=== PATIENT | female | born 1975 | race Caucasian/White ===

== ENCOUNTER 2018-05-06 10:09 | Emergency (ER) | payer MEDICAID, SELFPAY ==
[2018-05-06 10:12] VITALS: BP 131/81; PULSE 102; RESP 17; TEMP 36.4; O2SAT 100; BMI 30.2
--- NOTE | 2018-05-06 10:32 | ED.VISSUMM ---
- ER Visit Summary Date of Service: 05/06/18 Chief Complaint: Right ring finger laceration History of Present Illness: The patient is a 42 F who cut her right ring finger on a knife today. Patient reports having had a tetanus 3 years ago. Physical Examination: Afebrile vital signs stable 2 cm partial-thickness laceration to the palmar aspect of the distal right ring finger. Wound edges are well approximated. There is no active bleeding. Neurovascular intact. Emergency Department Course and Treatment: Digital block with 1% lidocaine was performed. Wound was washed and closed with Dermabond. Wound care discussed with patient. Impression: 1. 2 cm finger laceration with repair This note was generated with [employer] dictation software. It may contain incorrect words, spelling, and punctuation that were not noted in review of the chart prior to signing ED Disposition - Plan for ED Patient: Disposition: Home or Assisted Living Chief Complaint: Laceration Instructions: ED Laceration Ext Skin Glue
--- NOTE | 2018-05-06 10:50 | ED.DCSUM_ITS ---
- ER Visit Summary Date of Service: 05/06/18 Chief Complaint: Right ring finger laceration History of Present Illness: The patient is a 42 F who cut her right ring finger on a knife today. Patient reports having had a tetanus 3 years ago. Physical Examination: Afebrile vital signs stable 2 cm partial-thickness laceration to the palmar aspect of the distal right ring finger. Wound edges are well approximated. There is no active bleeding. Neurovascular intact. Emergency Department Course and Treatment: Digital block with 1% lidocaine was performed. Wound was washed and closed with Dermabond. Wound care discussed with patient. Impression: 1. 2 cm finger laceration with repair This note was generated with [employer] dictation software. It may contain incorrect words, spelling, and punctuation that were not noted in review of the chart prior to signing ED Disposition - Plan for ED Patient: Disposition: Home or Assisted Living Chief Complaint: Laceration Instructions: ED Laceration Ext Skin Glue
== END 2018-05-06 11:10 | disposition home or self-care (01) ==
PROVIDERS: Emergency Provider Emergency Medicine
DX: S61.214A Laceration without foreign body of right ring finger without damage to nail, initial encounter (principal); F32.9 Major depressive disorder, single episode, unspecified; Z79.899 Other long term (current) drug therapy; W26.0XXA Contact with knife, initial encounter; Y93.89 Activity, other specified; Y92.89 Other specified places as the place of occurrence of the external cause; Y99.8 Other external cause status
CPT/HCPCS: 12001; 99282

== ENCOUNTER 2018-08-08 19:49 | Emergency (ER) | payer MEDICAID, SELFPAY ==
[2018-08-08 19:50] VITALS: BP 147/88; PULSE 94; RESP 15; TEMP 36.3; O2SAT 97; BMI 30.7
--- NOTE | 2018-08-08 20:42 | RAD_ITS ---
STUDY: X-RAY - LEFT HAND REASON FOR EXAM: Female, 43 years old. Nail injury. Pain. TECHNIQUE: Three view(s) of the hand. COMPARISON: None. FINDINGS: Bones: There are no acute osseous abnormalities. Joints: The joints are unremarkable. Soft tissues: The soft tissues are unremarkable. Foreign body: None RAD/Hand Min 3 Views IMPRESSION: No acute abnormalities are seen in the hand. Electronically Signed: Trevon Ames MD at 21:42 EDT , Service support ,
[2018-08-08] MEDS: oxyCODONE 5 MG Tablet PO (21:00)
--- NOTE | 2018-08-08 21:48 | ED.VISSUMM ---
- ER Visit Summary Date of Service: 08/08/18 Chief Complaint: Left middle finger injury History of Present Illness: The patient is a 43 F presenting with left middle finger injury. She states this occurred yesterday. She got her left middle finger nail caught on a nail. Today she caught her nail again and snagged it. Her tetanus is up-to-date. She denies other injuries. Physical Examination: Vitals are stable. Patient is afebrile. Alert no acute distress. HEENT exam is unremarkable. Lungs are clear and equal bilaterally. Heart is regular rate and rhythm. Abdomen is soft nontender nondistended. Extremities mid nail crack left middle finger. No subungal hematoma. AFROM. Normal cap refill Skin is warm and dry. No focal neurologic deficit. Remainder of exam is unremarkable. Emergency Department Course and Treatment: Her tetanus is up-to-date. She was given [place] x1. Left hand x-ray shows no acute process. Wound was covered for protection. Advised to follow-up with primary care physician. Advised return to ED for worsening complaints. Disposition: Discharge home Impression: Left middle finger injury This note was generated with [employer] dictation software. It may contain incorrect words, spelling, and punctuation that were not noted in review of the chart prior to signing ED Disposition - Plan for ED Patient: Chief Complaint: Laceration Referrals: Care Physician,No Primary [Primary Care Provider] -
--- NOTE | 2018-08-08 21:51 | ED.DCSUM_ITS ---
- ER Visit Summary Date of Service: 08/08/18 Chief Complaint: Left middle finger injury History of Present Illness: The patient is a 43 F presenting with left middle finger injury. She states this occurred yesterday. She got her left middle finger nail caught on a nail. Today she caught her nail again and snagged it. Her tetanus is up-to-date. She denies other injuries. Physical Examination: Vitals are stable. Patient is afebrile. Alert no acute distress. HEENT exam is unremarkable. Lungs are clear and equal bilaterally. Heart is regular rate and rhythm. Abdomen is soft nontender nondistended. Extremities mid nail crack left middle finger. No subungal hematoma. AFROM. Normal cap refill Skin is warm and dry. No focal neurologic deficit. Remainder of exam is unremarkable. Emergency Department Course and Treatment: Her tetanus is up-to-date. She was given [place] x1. Left hand x-ray shows no acute process. Wound was covered for protection. Advised to follow-up with primary care physician. Advised return to ED for worsening complaints. Disposition: Discharge home Impression: Left middle finger injury This note was generated with [employer] dictation software. It may contain incorrect words, spelling, and punctuation that were not noted in review of the chart prior to signing ED Disposition - Plan for ED Patient: Chief Complaint: Laceration Referrals: Care Physician,No Primary [Primary Care Provider] -
--- NOTE | 2018-08-08 21:58 | ED.DEP ---
ED Disposition - Plan for ED Patient: Chief Complaint: Laceration Instructions: ED Laceration Hand Prescriptions: Naproxen [Naprosyn] 500 mg PO BID PRN #20 tablet Referrals: Care Physician,No Primary [Primary Care Provider] - Luis Franklin MD [STAFF PHYSICIAN] -
[2018-08-08 22:07] VITALS: RESP 14
== END 2018-08-08 22:07 | disposition home or self-care (01) ==
LOC: ED 20:43
PROVIDERS: Emergency Provider Emergency Medicine
DX: S69.92XA Unspecified injury of left wrist, hand and finger(s), initial encounter (principal); Z79.899 Other long term (current) drug therapy; X58.XXXA Exposure to other specified factors, initial encounter; Y93.89 Activity, other specified; Y92.89 Other specified places as the place of occurrence of the external cause; Y99.8 Other external cause status
CPT/HCPCS: 73130; 99283

== ENCOUNTER 2018-11-15 19:09 | Emergency (ER) | payer MEDICAID, SELFPAY ==
[2018-11-15 19:11] VITALS: BP 124/76; PULSE 82; RESP 17; TEMP 36.3; O2SAT 100; BMI 33.1
--- NOTE | 2018-11-15 20:30 | ED.VISSUMM ---
- ER Visit Summary Date of Service: 11/15/18 Chief Complaint: Rash History of Present Illness: The patient is a 43 F who presents with a generalized rash for the past month. Patient states her and her both have had this rash for the past month. Patient states she was treated for scabies. Patient states the rash is pruritic and generalized from the neck down. Patient states the pruritus improves after scratching. Patient denies any new exposures. Patient states she has been washing her clothes and bed sheets frequently patient states she did change laundry detergents approximately a month and a half ago but then switched back to the previous laundry detergent. Physical Examination: Vital signs are stable. Patient is afebrile. Patient is in no acute distress. Skin is warm and dry. There is a diffuse erythematous maculopapular rash over the trunk, upper extremities, and lower extremities bilaterally. Oral mucosa is pink and moist. Oropharynx is clear. Airway is patent. Neck is supple. Trachea is midline. There is no JVD noted. Heart was regular rate and rhythm. Lungs are clear and equal bilaterally. Abdomen is soft and nontender. Cranial nerves II through XII are intact. There are no focal motor or sensory deficits noted. Emergency Department Course and Treatment: Patient was given prescriptions for Atarax and prednisone. Patient was instructed to follow-up with her primary care physician in 5-7 days. Patient understood and was agreeable with the plan. All questions were answered. Disposition: Discharge home Impression: Dermatitis This note was generated with [employer] [facility] [place] dictation software. It may contain incorrect words, spelling, and punctuation that were not noted in review of the chart prior to signing ED Disposition - Plan for ED Patient: Disposition: Home or Assisted Living Chief Complaint: Rash Diagnosis: Dermatitis Instructions: ED Dermatitis Non Specific Rash Prescriptions: Hydroxyzine HCl 25 mg PO Q8H PRN PRN #20 tab PRN Reason: Itching predniSONE tablet 60 mg PO DAILY #15 tab Referrals: Care Physician,No Primary [Primary Care Provider] -
[2018-11-15 20:45] VITALS: RESP 18
== END 2018-11-15 20:46 | disposition home or self-care (01) ==
PROVIDERS: Emergency Provider Emergency Medicine
DX: L30.9 Dermatitis, unspecified (principal); F41.9 Anxiety disorder, unspecified; F32.9 Major depressive disorder, single episode, unspecified; Z85.41 Personal history of malignant neoplasm of cervix uteri; Z79.899 Other long term (current) drug therapy
CPT/HCPCS: 99282

== ENCOUNTER 2018-11-21 19:24 | Emergency (ER) | payer MEDICAID, SELFPAY ==
[2018-11-21 19:27] VITALS: BP 125/91; PULSE 89; RESP 20; TEMP 36.7; O2SAT 96; BMI 32.9
--- NOTE | 2018-11-21 19:45 | EKG12_ITS ---
Test Reason : HEADACHE Blood Pressure : / mmHG Vent. Rate : 082 BPM Atrial Rate : 082 BPM P-R Int : 120 ms QRS Dur : 088 ms QT Int : 368 ms P-R-T Axes : 036 031 046 degrees QTc Int : 429 ms Normal sinus rhythm Normal ECG Confirmed by ANN BAER MD ([id number]), subeditor BEN GARZA ([id number]) on 11/23/2018 1:07:59 PM Referred By: CHRISTOPHE Confirmed By:ANN BAER MD
[2018-11-21] MEDS: 0.9% Normal Saline 1,000 ML 1000 ML IV (20:08)
[2018-11-21] MEDS: Morphine 4 MG/ML Syringe IV (20:08)
[2018-11-21] MEDS: Ondansetron 4 MG/2 ML Vial IV (20:08)
--- NOTE | 2018-11-21 20:10 | RAD_ITS ---
STUDY: X-RAY CHEST REASON FOR EXAM: Female, 43 years old. Chest pain. Nausea and vomiting. TECHNIQUE: Single AP portable view of the chest. COMPARISON: 11/05/17. FINDINGS: The lungs are clear and expanded. There is no demonstrated pleural abnormality. Normal size heart. Normal mediastinum and joann. Normal visualized pulmonary arteries. Normal visualized aortic arch and descending thoracic aorta. Normal visualized thoracic spine. Normal visualized ribs, clavicles, and shoulders. There is no demonstrated abnormality of the visualized soft tissue structures of the upper abdomen. RAD/Chest 1 View (Portable) IMPRESSION: Normal x-ray examination of the chest. Electronically Signed: Montrell Latif MD at 20:48 EST , Service support ,
[2018-11-21 20:20] LABS: Absolute Neutrophil Count 10.5 X10^3/uL (2.0-7.7); Basophil% 0.2 % (0-1); Eosinophils% 1.8 % (0-5); Hematocrit 43.7 % (37-47); Hemoglobin 14.9 g/dl (12.0-15.0); Lymphocyte % 7.3 % (19-41); Mean Corp Hgb Conc 34.1 g/gl (32-36); Mean Corpuscular Hgb 32.2 pg (27.0-32.0); Mean Corpuscular Volume 94.4 fL (81-99); Mean Platelet Vol. 8.7 fl (6.2-12.0); Monocyte% 4.5 % (0-10); Neutrophil # 10.47 X10^3/uL (2.7-7.7); Neutrophil % 85.5 % (47-70); Platelet Count 282 K/mm3 (150-450); RBC Distribution Width CV 12.8 % (11.6-14.6); RBC Distribution Width SD 43.4 fl (35.1-43.9); Red Blood Count 4.63 M/mm3 (4.2-5.4); White Blood Count 12.2 K/mm3 (4.4-11.0)
[2018-11-21 20:21] LABS: Absolute Lymphocyte Count 0.89 X10^3/ul (0.83-4.51); Basophil# 0.02 X10^3/uL; Eosinophil# 0.22 X10^3/uL; Lymphocyte # 0.89 X10^3/ul (4.0); Monocyte# 0.55 X10^3/uL; POSITIVE COUNT NO; POSITIVE DIFFERENTIAL NO; POSITIVE MORPHOLOGY NO
[2018-11-21 20:24] LABS: D-Dimer Quantitative (DVT/PE) < 0.27 FEU/ug/m (0.27-0.49)
[2018-11-21 20:36] LABS: ALB/GLOB Ratio 1.2 RATIO (0.9-2.4); AST(SGOT) 17 U/L (15-37); Alanine Aminotransfer ALT/SGPT 51 U/L (13-56); Albumin, Serum 3.9 g/dL (3.2-5.0); Alkaline Phosphatase 50 U/L (45-117); Anion Gap 8 (5-15); BUN 16 mg/dL (7-18); BUN/Creat Ratio 22.2 RATIO (10-20); Calcium,Total 8.1 mg/dL (8.5-10.1); Chloride 104 mmol/L (98-107); Creatinine, Serum 0.72 mg/dL (0.55-1.02); EST Glomerular Filtration Rate 95 mL/min (>60); Est Glom Filt Rate - Afr Amer 115 mL/min (>60); Estimated Creatinine Clearance 99.99 ml/min; Globulin 3.2 g/dL (2.2-4.2); Glucose 93 mg/dL (74-106); Potassium 3.5 mmol/L (3.5-5.1); Protein, Total 7.1 g/dL (6.4-8.2); Sodium Level 139 mmol/L (136-145)
[2018-11-21 20:38] LABS: Mucous, Urine 0 SEEN /hpf (<or=2+); Red Blood Cells-Urine 0 SEEN /hpf (0-5); White Blood Cells 0 SEEN /hpf (0-5)
[2018-11-21 20:40] VITALS: BP 121/66; PULSE 83; RESP 16; O2SAT 100
[2018-11-21 20:44] LABS: Color, Urine Yellow (Yellow); Glucose, Dipstick Normal (Normal); Ketone-Dipstick Negative (Negative); Leukocyte Esterase-Dipstick Negative /ul (Negative); Nitrite-Dipstick Negative (Negative); Occult Blood-Urine Negative /ul (Negative); Protein-Dipstick Negative (Negative); Urine Bilirubin Dipstick Negative (Negative); Urine Clarity Clear (Clear); Urine Urobilinogen Normal (Normal)
[2018-11-21 20:50] LABS: Bacteria RARE /hpf (None Seen); Squamous Epithelial Cells - UA 0-5 SEEN /hpf (5-10)
--- NOTE | 2018-11-21 21:13 | CT_ITS ---
STUDY: CT BRAIN WITH AND WITHOUT CONTRAST REASON FOR EXAM: Female, 43 years old. Pain. RADIATION DOSAGE (If Supplied By Facility): CTDIvol = ( 27.65 ) mGy, DLP = ( 1408.21 ) mGycm TECHNIQUE: Transaxial CT imaging of the brain was performed pre and post contrast administration. The examination was performed with intravenous administration of 100ML ml of Isovue 370 contrast material. Individualized dose optimization techniques were used for this CT. COMPARISON: None. FINDINGS: Normal soft tissue structures. Normal calvarium. Normal size ventricles and extra-axial spaces for the patient's age. Normal white matter tracts of the cerebral hemispheres. Normal basal ganglia and thalami. Normal brainstem. Normal cerebellum. There is no intracranial hemorrhage. There are no findings of an acute ischemic infarction. Normal visualized paranasal sinuses. CT/CTA Head W/WO Contrast IMPRESSION: Normal unenhanced and enhanced CT scan of the brain. Electronically Signed: Montrell Latif MD at 22:14 EST , Service support ,
--- NOTE | 2018-11-21 21:13 | CT_ITS ---
STUDY: CTA NECK WITH CONTRAST REASON FOR EXAM: Female, 43 years old. Head pain. RADIATION DOSAGE (If Supplied By Facility): CTDIvol = ( 27.65 ) mGy, DLP = ( 1408.21 ) mGycm TECHNIQUE: CT angiography with multi-detector data acquisition was performed from the aortic arch to the skull base following intravenous administration of 100ML ml of Isovue 370 contrast. MIP images were reconstructed from the axial data set. Post-processing of the angiographic images was performed, with multiplanar reformation and 3D reconstruction. Individualized dose optimization techniques were used for this CT. COMPARISON: None. FINDINGS: AORTIC ARCH: Normal visualized aortic arch. Normal origins of the brachiocephalic, left common carotid, and left subclavian arteries. RIGHT CAROTID ARTERIES: Normal right common carotid artery (CCA). Normal right common carotid bulb. Normal origin of the right internal carotid (ICA) artery without a hemodynamically significant stenosis. Normal visualized cervical portion of the right internal carotid artery. Normal origin of the right external carotid artery (ECA). LEFT CAROTID ARTERIES: Normal left common carotid artery (CCA). Normal left common carotid bulb. Normal origin of the left internal carotid (ICA) artery without a hemodynamically significant stenosis. Normal visualized cervical portion of the left internal carotid artery. Normal origin of the left external carotid artery (ECA). VERTEBRAL ARTERIES: There is enhancement within the bilateral vertebral arteries with a small right vertebral artery, and a dominant left vertebral artery. CT/CTA Neck W/WO Contrast IMPRESSION: Normal bilateral cervical carotid and vertebral arteries. Electronically Signed: Montrell Latif MD at 22:17 EST , Service support ,
[2018-11-21 21:22] VITALS: BP 128/99; PULSE 78; RESP 16; O2SAT 100
[2018-11-21] MEDS: Metoclopramide 10 MG/2 ML Vial 5 MG IV (21:22)
[2018-11-21] MEDS: DiphenhydrAMINE 50 MG/ML Syringe 25 MG IV (21:22)
--- NOTE | 2018-11-21 22:42 | ED.DEP ---
ED Disposition - Plan for ED Patient: Chief Complaint: General Illness Instructions: ED Cephalgia Unspecified Referrals: Care Physician,No Primary [Primary Care Provider] - Jose J Love DO [STAFF PHYSICIAN] -
--- NOTE | 2018-11-21 22:48 | ED.VISSUMM ---
- ER Visit Summary Date of Service: 11/21/18 Chief Complaint: Headache, chest pain History of Present Illness: The patient is a 43 F presenting with headache, neck pain, chest pain. She also complains of abdominal pain, nausea, vomiting, diarrhea. She denies shortness of breath. She states her neck pain has been ongoing for the past year. She states it worsened today. She denies injury. She denies fever. She states she has pain in her head but no headache. She has a history of cervical cancer in remission. Denies other complaints. Physical Examination: Vitals are stable. Patient is afebrile. Alert no acute distress. HEENT exam is unremarkable. Neck is supple. No meningismus Lungs are clear and equal bilaterally. Heart is regular rate and rhythm. Abdomen is soft nontender nondistended. No guarding or rebound Extremities are unremarkable. Skin is warm and dry. No rash No focal neurologic deficit. Remainder of exam is unremarkable. Emergency Department Course and Treatment: EKG is sinus rate of 82 with no acute ischemic changes. CBC shows white count 12.2. Chemistries are unremarkable. Urinalysis unremarkable. Troponin is negative. D-dimer negative. Chest x-ray shows no acute process. Patient was given IV fluids, morphine, Zofran. she had some improvement. She continues to complain of headache. All of her other symptoms have resolved. She is given Reglan and Benadryl with improvement of her headache. CTA head and neck shows no acute process. She is now resting comfortably. 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 She is advised to return to ED if worsening complaints. Disposition: Discharge home Impression: Headache, atypical chest pain, nausea vomiting diarrhea This note was generated with [employer] dictation software. It may contain incorrect words, spelling, and punctuation that were not noted in review of the chart prior to signing ED Disposition - Plan for ED Patient: Chief Complaint: General Illness Instructions: ED Cephalgia Unspecified Referrals: Jose J Love DO [STAFF PHYSICIAN] - Care Physician,No Primary [Primary Care Provider] -
[2018-11-21 22:59] VITALS: BP 117/68; PULSE 84; RESP 16; O2SAT 99
--- OUTSIDE RECORDS SUMMARY | 2019-01-24 12:19 | XMS RPT_ITS ---
:1975 Author Organization OHIP Care Team Providers Name Role Phone STEVEN EKVIN) Attending Unavailable STEVEN KEVIN) Referring Unavailable Primay Care Physicia, No Primary Care Unavailable Brian Christine Attending Unavailable Primay Care Physicia, No Primary Care Unavailable Savana Acuña Attending Unavailable Corey Hampton Attending Unavailable Primay Care Physicia, No Primary Care Unavailable Primay Care Physicia, No Primary Care Unavailable Savana Acuña Attending Unavailable PROBLEMS PROBLEMS DATE TYPE CONDITION / CODE ATTENDING STATUS SOURCE 12/05/2016 Active Bipolar disorder, NA Active [facility] unspecified / Main [place] F31.9(ICD-10) Repository 02/05/2018 Active Generalized NA Active [facility] anxiety disorder / Main [place] F41.1(ICD-10) Repository PROCEDURES PROCEDURES No Procedure Records FoundRESULTS RESULTS 12 LEAD ELECTROCARDIOGRAM Observed: 11/23/2018 Status: F Source: [place] 1:08 PM [facility] REPOSITORY [facility] Cardiovascular Services [address] [place] [address] 12 Lead EKG 11/21/181951 MR#: [id number] Acct: [id number] Name: ELIECER VENTURA Rep #: [id number] : 1975 43 From: Kishore Padilla MD Attending Dr: Status: DEP ER Ordering Dr: Savana Acuña MD Date: 11/21/18 Location: ED Sex: F C Admitted: Test Reason : HEADACHE Blood Pressure : / mmHG Vent. Rate : 082 BPM Atrial Rate : 082 BPM P-R Int : 120 ms QRS Dur : 088 ms QT Int : 368 ms P-R-T Axes : 036 031 046 degrees QTc Int : 429 ms Normal sinus rhythm Normal ECG Confirmed by KISHORE PADILLA MD ([id number]), purchase request editor BEN GARZA ([id number]) on 11/23/2018 1:07:59 PM Referred By: CHRISTOPHE Confirmed By:KISHORE PADILLA MD 11/23/18 1308 Date Kishore Padilla MD CC: No Primary Care Physician; Savana Acuña MD Signed EMERGENCY DEPARTMENT Observed: 11/21/2018 Status: F Source: DARI[place] SUMMARY 10:55 PM [facility] REPOSITORY [facility] Medical Records Department [address] [place] [address] Emergency Department Summary 11/21/188 MR#: [id number] Acct: [id number] Name: VENTURAELIECER MARI Rep #: [id number] : 1975 43 From: Savana Acuña MD PCP: Care Physician, No Primary Status: REG ER - ER Visit Summary Date of Service: 11/21/18 Chief Complaint: Headache, chest pain History of Present Illness: The patient is a 43 F presenting with headache, neck pain, chest pain. She also complains of abdominal pain, nausea, vomiting, diarrhea. She denies shortness of breath. She states her neck pain has been ongoing for the past year. She states it worsened today. She denies injury. She denies fever. She states she has pain in her head but no headache. She has a history of cervical cancer in remission. Denies other complaints. Physical Examination: Vitals are stable. Patient is afebrile. Alert no acute distress. HEENT exam is unremarkable. Neck is supple. No meningismus Lungs are clear and equal bilaterally. Heart is regular rate and rhythm. Abdomen is soft nontender nondistended. No guarding or rebound Extremities are unremarkable. Skin is warm and dry. No rash No focal neurologic deficit. Remainder of exam is unremarkable. Emergency Department Course and Treatment: EKG is sinus rate of 82 with no acute ischemic changes. CBC shows white count 12.2. Chemistries are unremarkable. Urinalysis unremarkable. Troponin is negative. D-dimer negative. Chest x-ray shows no acute process. Patient was given IV fluids, morphine, Zofran. she had some improvement. She continues to complain of headache. All of her other symptoms have resolved. She is given Reglan and Benadryl with improvement of her headache. CTA head and neck shows no acute process. She is now resting comfortably. She is advised to follow-up with Dr. Love compensation and benefits advisor for no doc. She is advised to return to ED if worsening complaints. Disposition: Discharge home Impression: Headache, atypical chest pain, nausea vomiting diarrhea This note was generated with stylemarks dictation software. It may contain incorrect words, spelling, and punctuation that were not noted in review of the chart prior to signing ED Disposition - Plan for ED Patient: Chief Complaint: General Illness Instructions: ED Cephalgia Unspecified Referrals: Jose J Love, [STAFF PHYSICIAN] - Care Physician,No Primary [Primary Care Provider] - What to do if you have Problems For any increased pain, shortness of breath, bleeding, nausea or vomiting, chest pain, or any unexpected problems, contact your Primary Care Provider. Call [facility] ([phone]) or report to the closest Emergency Room. Call 911 if necessary. 11/21/18 7151 <Electronically signed by Savana Acuña MD> Date Savana Acuña MD Cosigner Signature (If Indicated): Date CC: No Primary Care Physician DISCHARGE INSTRUCTION Observed: 11/21/2018 Status: F Source: [place] 10:42 PM [facility] REPOSITORY [facility] Medical Records Department [address] [place] [address] Discharge Instruction 11/21/182241 MR#: [id number] Acct: [id number] Name: ELIECER VENTURA Rep #: [id number] : 1975 43 From: Savana Acuña MD PCP: Care Physician, No Primary Status: REG ER ED Disposition - Plan for ED Patient: Chief Complaint: General Illness Instructions: ED Cephalgia Unspecified Referrals: Care Physician,No Primary [Primary Care Provider] - Jose J Love, [STAFF PHYSICIAN] - What to do if you have Problems For any increased pain, shortness of breath, bleeding, nausea or vomiting, chest pain, or any unexpected problems, contact your Primary Care Provider. Call [facility] ([phone]) or report to the closest Emergency Room. Call 911 if necessary. 11/21/182241 <Electronically signed by Savana Acuña MD> Date Savana Acuña MD Cosigner Signature (If Indicated): Date CC: No Primary Care Physician CTA HEAD W/WO Observed: 11/21/2018 Status: F Source: [place] CONTRAST 9:15 PM [facility] REPOSITORY [facility] Imaging Services [address] [place] [address] CTA Head W/WO Contrast MR#: [id number] Acct: [id number] Name: ELIECER VENTURA Rep #: [id number] : 1975 F 43 From: Montrell Latif MD PCP: Care Physician, No Primary Status: REG ER Study: CTA Head W/WO Contrast Date of Exam: 11/21/18 Exam# [id number] Ordering Dr: Savana Acuña MD STUDY: CT BRAIN WITH AND WITHOUT CONTRAST REASON FOR EXAM: Female, 43 years old. Pain. RADIATION DOSAGE (If Supplied By Facility): CTDIvol = ( 27.65 ) mGy, DLP = ( 1408.21 ) mGycm TECHNIQUE: Transaxial CT imaging of the brain was performed pre and post contrast administration. The examination was performed with intravenous administration of 100ML ml of Isovue 370 contrast material. Individualized dose optimization techniques were used for this CT. COMPARISON: None. FINDINGS: Normal soft tissue structures. Normal calvarium. Normal size ventricles and extra-axial spaces for the patient's age. Normal white matter tracts of the cerebral hemispheres. Normal basal ganglia and thalami. Normal brainstem. Normal cerebellum. There is no intracranial hemorrhage. There are no findings of an acute ischemic infarction. Normal visualized paranasal sinuses. CT/CTA Head W/WO Contrast IMPRESSION: Normal unenhanced and enhanced CT scan of the brain. Electronically Signed: Montrell Latif MD at 22:14 EST , Service support , CC: No Primary Care Physician; Savana Acuña MD Cook Helper Dessert: Signed CTA NECK W/WO Observed: 11/21/2018 Status: F Source: [place] CONTRAST 9:15 PM [facility] REPOSITORY [facility] Imaging Services [facility] [place] [address] [place] [address] CTA Neck W/WO Contrast MR#: [id number] Acct: [id number] Name: ELIECER VENTURA Rep #: [id number] : 1975 F 43 From: Montrell Latif MD PCP: Care Physician, No Primary Status: REG ER Study: CTA Neck W/WO Contrast Date of Exam: 11/21/18 Exam# [id number] Ordering Dr: Savana Acuña MD STUDY: CTA NECK WITH CONTRAST REASON FOR EXAM: Female, 43 years old. Head pain. RADIATION DOSAGE (If Supplied By Facility): CTDIvol = ( 27.65 ) mGy, DLP = ( 1408.21 ) mGycm TECHNIQUE: CT angiography with multi-detector data acquisition was performed from the aortic arch to the skull base following intravenous administration of 100ML ml of Isovue 370 contrast. MIP images were reconstructed from the axial data set. Post-processing of the angiographic images was performed, with multiplanar reformation and 3D reconstruction. Individualized dose optimization techniques were used for this CT. COMPARISON: None. FINDINGS: AORTIC ARCH: Normal visualized aortic arch. Normal origins of the brachiocephalic, left common carotid, and left subclavian arteries. RIGHT CAROTID ARTERIES: Normal right common carotid artery (CCA). Normal right common carotid bulb. Normal origin of the right internal carotid (ICA) artery without a hemodynamically significant stenosis. Normal visualized cervical portion of the right internal carotid artery. Normal origin of the right external carotid artery (ECA). LEFT CAROTID ARTERIES: Normal left common carotid artery (CCA). Normal left common carotid bulb. Normal origin of the left internal carotid (ICA) artery without a hemodynamically significant stenosis. Normal visualized cervical portion of the left internal carotid artery. Normal origin of the left external carotid artery (ECA). VERTEBRAL ARTERIES: There is enhancement within the bilateral vertebral arteries with a small right vertebral artery, and a dominant left vertebral artery. CT/CTA Neck W/WO Contrast IMPRESSION: Normal bilateral cervical carotid and vertebral arteries. Electronically Signed: Montrell Latif MD at 22:17 EST , Service support , CC: No Primary Care Physician; Savana Acuña MD Cook Helper Dessert: Signed URINALYSIS, COMPLETE Collected: 11/21/2018 Status: F Source: [place] 8:30 PM [facility] REPOSITORY Order Comment: Order Date: 11/21/18 Has pt arrived? Y How was Urine Obtained? CLEAN CATCH TYPE CODE TESTS RESULT OUT OF RANGE REFERENCE UNITS LAB L400.3000 Yellow COLOR Normal Yellow LAB L400.3050 Clear Normal CLARITY Clear LAB L400.3200 Normal mg/dl Normal GLUCOSE, UR Normal LAB L400.3300 Negative mg/dL Normal BILIRUBIN URINE Negative LAB L400.3400 Negative mg/dl Normal KETONE UR Negative LAB L400.3465 1.002-1.030 Normal SP.GR. DIPSTX 1.010 LAB L400.3550 5.0 - 8.0 pH UR Normal 8.0 LAB L400.3600 Negative mg/dl PROT Normal DIPSTX Negative LAB L400.3700 Normal mg/dl Normal UROBILI Normal LAB L400.3750 Negative Normal NITRITE UR Negative LAB L400.3780 Negative /ul Normal OCCULT BLOOD-UR Negative LAB L400.3800 Negative /ul LEUK Normal ESTERASE Negative LAB L400.4050 0-5 /hpf WBC 0 Normal SEEN LAB L400.4100 0-5 /hpf 0 Normal RBC-UA SEEN LAB L400.4150 5-10 /hpf SQUAM Normal EPI 0-5 SEEN LAB L400.4300 None Seen /hpf Normal BACTERIA RARE LAB L400.4350 <or=2+ /hpf 0 Normal MUCUS, URINE SEEN Performed By: #### L400.0001 #### [facility] [address] [place], [place], [id number] Observed: 11/21/2018 Status: F Source: [place] INFLUENZA A+B (RAPID 8:21 PM [facility]) REPOSITORY Has pt arrived? Y FLU A/B Rapid Negative test results should be confirmed with FLU PANEL MOLECULAR if indicated. Influenza Ag, Direct Presumptive NEGATIVE for Influenza A/B Antigen (See Note) Performed By: #### M101.0101 #### [facility] [address] [place], [place], [address] CBC W/DIFF, AUTOMATED Collected: 11/21/2018 Status: F Source: [place]AR[place] 8:07 PM [facility] REPOSITORY TYPE CODE TESTS RESULT OUT OF RANGE REFERENCE UNITS LAB L100.1000 4.4-11.0 K/mm3 High WBC 12.2 LAB L100.1200 4.2-5.4 M/mm3 Normal RBC 4.63 LAB L100.1300 12.0-15.0 g/dl Normal HGB 14.9 LAB L100.1400 37-47 % Normal HCT 43.7 LAB L100.1500 81-99 fL Normal MCV 94.4 LAB L100.1600 27.0-32.0 pg High MCH 32.2 LAB L100.1700 32-36 g/gl Normal MCHC 34.1 LAB L100.1810 11.6-14.6 % Normal RDW CV 12.8 LAB L100.1820 35.1-43.9 fl Normal RDW SD 43.4 LAB L100.1900 150-450 K/mm3 Normal PLT 282 LAB L100.2000 6.2-12.0 fl Normal MPV 8.7 LAB L100.2100 47-70 % High NEUT% 85.5 LAB L100.2200 19-41 % Low LY% 7.3 LAB L100.2300 0-10 % Normal MONO% 4.5 LAB L100.2400 0-5 % Normal EO% 1.8 LAB L100.2500 0-1 % Normal BASO% 0.2 LAB L100.2550 0.0-0.9 % Normal IM GRAN % 0.700 Result Comment: IG% - Immature Granulocytes (promyelocytes, myelocytes and metamyelocytes) > 1% indicates that a LEFT SHIFT is Present. LAB L100.2620 2.0-7.7 X10 3/uL High Absolute Neut 10.5 LAB L100.2720 0.83-4.51 X10 3/ul Normal Absolute Lymph 0.89 Performed By: #### L100.0100 #### [facility] [address] [place], [place], [address] D-DIMER QUANTITATIVE Collected: 11/21/2018 Status: F Source: [place] (DVT/PE) 8:07 PM [facility] REPOSITORY TYPE CODE TESTS RESULT OUT OF RANGE REFERENCE UNITS LAB L300.8000 0.27-0.49 FEU/ug/m Low D-DIMER < 0.27 QUANT Result Comment: NORMAL D-Dimer level (<0.50) indicates no DVT or PE. Performed By: #### L300.8000 #### [facility] [address] [place], [address] COMPREHENSIVE METABOLIC Collected: 11/21/2018 Status: F Source: [place] PROFIL 8:07 PM [facility] REPOSITORY Order Comment: 'TROP' Serial specimen #1, #2, #3, or #4: 1 TYPE CODE TESTS RESULT OUT OF RANGE REFERENCE UNITS LAB L501.0100 74-106 mg/dL Normal GLU 93 Result Comment: Please note revised GLUCOSE reference range effective 2017. LAB L501.1000 7-18 mg/dL Normal BUN 16 LAB L501.1100 0.55-1.02 mg/dL Normal CREAT,SERUM 0.72 Result Comment: The validity of the calculated GFR AND GFRAA in patients over 70 years has not been determined. Clinical correlation is essential. LAB L501.1110 >60 mL/min Normal EST GFR 95 Result Comment: Non- GFR Calc LAB L501.1115 >60 mL/min Normal EST GFR - AA 115 Result Comment: GFR Calc LAB L501.1255 ml/min Normal Estimated CRCL 99.99 LAB L501.1300 10-20 RATIO High BUN/CRE 22.2 LAB L501.1500 6.4-8. g/dL Normal 2 T PROT 7.1 LAB L501.1800 3.2-5. g/dL Normal 0 ALB 3.9 LAB L501.1950 2.2-4. g/dL Normal 2 GLOB 3.2 LAB L501.2000 0.9-2. RATIO Normal 4 A/G 1.2 LAB L501.2200 8.5-10 mg/dL Low .1 CA 8.1 LAB L501.4100 15-37 U/L Normal AST 17 LAB L501.4305 45-117 U/L Normal ALK P 50 LAB L501.4405 13-56 U/L Normal ALT 51 LAB L501.4600 0.20-1 mg/dL Normal .00 T BILI 0.90 LAB L501.5300 136-14 mmol/L Normal 5 NA 139 LAB L501.5600 3.5-5. mmol/L Normal 1 K 3.5 LAB L501.5900 98-107 mmol/L Normal CL 104 LAB L501.6100 21.0-3 mmol/L Normal 2.0 CO2 27.0 LAB L501.6200 5-15 Normal GAP 8 Performed By: #### L500.4050, L501.4010 #### [facility] [address] [facility] [place], [address] TROPONIN-I Collected: 11/21/2018 Status: F Source: [place] 8:07 PM [facility] REPOSITORY Order Comment: 'TROP' Serial specimen #1, #2, #3, or #4: 1 TYPE CODE TESTS RESULT OUT OF RANGE REFERENCE UNITS LAB L501.4010 <0.045 ng/mL Normal < 0.015 TROPONIN-I Result Comment: TROPONIN-I EXPECTED VALUES <0.045 Negative 0.045 - 0.590 Consistent with Cardiac Damage > OR = 0.600 Critical Value Not every elevated troponin is indicative of [place]. These values should be used with clinical judgement in examining the patient's clinical picture for diagnosis. To establish a diagnosis of [place] versus myocardial injury, there must be a demonstrated rise and/or fall in the troponin values, in addition to ischemic symptoms, EKG changes, new regional wall motion abnormality, and/or angiographical evidence. PLEASE NOTE: REFERENCE RANGES EDITED 18 Performed By: #### L500.4050, L501.4010 #### [facility] [address] [facility] [place], [address] CHEST 1 VIEW Observed: 11/21/2018 Status: F Source: [place] (PORTABLE) 7:47 PM [facility] REPOSITORY [facility] Imaging Services [address] [place] [address] Chest 1 View (Portable) MR#: [id number] Acct: [id number] Name: AUDREYELIECERSHRUTI GUERRA Rep #: [id number] : 1975 F 43 From: Montrell Latif MD PCP: Care Physician, No Primary Status: REG ER Study: Chest 1 View (Portable) Date of Exam: 11/21/18 Exam# [id number] Ordering Dr: Savana Acuña MD STUDY: X-RAY CHEST REASON FOR EXAM: Female, 43 years old. Chest pain. Nausea and vomiting. TECHNIQUE: Single AP portable view of the chest. COMPARISON: 11/05/17. FINDINGS: The lungs are clear and expanded. There is no demonstrated pleural abnormality. Normal size heart. Normal mediastinum and joann. Normal visualized pulmonary arteries. Normal visualized aortic arch and descending thoracic aorta. Normal visualized thoracic spine. Normal visualized ribs, clavicles, and shoulders. There is no demonstrated abnormality of the visualized soft tissue structures of the upper abdomen. RAD/Chest 1 View (Portable) IMPRESSION: Normal x-ray examination of the chest. Electronically Signed: Montrell Latif MD at 20:48 EST , Service support , CC: No Primary Care Physician; Savana Acuña MD Cook Helper Dessert: Signed EMERGENCY DEPARTMENT Observed: 11/15/2018 Status: F Source: [place] SUMMARY 11:48 PM [facility] REPOSITORY [facility] Medical Records Department [address] [place] [address] Emergency Department Summary 11/15/182029 MR#: [id number] Acct: [id number] Name: ELIECER VENTURA Rep #: [id number] : 1975 43 From: Brian Christine DO PCP: Care Physician, No Primary Status: [facility] ER - ER Visit Summary Date of Service: 11/15/18 Chief Complaint: Rash History of Present Illness: The patient is a 43 F who presents with a generalized rash for the past month. Patient states her and her both have had this rash for the past month. Patient states she was treated for scabies. Patient states the rash is pruritic and generalized from the neck down. Patient states the pruritus improves after scratching. Patient denies any new exposures. Patient states she has been washing her clothes and bed sheets frequently patient states she did change laundry detergents approximately a month and a half ago but then switched back to the previous laundry detergent. Physical Examination: Vital signs are stable. Patient is afebrile. Patient is in no acute distress. Skin is warm and dry. There is a diffuse erythematous maculopapular rash over the trunk, upper extremities, and lower extremities bilaterally. Oral mucosa is pink and moist. Oropharynx is clear. Airway is patent. Neck is supple. Trachea is midline. There is no JVD noted. Heart was regular rate and rhythm. Lungs are clear and equal bilaterally. Abdomen is soft and nontender. Cranial nerves II through XII are intact. There are no focal motor or sensory deficits noted. Emergency Department Course and Treatment: Patient was given prescriptions for Atarax and prednisone. Patient was instructed to follow-up with her primary care physician in 5-7 days. Patient understood and was agreeable with the plan. All questions were answered. Disposition: Discharge home Impression: Dermatitis This note was generated with stylemarks dictation software. It may contain incorrect words, spelling, and punctuation that were not noted in review of the chart prior to signing ED Disposition - Plan for ED Patient: Disposition: Home or Assisted Living Chief Complaint: Rash Diagnosis: Dermatitis Instructions: ED Dermatitis Non Specific Rash Prescriptions: Hydroxyzine HCl 25 mg PO Q8H PRN PRN #20 tab PRN Reason: Itching predniSONE tablet 60 mg PO DAILY #15 tab Referrals: Care Physician,No Primary [Primary Care Provider] - What to do if you have Problems For any increased pain, shortness of breath, bleeding, nausea or vomiting, chest pain, or any unexpected problems, contact your Primary Care Provider. Call [facility] ([phone]) or report to the closest Emergency Room. Call 911 if necessary. 11/15/18 4640 <Electronically signed by Brian Christine DO> Date Brian Christine DO Cosigner Signature (If Indicated): Date CC: No Primary Care Physician CNCO Observed: 09/22/2018 Status: COMPLETED Source: [place] 12:00 AM [facility] REPOSITORY Letter Text Department of Family Medicine [address] [address] 09/22/2018 Eliecer Ventura [address] [facility] [address] Dear Eliecer, We missed you at your last appointment with Jose J Nathan MD on 09/22/2018 at 2:00 pm. It looks like you previously saw Dr. Kevin in our Office. Please call our office at between the hours of 8:00 a.m. and 5:00 p.m. to reschedule or to inform us if this information is in error and setup an appt to [facility] with Dr. Kevin It is important to know if you cannot keep an appointment so that the time is available for another person. We request that you cancel 24 hours in advance. If cancellation is necessary after that, please call as soon as possible. We appreciate your confidence in choosing the [facility] Family Medicine Department for your medical care and we look forward to seeing you at your next appointment. [facility] #: [id number] Sincerely, Department of Family Medicine [facility] DISCHARGE INSTRUCTION Observed: 08/08/2018 Status: F Source: [place] 9:59 PM [facility] REPOSITORY [facility] Medical Records Department [address] [place] [address] Discharge Instruction 08/08/18 2158 MR#: [id number] Acct: [id number] Name: ELIECER VENTURA Rep #: [id number] : 1975 43 From: Savana Acuña MD PCP: Care Physician, No Primary Status: REG ER ED Disposition - Plan for ED Patient: Chief Complaint: Laceration Instructions: ED Laceration Hand Prescriptions: Naproxen [Naprosyn] 500 mg PO BID PRN #20 tablet Referrals: Care Physician,No Primary [Primary Care Provider] - Luis Franklin MD [STAFF PHYSICIAN] - What to do if you have Problems For any increased pain, shortness of breath, bleeding, nausea or vomiting, chest pain, or any unexpected problems, contact your Primary Care Provider. Call [facility] ([phone]) or report to the closest Emergency Room. Call 911 if necessary. 08/08/18 2159 <Electronically signed by Savana Acuña MD> Date Savana Acuña MD Cosigner Signature (If Indicated): Date CC: No Primary Care Physician EMERGENCY DEPARTMENT Observed: 08/08/2018 Status: F Source: [place] SUMMARY 9:58 PM [facility] REPOSITORY [facility] Medical Records Department [address] [place] [address] Emergency Department Summary 08/08/18 2148 MR#: [id number] Acct: [id number] Name: ELIECER VENTURA Rep #: [id number] : 1975 43 From: Savana Acuña MD PCP: Care Physician, No Primary Status: REG ER - ER Visit Summary Date of Service: 08/08/18 Chief Complaint: Left middle finger injury History of Present Illness: The patient is a 43 F presenting with left middle finger injury. She states this occurred yesterday. She got her left middle finger nail caught on a nail. Today she caught her nail again and snagged it. Her tetanus is up-to-date. She denies other injuries. Physical Examination: Vitals are stable. Patient is afebrile. Alert no acute distress. HEENT exam is unremarkable. Lungs are clear and equal bilaterally. Heart is regular rate and rhythm. Abdomen is soft nontender nondistended. Extremities mid nail crack left middle finger. No subungal hematoma. AFROM. Normal cap refill Skin is warm and dry. No focal neurologic deficit. Remainder of exam is unremarkable. Emergency Department Course and Treatment: Her tetanus is up-to-date. She was given Fulda x1. Left hand x-ray shows no acute process. Wound was covered for protection. Advised to follow-up with primary care physician. Advised return to ED for worsening complaints. Disposition: Discharge home Impression: Left middle finger injury This note was generated with stylemarks dictation software. It may contain incorrect words, spelling, and punctuation that were not noted in review of the chart prior to signing ED Disposition - Plan for ED Patient: Chief Complaint: Laceration Referrals: Care Physician,No Primary [Primary Care Provider] - What to do if you have Problems For any increased pain, shortness of breath, bleeding, nausea or vomiting, chest pain, or any unexpected problems, contact your Primary Care Provider. Call [facility] ([phone]) or report to the closest Emergency Room. Call 911 if necessary. 08/08/18 2158 <Electronically signed by Savana Acuña MD> Date Savana Acuña MD Cosigner Signature (If Indicated): Date CC: No Primary Care Physician HAND MIN 3 VIEWS Observed: 08/08/2018 Status: F Source: [place] 8:43 PM [facility] REPOSITORY [facility] Imaging Services [address] [place] [id number] Hand Min 3 Views MR#: [id number] Acct: [id number] Name: ELIECER VENTURA Rep #: [id number] : 1975 F 43 From: Trevon Ames MD PCP: Care Physician, No Primary Status: REG ER Study: Hand Min 3 Views Date of Exam: 08/08/18 Exam# [id number] Ordering Dr: Savana Acuña MD STUDY: X-RAY - LEFT HAND REASON FOR EXAM: Female, 43 years old. Nail injury. Pain. TECHNIQUE: Three view(s) of the hand. COMPARISON: None. FINDINGS: Bones: There are no acute osseous abnormalities. Joints: The joints are unremarkable. Soft tissues: The soft tissues are unremarkable. Foreign body: None RAD/Hand Min 3 Views IMPRESSION: No acute abnormalities are seen in the hand. Electronically Signed: Trevon Ames MD at 21:42 EDT , Service support , CC: No Primary Care Physician; Savana Acuña MD Cook Helper Dessert: Signed EMERGENCY DEPARTMENT Observed: 05/11/2018 Status: F Source: [place] SUMMARY 4:43 PM [facility] REPOSITORY [facility] Medical Records Department [address] [place] [id number] Emergency Department Summary 05/06/18 1032 MR#: [id number] Acct: [id number] Name: ELIECER VENTURA Rep #: [id number] : 1975 42 From: Corey Hampton DO PCP: Care Physician, No Primary Status: DEP ER - ER Visit Summary Date of Service: 05/06/18 Chief Complaint: Right ring finger laceration History of Present Illness: The patient is a 42 F who cut her right ring finger on a knife today. Patient reports having had a tetanus 3 years ago. Physical Examination: Afebrile vital signs stable 2 cm partial-thickness laceration to the palmar aspect of the distal right ring finger. Wound edges are well approximated. There is no active bleeding. Neurovascular intact. Emergency Department Course and Treatment: Digital block with 1% lidocaine was performed. Wound was washed and closed with Dermabond. Wound care discussed with patient. Impression: 1. 2 cm finger laceration with repair This note was generated with stylemarks dictation software. It may contain incorrect words, spelling, and punctuation that were not noted in review of the chart prior to signing ED Disposition - Plan for ED Patient: Disposition: Home or Assisted Living Chief Complaint: Laceration Instructions: ED Laceration Ext Skin Glue What to do if you have Problems For any increased pain, shortness of breath, bleeding, nausea or vomiting, chest pain, or any unexpected problems, contact your Primary Care Provider. Call [facility] ([phone]) or report to the closest Emergency Room. Call 911 if necessary. 05/11/18 1643 <Electronically signed by Corey Hampton DO> Date Corey Hampton DO Cosigner Signature (If Indicated): Date CC: No Primary Care Physician TOXICOLOGY SCREEN,UR Collected: 02/05/2018 Status: F Source: [place] 12:00 PM [facility] REPOSITORY TYPE CODE TESTS RESULT OUT OF REFERENCE UNITS RANGE LAB UPCP2 Negative Negative Phencyclidin e, Urine Result Comment: Cutoff threshold at 25 ng/mL. LAB UBENZ2 Negative Benzodiazepines, Ur Negative Result Comment: Cutoff threshold at 200 ng/mL. LAB UCOC2 Negative Cocaine, Negative Urine Result Comment: Cutoff threshold at 300 ng/mL. LAB UAMPH2 Negative Amphetamines, Urine Negative Result Comment: Cutoff threshold at 1000 ng/mL. LAB UTHC2 Negative Cannabinoids, Urine Negative Result Comment: Cutoff threshold at 50 ng/mL. LAB UOPI2 Negative Opiates, Negative Urine Result Comment: Cutoff threshold at 300 ng/mL. LAB UBARB2 Negative Barbiturates, Urine Negative Result Comment: Cutoff threshold at 200 ng/mL. LAB UETOH <11 mg/dL <11 Ethanol, Urine LAB UOXYC Negative Oxycodone, Negative Urine Result Comment: Cutoff threshold at 100 ng/mL. Comment: Immunoassay screen only. Cross reactivity with other substances can occur with immunoassay screening. Detection of any drug(s) in this urine toxicology panel is presumptive only. These tests are for med ical purposes only and should not be used for compliance monitoring, legal, or forensic use. In clinical settings, confirmatory testing is at the practitioner's discretion [1]. If clinically indicated, confirmation by high specificity, quantitative methodology may be requested on the same speci men through Client Services ([phone]) if contacted within 48 hours of initial testing. [1]Substance Abuse and Mental Health Services Administration (2012). Clinical Drug Testing in Primary Care Technical Assistance Publication Series 32. Department of Health and Human Services, [place], p.10. These tests were developed and their performance characteristics determined by [facility]'s [facility] [place] ( [facility]). They have not been cleared or a pproved by the FDA. [facility] is regulated under CLIA as qualified to perform high complexity testing. These tests are used for clinical purposes. They should not be regarded as investigational or for research. Performed By: #### UTOX2 #### [facility] [address] [address] QUANT PAIN PANEL, Collected: 02/05/2018 Status: F Source: [place] UR 12:00 PM [facility] REPOSITORY TYPE CODE TESTS RESULT OUT OF REFERENCE UNITS RANGE LAB UQCANN <16 ng/mL <16 Cannabinoid, Urine Result Comment: Tetrahydrocannabinol carboxylic acid (THCA) is a metabolite of qphdo-4-zsfctepzqifxcmrzgpbw which is the main active component of marijuana. LAB UQBNZL <24 ng/mL Benzoylecognine, Ur <24 Result Comment: Benzoylecognine is a metabolite of cocaine. LAB UQACMR <5 ng/mL 6-Acetylmorphine, Ur <5 Result Comment: 6-JASMINE (6-monoacetylmorphine, also known as 6-acetylmorphine) is a unique metabolite of heroin. Presence of 6-JASMINE indicates use of heroin. 6-JASMINE is further metabolized to morphine and absence of 6-JASMINE does not rule out the use of heroin. LAB UQAMPH <5 ng/mL Amphetamine, Urine <5 LAB UQMAMP <8 ng/mL Methamphetamine, Ur <8 LAB UQBUPR <20 ng/mL Buprenorphine, Ur <20 LAB UQNBUP <20 ng/mL Norbuprenorphine, Ur <20 Result Comment: Norbuprenorphine is the primary active metabolite of buprenorphine. LAB UQMTHD <16 ng/mL Methadone, Urine <16 LAB UQEDDP <6 ng/mL EDDP, Urine <6 Result Comment: EDDP is a metabolite of methadone. LAB UQTRAM <25 ng/mL Tramadol, Urine <25 LAB UQDTRM <20 ng/mL Desmethyltramadol <20 ,Ur Result Comment: Desmethyltramadol is a metabolite of tramadol. LAB UQFNTL <6 ng/mL Fentanyl, Urine <6 LAB UQNFTL <6 ng/mL Norfentanyl, Urine <6 Result Comment: Norfentanyl is a metabolite of fentanyl. LAB UQCODE <11 ng/mL Codeine, Urine <11 LAB UQMORP <10 ng/mL Morphine, Urine <10 Result Comment: Morphine is a metabolite of codeine and heroin. LAB UQDCDN <5 ng/mL Dihydrocodeine, Ur <5 LAB UQHCOD <8 ng/mL Hydrocodone, Urine <8 Result Comment: Hydrocodone is a metabolite of dihydrocodeine. LAB UQOXYC <5 ng/mL Oxycodone, Urine <5 LAB UQHMOR <5 ng/mL Hydromorphone, Ur <5 Result Comment: Hydromorphone is a metabolite of hydrocodone. LAB UQOXYM <5 ng/mL Oxymorphone, Urine <5 Result Comment: Oxymorphone is a metabolite of oxycodone. LAB UQCREA >19 mg/dL Creatinine, >50 Urine LAB UQPH 4-10 pH, Urine 4-10 LAB UQSPGR 1.005-1.020 Specific Ewen,Ur 1.005-1.020 LAB UQOXID Negative Oxidants, Negative Urine LAB UQSPQ Specimen Specimen Quality quality results within acceptable limits. LAB UQNOTE Note This test is for Medical use only. Result Comment: This test was developed and its performance characteristics determined by [facility] [place] ([facility]). It has not been cleared or approved by the FDA. [facility] is regulated under CLIA as qualified to perform high-complexity testing. This test is used for clinical purposes. It should not be regarded as investigational or for research. Performed By: #### UQNTPP #### [facility] [address] [place], [place] [address] CBC Collected: 02/05/2018 Status: F Source: [place] 11:12 AM [facility] REPOSITORY TYPE CODE TESTS RESULT OUT OF REFERENCE UNITS RANGE LAB WBC 3.70-11.00 k/uL Low WBC 3.68 LAB RBC 3.90-5.20 m/uL RBC 4.01 LAB HGB 11.5-15.5 g/dL Hemoglobin 12.5 LAB HCT 36.0-46.0 % Hematocrit 39.1 LAB MCV 80.0-100.0 fL MCV 97.5 LAB MCH 26.0-34.0 pG MCH 31.2 LAB MCHC 30.5-36.0 g/dL MCHC 32.0 LAB RDWCV 11.5-15.0 % RDW-CV 13.1 LAB PLTCT 150-400 k/uL Platelet Count 251 LAB MPV 9.0-12.7 fL MPV 10.0 LAB ABSNUC <0.01 k/uL Absolute nRBC <0.01 Performed By: #### CBC, CMP, LIPB, TSH #### [facility] [address] [place] [id number] COMP METABOLIC PANEL Collected: 02/05/2018 Status: F Source: [place] 11:12 AM [facility] REPOSITORY TYPE CODE TESTS RESULT OUT OF REFERENCE UNITS RANGE LAB TP 6.3-8.0 g/dL Protein, Total 6.6 LAB ALB 3.9-4.9 g/dL Albumin 4.3 LAB CA 8.5-10.2 mg/dL Calcium, Total 8.7 LAB TBIL 0.2-1.3 mg/dL Bilirubin, Total 0.2 LAB ALKP 32-117 U/L Alkaline Phosphatase 46 LAB AST 13-35 U/L AST 22 LAB GLU 74-99 mg/dL Low Glucose 68 Result Comment: The [place] Diabetes Association (ADA) provides guidance for cutoff values for fasting glucose and random glucose. The ADA defines fasting as no caloric intake for at least 8 hours. Fas ting plasma glucose results between 100 to 125 mg/dL indicate increased risk for diabetes (prediabetes). Fasting plasma glucose results greater than or equal to 126 mg/dL meet the criteria for diagnosis of diabetes. In the absence of unequivocal hyperglycemia, results should be confirmed by repeat testing. In a patient with classic symptoms of hyperglycemia or hyperglycemic crisis, random plasma glucose results greater than or equal to 200 mg/dL meet the criteria for diagnosis of diabetes. Reference: Standards of Medical Care in Diabetes 2016, [place] Diabetes Association. Diabetes Care. 2016.39(Suppl 1). LAB BUN 7-21 mg/dL BUN 14 LAB CRET 0.58-0.96 mg/dL Creatinine 0.73 LAB NA 136-144 mmol/L Sodium 140 LAB K 3.7-5.1 mmol/L Potassium 3.9 LAB CL 97-105 mmol/L Chloride 101 LAB CO2 22-30 mmol/L CO2 27 LAB AGAP 9-18 mmol/L Anion Gap 12 LAB ALT 7-38 U/L ALT 23 LAB GFRAA eGFR- Amer. >60 LAB GFRNAA . eGFR-All Other Races >60 Result Comment: eGFR (Estimated GFR) Units of measure: mL/min/1.73 meters squared eGFR is derived from the reexpressed MDRD Study equation using the following parameters: serum creatinine, age, gender and race. The creatinine assay has been calibrated to be traceable to IDMS. An eGFR <60 mL/min/1.73m2 for >3 months is consistent with chronic kidney disease. Refer to KDOQI guidelines for clinical interpretation. In patients with unstable renal function, e.g. those with acute kidney injury, the eGFR may not accurately reflect actual GFR. Performed By: #### CBC, CMP, LIPB, TSH #### [facility] [address] [place], [place] [address] LIPID PANEL, BASIC Collected: 02/05/2018 Status: F Source: [place] 11:12 AM [facility] REPOSITORY TYPE CODE TESTS RESULT OUT OF REFERENCE UNITS RANGE LAB CHOL <200 mg/dL Cholesterol 161 Result Comment: <200 mg/dL, Desirable 200-239 mg/dL, Borderline high >239 mg/dL, High LAB TRIGLY <150 mg/dL Triglyceride 81 Result Comment: <150 mg/dL, Normal 150-199 mg/dL, Borderline high 200-499 mg/dL, High >499 mg/dL, Very high LAB HDL >39 mg/dL HDL-Cholesterol 57 Result Comment: 40-59 mg/dL, Acceptable >59 mg/dL, High: Negative risk factor for coronary heart disease <40 mg/dL, Low: Positive risk factor for coronary heart disease LAB LDL <100 mg/dL LDL-Cholesterol 88 Result Comment: <100 mg/dL, Optimal 100-129 mg/dL, Near optimal/above optimal 130-159 mg/dL, Borderline high 160-189 mg/dL, High >189 mg/dL, Very high Secondary prevention optimal LDL Cholesterol levels are recommended to be < 70 mg/dL LAB NONHDL <130 mg/dL Non HDL Cholesterol 104 Result Comment: <130 mg/dL, Optimal 130-159 mg/dL, Near optimal/above optimal 160-189 mg/dL, Borderline high 190-219 mg/dL, High >219 mg/dL, Very high Secondary prevention optimal non HDL Cholesterol levels are recommended to be < 100 mg/dL LAB FT hrs Fasting Time 0 LAB VLDL <30 mg/dL VLDL Cholesterol 16 LAB TCHDL <5.10 TC:HDL Ratio 2.82 LAB LDLHDL <2.54 LDL:HDL Ratio 1.54 Result Comment: Reference: 1. National Cholesterol Education Program ATP III Guideline At-A-Glance Quick Desk Reference: National Heart, Lung, and Blood [place]. National Institutes of Health. 2001: NIH Publication No. 01-3305. 2. An International Atherosclerosis Society position paper: global recommendations for the management of dyslipidemia: executive summary, Atherosclerosis. 2014: 232(2):410-413. Performed By: #### CBC, CMP, LIPB, TSH #### [facility] [address] [place] [id number] TSH Collected: 02/05/2018 Status: F Source: [place] 11:12 AM [facility] REPOSITORY TYPE CODE TESTS RESULT OUT OF RANGE REFERENCE UNITS LAB TSH 0.400-5.500 uU/mL TSH 1.930 Result Comment: If the patient is , TSH reference range varies by gestational period: First Trimester 0.100-2.500 uU/mL Second Trimester 0.200-3.000 uU/mL Third Trimester 0.300-3.000 uU/mL References: 1. Gabriel L, Richie M, Syd EK, et al. Management of Thyroid Dysfunction during and : An Endocrine Society Clinical Practice Guideline. J Clin Endocrinol Metab, 2012:97:3593-3515. 2. Anthony QUAN. Overview of thyroid disease in . UpToDate. 2016. Accessed on April 18, 2016. Performed By: #### CBC, CMP, LIPB, TSH #### [facility] [address] [place], [place] [address] LIVE Observed: 02/05/2018 Status: COMPLETED Source: [place] 11:00 AM [facility] REPOSITORY Office Visit (FAMPWS) ELIECER VENTURA ([id number]) 1975 F Date Time Provider Department 02/05/18 11:00 AM STEVEN KEVIN) FAMPWS During your visit today, we recorded the following information about you: Pulse Respiration Blood pressure Weight 69/minute 16/minute 119/88 97.5 kg Steven Kevin MD 02/05/2018 11:16 AM Signed Chief Complaint Patient presents with: Refill Request HPI Eliecer Ventura is a 42 year old female who presents here today for refill request visit. Patient previously seeing Dr. Aime faustin at [facility] and last appointment was about 9 months ago. Has not had medications for about as long. Requesting refill of lexapro and buspar which she takes for bipolar disorder and anxiety. Has noticed worsening symptoms over the last few months which she relates to home stress and recent deaths in the family. C/o sudden change in moods, outbursts at work, feeling down/depressed, insomnia, lack of energy/interest, decreased concentration, feeling of guilt. Denies suicidal thoughts. Does not have history of vinay that she knows of. For anxiety symptoms, complains of: excessive worrying and inability to control worrying, irritability, racing thoughts, insomnia, decreased concentration. Denies panic disorder. Has appointment with counseling center on 02/09 to meet with Trevon Garcia for intake appointment and then weekly visits. Past medical history, appointments, medications, allergies reviewed. Previous Medical History PAST MEDICAL HISTORY Diagnosis Date - Acid reflux - Bipolar 1 disorder (HCC) - Cervical cancer (HCC) - Depression - Morbid obesity (HCC) - Seizures (HCC) last 1993 Previous Surgical History PAST SURGICAL HISTORY Procedure Laterality Date - APPENDECTOMY 1992 - CHOLECYSTECTOMY 12/16/2016 ANDamp; Fascial Defect repair, - COLONOSCOP W/ OR W/O BRSH SPEC 01/02/2016 Colonoscopy - EGD W/O OR W/BRUSH/WASH 01/02/2016 EGD - PAST SURGICAL HISTORY OF 8973-8641 hysterectomy- 16 surgeries due to cervical cancer - PAST SURGICAL HISTORY OF 2009 MRSA surgery, toe following spider bite. - REMOVAL OF TONSILS,ANDlt;14 Y/O 1998 Tonsillectomy - S SLING BLADDER 2011 Family History FAMILY HISTORY Problem Relation Age of Onset - Heart Mother [place] - Hypertension Mother - Stroke Mother - diabetic [OTHER] Mother Patient Allergies ALLERGIES Allergen Reactions - Aspirin Hives - Ciprofloxacin Swelling - Codeine Other: See Comments sleepy for 3 to 4 days - Hydrocodone-Acetami* Other: See Comments throat swells up - Latex Other: See Comments blisters - Penicillins Hives - Vancomycin Swelling Current Medications Current Outpatient Prescriptions on File Prior to Visit: busPIRone (BUSPAR) 10 mg tablet Take 5 mg by mouth once daily. One or two tablets by mouth twice a day for anxiety oxybutynin (DITROPAN) 5 mg tablet Take 1 tablet by mouth once daily. esomeprazole (NEXIUM) 40 mg capsule Take 1 capsule by mouth twice daily. dicyclomine (BENTYL) 10 mg capsule Take 10 mg by mouth once daily. ONDANSETRON HCL (ZOFRAN ORAL) Take by mouth as needed. No current facility-administered medications on file prior to visit. 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[employer]* Social History Main Topics Smoking status: Former Smoker Packs/day: 1.00 Years: 5.00 Quit date: 12/28/1996 Smokeless status: Never Used Alcohol use: No Drug use: No Sexual activity: Yes control/protection: Surgical Comment: hysterectomy Review of Symptoms REVIEW OF SYSTEMS See HPI EXAM: BP 119/88 Pulse 69 Resp 16 Wt 97.5 kg (215 lb) LMP (LMP Unknown) BMI 33.67 kg/m2 PSYCH: Posture and motor behavior: sitting slumped in the chair Dress, grooming, personal hygiene: disheveled Facial expression: good eye contact Speech: normal speech Mood: anxious Coherency and relevance of thought: normal thought processes Memory: normal memory Health Maintenance List TETANUS due on 1988 COLORECTAL CANCER SCREENING,SEE MODIFIER due on 1995 PAP EVERY 5 YEARS due on 2007 HPV EVERY 5 YEARS due on 2007 MAMMOGRAM due on 2017 INFLUENZA(Season Ended) due on 07/03/2018 ASSESSMENT/PLAN: 1. Bipolar 1 disorder (HCC) - ICD9: 296.7, ICD10: F31.9 (primary diagnosis) Will restart lexapro and have patient follow up with counseling center next week. Referral placed for psychiatry. Will follow up recommendations. - ESCITALOPRAM 10 MG TABLET - CONSULT TO PSYCHIATRY - CBC - COMP METABOLIC PANEL - LIPID PANEL BASIC - TSH BLD - TOX SCREEN ROUT UR - PAIN PANEL, UR QUANT 2. ERLINDA (generalized anxiety disorder) - ICD9: 300.02, ICD10: F41.1 See above. Restart buspar for anxiety symptoms. To call with side effects or if ineffective. - BUSPIRONE 10 MG TABLET - CONSULT TO PSYCHIATRY - CBC - COMP METABOLIC PANEL - LIPID PANEL BASIC - TSH BLD - TOX SCREEN ROUT UR - PAIN PANEL, UR QUANT Steven Kevin MD Referring Provider: SELF [200] Allergies As of Date: 02/05/2018 Noted Allergy Reaction ASPIRIN 12/25/2015 4 - Hives CIPROFLOXACIN 12/25/2015 7 - Swelling CODEINE 12/25/2015 14 - Other: See Comments Comments: sleepy for 3 to 4 days HYDROCODONE-ACETAMINOPHEN 12/25/2015 14 - Other: See Comments Comments: throat swells up LATEX 12/25/2015 14 - Other: See Comments Comments: blisters PENICILLINS 12/25/2015 4 - Hives VANCOMYCIN 12/25/2015 7 - Swelling Date Reviewed: 02/05/2018 Reviewed by: Irish ([facility]) JOSH Manriquez - Fully Assessed Reason for Visit: Refill Request [94] Primary Visit Diagnosis:Bipolar 1 disorder (HCC) [F31.9] Other Visit Diagnosis:ERLINDA (generalized anxiety disorder) [F41.1] Order(s):escitalopram oxalate (LEXAPRO) 10 mg tabletTake 1 tablet by mouth once daily.Disp: 30 tabletRfl: 2 busPIRone (BUSPAR) 10 mg tabletTake 1 tablet by mouth twice daily.Disp: 60 tabletRfl: 2 CONSULT TO PSYCHIATRY [9035] Order #: [id number]: 1 CBC [SQCBC] Order #: [id number] FUTURE COMP METABOLIC PANEL [SQCMP] Order #: [id number] FUTURE LIPID PANEL BASIC [SQLIPB] Order #: [id number] FUTURE TSH BLD [SQTSH] Order #: [id number] FUTURE TOX SCREEN ROUT UR [SQUTOX2] Order #: [id number] FUTURE PAIN PANEL, UR QUANT [SQUQNTPP] Order #: [id number] Prescriptions as of 02/05/2018 Sig: ESCITALOPRAM 10 MG TABLET Take 1 tablet by mouth once d* BUSPIRONE 10 MG TABLET Take 1 tablet by mouth twice * OXYBUTYNIN CHLORIDE 5 MG TABL* Take 1 tablet by mouth once d* ESOMEPRAZOLE MAGNESIUM 40 MG * Take 1 capsule by mouth twice* DICYCLOMINE 10 MG CAPSULE Take 10 mg by mouth once gus* ZOFRAN ORAL Take by mouth as needed. Medication notes this encounter OXYBUTYNIN CHLORIDE 5 MG TABLET >> Irish Manriquez CMA, MA 02/05/2018 10:33 AM >> IRISH MANRIQUEZ CMA Feb 05, 2018 10:33 AM Not taking BUSPIRONE 10 MG TABLET >> Irish Manriquez CMA, MA 02/05/2018 10:34 AM >> IRISH MANRIQUEZ CMA Feb 05, 2018 10:34 AM Restarted Problem List As Of Date 02/05/2018 Noted Resolved Acid reflux [K21.9] Depression [F32.9] Bipolar 1 disorder (HCC) [F31.9] Cervical cancer (HCC) [C53.9] Morbid obesity (HCC) [E66.01] INVALID FOR* Gastroesophageal reflux disease without esophag*INVALID FOR*01/02/2016 Cervix cancer (HCC) [C53.9] INVALID FOR*01/02/2016 Intractable vomiting [R11.10] INVALID FOR* Biliary dyskinesia [K82.8] INVALID FOR*01/01/2017 Right upper quadrant pain [R10.11] INVALID FOR* Mixed stress and urge urinary incontinence [N39*INVALID FOR* Prescriptions ordered this encounter Disp Refills Start End ESCITALOPRAM 10 MG TABLET 30 t* 2 02/05/2018 Route: ORAL Sig: Take 1 tablet by mouth once daily. BUSPIRONE 10 MG TABLET 60 t* 2 02/05/2018 Route: ORAL Sig: Take 1 tablet by mouth twice daily. Medications Discontinued During This Encounter escitalopram oxalate (LEXAPRO) 10 mg* 02/05/2018 Class: Historical Med Route: ORAL Sig: Take 10 mg by mouth once daily. Disc: Reason for discontinue is not on file. busPIRone (BUSPAR) 10 mg tablet 02/05/2018 Class: Historical Med Route: ORAL Sig: Take 5 mg by mouth once daily. One or two tablets by mouth twice a day for anxiety Disc: Reason for discontinue is not on file. Disposition: Return in about 3 months (around 05/07/2018). Follow-up and Disposition History Recorded Encounter Status:Closed by STEVEN KEVIN MD on 02/05/18 PROGRESS Observed: 02/05/2018 Status: COMPLETED Source: [place] 10:38 AM [facility] REPOSITORY HNO ID: [id number] Author: Steven Rai) Dorita Service: (none) Author Type: Physician Type: Progress Notes Filed: 02/05/2018 11:16 AM Note Text: Chief Complaint Patient presents with: Refill Request HPI Eliecer Ventura is a 42 year old female who presents here today for refill request visit. Patient previously seeing Dr. Aime faustin at [facility] and last appointment was about 9 months ago. Has not had medications for about as long. Requesting refill of lexapro and buspar which she takes for bipolar disorder and anxiety. Has noticed worsening symptoms over the last few months which she relates to home stress and recent deaths in the family. C/o sudden change in moods, outbursts at work, feeling down/depressed, insomnia, lack of energy/interest, decreased concentration, feeling of guilt. Denies suicidal thoughts. Does not have history of vinay that she knows of. For anxiety symptoms, complains of: excessive worrying and inability to control worrying, irritability, racing thoughts, insomnia, decreased concentration. Denies panic disorder. Has appointment with counseling center on 02/09 to meet with Trevon Garcia for intake appointment and then weekly visits. Past medical history, appointments, medications, allergies reviewed. Previous Medical History PAST MEDICAL HISTORY Diagnosis Date - Acid reflux - Bipolar 1 disorder (HCC) - Cervical cancer (HCC) - Depression - Morbid obesity (HCC) - Seizures (HCC) last 1993 Previous Surgical History PAST SURGICAL HISTORY Procedure Laterality Date - APPENDECTOMY 1992 - CHOLECYSTECTOMY 12/16/2016 AND Fascial Defect repair, - COLONOSCOP W/ OR W/O BRSH SPEC 01/02/2016 Colonoscopy - EGD W/O OR W/BRUSH/WASH 01/02/2016 EGD - PAST SURGICAL HISTORY OF [id number] hysterectomy- 16 surgeries due to cervical cancer - PAST SURGICAL HISTORY OF 2009 MRSA surgery, toe following spider bite. - REMOVAL OF TONSILS,<14 Y/O 1998 Tonsillectomy - S SLING BLADDER 2011 Family History FAMILY HISTORY Problem Relation Age of Onset - Heart Mother [place] - Hypertension Mother - Stroke Mother - diabetic [OTHER] Mother Patient Allergies ALLERGIES Allergen Reactions - Aspirin Hives - Ciprofloxacin Swelling - Codeine Other: See Comments sleepy for 3 to 4 days - Hydrocodone-Acetami* Other: See Comments throat swells up - Latex Other: See Comments blisters - Penicillins Hives - Vancomycin Swelling Current Medications Current Outpatient Prescriptions on File Prior to Visit: busPIRone (BUSPAR) 10 mg tablet Take 5 mg by mouth once daily. One or two tablets by mouth twice a day for anxiety oxybutynin (DITROPAN) 5 mg tablet Take 1 tablet by mouth once daily. esomeprazole (NEXIUM) 40 mg capsule Take 1 capsule by mouth twice daily. dicyclomine (BENTYL) 10 mg capsule Take 10 mg by mouth once daily. ONDANSETRON HCL (ZOFRAN ORAL) Take by mouth as needed. No current facility-administered medications on file prior to visit. 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[employer]* Social History Main Topics Smoking status: Former Smoker Packs/day: 1.00 Years: 5.00 Quit date: 12/28/1996 Smokeless status: Never Used Alcohol use: No Drug use: No Sexual activity: Yes control/protection: Surgical Comment: hysterectomy Review of Symptoms REVIEW OF SYSTEMS See HPI EXAM: BP 119/88 Pulse 69 Resp 16 Wt 97.5 kg (215 lb) LMP (LMP Unknown) BMI 33.67 kg/m2 PSYCH: Posture and motor behavior: sitting slumped in the chair Dress, grooming, personal hygiene: disheveled Facial expression: good eye contact Speech: normal speech Mood: anxious Coherency and relevance of thought: normal thought processes Memory: normal memory Health Maintenance List TETANUS due on 1988 COLORECTAL CANCER SCREENING,SEE MODIFIER due on 1995 PAP EVERY 5 YEARS due on 2007 HPV EVERY 5 YEARS due on 2007 MAMMOGRAM due on 2017 INFLUENZA(Season Ended) due on 07/03/2018 ASSESSMENT/PLAN: 1. Bipolar 1 disorder (HCC) - ICD9: 296.7, ICD10: F31.9 (primary diagnosis) Will restart lexapro and have patient follow up with counseling center next week. Referral placed for psychiatry. Will follow up recommendations. - ESCITALOPRAM 10 MG TABLET - CONSULT TO PSYCHIATRY - CBC - COMP METABOLIC PANEL - LIPID PANEL BASIC - TSH BLD - TOX SCREEN ROUT UR - PAIN PANEL, UR QUANT 2. ERLINDA (generalized anxiety disorder) - ICD9: 300.02, ICD10: F41.1 See above. Restart buspar for anxiety symptoms. To call with side effects or if ineffective. - BUSPIRONE 10 MG TABLET - CONSULT TO PSYCHIATRY - CBC - COMP METABOLIC PANEL - LIPID PANEL BASIC - TSH BLD - TOX SCREEN ROUT UR - PAIN PANEL, UR QUANT Steven Kevin MD ALLERGIES ALLERGIES DATE TYPE / CODE NAME / CODE REACTION SEVERITY SOURCE 11/21/2018 Drug hydrocodone Vomiting Unknown [place] Allergy/416 bitartrate/[id number] [facility] [id number]([place] [address](RXNORM) [facility] ED CT) Repository 11/21/2018 Drug ciprofloxacin Rash Unknown [place] Allergy/416 HCl/[id number](RXNO [facility] 979108([facility] ED CT) Repository 11/21/2018 Drug Penicillins/[id number] Rash Unknown [place] Allergy/416 476(RXNORM) Community 479732([facility] ED CT) Repository 11/21/2018 Drug codeine/[id number]( Vomiting Unknown [place] Allergy/416 RXNORM) [facility] 037077([facility] ED CT) Repository 11/21/2018 Drug aspirin/[id number]( Swelling Unknown [place] Allergy/416 RXNORM) [facility] 642403([facility] ED CT) Repository 11/21/2018 Drug coconut Rash Unknown [place] Allergy/416 oil/[id number](RXNO Community 819333([facility] ED CT) Repository 11/21/2018 Drug ciprofloxacin/F0060 Rash Unknown [place] Allergy/416 76264(RXNORM) Community 405213([facility] ED CT) Repository 11/21/2018 Drug vancomycin/[id number] Rash Unknown [place] Allergy/416 66(RXNORM) Community 906856([facility] ED CT) Repository 11/21/2018 Drug latex/[id number](RX Rash Unknown [place] Allergy/416 NORM) Community 578553([facility] ED CT) Repository 12/25/2015 DRUG ASPIRIN HIVES [facility] INGREDI/[address] [place] 751622(SNOM Repository ED CT) 12/25/2015 DRUG CIPROFLOXACIN SWELLING [facility] INGREDI/[address] [place] 953225(SNOM Repository ED CT) 12/25/2015 DRUG CODEINE OTHER: SEE C [facility] INGREDI/[address] [place] 977346(SNOM Repository ED CT) 12/25/2015 DRUG/[id number] HYDROCODONE-ACETAMI OTHER: SEE [facility] 003(SNOMED NOPHEN [address] [place] CT) Repository 12/25/2015 DRUG LATEX OTHER: SEE [facility] INGREDI/[address] [place] 912059(SNOM Repository ED CT) 12/25/2015 Drug PENICILLINS HIVES [facility] Class/00759 [address] [place] 1003(SNOMED Repository CT) 12/25/2015 DRUG VANCOMYCIN SWELLING [facility] INGREDI/[address] [place] 837814(SNOM Repository ED CT) ENCOUNTERS ENCOUNTERS ADMIT/DISCHARGE ACCOUNT ADMITTING ENCOUNTER LOCATION SOURCE NUMBER CLASS 11/21/2018/11/21/19 [id number] Emergency [address] ing:ED Repository 11/15/2018/11/15/19 [id number] Emergency [address] ing:ED Repository 08/08/2018/08/08/20 [id number] Emergency [address] ing:ED Repository 05/06/2018/05/06/20 [id number] Emergency [address] ing:ED Repository 02/05/2018 [id number] Ambulatory [facility] [address] [place] Repository 02/05/2018/02/09/[id number] Repository PAYERS PAYERS ENCOUNTER GUARANTOR PAYER SUBSCRIBER SOURCE 11/21/2018 JEAN KEMP Primary Insurance:[facility] ELIECER GUERRA [place] [id number] COMMUNITY PLANPolicy FRAZIERDOB: [facility] Number: [id number] [id number] Repository 56689Eze: (234) Date:[phone] () [address] [place] [address] 91282MT: 11/21/2018 Secondary NOT GIVENUNK [place] Insurance:SELF PAY [facility] Number: Effective Repository Date:2018-11-21 11/15/2018 JEAN KEMP Primary Insurance:[facility] ELIECER Jo [place] [id number] [facility] PLANPolicy [facility]: [facility] Number: [id number], [place] [id number] Repository [address]368Urw: ([phone]) Date:8008-33-84[phone] () [address] [place] [address] 58149PE: 11/15/2018 Secondary NOT GIVENUNK [place] Insurance:SELF PAY [facility] Number: Effective Repository Date:2018-11-15 08/08/2018 JEAN KEMP Primary Insurance:[facility] ELIECER Ledezma [id number] [facility] PLANPolicy FRAZIERDOB: [facility] Number: [id number], [place] [id number] Repository 81297Ktc: ([phone]) Date:6974-08-65XE [phone] () [address] [place] [address] 79924LI: 08/08/2018 Secondary NOT GIVENUNK [place] Insurance:SELF PAY [facility] Number: Effective Repository Date:2018-08-08 05/06/2018 JEAN CHAUDHARI) Primary Insurance:[facility] ELIECER Ledezma [id number] COMMUNITY PLANPolicy FRAZIERDOB: [facility] Number: [id number], [place] [id number] Repository [address]24[address]Ieo: (330) Date:2026-20-65[phone] () [place], [place] [address]RQ: 05/06/2018 Secondary NOT GIVENUNK [place] Insurance:SELF PAY [facility]: Effective Repository Date:2018-05-06
== END 2018-11-21 23:04 | disposition home or self-care (01) ==
LOC: ED 20:00
PROVIDERS: Emergency Provider Emergency Medicine
DX: R07.89 Other chest pain (principal); R51 Headache; M54.2 Cervicalgia; R11.2 Nausea with vomiting, unspecified; R19.7 Diarrhea, unspecified; Z85.41 Personal history of malignant neoplasm of cervix uteri; Z79.899 Other long term (current) drug therapy
CPT/HCPCS: 70496; 70498; 71045; 80053; 81001; 84484; 85025; 85379; 87804; 93005; 96361; 96374; 96375; 99285; J7030; Q9967; A4216; J2405

== ENCOUNTER 2019-04-20 06:59 | Emergency (ER) | payer MEDICAID, SELFPAY ==
[2019-04-20 07:01] VITALS: BP 112/82; PULSE 94; RESP 16; TEMP 36.8; O2SAT 100; BMI 31.5
[2019-04-20 07:05] VITALS: RESP 16
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
--- NOTE | 2019-04-20 07:12 | DCINST.ED_ITS ---
ED Disposition - Plan for ED Patient: Instructions: CLOTRIMAZOLE, Topical Prescriptions: Clotrimazole [Lotrimin] 1 applicatio TOPICAL BID 28 Days #1 tube Prescription Printed Referrals: [facility] Doctor,Out of [Primary Care Provider] -
[2019-04-20 07:24] VITALS: RESP 16
== END 2019-04-20 07:25 | disposition home or self-care (01) ==
LOC: ED 07:18
PROVIDERS: Emergency Provider Emergency Medicine; Family Provider Family Medicine; PCP Family Medicine
DX: B35.4 Tinea corporis (principal); Z87.891 Personal history of nicotine dependence
CPT/HCPCS: 99282

== ENCOUNTER 2021-02-19 11:33 | Emergency (ER) | payer MEDICAID, SELFPAY ==
[2020-07-18 14:52] VITALS: BMI 31.5
[2021-02-19 11:35] VITALS: BP 151/88; PULSE 102; RESP 16; TEMP 36.4; O2SAT 99; BMI 37.0
--- NOTE | 2021-02-19 12:17 | ED.VIS.GEN ---
History of Present Illness Chief Complaint: Other, Pain/Inj Informant: Patient Onset: Days - 3 Narrative: Increasing right great toe pain over 3 days. History injury back in 2016 not grown out right with loosening. She states she pulled the sheets and it caught her toenail 3 days ago. Today noted pus drainage. No fevers. No history of diabetes. Been using topical antibiotic ointment on top of the nail. Allergy to penicillin however is tolerated Keflex in the past. 2 years ago reported seeing podiatry Dr. Gamboa, nail was removed due to another nail growing underneath. Prior similar symptoms: Yes Past Medical History - Allergies and Home Meds Allergies/Adverse Reactions: Allergies aspirin Allergy (Verified 02/19/21 11:34) Swelling ciprofloxacin [From Cipro] Allergy (Verified 02/19/21 11:34) Rash ciprofloxacin HCl [From Cipro] Allergy (Verified 02/19/21 11:34) Rash coconut oil Allergy (Verified 02/19/21 11:34) Rash latex Allergy (Verified 02/19/21 11:34) Rash Penicillins Allergy (Verified 02/19/21 11:34) Rash vancomycin Allergy (Verified 02/19/21 11:34) Rash codeine Adverse Reaction (Verified 02/19/21 11:34) Vomiting hydrocodone bitartrate [From Vicodin] Adverse Reaction (Verified 02/19/21 11:34) Vomiting Primary Care Physician: Care Physician,No Primary [Primary Care Provider] - Past Medical History: - - anxiety, depression, bipolar, seizure, HPL Smoking Status: Former smoker Review of Systems General: Denies: Chills, Fever, Sweats Eyes: Denies: Visual changes - bilaterally, Diplopia ENT: Denies: Rhinorrhea, Sore throat Cardiovascular: Denies: Chest pain, Palpitations Respiratory: Denies: Dyspnea, Cough, Dyspnea on exertion Gastrointestinal: Denies: Abdominal pain, Nausea, Vomiting, Diarrhea, Melena, Hematochezia Genitourinary: Denies: Dysuria, Hematuria, Frequency Musculoskeletal: Reports: - - right great toe pain. Denies: Back pain, Extremity Pain Skin: Denies: Rash, Wounds Neurological: Denies: Headache, Weakness, Numbness Physical Exam Vital Signs/Narrative: Vital Signs Temp Pulse Resp BP Pulse Ox 02/19/21 11:35 97.6 F L 102 H 16 151/88 H 99 Inital Vital Signs reviewed: Yes General: Well nourished, Well developed, No Acute Distress Head: Normocephalic, Atraumatic Eyes: Perrl, EOMI ENT: Moist mucous membranes, No rhinorrhea Neck: Supple, Nontender Cardiovascular: Regular rate, Regular rhythm, No murmurs Respiratory: No distress, CTA bilaterally, Chest nontender Abdomen: Soft, Nontender, Nondistended, Normal bowel sounds Back: Nontender, Normal Inspection Extremities: No edema, - - Right foot, great toe, thickened nail, avulsion, clear drainage. No fluctuance or surround erythema. Skin: Normal color, No rash Neurological: Alert, Oriented x3, Cranial nerves II-XII grossly intact, Normal Strength, Normal Sensation Psychological: Normal affect, Normal Mood Diagnostic/Tx/Re-eval - Medical Decision Making Patient nontoxic afebrile. Exam concerns for nail avulsion from injury however reported there is exudative drainage, will placed on Keflex for coverage. Postop shoe. She has Motrin at home for which she take 600 mg every 6 hours. Multiple allergies and seizure history, will prescribe 6 tablets of Percocets to use as needed. She will follow-up with her spot facer. Prescriptions were sent to her pharmacy. ED Disposition - Plan for ED Patient: Disposition: Home or Assisted Living Diagnosis: Avulsion of toenail of right foot Instructions: ED Detached Fingernail or Toenail Prescriptions: Cephalexin [Keflex] 500 mg PO Q6 #40 capsule Transmission Status: Pending to [facility] Oxycodone HCl/Acetaminophen [Percocet 5/325] 1 tablet PO Q6H PRN PRN 2 Days #6 tab PRN Reason: Pain Transmission Status: Received by [facility] Referrals: Care Physician,No Primary [Primary Care Provider] - Additional Instructions: Take antibiotic as prescribed. Use ibuprofen 600 mg every 6 hours as needed. Use Percocet as needed. Follow-up with your foot doctor.
== END 2021-02-19 12:54 | disposition home or self-care (01) ==
LOC: ED 12:42
PROVIDERS: Emergency Provider Emergency Medicine
DX: S91.201A Unspecified open wound of right great toe with damage to nail, initial encounter (principal); Z87.891 Personal history of nicotine dependence; X58.XXXA Exposure to other specified factors, initial encounter; Y93.89 Activity, other specified; Y92.003 Bedroom of unspecified non-institutional (private) residence as the place of occurrence of the external cause; Y99.8 Other external cause status
CPT/HCPCS: 99283

== ENCOUNTER 2022-03-23 17:25 | Emergency (ER) | payer MEDICAID, SELFPAY ==
[2022-03-23 17:28] VITALS: BP 168/102; PULSE 127; RESP 16; TEMP 37; O2SAT 100; BMI 36.6
[2022-03-23 17:56] VITALS: RESP 15
--- NOTE | 2022-03-23 18:18 | EDS_ITS ---
HPI History of Present Illness Chief Complaint: Suicidal Narrative Narrative: Patient presents with depression, apparently she is ending a long-term relationship and has had more anxiety and depression. She has also been cutting but not in order to kill her self but just to escape from the pain she has cut on her abdomen and her wrists all which were superficial cuts. At this time she has no suicidal ideation she does not want to , she has a daughter that she needs to be around. She continues to perform her ADLs, she cooks she takes care of her animals including pigs, she does not get any worse sleep than normal or any more sleep than normal, she has no guilt she has slightly decreased energy. Her concentration is about the same as normal. She has been off her psychiatric medications for about a year. [facility] Medical History Anxiety Back problem Bipolar 1 disorder Depression Heart murmur History of cancer History of MRSA infection Hyperlipemia Ovarian cancer Polycystic ovaries Seasonal allergies Seizures Home Medications aripiprazole [Abilify] 5 mg PO DAILY #7 tab 03/23/22 [Rx Last Taken Unknown] buspirone 5 mg PO BID #14 tab 03/23/22 [Rx Last Taken Unknown] escitalopram oxalate [Lexapro] 5 mg PO DAILY #7 tab 03/23/22 [Rx Last Taken Unknown] Allergy/AdvReac Type Severity Reaction Status Date / Time aspirin Allergy Swelling Verified 03/23/22 17:33 ciprofloxacin [From Cipro] Allergy Rash Verified 03/23/22 17:33 ciprofloxacin HCl Allergy Rash Verified 03/23/22 17:33 [From Cipro] coconut oil Allergy Rash Verified 03/23/22 17:33 latex Allergy Rash Verified 03/23/22 17:33 Penicillins Allergy Rash Verified 03/23/22 17:33 vancomycin Allergy Rash Verified 03/23/22 17:33 codeine AdvReac Vomiting Verified 03/23/22 17:33 hydrocodone bitartrate AdvReac Vomiting Verified 03/23/22 17:33 [From Vicodin] Family History Mother Alcoholism Arthritis Family history of blood clots Diabetes Seizures CVA (cerebral vascular accident) Father Alcoholism Grandmother Arthritis Surgical History History of appendectomy History of cholecystectomy History of foot surgery History of placement of ear tubes History of tonsillectomy Social History Smoking Status: Former smoker alcohol intake: current alcohol intake frequency: a few times a month Alcohol type: wine substance use type: does not use what type of physical activity do you participate in: none ROS ROS ED ROS Narrative Past medical history: Reviewed Medications: Reviewed Social history: Noncontributory Review of systems: All systems negative except as indicated General: No fever Eyes: No visual changes ENT: No upper airway congestion, normal voice Neck: No neck pain Cardiovascular: No chest pain Respiratory: No shortness of breath or cough Gastrointestinal: No abdominal pain, nausea vomiting or diarrhea Genitourinary: No dysuria Musculoskeletal: Denies myalgias no difficulty with ambulation Skin: No rash Neurological: No memory loss, confusion or any focal weakness Psych: As in HPI Hematologic: No easy bleeding or easy bruising EXAM Physical Exam Narrative Exam Narrative: Physical exam General: Well nourished, Well developed, does not appear in physical distress. She is tearful at times Head: Normocephalic, Atraumatic Eyes: Conjunctiva not pale ENT: Moist mucous membranes Neck: Supple, Nontender, No lymphadenopathy Cardiovascular: Regular rate, Regular rhythm Respiratory: No distress, CTA bilaterally Abdomen: Soft, Nontender, Nondistended Back: Nontender, Normal Inspection. Negative for: CVA tenderness Extremities: Nontender, No edema Skin: Normal color, No rash Neurological: Alert, Normal Strength, Normal Sensation Psychological: Somewhat flat depressed affect at times tearful, she is lucid and coherent forthcoming and again denies any suicidal ideations. Const Vital Signs: 03/23/22 17:28 03/23/22 17:56 03/23/22 18:53 Temperature 98.6 F Temperature Source Temporal Pulse Rate 127 H Respiratory Rate 16 15 15 Blood Pressure 168/102 H Blood Pressure Mean 124 Pulse Ox 100 Oxygen Delivery Method Room Air Room Air Room Air MDM MDM MDM Narrative Medical decision making narrative: Patient was seen by crisis, has safety plan was made. She appears well again she is not suicidal I will discharge her. I will write her medications for a week. Discharge Plan Triage Chief Complaint: Suicidal ED Provider: Luis Lombardo Dx/Rx/DC Orders Clinical Impression: Depression, Situational anxiety Instructions: Anxiety Disorders Tx Therapy, ED Depression Prescriptions: New escitalopram oxalate [Lexapro] 5 mg tablet 5 mg PO DAILY Qty: 7 RF: 0 buspirone 5 mg tablet 5 mg PO BID Qty: 14 RF: 0 aripiprazole [Abilify] 5 mg tablet 5 mg PO DAILY Qty: 7 RF: 0 Primary Care Provider: Care Physician,No Primary Referrals: Care Physician,No Primary [Primary Care Provider] -
[2022-03-23 18:53] VITALS: RESP 15
[2022-03-23 20:17] VITALS: BP 127/99; PULSE 80; RESP 16; O2SAT 100
[2022-03-23 20:24] VITALS: RESP 17; TEMP 36.8; O2SAT 98
== END 2022-03-23 20:25 | disposition home or self-care (01) ==
PROVIDERS: Emergency Provider Emergency Medicine; Visit Provider Emergency Medicine
DX: F31.9 Bipolar disorder, unspecified (principal); Z87.891 Personal history of nicotine dependence; E78.5 Hyperlipidemia, unspecified; F41.1 Generalized anxiety disorder; Z86.14 Personal history of Methicillin resistant Staphylococcus aureus infection; E28.2 Polycystic ovarian syndrome; Z79.899 Other long term (current) drug therapy
CPT/HCPCS: 99283

== ENCOUNTER 2022-04-02 08:00 | Outpatient (RCR) | payer MEDICAID, SELFPAY ==
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
[2022-04-02 12:10] VITALS: BP 132/88; PULSE 85
--- NOTE | 2022-04-02 12:18 | BH.DR.ITP ---
Initial Treatment Plan Patient Information Visit Information: ADMISSION DATE: EXPECTED LOS: 4-6 weeks Problems/Symptoms Problem #1:: Mood instability Symptom:: Depression, anger, irritability, isolation, biological disruption of sleep history, decreased concentration, guilt, history of recent suicidal ideation Problem #2:: Anxiety Symptom:: Worry, rumination, panic attacks, flashbacks, avoidance, reexperiencing, nightmares
--- NOTE | 2022-04-02 15:11 | BH.COMM_ITS ---
Communication Note - Communication with Client Communication Note: Pt completed initial paperwork. No significant changes since pre-admission screening. Completed [place] [facility] Scre[facility] and pt is low risk. No SI in past 4 weeks. Pt reports history of suicide attempt when 15 via overdose on 75 pills of other people's meds. Pt reports she did not want to kill herself, she just wanted to hurt herself. However, this resulted in a prolonged hospital stay and pt waking up 4 days later. Hx of cutting only twice in her life. Pt denies any self-harm within the last two weeks and her knives are locked up. Pt is not suicidal and is future oriented. Case discussed with Dr. Sosa with plan to admit to IOP with dx of Bipolar, NOS (F32.9)
== END 2022-04-08 07:24 | disposition home or self-care (01) ==
LOC: BHIOP 08:00
PROVIDERS: Referring Provider Psychiatry & Neurology Psychiatry; Visit Provider Psychiatry & Neurology Psychiatry
DX: F32.9 Major depressive disorder, single episode, unspecified (principal); F43.10 Post-traumatic stress disorder, unspecified; F60.3 Borderline personality disorder; Z91.51 Personal history of suicidal behavior; Z79.899 Other long term (current) drug therapy
CPT/HCPCS: 90792; H2012; T1002

== ENCOUNTER 2025-04-09 01:03 | Emergency (ER) | payer OTHER, SELFPAY ==
[2025-04-09 01:04] VITALS: BP 160/94; PULSE 90; RESP 16; TEMP 37.1; O2SAT 99; BMI 36.8
--- NOTE | 2025-04-09 01:32 | EX.ED.UPPERE ---
HPI History of Present Illness Chief Complaint: Laceration Informant: patient Narrative Narrative: [id number] female presents injury left hand 6 hours ago. Was drying a clean new knife accidentally cut her palm. Tetanus in the last 5 to 10 years. No blood thinners. Try to control bleeding at home. Would rebleed. Has had stitches in the past. No other injuries. Tetanus Immunization: 5-10 years [facility] Medical History Borderline personality disorder PTSD (post-traumatic stress disorder) Bipolar disorder, unspecified Ovarian cancer History of MRSA infection Heart murmur Seizures Polycystic ovaries Hyperlipemia Depression Anxiety History of cancer Back problem Seasonal allergies Home Medications ?Medication ?Instructions ?Recorded ?Last Taken ?Type NK 04/09/25 Unknown History Allergy/AdvReac Type Severity Reaction Status Date / Time aspirin Allergy Swelling Verified 04/09/25 01:05 ciprofloxacin (From Cipro) Allergy Rash Verified 04/09/25 01:05 ciprofloxacin HCl (From Allergy Rash Verified 04/09/25 01:05 Cipro) coconut Allergy Hives Verified 04/09/25 01:05 coconut oil Allergy Rash Verified 04/09/25 01:05 latex Allergy Rash Verified 04/09/25 01:05 Penicillins Allergy Rash Verified 04/09/25 01:05 vancomycin Allergy Rash Verified 04/09/25 01:05 codeine AdvReac Vomiting Verified 04/09/25 01:05 hydrocodone bitartrate (From AdvReac Vomiting Verified 04/09/25 01:05 Vicodin) Family History Mother Alcoholism Arthritis Family history of blood clots Diabetes Seizures CVA (cerebral vascular accident) Father Alcoholism Grandmother Arthritis Surgical History History of foot surgery History of cholecystectomy History of tonsillectomy History of appendectomy History of placement of ear tubes Social History Smoking Status: Former smoker alcohol intake: current alcohol intake frequency: a few times a month Alcohol type: wine substance use type: does not use what type of physical activity do you participate in: none ROS ROS ED Constitutional Constitutional ED: Denies fever(s) Cardiovascular Cardiovascular: Denies chest pain Respiratory/Chest Respiratory/Chest: Denies cough Gastrointestinal Gastrointestinal: Denies diarrhea or vomiting Musculoskeletal Musculoskeletal: Denies none Integumentary Reports wounds; Denies rash Neurologic Neurologic: Denies weakness EXAM Physical Exam Const Vital Signs: 04/09/25 01:04 Temperature 98.7 F Temperature Source Oral Pulse Rate 90 Respiratory Rate 16 Blood Pressure 160/94 H Blood Pressure Mean 116 Pulse Ox 99 Positive well nourished and well developed General Appearance ED: well developed HEENT normocephalic and atraumatic Eyes General Eye ED: Yes normal appearance of both eyes Neck full ROM Resp normal respiratory effort and normal air movement Cardio regular rate and regular rhythm GI soft to palpation Extremity full ROM Neuro oriented x3 Skin Skin Narrative: Left hand palmar aspect 4 cm laceration across the hyperthenar subcutaneous exposure there is no active bleeding. No visualized tendon injury full range of motion of the distal digits. No paresthesias. MDM MDM MDM Narrative Medical decision making narrative: Interventions / MDM: Differential diagnosis: Left hand laceration Diagnosis considered but do not suspect: No clinical tendon injury My EKG interpretation: N/A Imaging independently reviewed and interpreted by myself: N/A External documents reviewed: N/A Test considered but not ordered:N/A ED course: Isolated laceration left hand hypothenar eminence totaling 4 cm. Patient prepped for laceration repair. Procedure note: Verbal consent. Normal sterile conditions. Total 4 cc 1% lidocaine used for local analgesia of the wound. Copiously flushed with normal saline both 4 x 4 and syringe. No gross foreign bodies noted. Wound was closed with a total of 6, 5-0 nylon simple interrupted sutures with good approximation of the wound. Bacitracin dressing placed by myself. Patient tolerated the procedure well. Wound care discussed with patient. PCP follow-up given 10 to 14 days reevaluation and suture removal along with establishing primary care. Re-evaluation: stable Disposition discussed with patient/family/significant other: Patient Case discussed with consulting clinician: N/A This note was generated with [employer] dictation software. It may contain incorrect words, spelling, and punctuation that were not noted in checking the note before signing. Discharge Plan Triage Chief Complaint: Laceration ED Provider: Daniele Shetty Dx/Rx/DC Orders Clinical Impression: Laceration of hand, left, Injury of left hand Instructions: ED Laceration, Hand: All Closures Prescriptions: No Action NK Primary Care Provider: Care Physician,No Primary Referrals: Arlen Wilkerson DO [Med Staff - Active Staff] - 10-14 Days suture removal Care Physician,No Primary [Primary Care Provider] - Activity Restrictions/Additional Instructions: 6 sutures placed to the left hand. Wound care as discussed. Follow-up with primary care doctor in 10 to 14 days for suture removal and establish care. Print Language: Bengali Disposition Disposition: Home, Self Care Discharge Date/Time: 04/09/25 02:54
--- OUTSIDE RECORDS SUMMARY | 2025-04-09 02:04 | XMS RPT_ITS | CCD ---
Author Organization [facility] Inform ion Partnership [facility] Care Team Providers Care Electronic Organ Mechanic Name Role Phone Jon Salomon Primary Care Provider Ruben Perez MD Primary Care Provider [phone] PHYSICIAN, NOT RECORDED Primary Care Physician U Ruben Guerra MD Primary Care Provider PHYSICIAN, NOT RECORDED Primary Care Unavaila ble MARIA TERESA SHARMA DO Attending Unavailable Jon Salomon Primary Care Provider Ruben Perez MD Primary Care Provider DR ELEAZAR VALDEZ DO Attending Unavailable PHYSICIAN, NOT RECORDED Primary Care Unavaila ble Martin MONK.POUCH MAKING 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, Janice M Unavailable RUBEN PEREZ Primary Care Unavailable Allergies Allergy Classification Reported Allergen(s) Allergy Type Date of Onset Reaction(s) Facility (15 sources) Acetaminophen / HYDROcodone; Translations: [acetaminophen-hyd rocodone] Drug Allergy 6 Other: See Comments [facility] Work Phone: (15 sources) Aspirin; Translations: [aspirin] Drug Allergy 6 Hives [facility] Work Phone: (15 sources) Ciprofloxacin; Translations: [ciprofloxacin] Drug Allergy 6 Swelling, Congestion of throat (finding) [facility] Work Phone: (15 sources) Codeine; Translations: [codeine] Drug Allergy 6 Other: See Comments [facility] Work Phone: (15 sources) Latex; Translations: [LATEX] Drug Allergy 6 Other: See Comments [facility] Work Phone: (9 sources) Penicillins; Translations: [penicillins] Drug Allergy 6 [facility] Work Phone: (15 sources) Vancomycin; Translations: [vancomycin] Drug Allergy 6 [facility] Work Phone: (6 sources) Penicillins Drug Allergy 6 [facility] Work Phone: Medications Current Medications Medication Drug Class(es) Dates Sig (Normalized) Sig (Original) acetaminophen 325 mg / oxyCODONE hydrochloride 5 mg oral tablet (4 sources) Opioid Agonist Start: 06-18-2024 End: 06-21-2024 take 1 tablet by mouth every six hours as needed for pain Percocet 5 mg-325 mg oral tablet Dose = 1 tab(s), Oral, q6h, PRN Pain, X 3 day(s), # 12 tab(s), 0 Refill(s), Flank pain, 100 Start Date: 06/18/24 Stop Date: 06/21/24 Status: Ordered Start: 12-26-2016 take 1 tablet by ian th every four hours as needed for pain Percocet 325/5 oral tablet Dose = 1 tab(s), Oral, q4h, PRN as needed for pain, # 20 tab(s), 0 Refill(s) Start Date: 12/26/16 Status: Ordered Quantity: 20.0 Unit: tab(s) Repeat number: 1 benzocaine 0.1 mg/mg oral gel (1 source) Standardized Chemical Allergen Start: 07-24-2022 End: 07-29-2022 apply 1 dose topically four times daily Orajel D 10% mucous membrane gel Dose = 1 honorio, Topical, QID, X 5 day(s), # 7 gram(s), 0 Refill(s), Odontalgia Start Date: 07/24/22 Stop Date: 07/29/22 Status: Ordered benzonatate 100 mg oral capsule (1 source) Non-narcotic Antitussive Start: 11-08-2024 End: 11-15-2024 Edmar Wisdom 100 mg oral capsule Dose : 100 mg = 1 cap(s), Oral, TID, X 7 day(s), # 21 cap(s), 0 Refill(s), 11/15/24 6:10:00 AM EST Start Date: 11/08/24 Stop Date: 11/15/24 Status: Ordered Quantity: 21.0 Unit: cap(s) Repeat number: 1 clindamycin 300 mg oral capsule (1 source) Lincosamide Antibacterial Start: 07-24-2022 End: 08-07-2022 clindamycin 300 mg oral capsule Dose : 300 mg = 1 cap(s), Oral, q6h, X 14 day(s), # 56 cap(s), 0 Refill(s), 08/07/22 20:46:00 EDT, Odontalgia, 98.9 Start Date: 07/24/22 Stop Date: 08/07/22 Status: Ordered diclofenac sodium 75 mg delayed release oral tablet (1 source) Nonsteroidal Anti-inflammatory Drug Start: 03-10-2022 End: 04-09-2022 take 1 tablet by mouth twice daily for pain diclofenac, EC, (VOLTAREN) 75 mg EC tablet Indications: Impingement syndrome of left shoulder Take 1 tablet by mouth twice daily. for pain. 60 tablet 0 03/10/2022 04/09/2022 Active Comment on above: Take 1 tablet by ian twice daily. for pain. Colace (3 sources) Start: 12-26-2016 Colace Oral, BID Start Date: 12/26/16 Status: Ordered Repeat number: 1 Start: 12-26-2016 Colace Oral, B ID Start Date: 12/26/16 Status: Ordered doxycycline hyclate 100 mg oral tablet (1 source) Tetracycline-class Drug Start: 11-08-2024 End: 11-18-2024 doxycycline hyclate 100 mg oral tablet Dose : 100 mg = 1 tab(s), Oral, BID, Take with a probiotic, X 10 day(s), # 20 tab(s), 0 Refill(s), 11/18/24 6:08:00 AM EST, 99 Start Date: 11/08/24 Stop Date: 11/18/24 Status: Ordered Quantity: 20.0 Unit: tab(s) Repeat number: 1 etodolac 400 mg oral tablet (4 sources) Nonsteroidal Anti-inflammatory Drug Start: 01-16-2022 End: 2022 take 1 tablet by mouth twice daily etodolac (LODINE) 400 mg tablet Indications: Acute pain of left shoulder , Traumatic incomplete tear of left rotator cuff, initial encounter Take 1 tablet by mouth twice daily. 60 tablet 0 01/16/2022 2022 Discontinued (Course of therapy completed) Comment on above: Take 1 tablet by ian twice daily. metoclopramide 10 mg oral tablet (3 sources) Dopamine-2 Receptor Antagonist Start: 12-26-2016 Reglan 10 mg oral tablet Dose : 10 mg = 1 tab(s), Oral, QID, PRN Nausea/Vomiting, # 12 tab(s), 0 Refill(s) Start Date: 12/26/16 Status: Ordered Quantity: 12.0 Unit: tab(s) Repeat number: 1 ondansetron 4 mg disintegrating oral tablet (6 sources) Serotonin-3 Receptor Antagonist Start: 06-18-2024 End: 06-22-2024 ondansetron 4 mg oral tablet, disintegrating Dose : 4 mg = 1 tab(s), Oral, q6h, X 4 day(s), # 16 tab(s), 0 Refill(s), 06/22/24 12:19:00 AM EDT Start Date: 06/18/24 Stop Date: 06/22/24 Status: Ordered End: 2022 ONDANSETRON HCL (ZOFRAN ORAL ) Indications: Intractable vomiting with nausea, unspecified vomiting type Take by mouth as needed. 2022 Discontinued (Course of therapy completed) End: 2022 ONDANSETRON HCL (ZOFRAN ORAL ) Indications: Intractable vomiting with nausea, unspecified vomiting type Take by mouth as needed. 0 2022 Discontinued (Course of therapy completed) ONDANSETRON HCL (ZOFRAN ORAL) Indications: Intractable vomiting with nausea, unspecified vomiting type Take by mouth as needed. 0 Active Comment on above: Take by mouth as nee ded. predniSONE 10 mg oral tablet (2 sources) Start: 01-04-2025 End: 01-13-2025 take 4 tablets by mouth once daily, then take 2 tablets by mouth once daily, then take 1 tablet by mouth once daily predniSONE (DELTASONE) 10 mg tablet Indications: Rash Take 4 tablets by mouth once daily for 3 days, THEN 2 tablets once daily for 3 days, THEN 1 tablet once daily for 3 days. 21 tablet 01/04/2025 01/13/2025 Active Completed/Discontinued Medications Medication Drug Class(es) Dates Sig (Normalized) Sig (Original) acetaminophen 500 mg oral tablet (10 sources) Start: 12-27-2021 End: 01-04-2025 take 1 tablet by mouth every six hours as needed acetaminophen (TYLENOL EXTRA STRENGTH) 500 mg tablet Take 1 tablet by mouth every 6 hours as needed for pain (not to exceed 4000mg a day). 30 tablet 12/27/2021 01/04/2025 Discontinued Comment on above: Take 1 tablet by ian th every 6 hours as needed for pain (not to exceed 4000mg a day). betamethasone 3 mg/ml / betamethasone acetate 3 mg/ml injectable suspension (1 source) Corticosteroid Start: 03-03-2022 End: 03-03-2022 betamethasone acetate-betamethas one sodium phosphate 6 mg injection (CELESTONE) Start: 03-03-2022 End: 03-03-2022 betamethasone acetate-betame thasone sodium phosphate 6 mg injection (CELESTONE) busPIRone hydrochloride 5 mg oral tablet (14 sources) Start: 05-27-2022 End: 01-04-2025 take 1 tablet by mouth three times daily busPIRone (BUSPAR) 5 mg tablet Take 5 mg by mouth three times daily. 05/27/2022 01/04/2025 Discontinued Start: 09-09-2018 End: 2022 take 1 tablet by mouth twice daily busPIRone (BUSPAR) 10 mg tablet Indications: ERLINDA (generalized anxiety disorder) take 1 tablet by mouth twice a day 60 tablet 09/09/2018 2022 Discontinued (Course of therapy completed) Start: 12-26-2016 BuSpar Oral, B ID, 0 Refill(s) Start Date: 12/26/16 Status: Ordered Repeat number: 1 Start: 12-26-2016 BuSpar Oral, B ID, 0 Refill(s) Start Date: 12/26/16 Status: Ordered Comment on above: take 1 tablet by ian th twice a day Take 5 mg by mouth t hree times daily. cetirizine hydrochloride 10 mg oral tablet (1 source) Histamine-1 Receptor Antagonist Start: 12-27-19 End: 01-27-20 take 1 tablet by mouth once daily cetirizine (ZYRTEC) 10 mg tablet Take 1 tablet by mouth once daily. 30 tablet 1 12/27/2021 01/26/2022 dicyclomine hydrochloride 10 mg oral capsule (5 sources) Anticholinergic End: 06-11-20 take 1 capsule by mouth once daily dicyclomine (BENTYL) 10 mg capsule Indications: Intractable vomiting with nausea, unspecified vomiting type Take 10 mg by mouth once daily. 2022 Discontinued (Course of therapy completed) Comment on above: Take 10 mg by mouth once daily. escitalopram 5 mg oral tablet (11 sources) Serotonin Reuptake Inhibitor Start: 05-27-20 End: 01-05-20 take 1 tablet by mouth once daily escitalopram oxalate (LEXAPRO) 5 mg tablet Take 5 mg by mouth once daily. 05/27/2022 01/04/2025 Discontinued Start: 09-09-2018 End: 2022 take 1 tablet by mouth once daily escitalopram oxalate (LEXAPRO) 10 mg tablet Indications: Bipolar 1 disorder (HCC) take 1 tablet by mouth once daily 30 tablet 09/09/2018 2022 Discontinued (Course of therapy completed) Comment on above: take 1 tablet by ian th once daily Take 5 mg by mouth o nce daily. esomeprazole 40 mg delayed release oral capsule (8 sources) Proton Pump Inhibitor Start: 7 End: 2 take 1 capsule by mouth twice daily esomeprazole (NEXIUM) 40 mg capsule Take 1 capsule by mouth twice daily. 12/30/2016 2022 Discontinued (Course of therapy completed) Start: 12-26-2016 take 1 dose by mouth once gus y NexIUM OTC Dose : 20 mg =, Oral, qDay Start Date: 12/26/16 Status: Ordered Repeat number: 1 Comment on above: Take 1 capsule by mo uth twice daily. fluticasone propionate 0.05 mg/actuat metered dose nasal spray (10 sources) Corticosteroid Start: 12-27-19 End: 01-05-20 take 2 spray(s) by mouth once daily fluticasone (FLONASE) 50 mcg/actuation nasal spray Use 2 Sprays in each nostril once daily. Rinse mouth after use. 1 Each 12/27/2021 01/04/2025 Discontinued Comment on above: Use 2 Sprays in each nostril once daily. Rinse mouth after use. 10 ml lidocaine hydrochloride 10 mg/ml injection (1 source) Antiarrhythmic, Amide Local Anesthetic Start: 03-03-20 End: 03-03-20 lidocaine (PF) 10 mg/mL (1 %) 4 mL injection (XYLOCAINE) Start: 03-03-2022 End: 03-03-2022 lidocaine (PF) 10 mg/mL (1 % ) 4 mL injection (XYLOCAINE) lurasidone hydrochloride 40 mg oral tablet (6 sources) Atypical Antipsychotic Start: 05-27-2022 End: 01-04-2025 take 1 tablet by mouth once daily LATUDA 40 mg tablet Take 40 mg by mouth once daily. 05/27/2022 01/04/2025 Discontinued Comment on above: Take 40 mg by mouth once daily. nabumetone 500 mg oral tablet (3 sources) Nonsteroidal Anti-inflammatory Drug Start: 07-24-2022 End: 08-07-2022 nabumetone 500 mg oral tablet Dose : 1,000 mg = 2 tab(s), Oral, BID, # 56 tab(s), 0 Refill(s), Odontalgia Start Date: 07/24/22 Stop Date: 08/07/22 Status: Ordered Quantity: 56.0 Unit: tab(s) Repeat number: 1 Indication: Other specified disorders of teeth and supporting structures omeprazole 40 mg delayed release oral capsule (6 sources) Proton Pump Inhibitor Start: 2022 End: 01-04-2025 take 1 capsule by mouth once daily omeprazole (PRILOSEC) 40 mg capsule Take 1 capsule by mouth once daily. 30 capsule 2 2022 01/04/2025 Discontinued Comment on above: Take 1 capsule by [facility] once daily. OTC NUTRITIONAL SUPPLEMENT (6 sources) End: 01-04-2025 OTC NUTRITIONAL SUPPLEMENT Lipozene 1500 mg once daily 01/04/2025 Discontinued OTC NUTRITIONAL SUPPLEMENT Lipozene 1500 mg once daily Active OTC NUTRITIONAL SUPPLEMENT Lipozene 1500 mg once daily 0 Active Comment on above: Lipozene 1500 mg onc e daily oxybutynin chloride 5 mg oral tablet (5 sources) Cholinergic Muscarinic Antagonist Start: 7 End: 2 take 1 tablet by mouth once daily oxybutynin (DITROPAN) 5 mg tablet Take 1 tablet by mouth once daily. 30 tablet 5 04/24/2017 2022 Discontinued (Course of therapy completed) Comment on above: Take 1 tablet by ian th once daily. Problems Active Problems Problem Classification Problem Date Documented Date Episodic/Chronic Anxiety disorders (3 sources) Anxiety 07-01-2014 Chronic Cancer of cervix (18 sources) Malignant tumor of cervix; Translations: [Malignant neoplasm of cervix uteri, unspecified] Onset: 01-02-2016 Resolved: 01-02-2016 12-25-2015 Chronic Disorders of teeth and jaw (1 source) Disorder of teeth AND/OR supporting structures; Translations: [Other specified disorders of teeth and supporting structures] Onset: 07-24-2022 Episodic Esophageal disorders (19 sources) Gastroesophageal reflux disease; Translations: [Gastro-esophageal reflux disease without esophagitis] Onset: 01-02-2016 Resolved: 01-02-2016 12-05-2016 Chronic Genitourinary symptoms and ill-defined conditions (11 sources) Mixed urinary incontinence; Translations: [Mixed incontinence] Onset: 04-24-2017 04-24-2017 Chronic Immunizations and screening for infectious disease (2 sources) Viral screening status; Translations: [Encounter for screening for other viral diseases] Episodic Mood disorders (20 sources) Depressive disorder; Translations: [Depression] 12-05-2016 Chronic Other non-traumatic joint disorders (4 sources) Shoulder pain; Translations: [Pain in left shoulder] Onset: 03-10-2022 Episodic Other non-traumatic joint disorders (1 source) Pain in left shoulder; Translations: [Pain in joint, shoulder region] 12-27-2021 Episodic Other nutritional; endocrine; and metabolic disorders (3 sources) Morbid obesity; Translations: [Morbid (severe) obesity due to excess calories] Onset: 12-28-2015 12-05-2016 Chronic Other nutritional; endocrine; and metabolic disorders (8 sources) Obese class II; Translations: [Obesity, unspecified] Onset: 12-28-2015 2022 Chronic Other screening for suspected conditions (not mental disorders or infectious disease) (6 sources) Patient encounter status; Translations: [Encounter for screening for malignant neoplasm of colon] Episodic Other skin disorders (1 source) Eruption; Translations: [Rash and other nonspecific skin eruption] 01-04-2025 Episodic Unclassified (3 sources) Bipolar (qualifier value) 07-01-2014 Unclassified (3 sources) Methicillin resistant Staphylococcus aureus (organism) 07-01-2014 Past or Other Problems Problem Classification Problem Date Documented Date Episodic/Chronic Abdominal pain (8 sources) Right upper quadrant pain; Translations: [Right upper quadrant pain] Onset: 12-16-2016 Resolved: 2022 12-16-2016 Episodic Biliary tract disease (4 sources) Biliary dyskinesia; Translations: [Other specified diseases of gallbladder] Onset: 12-08-2016 Resolved: 01-01-2017 01-01-2017 Episodic Nausea and vomiting (7 sources) Uncontrollable vomiting; Translations: [Vomiting, unspecified] Onset: 12-05-2016 Resolved: 2022 12-05-2016 Episodic Noninfectious gastroenteritis (8 sources) Chronic diarrhea; Translations: [Noninfective gastroenteritis and colitis, unspecified] Onset: 2022 Episodic Other connective tissue disease (12 sources) Impingement syndrome of left shoulder region; Translations: [Impingement syndrome of left shoulder] Onset: 03-10-2022 Episodic Other non-traumatic joint disorders (8 sources) Chronic pain of left upper limb; Translations: [Pain in left shoulder] Onset: 03-10-2022 Episodic Results Test Name Value Interpretation Reference Range Facility [facility] 01-04-2025 CNOV Office Visit ([facility] ) JAZZY VENTURA ([id number]) 1975 F Date Time Provider Department 01/04/25 10:30 AM MARCELLUS ESCALANTE [facility] During your visit today, we recorded the following information about you: Temperature Pulse Respiration Blood pressure 97.9 degrees 110/minute 16/minute 122/82 Weight 103.5 kg Marcellus Escalante MD 01/04/2025 10:54 AM Signed Patient presents with: Rash: rash on arms and legs with swelling x 2 days HPI: Rash: Location: arms elbows to forearms, and legs knees to feet (worst medial lower legs) Duration: couple days; had a similar rash for a day last month Pruritis: very Pain: hurts in her legs Change: had some rash around her neck which went away Bleeding/ulceration/b titi/pustule: redness, swelling, bumps Contacts with rash: No Exposure: Used new body wash twice within the last week which had coconut (switched back to caress because she is allergic to coconut). No new detergents, fabric softeners, lotions. Outdoor exposure: cleaning up outside daily since moving into a new trailer 1 month ago. 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 Change in medications: No. Recent illness: had a cold a couple weeks ago. Treatment: benadryl MEDICATIONS: No prescriptions on file. ALLERGIES: ALLERGIES Allergen Reactions Aspirin Hives Ciprofloxacin Swelling Codeine Other: See Comments sleepy for 3 to 4 days Hydrocodone-Acetami* Other: See Comments throat swells up Latex Other: See Comments blisters Penicillins Hives Vancomycin Swelling VITALS: BP 122/82 Pulse 110 Temp 36.6 ?C (97.9 ?F) Resp 16 Wt 103.5 kg (228 lb 2.8 oz) LMP (LMP Unknown) SpO2 97% BMI 37.97 kg/m? PHYSICAL EXAM: GEN: pleasant, alert, somewhat anxious itching SKIN: tace erythema with xerosis medial forearms to elbows with sparse excoriations and papules. Similar rash with mild edema and more excoriation of the medial lower legs. HEENT: PERRL, EOMI, sclera clear, MMM NECK: supple, no lymphadenopathy, no thyromegaly HEART: borderline fast rate, regular rhythm, no murmurs LUNGS: clear to auscultation, no wheezes or crackles, no increased WOB EXT: no clubbing, no cyanosis, no edema ASSESSMENT/PLAN: 1. Rash - ICD9: 782.1, ICD10: R21 Rash correlates with exposure to new body wash. Distribution fits with contact dermatitis; potentially from outdoor work or employment. Continue avoidance of coconut containing body wash. Continue diphenhydramine as needed for rash. - PREDNISONE 10 MG TABLET taper. Reports she has had no side effects with prior use. Follow-up for reevaluation with worsening swelling or persistent symptoms. Reports she has no current PCP. She says [place] her [place] are too far to go (where she can get established with a PCP through the clinic). She has been seen in IM here within the last 3 years. Marcellus Escalante MD Allergies As of Date: 01/04/2025 Noted Allergy Reaction ASPIRIN 12/25/2015 4 - Hives CIPROFLOXACIN 12/25/2015 7 - Swelling CODEINE 12/25/2015 14 - Other: See Comments Comments: sleepy for 3 to 4 days HYDROCODONE-ACETAMINO PHEN 12/25/2015 14 - Other: See Comments Comments: throat swells up LATEX 12/25/2015 14 - Other: See Comments Comments: blisters PENICILLINS 12/25/2015 4 - Hives VANCOMYCIN 12/25/2015 7 - Swelling Date Reviewed: 01/04/2025 Reviewed by: Daphne Lopes MA - Fully Assessed Reason for Visit: Rash [1087] Cmt: rash on arms and legs with swelling x 2 days Primary Visit Diagnosis:Rash [R21] Order(s):predniSONE (DELTASONE) 10 mg tabletTake 4 tablets by mouth once daily for 3 days, THEN 2 tablets once daily for 3 days, THEN 1 tablet once daily for 3 days.Disp: 21 tabletRfl: 0 Prescriptions as of 01/04/2025 - predniSONE (DELTASONE) 10 mg tablet Take 4 tablets by mouth once daily for 3 days, THEN 2 tablets once daily for 3 days, THEN 1 tablet once daily for 3 days. Problem List As Of Date 01/04/2025 Noted Resolved Gastroesophageal reflux disease [K21.9] Depression [F32.A] Bipolar 1 disorder (HCC) [F31.9] Cervical cancer (HCC) [C53.9] Obesity, Class II, BMI 35-39.9 [E66.812] 12/28/2015 Gastroesophageal reflux disease without esophag*01/02/2016 01/02/2016 Cervix cancer (HCC) [C53.9] 01/02/2016 01/02/2016 Intractable vomiting [R11.10] 12/05/2016 2022 Biliary dyskinesia [K82.8] 12/08/2016 01/01/2017 Right upper quadrant pain [R10.11] 12/16/2016 2022 Mixed stress and urge urinary incontinence [N39*04/24/2017 Chronic left shoulder pain [M25.512, G89.29] 03/10/2022 Impingement syndrome of left shoulder [M75.42] 03/10/2022 Chronic diarrhea [K52.9] 2022 Prescriptions ordered this encounter Disp Refills Start End PREDNISONE 10 MG TABLET 21 t* 0 01/04/2025 01/13/2025 Route: ORAL Sig: Take 4 tablets by mouth once daily for 3 days, THEN 2 tablets once daily for 3 days, T (more content not included)... Normal [facility] .Auto Diffon 06-17-2024 Basophil, Absolute 0.0 10 3/mcL Normal 0.0-0.2 [facility] ([place]) Comment on above: Performed By: #### A ELIAN, LIP, CBC, MDW, CMP, GFR, ADIFF #### [address] [address] Basophils/100 WBC (Bld) 0.4 % Normal 0.0-2.5 [facility] ([place]) Comment on above: Performed By: #### A ELIAN, LIP, CBC, MDW, CMP, GFR, ADIFF #### [address] [address] Eosinophil, Absolute 0.2 10 3/mcL Normal 0.0-0.4 [facility] ([place]) Comment on above: Performed By: #### A ELIAN, LIP, CBC, MDW, CMP, GFR, ADIFF #### [address] [address] Eosinophils/100 WBC (Bld) 2.9 % Normal 0.0-7.0 [facility] ([place]) Comment on above: Performed By: #### A ELIAN, LIP, CBC, MDW, CMP, GFR, ADIFF #### [address] [address] Lymphocyte, Absolute 2.4 10 3/mcL Normal 0.8-3.9 [facility] ([place]) Comment on above: Performed By: #### A ELIAN, LIP, CBC, MDW, CMP, GFR, ADIFF #### [address] [address] Lymphocytes/100 WBC (Bld) 29.8 % Normal 10.0-50.0 [facility] ([place]) Comment on above: Performed By: #### A ELIAN, LIP, CBC, MDW, CMP, GFR, ADIFF #### [address] [address] Monocyte, Absolute 0.8 10 3/mcL Normal 0.2-1.0 [facility] ([place]) Comment on above: Performed By: #### A ELIAN, LIP, CBC, MDW, CMP, GFR, ADIFF #### [address] [address] Monocytes/100 WBC (Bld) 9.4 % Normal 1.7-13.0 [facility] ([place]) Comment on above: Performed By: #### A ELIAN, LIP, CBC, MDW, CMP, GFR, ADIFF #### [address] [address] Neutrophils/100 WBC (Bld) 57.5 % Normal 37.0-80.0 [facility] ([place]) Comment on above: Performed By: #### A ELIAN, LIP, CBC, MDW, CMP, GFR, ADIFF #### [address] [address] .GFRon 06-17-2024 GFR 70 ml/min/1.73sqm Normal [facility] ([place]) Comment on above: Result Comment: GFR Population mean for , Non- Americans Ages 20-29 = 116 mL/min/1.73 sq.m. Ages 30-39 = 107 mL/min/1.73 sq.m. Ages 40-49 = 99 mL/min/1.73 sq.m. Ages 50-59 = 93 mL/min/1.73 sq.m. Ages 60-69 = 85 mL/min/1.73 sq.m. Ages 70+ = 75 mL/min/1.73 sq.m. Chronic Kidney Disease: Less than 60 mL/min/1.73 square meters End Stage Renal Disease: Less than 15 mL/min/1.73 square meters Performed By: #### U JESUS PREGU, UA #### [address] [address] GFR Non- 58 ml/min/1.73sqm Normal [facility] ([place]) Comment on above: Result Comment: GFR Population mean for , Non- Americans Ages 20-29 = 116 mL/min/1.73 sq.m. Ages 30-39 = 107 mL/min/1.73 sq.m. Ages 40-49 = 99 mL/min/1.73 sq.m. Ages 50-59 = 93 mL/min/1.73 sq.m. Ages 60-69 = 85 mL/min/1.73 sq.m. Ages 70+ = 75 mL/min/1.73 sq.m. Chronic Kidney Disease: Less than 60 mL/min/1.73 square meters End Stage Renal Disease: Less than 15 mL/min/1.73 square meters Performed By: #### U ILEANA LEEU, UA #### [address] [address] .MDWon 06-17-2024 Monocyte Distribution Width 19.24 Normal 0.00-20.00 [facility] ([place]) Comment on above: Result Comment: For ED adult patients suspected of sepsis, MDW<=20.0 does not rule out sepsis or risk of sepsis Performed By: #### A ELIAN, LIP, CBC, MDW, CMP, GFR, ADIFF #### [address] [address] .NEUABSon 06-17-2024 Neutrophil, Absolute 4.7 10 3/mcL Normal 2.9-6.2 [facility] ([place]) Comment on above: Performed By: #### A ELIAN, LIP, CBC, MDW, CMP, GFR, ADIFF #### [place] [address] .Urinalysis Microscopic (AO) on 06-17-2024 UA Bacteria 2+ /hpf Abnormal [facility] ([place]) Comment on above: Performed By: #### U AMICAO, PREGU, UA #### [place] [address] UA RBC 0-5 Abnormal None Seen [facility] ([place]) Comment on above: Performed By: #### U AMICAO, PREGU, UA #### [place] [address] UA Squam Epithelial 10-15 Abnormal None Seen [facility] ([place]) Comment on above: Performed By: #### U AMICAO, PREGU, UA #### [place] [address] UA WBC 0-5 Abnormal None Seen [facility] ([place]) Comment on above: Performed By: #### U AMICAO, PREGU, UA #### [place] [address] CBCon 06-17-2024 Erythrocyte distribution width (RBC) [Ratio] 13.5 % Normal 11.5-14.5 [facility] ([place]) Comment on above: Performed By: #### A ELIAN, LIP, CBC, MDW, CMP, GFR, ADIFF #### [place] [address] Hematocrit (Bld) [Volume fraction] 38.3 % Normal 37.0-47.0 [facility] ([place] Comment on above: Performed By: #### A ELIAN, LIP, CBC, MDW, CMP, GFR, ADIFF #### [place] [address] Hgb 13.2 G/dL Normal 12.0-16.0 [facility] ([place] Comment on above: Performed By: #### A ELIAN, LIP, CBC, MDW, CMP, GFR, ADIFF #### [address] [address] MCH (RBC) [Entitic mass] 32.7 pg High 27.0-31.2 [facility] ([place] Comment on above: Performed By: #### A ELIAN, LIP, CBC, MDW, CMP, GFR, ADIFF #### [address] [address] MCHC 34.5 G/dL Normal 33.0-37.0 [facility] ([place] Comment on above: Performed By: #### A ELIAN, LIP, CBC, MDW, CMP, GFR, ADIFF #### [address] [address] MCV (RBC) [Entitic vol] 95.0 fL High 80.0-94.0 [facility] ([place] Comment on above: Performed By: #### A ELIAN, LIP, CBC, MDW, CMP, GFR, ADIFF #### [address] [address] Platelet 303 10 3/mcL Normal 130-400 [facility] ([place] Comment on above: Performed By: #### A ELIAN, LIP, CBC, MDW, CMP, GFR, ADIFF #### [address] [address] Platelet mean volume (Bld) [Entitic vol] 7.1 fL Low 7.4-10.4 [facility] ([place] Comment on above: Performed By: #### A ELIAN, LIP, CBC, MDW, CMP, GFR, ADIFF #### [address] [address] RBC 4.03 10 6/mcL Low 4.20-5.40 [facility] ([place] Comment on above: Performed By: #### A ELIAN, LIP, CBC, MDW, CMP, GFR, ADIFF #### [address] [address] WBC 8.2 10 3/mcL Normal 4.6-10.8 [facility] ([place] Comment on above: Performed By: #### A ELIAN, LIP, CBC, MDW, CMP, GFR, ADIFF #### [address] [address] CMPon 06-17-2024 Albumin Level 3.8 G/dL Normal 3.5-5.0 [facility] ([place] Comment on above: Performed By: #### A ELIAN, LIP, CBC, MDW, CMP, GFR, ADIFF #### [address] [address] Albumin/Globulin [Mass ratio] 1.1 {ratio} Normal 1.1-2.5 [facility] ([place] Comment on above: Performed By: #### A ELIAN, LIP, CBC, MDW, CMP, GFR, ADIFF #### [address] [address] ALP [Catalytic activity/Vol] 70 U/L Normal 40-135 [facility] ([place] Comment on above: Performed By: #### A ELIAN, LIP, CBC, MDW, CMP, GFR, ADIFF #### [address] [address] ALT [Catalytic activity/Vol] 38 U/L Normal 14-59 [facility] ([place] Comment on above: Performed By: #### A ELIAN, LIP, CBC, MDW, CMP, GFR, ADIFF #### [address] [address] AST [Catalytic activity/Vol] 15 U/L Normal 10-40 [facility] ([place] Comment on above: Performed By: #### A ELIAN, LIP, CBC, MDW, CMP, GFR, ADIFF #### [address] [address] Bili Total 0.6 mg/dL Normal 0.2-1.0 [facility] ([place] Comment on above: Result Comment: Use of this assay is not recommended for patients undergoing treatment with eltrombopag due to the potential for falsely elevated results. Performed By: #### A ELIAN, LIP, CBC, MDW, CMP, GFR, ADIFF #### [address] [address] BUN/Creatinine Ratio 20 ratio Normal 7-27 [facility] ([place] Comment on above: Performed By: #### A ELIAN, LIP, CBC, MDW, CMP, GFR, ADIFF #### [address] [address] Calcium [Mass/Vol] 8.8 mg/dL Normal 8.4-10.2 [facility] ([place] Comment on above: Performed By: #### A ELIAN, LIP, CBC, MDW, CMP, GFR, ADIFF #### [address] [address] Chloride [Moles/Vol] 103 mmol/L Normal 98-107 [facility] ([place] Comment on above: Performed By: #### A ELIAN, LIP, CBC, MDW, CMP, GFR, ADIFF #### [address] [address] CO2 [Moles/Vol] 31 mmol/L High 22-29 [facility] ([place] Comment on above: Performed By: #### A ELIAN, LIP, CBC, MDW, CMP, GFR, ADIFF #### [address] [address] Creatinine [Mass/Vol] 1.02 mg/dL Normal 0.55-1.02 [facility] ([place]) Comment on above: Performed By: #### A ELIAN, LIP, CBC, MDW, CMP, GFR, ADIFF #### [address] [address] Electrolyte Balance 6.0 mEq/L Normal 4.0-15.0 [facility] ([place]) Comment on above: Performed By: #### A ELIAN, LIP, CBC, MDW, CMP, GFR, ADIFF #### [address] [address] Globulin 3.4 G/dL Normal [facility] ([place] Comment on above: Performed By: #### A ELIAN, LIP, CBC, MDW, CMP, GFR, ADIFF #### [address] [address] Glucose [Mass/Vol] 88 mg/dL Normal 70-105 [facility] ([place] Comment on above: Performed By: #### A ELIAN, LIP, CBC, MDW, CMP, GFR, ADIFF #### [address] [address] Potassium [Moles/Vol] 4.1 mmol/L Normal 3.5-5.1 [facility] ([place] Comment on above: Performed By: #### A ELIAN, LIP, CBC, MDW, CMP, GFR, ADIFF #### [address] [address] Sodium [Moles/Vol] 140 mmol/L Normal 136-145 [facility] ([place] Comment on above: Performed By: #### A ELIAN, LIP, CBC, MDW, CMP, GFR, ADIFF #### [address] [address] Total Protein 7.2 G/dL Normal 6.4-8.2 [facility] ([place] Comment on above: Performed By: #### A ELIAN, LIP, CBC, MDW, CMP, GFR, ADIFF #### [address] [address] Urea nitrogen [Mass/Vol] 20 mg/dL High 7-18 [facility] ([place] Comment on above: Performed By: #### A ELIAN, LIP, CBC, MDW, CMP, GFR, ADIFF #### [address] [address] [address] ABD/PELVIS W/ IV CONTRAST ONLYon 06-17-2024 CT ABD/PELVIS W/ IV CONTRAST ONLY ORIGINAL EXAMINATION: CT OF THE ABDOMEN AND PELVIS WITH CONTRAST 06/17/2024 11:27 pm TECHNIQUE: CT of the abdomen and pelvis was performed with the administration of intravenous contrast. Multiplanar reformatted images are provided for review. Automated exposure control, iterative reconstruction, and/or weight based adjustment of the mA/kV was utilized to reduce the radiation dose to as low as reasonably achievable. COMPARISON: None. HISTORY: ORDERING SYSTEM PROVIDED HISTORY: Reason for Exam: RT FLANK PAIN/RIB PAIN X 3 DAYS. PT STATES HER AND HER LAID THEYRE MOTOCYCLE OVER 5 DAYS AGO BUT DIDNT FEEL ANY PAIN THEN. 3 DAYS AGO SEVERE RT FLANK PAIN STARTED abdominal pain FINDINGS: Lower Chest: No focal consolidation Organs: No acute findings. Cholecystectomy. GI/Bowel: Unremarkable. Pelvis: Hysterectomy. 3.1 cm left adnexal cyst which does not require interval follow-up if the patient is premenopausal. Peritoneum/Retroperit oneum: Nonaneurysmal abdominal aorta. No enlarged lymph nodes. Bones/Soft Tissues: Small fat containing left inguinal hernia. Motion degraded evaluation of the ribs and upper abdomen. IMPRESSION: Motion degraded evaluation of the ribs and upper abdomen. No definite acute findings within the confines. Interpreted by: Bk Darling Preliminary Report By: Bk Darling Electronically signed By Bk Darling Dictated Date: 06/17/2024 11:28:02 PM Prelim Date: 06/17/2024 11:35:48 PM Sign Date: 06/17/2024 11:35:48 PM Ordering Provider: MARIA TERESA SHARMA Pending Sale To [facility] ([place]) LABORATORYOrdered By: SYSTEM SYSTEM on 06-17-2024 Albumin BCP dye [Mass/Vol] 3.8 G/dL Normal 3.5 - 5.0 G/dL AO ADM SS Albumin/Globulin [Mass ratio] 1.1 {ratio} Normal 1.1 - 2.5 ratio AO ADM SS ALP [Catalytic activity/Vol] 70 U/L Normal 40 - 135 U/L AO ADM SS ALT With P-5'-P [Catalytic activity/Vol] 38 U/L Normal 14 - 59 U/L AO ADM SS AST With P-5'-P [Catalytic activity/Vol] 15 U/L Normal 10 - 40 U/L AO ADM SS Basophil, Absolute 0.0 103/mcL Normal 0.0 - 0.2 10^3/mcL AO Workflow SS Basophils/100 WBC (Bld) 0.4 % Normal 0.0 - 2.5 % AO Workflow SS Bilirubin [Mass/Vol] 0.6 mg/dL Normal 0.2 - 1 .0 mg/dL AO ADM SS Comment on above: Interpretive Data: U se of this assay is not recommended for patients undergoing treatment with eltrombopag due to the potential for falsely elevated results. Calcium [Mass/Vol] 8.8 mg/dL Normal 8.4 - 10. 2 mg/dL AO ADM SS Chloride [Moles/Vol] 103 mmol/L Normal 98 - 10 7 mmol/L AO ADM SS CO2 [Moles/Vol] 31 mmol/L High 22 - 29 mmol/L AO ADM SS Creatinine [Mass/Vol] 1.02 mg/dL Normal 0.55 - 1.02 mg/dL AO ADM SS Electrolyte Balance 6.0 mEq/L Normal 4.0 - 15 .0 mEq/L AO ADM SS Eosinophil, Absolute 0.2 103/mcL Normal 0.0 - 0 .4 10^3/mcL AO Workflow SS Eosinophils/100 WBC (Bld) 2.9 % Normal 0.0 - 7.0 % AO Workflow SS Erythrocyte distribution width (RBC) [Ratio] 13.5 % Normal 11.5 - 14.5 % AO Workflow SS GFR/1.73 sq M.predicted among blacks MDRD (S/P/Bld) [Vol rate/Area] 70 ml/min/1.73sqm Invalid Interpretation Code AO Chemistry S Comment on above: Interpretive Data: GFR Population mean for , Non- Americans Ages 20-29 = 116 mL/min/1.73 sq.m. Ages 30-39 = 107 mL/min/1.73 sq.m. Ages 40-49 = 99 mL/min/1.73 sq.m. Ages 50-59 = 93 mL/min/1.73 sq.m. Ages 60-69 = 85 mL/min/1.73 sq.m. Ages 70+ = 75 mL/min/1.73 sq.m. Chronic Kidney Disease: Less than 60 mL/min/1.73 square meters End Stage Renal Disease: Less than 15 mL/min/1.73 square meters GFR/1.73 sq M.predicted among non-blacks MDRD (S/P/Bld) [Vol rate/Area] 58 ml/min/1.73sqm Invalid Interpretation Code AO Chemistry S Comment on above: Interpretive Data: GFR Population mean for , Non- Americans Ages 20-29 = 116 mL/min/1.73 sq.m. Ages 30-39 = 107 mL/min/1.73 sq.m. Ages 40-49 = 99 mL/min/1.73 sq.m. Ages 50-59 = 93 mL/min/1.73 sq.m. Ages 60-69 = 85 mL/min/1.73 sq.m. Ages 70+ = 75 mL/min/1.73 sq.m. Chronic Kidney Disease: Less than 60 mL/min/1.73 square meters End Stage Renal Disease: Less than 15 mL/min/1.73 square meters Globulin 3.4 G/dL Invalid Interpretation Code AO ADM SS Glucose [Mass/Vol] 88 mg/dL Normal 70 - 105 mg/dL AO ADM SS Hematocrit (Bld) [Volume fraction] 38.3 % Normal 37.0 - 47.0 % AO Workflow SS Hemoglobin (Bld) [Mass/Vol] 13.2 G/dL Normal 12.0 - 16.0 G/dL AO Workflow SS Lipase [Catalytic activity/Vol] 31 U/L Normal 16 - 77 U/L AO ADM SS Lymphocyte, Absolute 2.4 103/mcL Normal 0.8 - 3 .9 10^3/mcL AO Workflow SS Lymphocytes/100 WBC (Bld) 29.8 % Normal 10.0 - 50.0 % AO Workflow SS MCH (RBC) [Entitic mass] 32.7 pg High 27.0 - 31.2 pg AO Workflow SS MCHC 34.5 G/dL Normal 33.0 - 37.0 G/dL AO Workflow SS MCV (RBC) [Entitic vol] 95.0 fL High 80.0 - 94.0 fL AO Workflow SS Monocyte distribution width Auto (Bld) [Entitic vol] 19.24 1 Normal 0.00 - 20.00 AO Workflow SS Comment on above: Result Comment: For ED adult patients suspected of sepsis, MDW<=20.0 does not rule out sepsis or risk of sepsis Monocyte, Absolute 0.8 103/mcL Normal 0.2 - 1.0 10^3/mcL AO Workflow SS Monocytes/100 WBC (Bld) 9.4 % Normal 1.7 - 13.0 % AO Workflow SS Neutrophil, Absolute 4.7 103/mcL Normal 2.9 - 6 .2 10^3/mcL AO Workflow SS Neutrophils/100 WBC (Bld) 57.5 % Normal 37.0 - 80.0 % AO Workflow SS Platelet mean volume (Bld) [Entitic vol] 7.1 fL Low 7.4 - 10.4 fL AO Workflow SS Platelets (Bld) [#/Vol] 303 103/mcL Normal 130 - 400 10^3/mcL AO Workflow SS Potassium [Moles/Vol] 4.1 mmol/L Normal 3.5 - 5.1 mmol/L AO ADM SS Protein [Mass/Vol] 7.2 G/dL Normal 6.4 - 8.2 G/dL AO ADM SS RBC (Bld) [#/Vol] 4.03 106/mcL Low 4.20 - 5.4 0 10^6/mcL AO Workflow SS Sodium [Moles/Vol] 140 mmol/L Normal 136 - 145 mmol/L AO ADM SS Urea nitrogen [Mass/Vol] 20 mg/dL High 7 - 18 mg/dL AO ADM SS Urea nitrogen/Creatinine [Mass ratio] 20 ratio Normal 7 - 27 ratio AO ADM SS WBC (Bld) [#/Vol] 8.2 103/mcL Normal 4.6 - 10.8 10^3/mcL AO Workflow SS LABORATORYOrdered By: Paulie Mccoy on 06-17-2024 Appearance (U) Cloudy *ABN* (06/17/24 10:18 PM) Invalid Interpretation Code Clear AO Auto Urine SS Bacteria LM.HPF (Urine sed) [#/Area] 2 /[HPF] Invalid Interpretation Code AO Auto Urine SS Bilirubin Ql (U) Negative (06/17/24 10:18 PM) Normal Negative AO Auto Urine SS Color (U) Yellow (06/17/24 10:18 PM) Normal AO Auto Urine SS Glucose Test strip (U) [Mass/Vol] Negative Normal Negative AO Auto Urine SS HCG ( test) Ql Negative (06/17/24 10:18 PM) Normal AO Manual Urine SS Hemoglobin Auto test strip (U) [Mass/Vol] Trace *ABN* (06/17/24 10:18 PM) Invalid Interpretation Code Negative AO Auto Urine SS Ketones Ql (U) Negative Normal Negative AO Auto Ur ine SS test (u) int Not detected Invalid Interpretation Code AO Manual Urine SS UA Leuk Est Negative (06/17/24 10:18 PM) Normal Negative AO Auto Urine SS UA Nitrite Negative (06/17/24 10:18 PM) Normal Negative AO Auto Urine SS UA pH 5.5 (06/17/24 10:18 PM) Normal 5.0 - 8.0 AO Auto Urine SS UA Protein Negative Normal Negative AO Auto Urine SS UA RBC 0-5 /HPF Invalid Interpretation Code None Seen AO Auto Urine SS UA Spec Grav >=1.030 *ABN* (06/17/24 10:18 PM) Invalid Interpretation Code 1.015-1.025 AO Auto Urine SS UA Specimen Type Clean Catch (06/17/24 10:18 PM) Normal AO Auto Urine SS UA Squam Epithelial 10-15 /HPF Invalid Interpretation Code None Seen AO Auto Urine SS UA Urobilinogen 0.2 E.U./dL Normal 0.2-1.0 AO Auto Urine SS WBC LM.HPF (Urine sed) [#/Area] 0-5 /HPF Invalid Interpretation Code None Seen AO Auto Urine SS LIPon 06-17-2024 Lipase Level 31 U/L Normal 16-77 [facility] ([place]) Comment on above: Performed By: #### A ELIAN, LIP, CBC, MDW, CMP, GFR, ADIFF #### [address] [address] PREGUon 06-17-2024 HCG ( test) Ql (U) Negative Normal [facility] ([place] Comment on above: Performed By: #### U AMICAO, PREGU, UA #### [address] [address] test (u) int Not detected Invalid Interpretation Code [facility] ([place] Comment on above: Performed By: #### U AMICAO, PREGU, UA #### [address] [address] UAon 06-17-2024 Color (U) Yellow Normal [facility] ([place] Comment on above: Performed By: #### U AMICAO, PREGU, UA #### [address] [address] Glucose (U) [Mass/Vol] Negative Normal Negative [facility] ([place] Comment on above: Performed By: #### U AMICAO, PREGU, UA #### [address] [address] Ketones Ql (U) Negative Normal Negative [facility] ([place] Comment on above: Performed By: #### U AMICAO, PREGU, UA #### [place] [address] [address] UA Appear Cloudy Abnormal Clear [facility] ([place] Comment on above: Performed By: #### U AMICAO, PREGU, UA #### [place] [address] [address] UA Blood Trace Abnormal Negative [facility] ([place] Comment on above: Performed By: #### U AMICAO, PREGU, UA #### [place] [address] UA Leuk Est Negative Normal Negative [facility] ([place] Comment on above: Performed By: #### U AMICAO, PREGU, UA #### [place] [address] UA Nitrite Negative Normal Negative [facility] ([place] Comment on above: Performed By: #### U AMICAO, PREGU, UA #### [place] [address] UA pH 5.5 Normal 5.0 - 8.0 [facility] ([place] Comment on above: Performed By: #### U AMICAO, PREGU, UA #### [place] [address] UA Protein Negative Normal Negative [facility] ([place] Comment on above: Performed By: #### U AMICAO, PREGU, UA #### [place] [address] UA Spec Grav >=1.030 Abnormal 1.015-1.025 [facility] ([place] Comment on above: Performed By: #### U AMICAO, PREGU, UA #### [place] [address] UA Specimen Type Clean Catch Normal [facility] ([place] Comment on above: Performed By: #### U AMICAO, PREGU, UA #### [place] [address] UA Urobilinogen 0.2 E.U./dL Normal 0.2-1.0 [facility] ([place] Comment on above: Performed By: #### U ILEANA LEEU, UA #### [facility] [address] [place], [place] [address] Urobilinogen (U) [Mass/Vol] Negative Normal Negative [facility] ([place] Comment on above: Performed By: #### U ILEANA LEEU, UA #### [facility] [address] [place], [place] [address] XR RIBS 2 VIEWS RIGHT/PA KAYLIE ST(AO)on 06-17-2024 XR RIBS 2 VIEWS RIGHT/PA CHEST(AO) ORIGINAL EXAMINATION: 2 XRAY VIEWS OF RIGHT RIBS WITH 2 XRAY VIEWS OF THE CHEST COMPARISON: None HISTORY: ORDERING SYSTEM PROVIDED HISTORY: Reason for Exam: rib pain FINDINGS: The cardiomediastinal silhouette is within normal limits. No focal consolidation or pulmonary vascular congestion. No pneumothorax or pleural effusion. No visible rib fracture. Degenerative changes of the spine. Globular densities over the humeral heads bilaterally may represent calcific tendinitis or sequelae of remote injury/tendinopathy. Cholecystectomy clips. IMPRESSION: No acute radiographic findings. No visible rib fracture. I have personally reviewed the images of this examination and agree with the resident's findings and interpretation. Interpreted by: Bk Darling Preliminary Report By: Veronica Zamarripa Electronically signed By Bk Darling Dictated Date: 06/17/2024 11:37:16 PM Prelim Date: 06/17/2024 11:40:31 PM Sign Date: 06/17/2024 11:45:16 PM Ordering Provider: MARIA TERESA Valencia [facility] ([place]) [facility] 07-22-2022 [facility] Emergency Department Summary on 03-23-2022 Emergency Department Summary [facility] Medical Records Department [address] [place] [address] Emergency Department Summary 03/23/22 MR#: [id number] Acct: [id number] Name: JAZZY VENTURA Rep #: [id number] : 1975 46 From: Luis Lombardo MD PCP: Care Physician,No Primary Status:REG ER Location: ED HPI History of Present Illness Chief Complaint: Suicidal Narrative Narrative: Patient presents with depression, apparently she is ending a long-term relationship and has had more anxiety and depression. She has also been cutting but not in order to kill her self but just to escape from the pain she has cut on her abdomen and her wrists all which were superficial cuts. At this time she has no suicidal ideation she does not want to , she has a daughter that she needs to be around. She continues to perform her ADLs, she cooks she takes care of her animals including pigs, she does not get any worse sleep than normal or any more sleep than normal, she has no guilt she has slightly decreased energy. Her concentration is about the same as normal. She has been off her psychiatric medications for about a year. [facility] Medical History Anxiety Back problem Bipolar 1 disorder Depression Heart murmur History of cancer History of MRSA infection Hyperlipemia Ovarian cancer Polycystic ovaries Seasonal allergies Seizures Home Medications aripiprazole [Abilify] 5 mg PO DAILY #7 tab 03/23/22 [Rx Last Taken Unknown] buspirone 5 mg PO BID #14 tab 03/23/22 [Rx Last Taken Unknown] escitalopram oxalate [Lexapro] 5 mg PO DAILY #7 tab 03/23/22 [Rx Last Taken Unknown] Allergy/AdvReac Type Severity Reaction Status Date / Time aspirin Allergy Swelling Verified 03/23/22 17:33 ciprofloxacin [From Cipro] Allergy Rash Verified 03/23/22 17:33 ciprofloxacin HCl Allergy Rash Verified 03/23/22 17:33 [From Cipro] coconut oil Allergy Rash Verified 03/23/22 17:33 latex Allergy Rash Verified 03/23/22 17:33 Penicillins Allergy Rash Verified 03/23/22 17:33 vancomycin Allergy Rash Verified 03/23/22 17:33 codeine AdvReac Vomiting Verified 03/23/22 17:33 hydrocodone bitartrate AdvReac Vomiting Verified 03/23/22 17:33 [From Vicodin] Family History Mother Alcoholism Arthritis Family history of blood clots Diabetes Seizures CVA (cerebral vascular accident) Father Alcoholism Grandmother Arthritis Surgical History History of appendectomy History of cholecystectomy History of foot surgery History of placement of ear tubes History of tonsillectomy Social History Smoking Status: Former smoker alcohol intake: current alcohol intake frequency: a few times a month Alcohol type: wine substance use type: does not use what type of physical activity do you participate in: none ROS ROS ED ROS Narrative Past medical history: Reviewed Medications: Reviewed Social history: Noncontributory Review of systems: All systems negative except as indicated General: No fever Eyes: No visual changes ENT: No upper airway congestion, normal voice Neck: No neck pain Cardiovascular: No chest pain Respiratory: No shortness of breath or cough Gastrointestinal: No abdominal pain, nausea vomiting or diarrhea Genitourinary: No dysuria Musculoskeletal: Denies myalgias no difficulty with ambulation Skin: No rash Neurological: No memory loss, confusion or any focal weakness Psych: As in HPI Hematologic: No easy bleeding or easy bruising EXAM Physical Exam Narrative Exam Narrative: Physical exam General: Well nourished, Well developed, does not appear in physical distress. She is tearful at times Head: Normocephalic, Atraumatic Eyes: Conjunctiva not pale ENT: Moist mucous membranes Neck: Supple, Nontender, No lymphadenopathy Cardiovascular: Regular rate, Regular rhythm Respiratory: No distress, CTA bilaterally Abdomen: Soft, Nontender, Nondistended Back: Nontender, Normal Inspection. Negative for: CVA tenderness Extremities: Nontender, No edema Skin: Normal color, No rash Neurological: Alert, Normal Strength, Normal Sensation Psychological: Somewhat flat depressed affect at times tearful, she is lucid and coherent forthcoming and again denies any suicidal ideations. Const Vital Signs: 03/23/22 17:28 03/23/22 17:56 03/23/22 18:53 Temperature 98.6 F Temperature Source Temporal Pulse Rate 127 H Respiratory Rate 16 15 15 Blood Pressure 168/102 H Blood Pressure Mean 124 Pulse Ox 100 Oxygen Delivery Method Room Air Room Air Room Air MDM MDM MDM Narrative Medical decision making narrative: Patien (more content not included)... Normal [facility] XR Shoulder - left 3 Viewson 12-27-2021 IMPRESSION: Cystic formation or lucencies along the distal clavicle and acromion, 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 Degenerative changes also among the differential consideration however felt to be less likely. Manufacturing Helper: PSCLoc Transcribe Date/Time: Dec 27 2021 11:26A Dictated by : MADALYN ROSALES MD This examination was interpreted and the report reviewed and electronically signed by: MADALYN ROSALES MD on Dec 27 2021 11:33AM [facility] DIVISION OF RADIOLOGY * * *Final Report* * * DATE OF EXAM: Dec 27 2021 10:49AM WOX 5252 - XR SHLDR >/=3V AP/SUDHAKAR AP/OTHR LT / PROCEDURE REASON: Acute pain of left shoulder * * * * Physician Interpretation * * * * EXAM TITLE: XR SHLDR >/=3V AP/SUDHAKAR AP/OTHR LT EXAM DATE/TIME: 12/27/2021 10:49 AM COMPARISON: None. CLINICAL INDICATION/HISTORY: Shoulder pain 2 months following fall. TECHNIQUE: AP, true AP and axial views of the left shoulder are presented FINDINGS: No acute fractures or subluxations are noted. Cyst formation or a few lucencies along the distal clavicle and acromion. No significant osteophyte formation. Normal appearance of the glenohumeral joint. The acromiohumeral interval is maintained. Questionable mild supraspinatus tendon calcification. The mineralization of the bones is normal. There is no significant soft tissue swelling. DIVISION OF RADIOLOGY Provider, [facility] - 12/27/2021 * * *Final Report* * * DATE OF EXAM: Dec 27 2021 10:49AM WOX 5252 - XR SHLDR >/=3V AP/SUDHAKAR AP/OTHR LT / PROCEDURE REASON: Acute pain of left shoulder * * * * Physician Interpretation * * * * EXAM TITLE: XR SHLDR >/=3V AP/SUDHAKAR AP/OTHR LT EXAM DATE/TIME: 12/27/2021 10:49 AM COMPARISON: None. CLINICAL INDICATION/HISTORY: Shoulder pain 2 months following fall. TECHNIQUE: AP, true AP and axial views of the left shoulder are presented FINDINGS: No acute fractures or subluxations are noted. Cyst formation or a few lucencies along the distal clavicle and acromion. No significant osteophyte formation. Normal appearance of the glenohumeral joint. The acromiohumeral interval is maintained. Questionable mild supraspinatus tendon calcification. The mineralization of the bones is normal. There is no significant soft tissue swelling. IMPRESSION IMPRESSION: Cystic formation or lucencies along the distal clavicle and acromion, 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 Degenerative changes also among the differential consideration however felt to be less likely. Manufacturing Helper: JASS Transcribe Date/Time: Dec 27 2021 11:26A Dictated by : MADALYN ROSALES MD This examination was interpreted and the report reviewed and electronically signed by: MADALYN ROSALES MD on Dec 27 2021 11:33AM EST [facility] Radiology Study observation (narrative) [facility] XR Shoulder - left 3 ViewsOr dered By: [facility] Provider on 12-27-2021 [facility] Large Joint Arthro/Inj: L bai bacromial bursa [facility] Vital Signs Date Time Vital Sign Value Performing Clinician Facility 01-04-2025 10:23-0500 Body mass index (BMI) [Ratio] 37.97 kg/m2 Marcellus Escalante MD Work Phone: [facility] 01-04-2025 10:23-0500 Body temperature 97.9 [degF] Marcellus Escalante MD Work Phone: [facility] 01-04-2025 10:23-0500 Body weight 103.5 kg Marcellus Escalante MD Work Phone: [facility] 01-04-2025 10:23-0500 Diastolic blood pressure 82 mm[Hg] Marcellus Escalante MD Work Phone: [facility] 01-04-2025 10:23-0500 Heart rate 110 /min Marcellus Escalante MD Work Phone: [facility] 01-04-2025 10:23-0500 Respiratory rate 16 /min Marcellus Escalante MD Work Phone: [facility] 01-04-2025 10:23-0500 SaO2% (BldA) [Mass fraction] 97 % Marcellus Escalante MD Work Phone: [facility] 01-04-2025 10:23-0500 Systolic blood pressure 122 mm[Hg] Marcellus Escalante MD Work Phone: [facility] 11-08-2024 05:56-0500 Body temperature 98.06 [degF] DR ELEAZAR VALDEZ DO [facility] 11-08-2024 05:56-0500 Body weight [address] ELEAZAR VALDEZ DO [facility] 11-08-2024 05:56-0500 Diastolic Blood Pressure Non-Invasive 86 mm[Hg] DR ELEAZAR VALDEZ DO [facility] 11-08-2024 05:56-0500 Heart rate 97 /min DR ELEAZAR VALDEZ DO [facility] 11-08-2024 05:56-0500 Respiratory rate 20 /min DR ELEAZAR VALDEZ DO [facility] 11-08-2024 05:56-0500 Systolic Blood Pressure Non-Invasive 146 mm[Hg] DR ELAEZAR VALDEZ DO [facility] 06-18-2024 00:48-0400 Diastolic Blood Pressure Non-Invasive 73 mm[Hg] MARIA TERESA SHARMA DO [facility] 06-18-2024 00:48-0400 Heart rate 77 /min MARIA TERESA SHARMA DO [facility] 06-18-2024 00:48-0400 Respiratory rate 18 /min MARIA TERESA GRIGGST [facility] 06-18-2024 00:48-0400 Systolic Blood Pressure Non-Invasive 117 mm[Hg] MARIA TERESA GRIGGST DO [facility] 06-17-2024 21:44-0400 Body height 167.6 cm MARIA TERESA GRIGGST DO [facility] 06-17-2024 21:44-0400 Body temperature 97.16 [degF] MARIA TERESA GRIGGST DO [facility] 06-17-2024 21:44-0400 Body weight 100 kg MARIA TERESA GRIGGST DO [facility] 06-17-2024 21:44-0400 Diastolic Blood Pressure Non-Invasive 76 mm[Hg] MARIA TERESA GRIGGST DO [facility] 06-17-2024 21:44-0400 Heart rate 99 /min MARIA TERESA GRIGGST DO [facility] 06-17-2024 21:44-0400 Respiratory rate 18 /min MARIA TERESA GRIGGST DO [facility] 06-17-2024 21:44-0400 Systolic Blood Pressure Non-Invasive 131 mm[Hg] MARIA TERESA SHARMA DO [facility] 07-24-2022 20:41-0400 Body temperature 98.42 [degF] DR MARYCRUZ SHANNON MD [facility] 07-24-2022 20:41-0400 Diastolic blood pressure 90 mm[Hg] DR MARYCRUZ SHANNON MD [facility] 07-24-2022 20:41-0400 Heart rate 86 /min DR MARYCRUZ SHANNON MD [facility] 07-24-2022 20:41-0400 Respiratory rate 16 /min DR MARYCRUZ SHANNON MD [facility] 07-24-2022 20:41-0400 Systolic blood pressure 145 mm[Hg] DR MARYCRUZ SHANNON MD [facility] 2022 09:09-0400 Diastolic blood pressure 86 mm[Hg] Janice Older 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 Work Phone: [facility] 2022 09:09-0400 Systolic blood pressure 122 mm[Hg] Janice Older 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 Work Phone: [facility] 2022 08:33-0400 Body height 165.1 cm Janice Older 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 Work Phone: [facility] 2022 08:33-0400 Body weight 102.51 kg Janice Older 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 Work Phone: [facility] 2022 08:33-0400 Heart rate 84 /min Janice Older 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 Work Phone: [facility] 2022 08:33-0400 Respiratory rate 16 /min Janice Older 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 Work Phone: [facility] Encounters Encounter Date Encounter Type Care Provider Facility Start: 01-06-2025 End: 01-12-2025 Admission to same day surgery center Ruben Perez MD Work Phone: Ambulatory Surgery Comment on above: Outpatient [place] py (Patient is overdue for colorectal cancer screening since 01/01/2021. Patient will need consult with Sky De Leon CNP prior to colorectal cancer screening. ) Start: 01-06-2025 End: 01-12-2025 ambulatory Ruben Perez MD Work Phone: Ambulatory Surgery Start: 01-04-2025 End: 01-04-2025 ambulatory RUBEN PEREZ Facility:[facility] Start: 01-04-2025 End: 01-04-2025 Office outpatient visit 25 minutes Marcellus Escalante MD Work Phone: [facility] Comment on above: Rash (Primary Dx) Start: 11-08-2024 End: 11-08-2024 Emergency department patient visit DR ELEAZAR VALDEZ DO [facility] Start: 08-03-2024 End: 08-08-2024 ambulatory Ruben Perez MD Work Phone: Internal [place] [id number] Start: 06-17-2024 End: 06-18-2024 Emergency department patient visit MARIA TERESA SHARMA DO [facility] Start: 08-26-2023 ambulatory Ruben alfaro MD Work Phone: Internal [facility] Start: 07-24-2022 End: 07-24-2022 Emergency department patient visit DR MARYCRUZ SHANNON MD [facility] Start: 07-22-2022 Documentation procedure Mammog meredith Coordinator [facility] Start: 07-22-2022 Letter encounter Mammography Coordinator [facility] Department Start: 07-22-2022 End: 07-22-2022 Subsequent hospital visit by physician Screen Mammo [facility] Comment on above: Encounter for screen ing mammogram for breast cancer [Z12.31] Start: 2022 End: 2022 Patient encounter procedure Janice Older 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 Work Phone: Internal Medicine [place] Comment on above: Wellness examination (Primary Dx); Gastroesophageal reflux disease, unspecified whether esophagitis present; Chronic diarrhea; Bipolar 1 disorder (HCC); Chronic left shoulder pain; Special screening for malignant neoplasms, colon; Encounter for screening mammogram for breast cancer; Special screening examination for viral disease; Screening for HIV (human immunodeficiency virus) Start: 2022 End: 2022 Patient encounter status Janice Older 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 Work Phone: Internal Medicine [place] Start: 03-10-2022 Telephone encounter Phil taylor MD Work Phone: Orthopaedics Comment on above: Patient Update Start: 03-10-2022 End: 03-10-2022 ambulatory Ofelia Hendricks PT Work Phone: [facility] Physical Therapy Comment on above: Acute pain of left s houlder (Primary Dx); Impingement syndrome of left shoulder Start: 03-03-2022 End: 03-03-2022 Patient encounter procedure Phil Baldwin MD Work Phone: Orthopaedics Comment on above: Acute pain of left s radha (Primary Dx); Impingement syndrome of left shoulder Start: 12-27-2021 End: 12-27-2021 Subsequent hospital visit by physician Ashley [facility] [place] Work Phone: Radiology Comment on above: Acute pain of left s radha [M25.512] Procedures Date Procedure Procedure Detail Performing Clinician Start: 07-22-2022 End: 07-22-2022 Screening mammography bi 2-view breast inc cad Janice Older 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 Work Phone: Start: 03-03-2022 Arthrocentesis aspir &/inj major jt/bursa w/o us Phil Baldwin MD Work Phone: Start: 12-27-2021 Radex shoulder compl ete minimum 2 views Sandra Chavez PA-C Work Phone: Start: 02-05-2018 Lipid 1996 panel - S amor or Plasma Ruben Perez MD Work Phone: Start: 01-02-2016 Colonoscopy Phil taylor MD Work Phone: Appendectomy DR MARYCRUZ SHANNON MD Bladder problem (finding) DR MARYCRUZ SHANNON MD Comment on above: sling inserted Entire foot (body structure) DR AMRYCRUZ SHANNON MD Hysterectomy DR MARYCRUZ SHANNON MD Malignant tumor of c ervix (disorder) DR MARYCRUZ SHANNON MD Tonsil and adenoid structure (body structure) DR MARYCRUZ SHANNON MD Plan of Treatment Date Care Activity Detail Author Start: 03-02-2027 Urine microalbumin profile [facility] Start: 07-03-2024 Covid-19 Vaccine () Covid-19 Vaccine () [facility] Start: 07-03-2024 Influenza vaccination Influenza Vacc ine (#1) [facility] Start: 07-22-2023 Mammography [facility] Start: 07-22-2023 Screening for malign ant neoplasm of breast Mammogram Screening [facility] Start: 07-03-2023 Covid-19 Vaccine ( season) Covid-19 Vaccine () [facility] Start: 07-03-2023 Influenza vaccination Influenza Vacc ine (#1) [facility] Start: 2023 COVID-19 VACCINE (3 - Booster for Moderna series) COVID-19 VACCINE (3 - Booster for Moderna series) [facility] Comment on above: Postponed from 01/25 (Declined at this time) Start: 2023 HEPATITIS B (1 of 3 - 3-dose series) HEPATITIS B (1 of 3 - 3-dose series) [facility] Comment on above: Postponed from 06/11 (Declined at this time) Start: 02-05-2023 Lipid 1996 panel - Serum or Plasma Lipid Screening [facility] Start: 02-05-2023 Lipid panel Lipid Screening [facility] Start: 02-05-2023 LIPID SCREEN LIPID SCREEN [facility] Start: 07-03-2022 Influenza vaccination [facility] Start: 2022 COLOGUARD (FIT-DNA) COLOGUARD (FIT-D NA) [facility] Start: [address] COLONOGRAPHY [facility] Start: 2022 DIABETES SCREEN DIABETES SCREEN [facility] Start: 2022 Diabetes Screening Diabetes Screenin g [facility] Start: 2022 FECAL OCCULT BLOOD FECAL OCCULT BLOO D [facility] Start: 2022 End: 08-11-2022 Hepatitis C virus Ab [Presence] in Serum HEP C AB IA W/CONF SCRN Lab Routine Special screening examination for viral disease Expected: 2022, Expires: 08/11/2022 [facility] Work Phone: Comment on above: Expected: 2022 , Expires: 08/11/2022 Start: 2022 End: 08-11-2022 HIV 1+2 Ab [Presence] in Serum or Plasma by Immunoassay HIV 1 2 COMBO(AG/AB),WITH REFLEX TO DIFFERENTIATION Lab Routine Screening for HIV (human immunodeficiency virus) Expected: 2022, Expires: 08/11/2022 [facility] Work Phone: Comment on above: Expected: 2022 , Expires: 08/11/2022 Start: 2022 Screening for malign ant neoplasm of colon [facility] Start: 2022 SIGMOIDOSCOPY SIGMOIDOSCOPY [facility] Start: 2022 End: 08-11-2022 Thyrotropin [Units/volume] in Serum or Plasma TSH BLD Lab Routine Wellness examination Expected: 2022, Expires: 08/11/2022 [facility] Work Phone: Comment on above: Expected: 2022 , Expires: 08/11/2022 Start: 01-25-2022 COVID-19 VACCINE (3 - Booster for Moderna series) COVID-19 VACCINE (3 - Booster for Moderna series) [facility] Start: 01-01-2021 Colonoscopy COLONOSCOPY [facility] Start: 01-01-2021 COLORECTAL CANCER SCREENING COLORECTAL CANCER SCREENING [facility] Start: 01-01-2021 Screening for malign ant neoplasm of colon [facility] Start: 2017 Mammography MAMMOGRAM [facility] Start: 2007 HPV TESTING HPV TESTING [facility] Start: 1998 PAP TESTING PAP TESTING [facility] Start: 1998 Screening for malign ant neoplasm of cervix Cervical Cancer Screening [facility] Start: 1996 Hepatitis B Vaccine (1 of 3 - 19+ 3-dose series) Hepatitis B Vaccine (1 of 3 - 19+ 3-dose series) [facility] Start: 1996 Urine microalbumin profile DTAP,TDAP,TD (1 - Tdap) [facility] Start: 1995 Anxiety Screening Anxiety Screening [facility] Start: 1995 HEPATITIS C SCREENING HEPATITIS C [facility] Start: 1995 Hepatitis C screening Hepatitis C [facility] Start: 1995 HIV SCREENING HIV SCREENING [facility] Start: 1995 HIV screening HIV Screening [facility] Start: 1977 Hepatitis B Vaccine (1 of 3 - 3-dose series) Hepatitis B Vaccine (1 of 3 - 3-dose series) [facility] End: 09-02-2025 DBT Breast - bilateral screening JASMINE SCREENING W JORGE LUIS Radiology Routine Encounter for screening mammogram for breast cancer 1 Occurrences starting 08/03/2024 until 09/02/2025 [facility] Work Phone: Comment on above: 1 Occurrences starti ng 08/03/2024 until 09/02/2025 End: 09-24-2024 JASMINE SCREENING JASMINE SCREENING Radiology Routine Encounter for screening mammogram for breast cancer 1 Occurrences starting 08/26/2023 until 09/24/2024 [facility] Work Phone: Comment on above: 1 Occurrences starti ng 08/26/2023 until 09/24/2024 PT PLAN OF CARE CERTIFICATION PT PLAN OF CARE CERTIFICATION Procedures Routine Acute pain of left shoulder Impingement syndrome of left shoulder Ordered: 03/10/2022 [facility] Work Phone: Comment on above: Ordered: 03/10/2022 End: 2023 Screening colonoscopy COLONOSCOPY SCREENING Endoscopy Routine Special screening for malignant neoplasms, colon 1 Occurrences starting 2022 until 2023 [facility] Work Phone: Comment on above: 1 Occurrences starti ng 2022 until 2023 End: 07-11-2023 Screening mammography bi 2-view breast inc cad JASMINE SCREENING Radiology Routine Encounter for screening mammogram for breast cancer 1 Occurrences starting 2022 until 07/11/2023 [facility] Work Phone: Comment on above: 1 Occurrences starti ng 2022 until 07/11/2023 [facility] Immunizations Immunization Date Immunization Notes Care Provider Fa cili 08-27-2021 COVID-19 original vaccine, full dose, monovalent (MODERNA) Marcellus Escalante MD Work Phone: [facility] 07-29-2021 COVID-19 original vaccine, full dose, monovalent (MODERNA) Marcellus Escalante MD Work Phone: [facility] 03-02-2017 tetanus toxoid, redu adam diphtheria toxoid, and acellular pertussis vaccine, adsorbed Janice Older 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 Work Phone: [facility] Work Phone: 08-13-2016 influenza, high dose seasonal, preservative-free Marcellus Escalante MD Work Phone: [facility] 08-13-2016 influenza virus vaccine, unspecified formulation Ruben Perez MD Work Phone: [facility] 10-14-2015 tetanus toxoid, redu adam diphtheria toxoid, and acellular pertussis vaccine, adsorbed DR MARYCRUZ SHANNON MD [facility] 07-16-2015 influenza, seasonal, injectable, preservative free Marcellus Escalante MD Work Phone: [facility] 07-03-2015 influenza, high dose seasonal, preservative-free Marcellus Escalante MD Work Phone: [facility] 06-02-2010 tetanus toxoid, adsorbed Janice Older 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 Work Phone: [facility] Payers Date Payer Category Payer Self-pay [id number] 2024 [facility] Health [facility] [id number] 2024 Unknown [id number] 2024 Medicaid [id number] 2020 Medicaid [employer] [id number] 2020-Present [phone] [address] [place] [address] Medicaid [id number] 2020 Medicaid [id number] 1977 Unknown [id number] 1977 Unknown [id number] Social History Date Type Detail Facility Start: 12-25-2015 End: 09-09-2016 Tobacco smoking status UTIS Ex-smoker [facility] Work Phone: Comment on above: former smoker 20 plu s years ago Start: 12-28-1991 End: 12-28-1996 History of tobacco use Current smoker [facility] Work Phone: Start: 12-25-2015 End: 11-14-2022 Cigarettes smoked current (pack per day) - Reported 1 [facility] Start: 12-25-2015 End: 09-09-2016 Tobacco use and exposure Smokeless tobacco non-user [facility] Work Phone: Start: 03-03-2022 End: 2022 Alcohol intake Current non-drinker of alcohol (finding) [facility] Start: 1975 Sex Assigned At Female C [facility] Start: 11-27-2021 End: 07-22-2022 Exposure to SARS-CoV-2 (event) Not sure [facility] Work Phone: Start: 12-28-1991 End: 12-28-1996 History of tobacco use Cigarette Smoker [facility] Start: 06-08-2022 History SDOH Alcohol Frequency 1 [facility] Start: 06-08-2022 History SDOH Alcohol Std Drinks 0 [facility] Start: 06-08-2022 History SDOH Social Connections Phone 2 [facility] Start: 06-08-2022 History SDOH Social Connections Get Together 98 [facility] Start: 06-08-2022 History SDOH Social Connections Living 3 [facility] Start: 06-08-2022 History SDOH Physica l Activity DPW 5 [facility] Start: 06-08-2022 History SDOH Physica l Activity MPS 9 [facility] Sex Assigned At [facility] Start: 06-08-2022 End: 11-14-2022 Social connection and isolation panel [facility] How often do you get together with friends or relatives? Patient refused [facility] Do you belong to any clubs or organizations such as holiness groups, unions, fraternal or athletic groups, or school groups? No [facility] Are you now , , , , never or living with a partner? [facility] How often to you hav e a drink containing alcohol? Never [facility] How hard is it for y ou to pay for the very basics like food, housing, medical care, and heating Somewhat hard [facility] Do you feel stress - tense, restless, nervous, or anxious, or unable to sleep at night because your mind is troubled all the time - these days [OSQ] Very much [facility] (I/We) worried branden er (my/our) food would run out before (I/we) got money to buy more. Sometimes true [facility] In the past 12 month s, was there a time when you were not able to pay the mortgage or rent on time? Yes [facility] Start: 01-30-2022 Gender identity Identifies as female gender (finding) [facility] Start: 01-30-2022 Sexual orientation Heterosexual (jake patel) [facility] Start: 07-01-2014 Sex Female (finding) [facility] Functional Status Date Assessment Result Facility 06-18-2024 Functional Status Assistive Krys ce Wheelchair [facility] 07-24-2022 Functional Status Standard Safet y ID band on, Allergy Band on, Call device within reach, Bed in low position, Wheels locked, Upper/Half-Length side-rails up, Bedside Cart Locked, Safety level maintained [facility] 12-08-2016 Are you deaf, or do you have serious difficulty hearing No 12/08/2016 5:44 PM Carlene Denton RN No [facility] 12-08-2016 Are you blind, or do you have serious difficulty seeing, even when wearing glasses No 12/08/2016 5:44 PM Carlene Denton RN No [facility] 12-08-2016 Do you have serious difficulty walking or climbing stairs No 12/08/2016 5:44 PM Carlene Denton RN No [facility] 12-08-2016 Do you have difficul ty dressing or bathing No 12/08/2016 5:44 PM Carlene Denton RN No [facility] 12-08-2016 Because of a physica l, mental, or emotional condition, do you have difficulty doing errands alone such as visiting a physician's office or shopping No 12/08/2016 5:44 PM Carlene Denton RN No [facility] Mental Status Date Assessment Result Facility 06-18-2024 Mental Status Orientation Oriented x 4 [facility] 07-24-2022 Mental Status Orientation Oriented x 4 [facility] 12-08-2016 Because of a physica l, mental, or emotional condition, do you have serious difficulty concentrating, remembering, or making decisions No 12/08/2016 5:44 PM Carlene Denton, MARLON No [facility] Clinical Notes 12-08-2016 to 01-24-2025 Hyun Canchola - 01/12/2025 9:38 AM Marcellus Umanzor MD - 01/04/2025 10:28 AM ESTLetter - Mammography Coordinator - 07/22/2022 4:00 PM MATILDA Sterling) - 07/22/2022 11:10 AM EDT Note Date & Type Note Facility 01-24-2025 Note HNO ID: [id number] Author: ?, ?, ? Service: ? Author Type: ? Type: Progress Notes Filed: 01/24/2025 13:56 Note Text: Patient is scheduled to see Janice Combs 02-13 @ 2:00 pm for her wellness visit [facility] 01-12-2025 Note HNO ID: [id number] Author: ?, ?, ? Service: ? Author Type: ? Type: Progress Notes Filed: 01/12/2025 09:38 Note Text: Contacted patient, she has an out of [employer] insurance that needs approval from the Clinic before we can schedule. LVM with the number [phone] to call for clearance [facility] 01-12-2025 History of Presen t illness Narrative Contacted patient, she has an out of [employer] insurance that needs approval from the Clinic before we can schedule. LVM with the number [phone] to call for clearance documented in this encounter [facility] 01-06-2025 Note Patient Outreach ( WSTR) JAZZY VENTURA ([id number]) 1975 F Date Time Provider Department 01/06/25 RUBEN PEREZ During your visit today, we recorded the following information about you: Hyun Canchola 01/12/2025 9:38 AM Signed Contacted patient, she has an out of [employer] insurance that needs approval from the Clinic before we can schedule. LVM with the number [phone] to call for clearance Hyun Canchola 01/24/2025 1:56 PM Signed Patient is scheduled to see Janice Combs 02-13 @ 2:00 pm for her wellness visit Allergies As of Date: 01/06/2025 Noted Allergy Reaction ASPIRIN 12/25/2015 4 - Hives CIPROFLOXACIN 12/25/2015 7 - Swelling CODEINE 12/25/2015 14 - Other: See Comments Comments: sleepy for 3 to 4 days HYDROCODONE-ACETAMINOPHEN 12/25/2015 14 - Other: See Comments Comments: throat swells up LATEX 12/25/2015 14 - Other: See Comments Comments: blisters PENICILLINS 12/25/2015 4 - Hives VANCOMYCIN 12/25/2015 7 - Swelling Date Reviewed: 01/04/2025 Reviewed by: Daphne Lopes MA - Fully Assessed Reason for Visit: Outpatient Colonoscopy [482] Cmt: Patient is overdue for colorectal cancer screening since 01/01/2021. Patient will need consult with Sky De Leon CNP prior to colorectal cancer screening. Primary Visit Diagnosis:Screening for colorectal cancer [Z12.11, Z12.12] Problem List As Of Date 01/06/2025 Noted Resolved Gastroesophageal reflux disease [K21.9] Depression [F32.A] Bipolar 1 disorder (HCC) [F31.9] Cervical cancer (HCC) [C53.9] Obesity, Class II, BMI 35-39.9 [E66.812] 12/28/2015 Gastroesophageal reflux disease without esophag*01/02/2016 01/02/2016 Cervix cancer (HCC) [C53.9] 01/02/2016 01/02/2016 Intractable vomiting [R11.10] 12/05/2016 2022 Biliary dyskinesia [K82.8] 12/08/2016 01/01/2017 Right upper quadrant pain [R10.11] 12/16/2016 2022 Mixed stress and urge urinary incontinence [N39*04/24/2017 Chronic left shoulder pain [M25.512, G89.29] 03/10/2022 Impingement syndrome of left shoulder [M75.42] 03/10/2022 Chronic diarrhea [K52.9] 2022 Encounter Status:Closed by HYUN CANCHOLA on 01/12/25 [facility] 01-04-2025 Note HNO ID: [id number] Author: MARCELLUS ESCALANTE MD Service: ? Author Type: Physician Type: Progress Notes Filed: 01/04/2025 10:54 Note Text: Patient presents with: Rash: rash on arms and legs with swelling x 2 days HPI: Rash: Location: arms elbows to forearms, and legs knees to feet (worst medial lower legs) Duration: couple days; had a similar rash for a day last month Pruritis: very Pain: hurts in her legs Change: had some rash around her neck which went away Bleeding/ulceration/blister/pust ule: redness, swelling, bumps Contacts with rash: No Exposure: Used new body wash twice within the last week which had coconut (switched back to caress because she is allergic to coconut). No new detergents, fabric softeners, lotions. Outdoor exposure: cleaning up outside daily since moving into a new trailer 1 month ago. 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 Change in medications: No. Recent illness: had a cold a couple weeks ago. Treatment: benadryl MEDICATIONS: No prescriptions on file. ALLERGIES: ALLERGIES Allergen Reactions Aspirin Hives Ciprofloxacin Swelling Codeine Other: See Comments sleepy for 3 to 4 days Hydrocodone-Acetami* Other: See Comments throat swells up Latex Other: See Comments blisters Penicillins Hives Vancomycin Swelling VITALS: BP 122/82 Pulse 110 Temp 36.6 ?C (97.9 ?F) Resp 16 Wt 103.5 kg (228 lb 2.8 oz) LMP (LMP Unknown) SpO2 97% BMI 37.97 kg/m? PHYSICAL EXAM: GEN: pleasant, alert, somewhat anxious itching SKIN: tace erythema with xerosis medial forearms to elbows with sparse excoriations and papules. Similar rash with mild edema and more excoriation of the medial lower legs. HEENT: PERRL, EOMI, sclera clear, MMM NECK: supple, no lymphadenopathy, no thyromegaly HEART: borderline fast rate, regular rhythm, no murmurs LUNGS: clear to auscultation, no wheezes or crackles, no increased WOB EXT: no clubbing, no cyanosis, no edema ASSESSMENT/PLAN: 1. Rash - ICD9: 782.1, ICD10: R21 Rash correlates with exposure to new body wash. Distribution fits with contact dermatitis; potentially from outdoor work or employment. Continue avoidance of coconut containing body wash. Continue diphenhydramine as needed for rash. - PREDNISONE 10 MG TABLET taper. Reports she has had no side effects with prior use. Follow-up for reevaluation with worsening swelling or persistent symptoms. Reports she has no current PCP. She says [place] are too far to go (where she can get established with a PCP through the clinic). She has been seen in IM here within the last 3 years. Marcellus Escalante MD [facility] 01-04-2025 History of Presen t illness Narrative Patient presents with: Rash: rash on arms and legs with swelling x 2 days HPI: Rash: Location: arms elbows to forearms, and legs knees to feet (worst medial lower legs) Duration: couple days; had a similar rash for a day last month Pruritis: very Pain: hurts in her legs Change: had some rash around her neck which went away Bleeding/ulceration/blister/pust ule: redness, swelling, bumps Contacts with rash: No Exposure: Used new body wash twice within the last week which had coconut (switched back to caress because she is allergic to coconut). No new detergents, fabric softeners, lotions. Outdoor exposure: cleaning up outside daily since moving into a new trailer 1 month ago. 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 Change in medications: No. Recent illness: had a cold a couple weeks ago. Treatment: benadryl MEDICATIONS: No prescriptions on file. ALLERGIES: ALLERGIES Allergen Reactions Aspirin Hives Ciprofloxacin Swelling Codeine Other: See Comments sleepy for 3 to 4 days Hydrocodone-Acetami* Other: See Comments throat swells up Latex Other: See Comments blisters Penicillins Hives Vancomycin Swelling VITALS: BP 122/82 Pulse 110 Temp 36.6 C (97.9 F) Resp 16 Wt 103.5 kg (228 lb 2.8 oz) LMP (LMP Unknown) SpO2 97% BMI 37.97 kg/m PHYSICAL EXAM: GEN: pleasant, alert, somewhat anxious itching SKIN: tace erythema with xerosis medial forearms to elbows with sparse excoriations and papules. Similar rash with mild edema and more excoriation of the medial lower legs. HEENT: PERRL, EOMI, sclera clear, MMM NECK: supple, no lymphadenopathy, no thyromegaly HEART: borderline fast rate, regular rhythm, no murmurs LUNGS: clear to auscultation, no wheezes or crackles, no increased WOB EXT: no clubbing, no cyanosis, no edema ASSESSMENT/PLAN: 1. Rash - ICD9: 782.1, ICD10: R21 Rash correlates with exposure to new body wash. Distribution fits with contact dermatitis; potentially from outdoor work or employment. Continue avoidance of coconut containing body wash. Continue diphenhydramine as needed for rash. - PREDNISONE 10 MG TABLET taper. Reports she has had no side effects with prior use. Follow-up for reevaluation with worsening swelling or persistent symptoms. Reports she has no current PCP. She says [place] [facility] [place] are too far to go (where she can get established with a PCP through the clinic). She has been seen in here within the last 3 years. Marcellus Escalante MD documented in this encounter [facility] 11-08-2024 Hospital Discharg e instructions Patient Education 11/08/2024 06:08:26 Acute Sinusitis Acute Sinusitis Acute sinusitis is irritation and swelling of the sinuses. It is usually caused by a viral infection after a common cold. Your doctor can help you find relief. What is acute sinusitis? Sinuses are air-filled spaces in the skull behind the face. They are kept moist and clean by a lining of mucosa. Things such as pollen, smoke, and chemical fumes can irritate the mucosa. It can then swell up. As a response to irritation, the mucosa makes more mucus and other fluids. Tiny hairlike cilia cover the mucosa. Cilia help carry mucus toward the opening of the sinus. Too much mucus may cause the cilia to stop working. This blocks the sinus opening. A buildup of fluid in the sinuses then causes pain and pressure. It can also encourage bacteria to grow in the sinuses. Common symptoms of acute sinusitis You may have: Facial soreness pain Headache Fever Fluid draining in the back of the throat (postnasal drip) Congestion Drainage that is thick and colored, instead of clear Cough Diagnosing acute sinusitis Your doctor will ask about your symptoms and health history. He or she will look at your ear, nose, and throat. You usually won't need to have X-rays taken. The doctor may take a sample of mucus to check for bacteria. If you have sinusitis that keeps coming back, you may need imaging tests such as X-rays or CAT scans. This will help your doctor check for a structural problem that may be causing the infection. Treating acute sinusitis Treatment is aimed at unblocking the sinus opening and helping the cilia work again. You may need to take antihistamine and decongestant medicine. These can reduce inflammation and decrease the amount of fluid your sinuses make. If you have a bacterial infection, you will need to take antibiotic medicine for 10 to 14 days. Take this medicine until it is gone, even if you feel better. [id number] [employer]. [address] [place] [address]. All rights reserved. This information is not intended as a substitute for professional medical care. Always follow your healthcare professional's instructions. Follow Up Care 11/08/2024 05:49:35 With:BUDDY REYES DO Address: [address] [place] [phone] When:2-4 days With:[facility] Address: [address] [place] [phone] When:2-4 days [facility] 11-08-2024 Emergency department Discharge summary Discharge Instructions Thank you for allowing [facility] to assist you with your healthcare needs. The following is important discharge information regarding your hospital visit. What to Do Next Instructions from Your Care Team No qualifying data available. Post Acute Orders No qualifying data available. You Need to Schedule the Following Appointments Follow Up with BUDDY REYES DO When:Within 2-4 days Where:[address] [place] [phone] Follow Up with [facility] When:Within 2-4 days Where:[address] [place] [phone] Allergies Cipro Swelling of throat Latex Vicodin Swelling aspirin Swelling codeine Hives penicillin Hives vancomycin Swelling Medications Please ask your primary doctor or pharmacist before taking any other medication not listed, including over the counter drugs, herbal medications, vitamins and or supplements as they may interact with your home medications. What How Much When Why Instructions Last Dose Unchanged acetaminophen-oxyCODONE (Percocet 325/ 5 oral tablet) 1 tab(s) by mouth Every 4 hours as needed for as needed for pain Unchanged busPIRone (BuSpar) by mouth Two (2) times a day Unchanged docusate (Colace) by mouth Two (2) times a day Unchanged esomeprazole (NexIUM OTC) 20 Milligram by mouth Once a day Unchanged metoclopramide (Reglan 10 mg oral tablet) 1 tab(s) by mouth Four (4) times a day as needed for Nausea/Vomiting Unchanged nabumetone (nabumetone 500 mg oral tablet) 2 tab(s) by mouth Two (2) times a day Odontalgia Duration: 14 Days Please take this list to your next doctor s visit. Bring all medications you take, including over the counter medications, herbals and other supplements with you to your doctor s visit. Patients and families are reminded to discard old lists and to update any records with all medication providers or retail pharmacies. Education Materials Acute Sinusitis Acute sinusitis is irritation and swelling of the sinuses. It is usually caused by a viral infection after a common cold. Your doctor can help you find relief. What is acute sinusitis? Sinuses are air-filled spaces in the skull behind the face. They are kept moist and clean by a lining of mucosa. Things such as pollen, smoke, and chemical fumes can irritate the mucosa. It can then swell up. As a response to irritation, the mucosa makes more mucus and other fluids. Tiny hairlike cilia cover the mucosa. Cilia help carry mucus toward the opening of the sinus. Too much mucus may cause the cilia to stop working. This blocks the sinus opening. A buildup of fluid in the sinuses then causes pain and pressure. It can also encourage bacteria to grow in the sinuses. Common symptoms of acute sinusitis You may have: Facial soreness pain Headache Fever Fluid draining in the back of the throat (postnasal drip) Congestion Drainage that is thick and colored, instead of clear Cough Diagnosing acute sinusitis Your doctor will ask about your symptoms and health history. He or she will look at your ear, nose, and throat. You usually won't need to have X-rays taken. The doctor may take a sample of mucus to check for bacteria. If you have sinusitis that keeps coming back, you may need imaging tests such as X-rays or CAT scans. This will help your doctor check for a structural problem that may be causing the infection. Treating acute sinusitis Treatment is aimed at unblocking the sinus opening and helping the cilia work again. You may need to take antihistamine and decongestant medicine. These can reduce inflammation and decrease the amount of fluid your sinuses make. If you have a bacterial infection, you will need to take antibiotic medicine for 10 to 14 days. Take this medicine until it is gone, even if you feel better. [id number] [employer]. [address] [place] [address], [place] [address]. All rights reserved. This information is not intended as a substitute for professional medical care. Always follow your healthcare professional's instructions. Additional Information VACCINATE! IT SAVES LIVES! Members of the community who have not yet received the COVID-19 vaccine and would like to receive it can visit one of [facility] vaccine clinics. There are many vaccine clinic locations within the [facility]. For locations and available times, please visit [email or web address].[email or web address] [email or web address] It is important to note that some COVID mobile vaccine clinics are held outdoors and may be canceled in rainy or stormy conditions. To learn more about pediatric vaccinations (ages 5-11), we invite you to visit the [facility] webpage. [email or web address].[email or web address].org/p ages/0487-Jndbp-Foznwrzlzhx-Freq uzfevv-Vglev-Ezqkvlaod.html To learn more about the COVID-19 vaccine, we invite you to visit the CDC website for a list of frequently asked questions. https://www.cdc.gov/coronavirus/ 2019-ncov/vaccines/faq.html [facility] Patient Portal Access Instructions: Stay connected with your healthcare team and access your personal medical information anytime with the [facility] Patient Portal. If you would like a full copy of your medical records please contact the [facility] Medical Records Department Thursday through Thursday between 8a.m. and 4:30p.m. Please follow the directions below to access the portal: 1.Access the email account you provided upon registration to the hospital.2.Look for an invitation email from [facility].3.Open the email and access the invitation link: Accept Invitation to [employer]4.Fill in the required mayer to create your account. Sign into [email or web address] with your username and password that you created in the above steps to stay up to date. You can then view a summary of results, a summary of your visits, and the ability to download your summaries to your computer or send the information securely to a physician. Remember that your healthcare information is confidential, so carefully consider who you will allow to register on the [facility] Patient Portal for access to your information. You can also access the [facility] Patient Portal on the [employer] honorio. Simply click on Health Records under Health Data and then click on the [employer] logo. HOW TO SAFELY DISPOSE OF PRESCRIPTION MEDICATIONS Please use one of the following methods to safely dispose of your unused medications. 1.Use a drug disposal kit: the drug disposal pouch allows you to safely discard your old and unused drugs. Ask your nurse to give you one when you are discharged.2.Visit a local take-back location: Many local pharmacies and police departments have programs that collect old and unwanted prescription drugs. Call your local pharmacy or go to http://[employer]/6N6Qy5u to find one close to you.3.Make use of household items: Use cat litter or old coffee grounds to dispose medications if other options are not available. Mix your drugs with these household products, seal them in an airtight container and throw it into the garbage. Call [facility]: [phone] to be sure your drugs can be disposed of in this way. Some medicines may require a different approach.4.Never flush your medications down the toilet. IF YOU HAVE BEEN PRESCRIBED AN OPIOIDS FOR PAIN If you have been prescribed an opioid (such as hydrocodone, oxycodone or morphine), it is critical to understand the possible side effects and risks of opioid pain medications. Even when taken as directed, opioids can have several side effects including: Tolerance, meaning you might need to take more of a medication for the same pain relief. Nausea, vomiting and/or constipation. Sleepiness, dizziness, dry mouth, confusion, depression or itching. Physical dependence, meaning you have withdrawal symptoms when a medication is stopped ? this can develop within a few days. KNOW YOUR RESPONSIBILITIES It is important to know exactly how much and how often to take the opioid pain medications you are prescribed. Never take opioids in higher amounts or more often than prescribed. Do not combine opioids with alcohol or other drugs that cause drowsiness, such as benzodiazepines, also known as benzos, including diazepam and alprazolam, muscle relaxants or sleep aids. Never sell or share prescription opioids. This is illegal. Store opioids in a secure place and out of reach of others (including children, family, friends and visitors). The last page(s) of this document has been signed and retained as a CHART COPY Signatures Patient Education Materials Acute Sinusitis Medication Leaflets My discharge plan and instructions have been reviewed and explained to me and I,JAZZY VENTURA understand my current condition and have read and understand these discharge instructions. I have received a written copy of the plan/instructions. If I have questions, I am aware that I should contact my doctor. Patient/Medical Records Supervisor Signature: Date/Time: Relationship to Patient: Witness Name/Signature: Date/Time: [facility] 08-03-2024 Note Patient Outreach (IN [facility]) JAZZY VENTURA ([id number]) 1975 F Date Time Provider Department 08/03/24 RUBEN PEREZ During your visit today, we recorded the following information about you: Allergies As of Date: 08/03/2024 Noted Allergy Reaction ASPIRIN 12/25/2015 4 - Hives CIPROFLOXACIN 12/25/2015 7 - Swelling CODEINE 12/25/2015 14 - Other: See Comments Comments: sleepy for 3 to 4 days HYDROCODONE-ACETAMINOPHEN 12/25/2015 14 - Other: See Comments Comments: throat swells up LATEX 12/25/2015 14 - Other: See Comments Comments: blisters PENICILLINS 12/25/2015 4 - Hives VANCOMYCIN 12/25/2015 7 - Swelling Date Reviewed: 2022 Reviewed by: Janice Combs 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 - escitalopram oxalate (LEXAPRO) 5 mg tablet Take 5 mg by mouth once daily. - busPIRone (BUSPAR) 5 mg tablet Take 5 mg by mouth three times daily. - OTC NUTRITIONAL SUPPLEMENT Lipozene 1500 mg once daily - omeprazole (PRILOSEC) 40 mg capsule Take 1 capsule by mouth once daily. - fluticasone (FLONASE) 50 mcg/actuation nasal spray Use 2 Sprays in each nostril once daily. Rinse mouth after use. - acetaminophen (TYLENOL EXTRA STRENGTH) 500 mg tablet Take 1 tablet by mouth every 6 hours as needed for pain (not to exceed 4000mg a day). Problem List As Of Date 08/03/2024 Noted Resolved Gastroesophageal reflux disease [K21.9] Depression [F32.A] Bipolar 1 disorder (HCC) [F31.9] Cervical cancer (HCC) [C53.9] Obesity, Class II, BMI 35-39.9 [E66.812] 12/28/2015 Gastroesophageal reflux disease without esophag*01/02/2016 01/02/2016 Cervix cancer (HCC) [C53.9] 01/02/2016 01/02/2016 Intractable vomiting [R11.10] 12/05/2016 2022 Biliary dyskinesia [K82.8] 12/08/2016 01/01/2017 Right upper quadrant pain [R10.11] 12/16/2016 2022 Mixed stress and urge urinary incontinence [N39*04/24/2017 Chronic left shoulder pain [M25.512, G89.29] 03/10/2022 Impingement syndrome of left shoulder [M75.42] 03/10/2022 Chronic diarrhea [K52.9] 2022 Encounter Status:Closed by STEPHEN GOLDBERGR on 08/08/24 [facility] 06-18-2024 Hospital Discharg e instructions Patient Education 06/18/2024 00:19:57 Flank Pain, Uncertain Cause Flank Pain, Uncertain Cause The flank is the area between your upper abdomen and your back. Pain there is often caused by a problem with your kidneys. It might be a kidney infection or a kidney stone. Other causes of flank pain include spinal arthritis, a pinched nerve from a back injury, or a back muscle strain or spasm. The cause of your flank pain is not certain. You may need other tests. Home care Follow these tips when caring for yourself at home: You may use acetaminophen or ibuprofen to control pain, unless your health care provider prescribed another medicine. If you have chronic liver or kidney disease, talk with your provider before taking these medicines. Also talk with your provider first if you ve ever had a stomach ulcer or GI bleeding. If the pain is coming from your muscles, you may get relief with ice or heat. During the first 2 days after the injury, put an ice pack on the painful area for 20 minutes every 2 to 4 hours. This will reduce swelling and pain. A hot shower, hot bath, or heating pad works well for a muscle spasm. You can start with ice, then switch to heat after 2 days. You might find that alternating ice and heat works well. Use the method that feels the best to you. Follow-up care Follow up with your healthcare provider if your symptoms don t get better over the next few days. When to seek medical advice Call your healthcare provider right away if any of these happen: Repeated vomiting Fever of 100.4 F (38 C) or higher, or as directed by your health care provider Flank pain that gets worse Pain that spreads to the front of your belly (abdomen) Dizziness, weakness, or fainting Blood in your urine Burning feeling when you urinate or the need to urinate often Pain in one of your legs that gets worse Numbness or weakness in a leg [id number] [employer]. [address] [place] [address], [place] [address]. All rights reserved. This information is not intended as a substitute for professional medical care. Always follow your healthcare professional's instructions. 06/18/2024 00:19:51 Rib Contusion Rib Contusion A rib contusion is a bruise to one or more rib bones. It may cause pain, tenderness, swelling and a purplish discoloration. There may be a sharp pain while breathing. You will be assessed for other injuries. You will likely be given pain medicine. Rib contusions heal on their own, without further treatment. However, pain may take weeks to months to go away. Note that a small crack (fracture) in the rib may cause the same symptoms as a rib contusion. The small crack may not be seen on a chest X-ray. However, the conditions are managed in the same way. Home care Rest. Avoid heavy lifting, strenuous exertion, or any activity that causes pain. Ice the area to reduce pain and swelling. Put ice cubes in a plastic bag or use a cold pack. (Wrap the cold source in a thin towel. Do not place it directly on your skin.) Ice the injured area for 20 minutes every 1 to 2 hours the first day. Continue with ice packs 3 to 4 times a day for the next 2 days, then as needed for the relief of pain and swelling. Take any prescribed pain medicine as directed by your healthcare provider. If none was prescribed, take acetaminophen, ibuprofen, or naproxen to control pain. If you have a significant injury, you may be given a device called an incentive spirometer to keep your lungs healthy. Use as directed. Follow-up care Follow up with your healthcare provider during the next week or as directed. When to seek medical advice Call your healthcare provider for any of the following: Shortness of breath or trouble breathing Increasing chest pain with breathing Coughing Dizziness, weakness, or fainting New or worsening pain Fever of 100.4 F (38 C) or higher, or as directed by your healthcare provider [phone] [employer]. [address] [place] [address], [place] [address]. All rights reserved. This information is not intended as a substitute for professional medical care. Always follow your healthcare professional's instructions. Follow Up Care 06/17/2024 21:22:51 With:Call Physician Referral Address:Unknown When:2-4 days [facility] 06-18-2024 Note Discharge Instructions Thank you for allowing [facility] to assist you with your healthcare needs. The following is important discharge information regarding your hospital visit. Diagnosis from Today's Visit Flank pain What to Do Next Instructions from Your Care Team No qualifying data available. Post Acute Orders No qualifying data available. You Need to Schedule the Following Appointments Follow Up with Call Physician Referral When:Within 2-4 days Allergies Cipro Swelling of throat Latex Vicodin Swelling aspirin Swelling codeine Hives penicillin Hives vancomycin Swelling Medications Please ask your primary doctor or pharmacist before taking any other medication not listed, including over the counter drugs, herbal medications, vitamins and or supplements as they may interact with your home medications. What How Much When Why Instructions Last Dose New ondansetron (ondansetron 4 mg oral tablet, disintegrating) 1 tab(s) by mouth Every 6 hours Duration: 4 Days Printed Prescription Changed acetaminophen-oxyCODONE (Percocet 325/ 5 oral tablet) 1 tab(s) by mouth Every 4 hours as needed for as needed for pain Changed acetaminophen-oxyCODONE (Percocet 5 mg-325 mg oral tablet) 1 tab(s) by mouth Every 6 hours as needed for Pain Flank pain Duration: 3 Days Printed Prescription Unchanged busPIRone (BuSpar) by mouth Two (2) times a day Unchanged docusate (Colace) by mouth Two (2) times a day Unchanged esomeprazole (NexIUM OTC) 20 Milligram by mouth Once a day Unchanged metoclopramide (Reglan 10 mg oral tablet) 1 tab(s) by mouth Four (4) times a day as needed for Nausea/Vomiting Unchanged nabumetone (nabumetone 500 mg oral tablet) 2 tab(s) by mouth Two (2) times a day Odontalgia Duration: 14 Days Please take this list to your next doctor s visit. Bring all medications you take, including over the counter medications, herbals and other supplements with you to your doctor s visit. Patients and families are reminded to discard old lists and to update any records with all medication providers or retail pharmacies. Education Materials Flank Pain, Uncertain Cause The flank is the area between your upper abdomen and your back. Pain there is often caused by a problem with your kidneys. It might be a kidney infection or a kidney stone. Other causes of flank pain include spinal arthritis, a pinched nerve from a back injury, or a back muscle strain or spasm. The cause of your flank pain is not certain. You may need other tests. Home care Follow these tips when caring for yourself at home: You may use acetaminophen or ibuprofen to control pain, unless your health care provider prescribed another medicine. If you have chronic liver or kidney disease, talk with your provider before taking these medicines. Also talk with your provider first if you ve ever had a stomach ulcer or GI bleeding. If the pain is coming from your muscles, you may get relief with ice or heat. During the first 2 days after the injury, put an ice pack on the painful area for 20 minutes every 2 to 4 hours. This will reduce swelling and pain. A hot shower, hot bath, or heating pad works well for a muscle spasm. You can start with ice, then switch to heat after 2 days. You might find that alternating ice and heat works well. Use the method that feels the best to you. Follow-up care Follow up with your healthcare provider if your symptoms don t get better over the next few days. When to seek medical advice Call your healthcare provider right away if any of these happen: Repeated vomiting Fever of 100.4 F (38 C) or higher, or as directed by your health care provider Flank pain that gets worse Pain that spreads to the front of your belly (abdomen) Dizziness, weakness, or fainting Blood in your urine Burning feeling when you urinate or the need to urinate often Pain in one of your legs that gets worse Numbness or weakness in a leg [id number] [employer]. [address] [place] [address]. All rights reserved. This information is not intended as a substitute for professional medical care. Always follow your healthcare professional's instructions. Rib Contusion A rib contusion is a bruise to one or more rib bones. It may cause pain, tenderness, swelling and a purplish discoloration. There may be a sharp pain while breathing. You will be assessed for other injuries. You will likely be given pain medicine. Rib contusions heal on their own, without further treatment. However, pain may take weeks to months to go away. Note that a small crack (fracture) in the rib may cause the same symptoms as a rib contusion. The small crack may not be seen on a chest X-ray. However, the conditions are managed in the same way. Home care Rest. Avoid heavy lifting, strenuous exertion, or any activity that causes pain. Ice the area to reduce pain and swelling. Put ice cubes in a plastic bag or use a cold pack. (Wrap the cold source in a thin towel. Do not place it directly on your skin.) Ice the injured area for 20 minutes every 1 to 2 hours the first day. Continue with ice packs 3 to 4 times a day for the next 2 days, then as needed for the relief of pain and swelling. Take any prescribed pain medicine as directed by your healthcare provider. If none was prescribed, take acetaminophen, ibuprofen, or naproxen to control pain. If you have a significant injury, you may be given a device called an incentive spirometer to keep your lungs healthy. Use as directed. Follow-up care Follow up with your healthcare provider during the next week or as directed. When to seek medical advice Call your healthcare provider for any of the following: Shortness of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 [phone] documented in this encounter [facility] 2022 History of Presen t illness Narrative CC: Patient presents with: Establish Care: Left rotator cuff pain since October. HPI Jazzy Ventura is a 47 year old female who presents today for above. No previous PCP Bipolar disorder treated by psychiatry at the [facility]. Taking Lexapro, Latuda and Buspar. She was recently started on Latuda and reports possible side effects of increased sweating and myalgias BLE. She has not discussed with her psychiatrist yet. GERD- Symptoms include heartburn, burning in epigastrum, and acidy taste in mouth Symptoms are precipitated with fatty foods, bending over, and laying flat Alleviated with taking antacids. Denies epigastric abdominal pain, dysphagia, black stools, and bloody stools. Alcohol, tobacco, significant amounts of caffeine or NSAIDS: No Previous studies include EGD 2015, colonoscopy 2015, upper GI 2017 Chronic diarrhea- for years, getting worse. She had lap shanice in 2017, per patient this was supposed to improve her GI symptoms but never did. No matter what she eats it goes right through her, I have to sit on the toilet to eat meals. She admits to poor diet, eats a lot of greasy/fatty foods. Exercise- denies routine aerobic exercise. 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 no chest pain, no chest pressure, and no swelling GI: Negative for nausea, vomiting, problem swallowing : Negative for dysuria, frequency, incontinence, hesitancy, and nocturia >1 Musculoskeletal:chronic left shoulder pain since injury in December from falling. She was evaluated by orthopedics and had MRI that should small tear. Referred to PT but she only had one visit, was unable to take time off work to continue. Pain has not lessened, affecting ROM. Denies back, neck or other joint pains Skin: Negative for lesions, rash, and itching PAST MEDICAL HISTORY Diagnosis Date Acid reflux Anxiety Bipolar 1 disorder (HCC) Cervical cancer (HCC) Depression Morbid obesity (HCC) Seizures (HCC) last 1993 PAST SURGICAL HISTORY Procedure Laterality Date APPENDECTOMY 1993 CHOLECYSTECTOMY 12/16/2016 & Fascial Defect repair, COLONOSCOPY FLX DX W/COLLJ SPEC WHEN PFRMD 01/02/2016 Colonoscopy ESOPHAGOGASTRODUODENOSCOPY TRANSORAL DIAGNOSTIC 01/02/2016 EGD PAST SURGICAL HISTORY OF [id number] hysterectomy- 16 surgeries due to cervical cancer PAST SURGICAL HISTORY OF 2009 MRSA surgery, toe following spider bite. S SLING BLADDER 2011 TONSILLECTOMY PRIMARY/SECONDARY <AGE 12 1998 Tonsillectomy ALLERGIES Aspirin, Ciprofloxacin, Codeine, Hydrocodone-Acetaminophen, Latex, Penicillins, and Vancomycin MEDICATIONS LATUDA 40 mg tablet Take 40 mg by mouth once daily. escitalopram oxalate (LEXAPRO) 5 mg tablet Take 5 mg by mouth once daily. busPIRone (BUSPAR) 5 mg tablet Take 5 mg by mouth three times daily. OTC NUTRITIONAL SUPPLEMENT Lipozene 1500 mg once daily fluticasone (FLONASE) 50 mcg/actuation nasal spray Use 2 Sprays in each nostril once daily. Rinse mouth after use. acetaminophen (TYLENOL EXTRA STRENGTH) 500 mg tablet Take 1 tablet by mouth every 6 hours as needed for pain (not to exceed 4000mg a day). etodolac (LODINE) 400 mg tablet Take 1 tablet by mouth twice daily. (Patient not taking: No sig reported) busPIRone (BUSPAR) 10 mg tablet take 1 tablet by mouth twice a day (Patient not taking: No sig reported) escitalopram oxalate (LEXAPRO) 10 mg tablet take 1 tablet by mouth once daily (Patient not taking: No sig reported) oxybutynin (DITROPAN) 5 mg tablet Take 1 tablet by mouth once daily. (Patient not taking: Reported on 2022) esomeprazole (NEXIUM) 40 mg capsule Take 1 capsule by mouth twice daily. (Patient not taking: No sig reported) dicyclomine (BENTYL) 10 mg capsule Take 10 mg by mouth once daily. (Patient not taking: Reported on 2022) ONDANSETRON HCL (ZOFRAN ORAL) Take by mouth as needed. (Patient not taking: Reported on 2022) FAMILY HISTORY Problem Relation Age of Onset Heart Mother IA Hypertension Mother Stroke Mother other (diabetic) Mother Social History Tobacco Use Smoking status: Former Packs/day: 1.00 Years: 5.00 Pack years: 5.00 Types: Cigarettes Quit date: 12/28/1996 Years since quittin.4 Smokeless tobacco: Never Substance Use Topics Alcohol use: No Drug use: No PHYSICAL EXAM BP 130/90 Pulse 84 Resp 16 Ht 165.1 cm (5' 5) Wt 102.5 kg (226 lb) LMP (LMP Unknown) BMI 37.61 kg/m General Appearance: well appearing, in no acute distress, alert Pysch: affect is anxious Skin: Skin color, texture, turgor normal for age; Eyes: conjunctiva pink and moist, no icterus, sclera white, non-injected Neck: Thyroid normal size and symmetric without palpable nodules, Neck supple, No adenopathy Lymph nodes: No supraclavicular lymphadenopathy Lungs: Lungs clear to auscultation. No wheezing, rhonchi, rales. Heart: RRR without murmur, gallop, or rubs. No ectopy Abdomen: Soft, non-distended. mild left upper quadrant and epigastric abdominal tenderness with palpation. No guarding or rebound tenderness. Bowel sounds normal and active. No masses, organomegaly but difficult exam due to body habitus. Ext: no edema in LE bilaterally, good distal pulses Health maintenance reviewed with patient: HEPATITIS B(1 of 3 - 3-dose series) Never done HEPATITIS C SCREENING Never done HIV SCREENING Never done DTAP,TDAP,TD(1 - Tdap) Never done PAP TESTING Never done HPV TESTING Never done MAMMOGRAM Never done COLORECTAL CANCER SCREENING due on 01/01/2021 DIABETES SCREEN due on 2022 COVID-19 VACCINE(3 - Booster for Moderna series) due on 2023 INFLUENZA(1) due on 07/03/2022 LIPID SCREEN due on 02/05/2023 DATA REVIEWED: Most recent labs and imaging results. ASSESSMENT/PLAN: 1. Wellness examination - ICD9: V70.0, ICD10: Z00.00 (primary diagnosis) - Counseled on healthy diet and regular exercise - Calcium intake with supplements or by diet of 1000 mg/day for under 50, 9401-8353 mg/day for 50+ - Discussed need and benefit for weight loss. BMI 37.61 kg/(m^2) - Mammogram ordered - exam recommended once yearly - Depression screening tool completed and reviewed with patient. Based on score and interview, patient is already diagnosed with depression and recommended continuing current plan of care. - Patient was counseled [id number] by myself (the billing provider) for the following immunizations and vaccine components, including side effects: Hep B Vaccine. Patient declined at this time - Follow up for annual exam in one year - CONSULT TO GYNECOLOGY, overdue for PAP/HPV - Check TSH BLD. Lipid panel, CMP and CBC already ordered by psychiatry and she will have done at [facility] 2. Gastroesophageal reflux disease, unspecified whether esophagitis present - ICD9: 530.81, ICD10: K21.9 - Discussed lifestyle modifications including losing weight, limiting caffeine, no meals three hours before sleep, and head of bed elevation - Begin treatment with Prilosec 40 QD - CONSULT TO GASTROENTEROLOGY 3. Chronic diarrhea - ICD9: 787.91, ICD10: K52.9 - CONSULT TO GASTROENTEROLOGY 4. Bipolar 1 disorder (HCC) - ICD9: 296.7, ICD10: F31.9 Medications and follow-up per psychiatry 5. Chronic left shoulder pain - ICD9: 719.41, 338.29, ICD10: M25.512, G89.29 Secondary to injury from falling. MRI showed small rotator cuff tear. No new or worsening symptoms. Recommend starting PT, patient is agreeable - CONSULT TO PHYSICAL THERAPY 6. Special screening for malignant neoplasms, colon - ICD9: V76.51, ICD10: Z12.11 Due for colonoscopy, not appropriate for open access - COLONOSCOPY SCREENING - CONSULT TO GASTROENTEROLOGY 7. Encounter for screening mammogram for breast cancer - ICD9: V76.12, ICD10: Z12.31 - JASMINE SCREENING 8. Special screening examination for viral disease - ICD9: V73.99, ICD10: Z11.59 - HEP C AB IA W/CONF SCRN 9. Screening for HIV (human immunodeficiency virus) - ICD9: V73.89, ICD10: Z11.4 - HIV 1 2 COMBO(AG/AB),WITH REFLEX TO DIFFERENTIATION Prescription instructions reviewed with patient as applicable. Potential red flag symptoms discussed with the patient. Reviewed appropriate action plan to take if red flag symptoms occur. Patient agreeable to treatment plan. Janice Combs APRN.KLAUDIA documented in this encounter [facility] 03-10-2022 Miscellaneous Notes I called and spoke with patient. Message from Karishma given. Patient verbalized understanding. She hard a cortisone injection 03/03, it can take a week for it to help but she should be getting some relief from the injection soon. We can try a different prescription NSAID, I will send some oral diclofenac to her pharmacy to try, [facility] in [place]. We reserve pain medications for fractures and patients who are recovering from surgery. Patient was in for Physical Therapy today and stopped at the desk asking for something to take for pain. She is taking ibuprofen with no relief. Please advise. documented in this encounter [facility] 03-10-2022 History of Presen t illness Narrative Episode Visit Count: 1 Therapist That Will Oversee The Plan Of Care: Ofelia Hendricks Start of Care Date: 03/10/22 Onset Date: 10/25/21 Plan of Care Certification Date: 03/10/22 Next Certification Due Date: 04/14/22 Patient Identified by Name and Date of : Yes REHABILITATION AND SPORTS THERAPY PHYSICAL THERAPY EVALUATION PLAN OF CARE: Assessment: Jazzy Ventura presents with diagnosis of acute pain of L shoulder and impingement syndrome of L shoulder that interferes with lifting;working;dressing;groomin g;carrying;sleeping;reaching overhead;use hand with arm at shoulder level (must be able to lift #50 for job) . She presents with impairments in ADL's, flexibility, independence in exercise, joint mobility, overall function, patient reported outcome measures, range of motion, strength and tissue tenderness.. Prognosis for therapy is Good due to: good support system/ coping skills;current objective clinical presentation . She will benefit from skilled therapy services to meet the goals established for this plan of care as noted below. Goals for Episode of Care: created on 03/10/22 through 05/05/22 Pt. Report ability to apply deodorant, dress upper body, and wash hair without limitation due to L shoulder pain. [place] in home exercise program. Patient will decrease pain rating by 2 points to meet minimal clinical important difference for numeric pain rating scale. Patient will increase active ROM of L shoulder to 150 degrees or more flexion, scaption, and abduction to allow pt to to improve performance of ADLs. Patient will demonstrate increase in shoulder flexion, abduction, ER, IR, extension, and scapular protraction and depression strength to 4/5 during manual muscle testing in order to improve function for basic self-care tasks, home management tasks, prior functional tasks and work tasks. Patient will increase flexibility of L shoulder ER and IR to equal unaffected extremity/side to improve ability to maintain proper posture. Perform sleeping, work activities, ADLs, and reaching with decreased report of symptoms/pain in 8 weeks. Patient will be able to correct postural deviations independently in order to allow for normal mechanics, to decrease current pain and prevent future recurrence. Patient Goals: applying deodorant, dressing, Planned Interventions, Frequency, and Duration: Current Frequency: 2x/week Duration: 8 weeks Total Number of Visits Planned: 16 Planned Treatment Interventions: Neuromuscular re-education (33788);Therapeutic exercise (95038);Manual therapy (30600);Therapeutic activities (05440);Self-fdc management (70104);Patient/Family/Caregiver Education PLAN FOR NEXT VISIT: Assess symptom response to repeated cervical spine and scapular retraction. Progress to table slides. Patient demonstrates good understanding of plan of care and treatment. The above goals and plan of care were discussed and agreed upon by patient/family. SUBJECTIVE: Jazzy Ventura is a 46 year old female seen today for with L shoulder pain as a result of slipping on mud in the winter 10/25/21 walking from her home to her car 2x. Pt. reports she did not go to the hospital but required assistance to get up after the second fall. She did go to work that day and the pain onset immediately upon the 2nd fall and became worse with continued movement. Pt. explains she did not have her L UE evaluated until now because she prefers to avoid going to the Dr. 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 Patient Goals: applying deodorant, dressing, Functional Limitations: lifting;working;dressing;groomin g;carrying;sleeping;reaching overhead;use hand with arm at shoulder level (must be able to lift #50 for job) Prior Level of Function: Independent without limitations Relevant History Past Relevant Medical Conditions: Anxiety;Depression;Cancer (pt. reports hx of suicide attempt to PT when she was 15 yo) Preferred Language: Slovenian Right or Left Handed: Left Employment: Medically Disabled Recreation / Current Exercise: DNS, not lifting overhead, <#50 Home Environment Patient Lives With: Spouse Home Type: Mobile Home Intake Information: Prescription present Previous Treatment: Injections ;Self prescribed exercises;Heat (cortisone 03/03/22 it took the edge off, repeat injection scheduled for 04/09/22) Falls Interview: Two or more falls in the last year;Fall with injury in the last year (2x fall on shoulder same day, due to uneven ground and mud) Red Flags Vertebral Fracture Red Flags: Female Vertebral Fracture Clinical Reasoning: Proceed with caution due to the above (1-2) risk factors Cancer Red Flags: History of Cancer Cancer Clinical Reasoning: Proceed with caution Infection Clinical Reasoning: No identified risk factors. Cervical Arterial Dysfunction Clinical Reasoning: No identified risk factors Cervical Myelopathy Diagnostic Rule: No identified risk factors. Red Flags - Cervical Cancer Red Flags: History of Cancer Cancer Clinical Reasoning: Proceed with caution Infection Clinical Reasoning: No identified risk factors. Cervical Arterial Dysfunction Clinical Reasoning: No identified risk factors Cervical Myelopathy Diagnostic Rule: No identified risk factors. Spine History Symptoms Location at Onset: Neck Symptoms Since Onset: Unchanging Pain is Worse Always: Lying;Prolonged positions;Sitting Pain is Better Sometimes: Rest Sleeping Position: Side lying left > right (feels worse, will sit up in bed at times.) Pain: Pain Pain Level: 7 Pain Location: Shoulder - Left Description: Sharp;Burning Frequency: At rest Additional Pain Information : Location 2 Pain Level 2: 5 Pain Location 2: Neck - Left Description 2: Tightness Frequency 2: At rest Post Treatment Pain Post Treatment Pain Level: 7 Post Treatment Pain Location: Shoulder - Left Post Treatment Pain Description: Sharp;Burning Post Treatment Symptoms: its always like this, all day. PROMIS Scales Higher is Better 03/10/2022 Phys Func - Score 47 (within normal limits) Phys Func - Percentile 38 % Social Roles - Score 41 (mild dysfunction) Social Role - Percentile 18 % GH Physical - Score 32.4 (Poor) GH Physical - Percentile 4 % GH Mental - Score Incomplete Self-Eff Symptom - Score 36 (Low) Self-Eff Symptom - Percentile 8 % T-scores: mean of general population = 50. 5 points is clinically meaningfully difference Percentiles provide an indication of how the patient's score ranks in relation to the general population. Higher percentile rankings indicate better function/quality of life. 50th percentile is the average of the general population and indicates half of respondents had a worse score. Lower is Better 03/10/2022 Fatigue - Score 58 (mild) Fatigue - Percentile 21 % T-scores: mean of general population = 50. 5 points is clinically meaningfully difference Percentiles provide an indication of how the patient's score ranks in relation to the general population. Higher percentile rankings indicate better function/quality of life. 50th percentile is the average of the general population and indicates half of respondents had a worse score. OBJECTIVE MEASURES WITH LEVEL OF FUNCTION: Cognition Cognition: Follows Commands Posture / Alignment Posture: Forward head;Increased thoracic kyphosis;Rounded shoulders;Elevated shoulder -left L Shoulder Alignment: Protracted scapula;Winging scapula;Rounded shoulder;Humeral internal rotation;Scapular anterior tilt Shoulder Observations L Shoulder Presents with: Comments (unremarkable) L Shoulder Palpation Tenderness: Acromion process;Scapular spine;AC joint;Lateral scapula;Bicipital groove Sensation - Upper Extremity UE Light Touch Sensation: Grossly Intact Spine Observations L Cervical Spine Palpation Tenderness: Upper trapezius;Paraspinals;Levator scapulae;Scalenes Sensation - Cervical Spine Cervical Spine Sensation: Grossly Intact Cervical Spine ROM Cervical ROM : Limitation AROM Cervical Protrusion AROM: Minimal limitation Cervical Retraction AROM: Major limitation;Increased pain;Pain during movement Cervical Flexion AROM: Moderate limitation;Produces Cervical Extension AROM: Moderate limitation;Produces Cervical Side-Bend Right AROM: Major limitation;Pain during movement Cervical Side-Bend Left AROM: Major limitation;Pain during movement Cervical Rotation Right AROM: End range pain;Minimal limitation Cervical Rotation Left AROM: Major limitation;Pain during movement;Produces Repeated Test Movements - Cervical Cervical RET - Symptoms During: increases Cervical RET - Symptoms After: no effect UE AROM L Shoulder Flex: 98 Degrees L Shoulder ABduction: 71 Degrees L Shoulder Internal Rotation (Functional): L ear L Shoulder External Rotation (Functional): greater trochanter UE PROM L UE PROM: not assessed due to severe pain and heavy guarding with palpation UE Flexibility Flexibility: Upper Trapezius;Levator Scapulae;Pectoral Muscles L Upper Trapezius Flexibility Comments: limited L Levator Scapulae Flexibility Comments: limited L Pectorals Comments: tightness UE and Cervical Strength L UE Strength: NT due to severe level of pain with AROM Functional Strength Functional Strength: Lifting;Reaching Special Tests - Cervical Cervical Special Tests: Vertebral Artery Test Vertebral Artery Test: Negative Special Tests - Shoulder Shoulder Special Tests: Comments (NT due to severe pain and HEP has been determined reguardless) Education: Education Learning Preferences: Demonstration;Explanation;Perfor coco;Printed Materials Barriers: Emotions Learning/educational needs: Procedure / Surgery;Plan of Care;Home exercise program;Safety;Posture Education Provided: Yes, see treatment interventions for education provided Education Provided To: Patient Education Mode/Type: Demonstration;Explanation/Discus german;Literature/Printed Materials;Performance Response to Education/Teach Back: States/Identifies;Return Demonstration TREATMENT: PT Treatment Interventions: Therapeutic Exercise;Self-Fdc Management Evaluation Evaluation Therapeutic Exercise: 1: *repeated cervical retraction 3-5x10 2: *repeated scapular retraction 3x15 3: *L UT stretch 3x30 seconds Skilled Intervention: Patient was educated in proper exercise technique and purpose for exercises. Reviewed and educated patient on additions/changes for home exercise program as above (*). Skilled judgment was provided in selection of appropriate interventions. Provided written instruction for home exercise program to facilitate proper performance and compliance. Correct performance of therapeutic exercises was facilitated with verbal, visual and tactile cuing. Additional time necessary for providing HEP and pt. education due to initial evaluation. Educated patient on rationale for performing exercises in regards to decreasing fatigue , increase ease of ADL and ROM and function . Patient education as noted. Self-Fdc Management: 1: *postural education 2: *Progression for improving L shoulder AROM and strength without causing increased symptoms, encouraged movements within pain free AROM and progressing as tolerated 3: *pt. education to avoid movements/activities with the LUE that cause increased symptoms Skilled Intervention: Skilled judgment in the selection of proper modification for activity of daily living/home management based on clinical presentation, deficits, and needs. Provided written instruction for activities of daily living techniques to facilitate proper performance and compliance. Reviewed patient specific diagnosis in relation to activities of daily living/home management. Activity progression based on professional judgement. Maximum verbal cues for maintaining neutral spine alignment. Instructed on proper lifting and carrying techniques avoiding L shoulder abduction/IR. Provided written instruction for home program to facilitate proper performance and compliance. Correct performance of home program was facilitated with verbal, visual and tactile cueing. Billing * Evaluation Low Complexity: 1 Unit Therapeutic Activity Treatment Minutes: 15 Self-Care/Home Management Treatment Minutes: 10 Total Treatment Time Minutes (timed/untimed): 45 Ofelia Hendricks PT documented in this encounter [facility] 03-03-2022 History of Presen t illness Narrative Associated Order(s): Large Joint Arthro/Inj: L subacromial bursa Phil Baldwin MD Department of Orthopaedics Orthopaedics [address] [facility] [address] Dept: [phone] Dept March 03, 2022 CHIEF COMPLAINT: Follow Up of the Left Shoulder and Results - Mri HPI Patient states she is having difficulty getting dressed with the pain in her shoulder. Taking no med's for the pain. AMB ROOMING INTAKE FLOWSHEET DATA Risk Screening Do you have concerns about personal safety or safety in the home?: No Pain Pain Level: 8 Pain Location: Shoulder-Left Description: Burning Duration Amount of Time: (Ongoing) Frequency: Intermittent Comments: None ASSESSMENT: M25.512 Acute pain of left shoulder (primary encounter diagnosis) M75.42 Impingement syndrome of left shoulder PLAN: She is having quite a bit of trouble with the shoulder despite relatively minor findings on her MRI. Recommendation is for physical therapy and a cortisone injection today. We can repeat an injection in 4 to 6 weeks if she feels that would be beneficial for her. No surgery indicated at this time. Ms. Jazzy Ventura was advised as to contrast therapies and/or to take analgesics/anti-inflammatories as needed and all contraindications were reviewed. OBJECTIVE: Ms. Jazzy Ventura is a pleasant 46 year old in no apparent distress. Gen:There were no vitals taken for this visit. nl development, obese, no deformities ENT: Normocephalic, normal hearing, moist mucosa CV: Pulses:Radial= 2+ and symmetric, capillary refill < 2 secs, no peripheral edema/varicosities Skin: no rash, bruising or lesions. Good turgor. Psych: cooperative and appropriate, alert and oriented x 3, good mood and affect. Musculoskeletal: Her exam remained stable from prior visit with limited range of motion limited by pain as well as positive Neer impingement and Gaston signs. Tender over the anterior lateral portion of the shoulder still quite moderately. Large Joint Arthro/Inj: L subacromial bursa Informed Consent Consent Obtained: Verbal [place] Protocol A moment to CARE was completed. SIGN IN Sign in communication not applicable due to emergent procedure. Personnel directly involved with the procedure wore the appropriate PPE. Special Equipment: N/A Patient/Surrogate Stated/Verified: Patient name, Date of , Relevant allergies and Intended procedure TIME OUT Intended patient and procedure match the source document(s). Consent documented and matches the intended procedure. Relevant labs, photos, and/or imaging studies have been reviewed. Correct side/site marked and visible. Medications required for procedure verified. No fire risk assessment and interventions applicable. No implant(s) inserted. 03/03/2022 8:33 AM The procedure site was prepped in the usual sterile fashion. Site: L subacromial bursa Medications: 6 mg betamethasone acetate-betamethasone sodium phosphate 6 mg/mL Anesthetics: 4 mL lidocaine (PF) 10 mg/mL (1 %) Outcome: Tolerated well, no immediate complications Post-injection instructions were reviewed with the patient and the patient voiced understanding of these instructions. SIGN OUT Post-procedure follow-up management communicated and Plan of Care Visit completed when applicable Imaging: IMPRESSION: Mild rotator cuff tendinosis with tiny partial low-grade bursal sided tear of the supraspinatus. No high-grade tear. Mild acromioclavicular joint osteoarthritis. Manufacturing Helper: JASS Transcribe Date/Time: Feb 04 2022 9:58A Dictated by : EARLE KATERINA, DO This examination was interpreted and the report reviewed and electronically signed by: CINTHIA PITTS MD on Feb 04 2022 10:32AM EST Results-Findings * * *Final Report* * * DATE OF EXAM: Feb 04 2022 8:43AM [id number] [id number] - MRI SHOULDER WO IVCON LT / PROCEDURE REASON: Acute pain of left shoulder * * * * Physician Interpretation * * * * EXAMINATION: MRI SHOULDER WO IVCON LT HISTORY: Acute pain of left shoulder She fell x 2 10-25-2022 at home after slipping in mud, landing on left shoulder. TECHNIQUE: Routine non-contrast MRI of the shoulder. MQ: [id number] COMPARISON: Left shoulder radiographs 12/27/2021 RESULT: TENDONS: Rotator cuff tendons: -Supraspinatus: Low grade partial thickness (less than 50%) bursal surface tear involving the anterior third of the tendon with background tendinosis -Infraspinatus: Intact with mild tendinosis -Subscapularis: Intact tendon -Teres Minor: Intact tendon Biceps (Long head) Tendon: Intact , with normal course MUSCLES: Rotator cuff muscles: -Supraspinatus: Preserved bulk and no fatty changes. -Infraspinatus: Preserved bulk and no fatty changes. -Subscapularis: Preserved bulk and no fatty changes. -Teres Minor: Preserved bulk and no fatty changes. Other muscles: Preserved signal and bulk in the deltoid. JOINTS: Glenohumeral Joint: -Labrum: Glenoid labrum appears to be intact. -Cartilage: Normal -Joint Fluid: No effusion . No synovitis. Acromioclavicular Joint: Mild hypertrophic degenerative changes with small joint effusion BONES AND MARROW: No evidence of fracture or suspicious bone marrow replacing process . Reactive subcortical cystic changes at the greater tuberosity. OTHER: Subdeltoid/Subacromial Bursa: Normal Other: No other significant findings. Localizer images: No additional findings. Supporting Subjective Information Below: Past Surgical History: PAST SURGICAL HISTORY Procedure Laterality Date APPENDECTOMY 1993 CHOLECYSTECTOMY 12/16/2016 & Fascial Defect repair, COLONOSCOPY FLX DX W/COLLJ SPEC WHEN PFRMD 01/02/2016 Colonoscopy ESOPHAGOGASTRODUODENOSCOPY TRANSORAL DIAGNOSTIC 01/02/2016 EGD PAST SURGICAL HISTORY OF 5314-6715 hysterectomy- 16 surgeries due to cervical cancer PAST SURGICAL HISTORY OF 2010 MRSA surgery, toe following spider bite. S SLING BLADDER 2011 TONSILLECTOMY PRIMARY/SECONDARY <AGE 14 1998 Tonsillectomy Medications: Current Outpatient Medications Medication Sig etodolac (LODINE) 400 mg tablet Take 1 tablet by mouth twice daily. (Patient not taking: Reported on 03/03/2022 ) fluticasone (FLONASE) 50 mcg/actuation nasal spray Use 2 Sprays in each nostril once daily. Rinse mouth after use. (Patient not taking: Reported on 03/03/2022 ) acetaminophen (TYLENOL EXTRA STRENGTH) 500 mg tablet Take 1 tablet by mouth every 6 hours as needed for pain (not to exceed 4000mg a day). busPIRone (BUSPAR) 10 mg tablet take 1 tablet by mouth twice a day (Patient not taking: Reported on 12/27/2021) escitalopram oxalate (LEXAPRO) 10 mg tablet take 1 tablet by mouth once daily (Patient not taking: Reported on 12/27/2021 ) oxybutynin (DITROPAN) 5 mg tablet Take 1 tablet by mouth once daily. esomeprazole (NEXIUM) 40 mg capsule Take 1 capsule by mouth twice daily. (Patient not taking: Reported on 03/03/2022 ) dicyclomine (BENTYL) 10 mg capsule Take 10 mg by mouth once daily. ONDANSETRON HCL (ZOFRAN ORAL) Take by mouth as needed. No current facility-administered medications for this visit. Allergies: Aspirin, Ciprofloxacin, Codeine, Hydrocodone-Acetaminophen, Latex, Penicillins, and Vancomycin ROS: General (negative for fatigue, malaise, weight loss/gain) HEENT (negative for headache, earache, recent vision changes, sinus pain, sore throat) Respiratory (no recent shortness of breath, hemoptysis) CV (negative for chest tightness, palpitations) Musculoskeletal (see HPI) Psych (no depression, anxiety) Phil Baldwin MD documented in this encounter [facility] 12-27-2021 History of Presen t illness Narrative Radiology Service Progress Note PATIENT NAME: Jazzy Ventura DATE OF SERVICE: December 27, 2021 TIME: 10:38 AM PATIENT IDENTITY VERIFICATION COMPLETED USING TWO (2) IDENTIFIERS: Name and Date of confirmed by patient verbally. FALL SCREENING: Has the patient had 2 falls in the last year or 1 fall with injury or currently using an Ambulatory Assistive Device (Walker, Cane, Wheelchair, Crutches, etc.)? No PATIENT GENDER DATA: Female. status: : No status: NO. PATIENT RELEVANT IMPLANT DATA REVIEWED: Yes RADIOLOGY DEPARTMENT: General X-ray: Exam(s) Completed: Upper Extremity X-Ray(s): Shoulder, AP / TRUE AP / AXILLARY left PERIPHERAL IV DATA: Not applicable SIGNED BY: RT Waqar(R) December 27, 2021 10:38 AM documented in this encounter [facility] 12-16-2016 History of Past i llness Narrative Problem Noted Date Resolved Date Right upper quadrant pain 12/16/20162021 Biliary dyskinesia 12/08/2016 01/01/2017 Intractable vomiting 12/05/2016 2022 Gastroesophageal reflux disease without esophagi tis 01/02/2016 01/02/2016 Cervix cancer 01/02/2016 01/02/2016 documented as of this encounter (statuses as of 2022) [facility] History of Past illness Narrative* Problem Noted Date Resolved Date Right upper quadrant pain 12/16/20162021 Biliary dyskinesia 12/08/2016 01/01/2017 Intractable vomiting 12/05/2016 2022 Gastroesophageal reflux disease without esophagi tis 01/02/2016 01/02/2016 Cervix cancer 01/02/2016 01/02/2016 documented as of this encounter (statuses as of 07/23/2022) [facility] History of Past illness Narrative* Problem Noted Date Resolved Date Right upper quadrant pain 12/16/20162021 Biliary dyskinesia 12/08/2016 01/01/2017 Intractable vomiting 12/05/2016 2022 Gastroesophageal reflux disease without esophagi tis 01/02/2016 01/02/2016 Cervix cancer 01/02/2016 01/02/2016 documented as of this encounter (statuses as of 07/24/2022) [facility] History of Past illness Narrative* Problem Noted Date Diagnosed Date Resolved Date Right upper quadrant pain 12/16/2016 Biliary dyskinesia 12/08/2016 7 Intractable vomiting 12/05/2016 022 Gastroesophageal reflux dise ase without esophagitis 01/02/2016 01/02/2016 Cervix cancer 01/02/2016 01/02/2016 documented as of this encounter (statuses as of 08/31/2023) [facility] History of Past illness Narrative* Problem Noted Date Resolved Date Biliary dyskinesia 12/08/2016 01/01/2017 Gastroesophageal reflux disease without esophagi tis 01/02/2016 01/02/2016 Cervix cancer 01/02/2016 01/02/2016 documented as of this encounter (statuses as of 03/03/2022) [facility] History of Past illness Narrative* Problem Noted Date Resolved Date Biliary dyskinesia 12/08/2016 01/01/2017 Gastroesophageal reflux disease without esophagi tis 01/02/2016 01/02/2016 Cervix cancer 01/02/2016 01/02/2016 documented as of this encounter (statuses as of 03/10/2022) [facility] History of Past illness Narrative* Problem Noted Date Resolved Date Biliary dyskinesia 12/08/2016 01/01/2017 Gastroesophageal reflux disease without esophagi tis 01/02/2016 01/02/2016 Cervix cancer 01/02/2016 01/02/2016 documented as of this encounter (statuses as of 03/10/2022) [facility] No data available for this section [facility] Evaluation note* Diagnosis Acute pain of left shoulder- Primary Impingement syndrome of left shoulder Other affections of shoulder region, not elsewhere classified [facility] Diagnosis Acute pain of left shoulder- Primary Impingement syndrome of left shoulder Other affections of shoulder region, not elsewhere classified [facility] Diagnosis Impingement syndrome of left shoulder- Primary Other affections of shoulder region, not elsewhere classified [facility]* Diagnosis Wellness examination- Primary Gastroesophageal reflux disease, unspecified whether esophagitis present Chronic diarrhea Diarrhea Bipolar 1 disorder (HCC) Bipolar I disorder, most recent episode (or current) unspecified Chronic left shoulder pain Pain in joint, shoulder region Special screening for malignant neoplasms, colon Encounter for screening mammogram for breast cancer Special screening examination for viral disease Special screening examination for unspecified viral disease Screening for HIV (human immunodeficiency virus) Special screening examination for other specified viral diseases [facility] Diagnosis Encounter for screening mammogram for breast cancer documented in this encounter [facility] note* Diagnosis Encounter for screening mammogram for breast cancer [facility]* Diagnosis Acute pain of left shoulder [facility]* Diagnosis Encounter for screening mammogram for breast cancer [facility]* Diagnosis Rash- Primary Rash and other nonspecific skin eruption documented in this encounter [facility] note* Diagnosis Screening for colorectal cancer- Primary Special screening for malignant neoplasms, colon documented in this encounter [facility] for referral (narrative)* Diagnostic Procedure Only (Routine) - Closed Specialty Diagnoses / Procedures Referred By Rachelle cervantes Referred To Contact [facility] IMAGING Diagnoses Encounter for screening mammogram for breast cancer Procedures JASMINE SCREENING SCREENING MAMMOGRAPHY BI 2-VIEW BREAST INC Janice Logan APRN.CNP [address] [place] [address] [facility] [address] [address] Referral ID Status Reason Start Date Expiration Date V isits Requested Visits Authorized [id number] Closed Auto-Generate d Referral 2022 07/11/2023 1 1 [facility] for referral (narrative)* Diagnostic Procedure Only (Routine) - Pending Review Specialty Diagnoses / Procedures Referred By Rachelle cervantes Referred To Contact [facility] Diagnoses Encounter for screening mammogram for breast cancer Procedures JASMINE SCREENING SCREENING MAMMOGRAPHY BI 2-VIEW BREAST INC CAD Ruben Perez MD [address] [place] [address] [facility] [address] [place] [address] Referral ID Status Reason Start Date Expiration Date Visits Requested Visits Authorized [id number] Pending Review Auto-Generat ed Referral 09/24/2024 1 1 T [facility] for referral (narrative)* Diagnostic Procedure Only (Urgent) - Closed Specialty Diagnoses / Procedures Referred By Contac t Referred To Contact XR IMAGING Diagnoses Acute pain of left shoulder Procedures XR SHOULDER GENERAL 3V OR MORE AP/TRUE AP/OTHER LEFT RADEX SHOULDER COMPLETE MINIMUM 2 VIEWS Sandra Chavez PA-C [address] [place] [address] [place] [address] Referral ID Status Reason Start Date Expiration Date V isits Requested Visits Authorized [id number] Closed Auto-Generate d Referral 12/27/2021 01/26/2023 1 1 [facility] for referral (narrative)* Diagnostic Procedure Only (Routine) - New Request Specialty Diagnoses / Procedures Referred By Rachelle t Referred To Contact [facility] Diagnoses Encounter for screening mammogram for breast cancer Procedures JASMINE SCREENING W JORGE LUIS SCREENING DIGITAL BREAST TOMOSYNTHESIS BI SCREENING MAMMOGRAPHY BI 2-VIEW BREAST INC CAD Ruben Perez MD [address] [place] [address] [facility] [address] [place] [address] Referral ID Status Reason Start Date Expiration Date Visits Requested Visits Authorized [id number] New Request Auto-Generat ed Referral 08/03/2024 09/02/2025 1 1 [facility] for visit Narrative* Diagnostic Procedure Only (Routine) - Closed Specialty Diagnoses / Procedures Referred By Contac t Referred To Contact [facility] Diagnoses Encounter for screening mammogram for breast cancer Procedures JASMINE SCREENING SCREENING MAMMOGRAPHY BI 2-VIEW BREAST INC Janice Logan APRN.CNP [address] [place] [address] [facility] [address] [place] [address] Referral ID Status Reason Start Date Expiration Date V isits Requested Visits Authorized [id number] Closed Auto-Generate d Referral 2022 07/11/2023 1 1 [facility] Diagnostic Procedure Only (Urgent) - Closed Specialty Diagnoses / Procedures Referred By Contac t Referred To Contact XR IMAGING Diagnoses Acute pain of left shoulder Procedures XR SHOULDER GENERAL 3V OR MORE AP/TRUE AP/OTHER LEFT RADEX SHOULDER COMPLETE MINIMUM 2 VIEWS Sandra Chavez, PASelwyn [address] [place] [address] [place] [address] Referral ID Status Reason Start Date Expiration Date V isits Requested Visits Authorized [id number] Closed Auto-Generate d Referral 12/27/2021 01/26/2023 1 1 [facility] Reason for Referral Specialty Diagnoses / Procedures Referred By Contac t Referred To Contact [facility] Diagnoses Acute pain of left shoulder Impingement syndrome of left shoulder Procedures CONSULT TO PHYSICAL THERAPY PHYSICAL THERAPY EVALUATION HIGH COMPLEX 45 MINS Phil Baldwin MD [address] [place] [address] [facility] [place] [address] [place] [address] Referral ID Status Reason Start Date Expiration Date Visits Requested Visits Authorized [id number] Authorized Auto-Generat ed Referral 03/03/2022 07/02/2022 1 1 Specialty Diagnoses / Procedures Referred By Contac t Referred To Contact [facility] Diagnoses Acute pain of left shoulder Impingement syndrome of left shoulder Procedures PT REHAB FOLLOW UP ORDER THERAPEUTIC EXERCISES RE, EA 15 MIN. Ofelia Hendricks, PT [address] [place] [address] [facility] [address] [address] Referral ID Status Reason Start Date Expiration Date Visits Requested Visits Authorized [id number] Pending Review PCP Requested Referral Auto-Generate d Referral 03/10/2022 06/08/2022 10 10 Specialty Diagnoses / Procedures Referred By Contac t Referred To Contact Gastroenterology Diagnoses Special screening for malignant neoplasms, colon Chronic diarrhea Gastroesophageal reflux disease, unspecified whether esophagitis present Procedures CONSULT TO GASTROENTEROLOGY OFFICE/OUTPATIENT [facility] MDM 60-74 MINUTES 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, 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, 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 [address] [place] [address] Referral ID Status Reason Start Date Expiration Date Visits Requested Visits Authorized [id number] Authorized PCP Requested Referral 2022 2023 1 1 Specialty Diagnoses / Procedures Referred By Contac t Referred To Contact [facility] Diagnoses Chronic left shoulder pain Procedures CONSULT TO PHYSICAL THERAPY PHYSICAL THERAPY EVALUATION HIGH COMPLEX 45 MINS 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, 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, 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 [address] [place] [address] [facility] [address] [address] Referral ID Status Reason Start Date Expiration Date V isits Requested Visits Authorized [id number] Closed Auto-Generate d Referral 2022 2023 1 1 Specialty Diagnoses / Procedures Referred By Contac t Referred To Contact [facility] Diagnoses Special screening for malignant neoplasms, colon Procedures COLONOSCOPY SCREENING COLONOSCOPY FLX DX W/COLLJ SPEC WHEN PFRMD 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, 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, 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 [address] [place] [address] [facility] [place] [address] [place] [address] Referral ID Status Reason Start Date Expiration Date Visits Requested Visits Authorized [id number] Pending Review Auto-Generat ed Referral 2022 2023 1 1 Specialty Diagnoses / Procedures Referred By Contac t Referred To Contact Gynecology Diagnoses Wellness examination Procedures CONSULT TO GYNECOLOGY OFFICE/OUTPATIENT [facility] MDM 60-74 MINUTES 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, 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, 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 [address] [place] [address] Referral ID Status Reason Start Date Expiration Date Visits Requested Visits Authorized [id number] Authorized PCP Requested Referral Auto-Generate d Referral 2022 2023 1 1 Specialty Diagnoses / Procedures Referred By Contac t Referred To Contact [facility] Diagnoses Encounter for screening mammogram for breast cancer Procedures JASMINE SCREENING SCREENING MAMMOGRAPHY BI 2-VIEW BREAST INC CAD 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, 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, 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 [address] [place] [address] [facility] [address] [place] [address] Referral ID Status Reason Start Date Expiration Date Visits Requested Visits Authorized [id number] Authorized Auto-Generat ed Referral 2022 07/11/2023 1 1 Medications Administered Section Inactive Administered Medications - up to 3 most recent administrations Medication Order MAR Action Action Date Dose Rate Site betamethasone acetate-betamethasone sodium phosphate 6 mg injection (CELESTONE) 6 mg, Injection - FOR ORTHO USE ONLY, ONE TIME INJECTION, 1 dose, Starting on 03/03/22 at 0833, Until 03/03/22 at 0833 Given 03/03/2022 8:33 AM EDT 6 mg lidocaine (PF) 10 mg/mL (1 %) 4 mL injection (XYLOCAINE) 4 mL, Injection - FOR ORTHO USE ONLY, ONE TIME INJECTION, 1 dose, Starting on 03/03/22 at 0833, Until 03/03/22 at 0833 Given 03/03/2022 8:33 AM EDT 4 mL Advance Directives No Advanced Directives Records FoundDocuments on File Type Date Recorded Patient Medical Records Supervisor Expl anation Advance Directive(s) 01/02/2016 10:21 AM Advance Directive(s) 12/26/2015 10:06 AM Documents on File Type Date Recorded Patient Medical Records Supervisor Expl anation Advance Directive(s) 01/02/2016 10:21 AM Advance Directive(s) 12/26/2015 10:06 AM Summary Purpose Family History No Family History Records Found No data available for this section No Family History Records Found No data available for this section No Family History Records FoundNo Family History Records Found Additional Source Comments Source Comments (unrecognize d section and content) In the event this informatio n is protected by the Federal Confidentiality of Alcohol and Drug Abuse Patient Records regulations: The Federal rules restrict any use of the information to criminally investigate or prosecute any alcohol or drug abuse patient.[facility] the event this information is protected by the Federal Confidentiality of Alcohol and Drug Abuse Patient Records regulations: The Federal rules restrict any use of the information to criminally investigate or prosecute any alcohol or drug abuse patient.[facility] Center[facility] the event this information is protected by the Federal Confidentiality of Alcohol and Drug Abuse Patient Records regulations: The Federal rules restrict any use of the information to criminally investigate or prosecute any alcohol or drug abuse patient.[facility] Center[facility] the event this information is protected by the Federal Confidentiality of Alcohol and Drug Abuse Patient Records regulations: The Federal rules restrict any use of the information to criminally investigate or prosecute any alcohol or drug abuse patient.[facility] Center[facility] the event this information is protected by the Federal Confidentiality of Alcohol and Drug Abuse Patient Records regulations: The Federal rules restrict any use of the information to criminally investigate or prosecute any alcohol or drug abuse patient.[facility] Center[facility] the event this information is protected by the Federal Confidentiality of Alcohol and Drug Abuse Patient Records regulations: The Federal rules restrict any use of the information to criminally investigate or prosecute any alcohol or drug abuse patient.[facility] Center[facility] the event this information is protected by the Federal Confidentiality of Alcohol and Drug Abuse Patient Records regulations: The Federal rules restrict any use of the information to criminally investigate or prosecute any alcohol or drug abuse patient.[facility] Center[facility] the event this information is protected by the Federal Confidentiality of Alcohol and Drug Abuse Patient Records regulations: The Federal rules restrict any use of the information to criminally investigate or prosecute any alcohol or drug abuse patient.[facility] Center[facility] the event this information is protected by the Federal Confidentiality of Alcohol and Drug Abuse Patient Records regulations: The Federal rules restrict any use of the information to criminally investigate or prosecute any alcohol or drug abuse patient.[facility] Center[facility] the event this information is protected by the Federal Confidentiality of Alcohol and Drug Abuse Patient Records regulations: The Federal rules restrict any use of the information to criminally investigate or prosecute any alcohol or drug abuse patient.[facility] Center[facility] the event this information is protected by the Federal Confidentiality of Alcohol and Drug Abuse Patient Records regulations: The Federal rules restrict any use of the information to criminally investigate or prosecute any alcohol or drug abuse patient.[facility] Reason for Visit (unrecogniz ed section and content) Reason Comments Results - Mri Follow Up Reason Comments PT Eval Specialty Diagnoses / Procedures Referred By Contac t Referred To Contact [facility] Diagnoses Acute pain of left shoulder Impingement syndrome of left shoulder Procedures CONSULT TO PHYSICAL THERAPY PHYSICAL THERAPY EVALUATION HIGH COMPLEX 45 MINS Phil Baldwin MD [address] [place] [address] [facility] [place] [address] [place] [address] Referral ID Status Reason Start Date Expiration Date V isits Requested Visits Authorized [id number] Closed Auto-Generate d Referral 03/03/2022 07/02/2022 1 1 Reason Comments Patient Update Reason Comments Establish Care Left rotator cuff pa in since October. Reason Comments Rash rash on arms and leg s with swelling x 2 days Reason Onset Date Comments Outpatient Colonoscopy 01/06/2025 Patient i s overdue for colorectal cancer screening since 01/01/2021. Patient will need consult with Sky De Leon CNP prior to colorectal cancer screening. Care Teams (unrecognized sec tion and content) Electronic Organ Mechanic Relationship Specialty Start Date End Date Jon Salomon PCP - General Family Practice 09/19/15 Electronic Organ Mechanic Relationship Specialty Start Date End Date Jon Salomon PCP - General Family Practice 09/19/15 Electronic Organ Mechanic Relationship Specialty Start Date End Date Jon Salomon PCP - General Family Practice 09/19/15 Electronic Organ Mechanic Relationship Specialty Start Date End Date Ruben Perez MD [address] [place] [address] PCP - General Internal Medicine 06/11/22 Electronic Organ Mechanic Relationship Specialty Start Date End Date Ruben Perez MD [address] [place] [address] PCP - General Internal Medicine 06/11/22 Electronic Organ Mechanic Relationship Specialty Start Date End Date Ruben Perez MD [address] [place] [address] PCP - General Internal Medicine 06/11/22 Electronic Organ Mechanic Relationship Specialty Start Date End Date Ruben Perez MD [address] [place] [address] PCP - General Internal Medicine 06/11/22 Electronic Organ Mechanic Relationship Specialty Start Date End Date Jon Salomon PCP - General Family Medicine 09/19/15 03/24/22 Electronic Organ Mechanic Relationship Specialty Start Date End Date Ruben Perez MD [address] [place] [address] PCP - General Internal Medicine 06/11/22 Electronic Organ Mechanic Relationship Specialty Start Date End Date Ruben Perez MD [address] [place] [address] PCP - General Internal Medicine 06/11/22 Janice Salazar, 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 [address] [place] [address] Research Quality Assurance Analyst Internal Medicine 10/10/24 Electronic Organ Mechanic Relationship Specialty Start Date End Date Ruben Perez MD [address] [place] [address] PCP - General Internal Medicine 06/11/22 Janice Salazar, 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 [address] [place] [address] Research Quality Assurance Analyst Internal Medicine 10/10/24 INFORMATION SOURCE (unrecogn ized section and content) DATE CREATED AUTHOR 04/08/2022 [facility] DATE CREATED AUTHOR AUTHOR'S ORGANIZ ATION 06/24/2024 [facility] ([place]) DATE CREATED AUTHOR AUTHOR'S ORGANIZ ATION 11/14/2024 [facility] DATE CREATED AUTHOR AUTHOR'S ORGANIZ ATION 01/25/2025 [facility] [employer] Care Team (unrecognized sect ion and content) Care Team Personnel Name: PHYSICIAN, NOT RECORDED Member Role: Primary Care Physician Care Team Related Persons Name: ZOLTAN VENTURA Address: Home [address] FOR RECORDS PERTAINING TO PATIENTS WHO ARE OR HAVE BEEN ENROLLED IN A CHEMICAL DEPENDENCY/SUBSTANCEABUSE PROGRAM, SOME INFORMATION MAY BE OMITTED. This clinical summary was aggregated from multiple sources. Caution should be exercised in using it in the provision of clinical care. This summary normalizes information from multiple sources, and as a consequence, information in this document may materially change the coding, format and clinical context of patient data. In addition, data may be omitted in some cases. CLINICAL DECISIONS SHOULD BE BASED ON THE PRIMARY CLINICAL RECORDS. [facility] [employer] [facility]. provides no warranty or guarantee of the accuracy or completeness of information in this document.
[2025-04-09 02:47] VITALS: BP 162/92; PULSE 89; RESP 18; TEMP 37.1; O2SAT 100
[2025-04-09] MEDS: Lidocaine 1% (20 ml mdv) 20 ML Vial INFILT (02:49)
[2025-04-09] MEDS: Ibuprofen 600 MG Tablet PO (02:53)
== END 2025-04-09 02:54 | disposition home or self-care (01) ==
PROVIDERS: Emergency Provider Emergency Medicine; Visit Provider Emergency Medicine
DX: S61.412A Laceration without foreign body of left hand, initial encounter (principal); Z87.891 Personal history of nicotine dependence; E78.5 Hyperlipidemia, unspecified; W26.0XXA Contact with knife, initial encounter; Y93.G1 Activity, food preparation and clean up
CPT/HCPCS: 12002; 99283

== ENCOUNTER 2025-06-03 19:23 | Emergency (ER) | payer SELFPAY ==
[2025-06-03 19:24] VITALS: BP 133/98; PULSE 93; RESP 18; TEMP 36.8; O2SAT 100; BMI 36.5
[2025-06-03] MEDS: Smz/Tmp Ds Tablet 1 TABLET PO (19:51)
--- NOTE | 2025-06-03 19:57 | EX.ED.VISEXT ---
HPI <MANOLO Anderson - Last Filed: 06/03/25 21:31> History of Present Illness Chief Complaint: Bite Narrative Narrative: Patient presenting today with concerns for cellulitis to her left lower extremity that started yesterday. She has concerns for a bug bite to the area, she reports that she lives in a trailer and there are a lot of spiders that she finds. This morning she outlined the redness with a pen and it began to spread prompting her to come in to be seen. She does have a history of a MRSA infection in the past, she also reports a history of a brown recluse spider bite. She denies fevers, chills, nausea, and vomiting. She is otherwise healthy with no history of immunocompromise. ROS <MANOLO Anderson - Last Filed: 06/03/25 21:31> ROS ED Constitutional Constitutional ED: Denies chills or fever(s) Cardiovascular Cardiovascular: Denies chest pain Respiratory/Chest Respiratory/Chest: Denies dyspnea Gastrointestinal Gastrointestinal: Denies abdominal pain, nausea or vomiting Musculoskeletal Musculoskeletal: Denies arthralgias Integumentary Reports other Details: Cellulitis ; Denies abscess Neurologic Neurologic: Denies weakness PFSH <MANOLO Anderson - Last Filed: 06/03/25 21:31> [facility] Medical History Borderline personality disorder PTSD (post-traumatic stress disorder) Bipolar disorder, unspecified Ovarian cancer History of MRSA infection Heart murmur Seizures Polycystic ovaries Hyperlipemia Depression Anxiety History of cancer Back problem Seasonal allergies Home Medications ?Medication ?Instructions ?Recorded ?Last Taken ?Type cephalexin 500 mg capsule 500 mg PO Q6 7 days #28 CAPSULES 06/03/25 Unknown Rx sulfamethoxazole 800 1 tab PO BID 7 days #14 tabs 06/03/25 Unknown Rx mg-trimethoprim 160 mg tablet (Bactrim DS) Allergy/AdvReac Type Severity Reaction Status Date / Time aspirin Allergy Swelling Verified 06/03/25 19:27 ciprofloxacin (From Cipro) Allergy Rash Verified 06/03/25 19:27 ciprofloxacin HCl (From Allergy Rash Verified 06/03/25 19:27 Cipro) coconut Allergy Hives Verified 06/03/25 19:27 coconut oil Allergy Rash Verified 06/03/25 19:27 latex Allergy Rash Verified 06/03/25 19:27 Penicillins Allergy Rash Verified 06/03/25 19:27 vancomycin Allergy Rash Verified 06/03/25 19:27 codeine AdvReac Vomiting Verified 06/03/25 19:27 hydrocodone bitartrate (From AdvReac Vomiting Verified 06/03/25 19:27 Vicodin) Family History Mother Alcoholism Arthritis Family history of blood clots Diabetes Seizures CVA (cerebral vascular accident) Father Alcoholism Grandmother Arthritis Surgical History History of foot surgery History of cholecystectomy History of tonsillectomy History of appendectomy History of placement of ear tubes Social History Smoking Status: Former smoker alcohol intake: current alcohol intake frequency: a few times a month Alcohol type: wine substance use type: does not use what type of physical activity do you participate in: none EXAM <MANOLO Anderson - Last Filed: 06/03/25 21:31> Physical Exam Const Vital Signs: 06/03/25 19:24 06/03/25 20:07 Temperature 98.2 F 97.8 F Temperature Source Temporal Pulse Rate 93 71 Respiratory Rate 18 14 Blood Pressure 133/98 H 159/70 H Blood Pressure Mean 109 99 Pulse Ox 100 99 Oxygen Delivery Method Room Air Positive well nourished, well developed and no apparent distress General Appearance ED: well developed HEENT Reports normocephalic and head/scalp atraumatic Mouth ED: Yes moist mucous membranes normal Eyes PERRL and EOMs intact bilaterally Neck full ROM and supple Chest Wall inspection of chest normal Resp normal respiratory effort and clear to auscultation bilaterally Cardio regular rate and regular rhythm GI soft to palpation, non-tender, non-distended and no masses Back/Spine normal ROM and normal to inspection Extremity full ROM Extremity Narrative: There is a approximately 3-4 cm circumferential area of erythema to the distal aspect of the anterior left lower extremity, there is a small wound in the center that she suspects is a bug bite. No purulence, fluctuance. No significant tenderness or crepitus to the left lower extremity, left DP pulse 2+, good cap refill, sensation intact. Neuro oriented x3, CN's II-XII intact bilaterally, moves all extremities, no focal motor deficits and no sensory deficits noted Sensorium / Orientation: awake and alert Psych mental status grossly normal and thought process normal Skin no rashes or lesions noted and no wounds <Alonso Gaona MD - Last Filed: 06/03/25 23:47> Physical Exam Const Vital Signs: 06/03/25 19:24 06/03/25 20:07 Temperature 98.2 F 97.8 F Temperature Source Temporal Pulse Rate 93 71 Respiratory Rate 18 14 Blood Pressure 133/98 H 159/70 H Blood Pressure Mean 109 99 Pulse Ox 100 99 Oxygen Delivery Method Room Air MDM <MANOLO Anderson - Last Filed: 06/03/25 21:31> [facility] Narrative Medical decision making narrative: Patient presenting today with concerns for cellulitis to her left leg that started yesterday. She noticed what looked like a small bug bite to her distal anterior left lower extremity, and there is now approximately 3 to 4 cm of surrounding erythema to the area. There is no fluctuance, no significant tenderness to the left lower extremity, low suspicion for necrotizing infection. She is neurovascularly intact. Her exam is consistent with cellulitis. She is otherwise nontoxic-appearing and afebrile. She has unremarkable vital signs. At this time I do not feel that labs are indicated. Given her history of MRSA infections in the past she will be treated with Keflex and Bactrim with first doses here, she was given oxycodone here for her pain. Recommended she alternate Tylenol and ibuprofen as needed for pain at home. Wound care instructions were discussed with her as well as return instructions. I recommended she have close follow-up with her PCP and she will be discharged home in stable condition. <Alonso Gaona MD - Last Filed: 06/03/25 23:47> [facility] Treatment and Re-Evaluation Narrative: Dr. Gaona: I have personally performed a face to face assessment of the patient and have reviewed the NASIR Note. I performed a substantive portion of the visit including all aspects of the following. My bowen findings include: History is spider bite to left lower extremity, ankle. Noticed redness yesterday. Spreading today. Burning and painful to touch. Exam is afebrile. Vital signs noted. Nontoxic-appearing. Cardiovascular semination regular rate and rhythm. Lungs clear to auscultation bilaterally. Inspection of the left lower extremity does reveal cellulitis, no fluctuance, no crepitance. Medical Decision Making: Feels she has more of a cellulitis, I do not feel she has a drainable abscess or necrotizing fasciitis. She will be started on 2 antibiotics as she has history of MRSA. Follow-up with primary care. Return instructions reviewed. Disposition is discharged Other additions or changes: [None] Discharge Plan Triage Chief Complaint: Bite ED Midlevel Provider: Jennifer George ED Provider: Alonso Gaona Dx/Rx/DC Orders Clinical Impression: Cellulitis of left lower leg Instructions: ED Cellulitis Prescriptions: New cephalexin 500 mg capsule 500 mg PO Q6 7 Days Qty: 28 0RF sulfamethoxazole-trimethoprim [Bactrim DS] 800-160 mg tablet 1 tab PO BID 7 Days Qty: 14 0RF Primary Care Provider: Care Physician,No Primary Referrals: Care Physician,No Primary [Primary Care Provider] - Activity Restrictions/Additional Instructions: Follow-up with your PCP and return for any worsening symptoms or if you have any other concerns. Print Language: Moldovan Disposition Disposition: Home, Self Care Discharge Date/Time: 06/03/25 20:08
--- OUTSIDE RECORDS SUMMARY | 2025-06-03 20:01 | XMS RPT_ITS | CCD ---
Author Organization [facility] Inform ion Partnership 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 Name Role Phone Jon Salomon Primary Care Provider Ruben Perez MD Primary Care Provider [phone] PHYSICIAN, NOT RECORDED Primary Care Physician U Ruben Guerra MD Primary Care Provider [phone] PHYSICIAN, NOT RECORDED Primary Care Unavaila ble MARIA TERESA SHARMA DO Attending Unavailable Jon Salomon Primary Care Provider Ruben Perez MD Primary Care Provider DR ELEAZAR VALDEZ DO Attending Unavailable PHYSICIAN, NOT RECORDED Primary Care Unavaila ble Martin LACHO.AIR TRAFFIC CONTROL EQUIPMENT REPAIRER, Janice M Unavailable RUBEN PEREZ Primary Care Unavailable Daniele Shetty Attending Unavailable Care Physician, No Primary Primary Care Unava ilable Allergies Allergy Classification Reported Allergen(s) Allergy Type Date of Onset Reaction(s) Facility (15 sources) Acetaminophen / HYDROcodone; Translations: [acetaminophen-hy drocodone] Drug Allergy 6 Other: See Comments [facility] Work Phone: (15 sources) Aspirin; Translations: [aspirin] Drug Allergy 6 Hives [facility] Work Phone: (15 sources) Ciprofloxacin; Translations: [ciprofloxacin] Drug Allergy 6 Swelling, Congestion of throat (finding) [facility] Work Phone: (15 sources) Codeine; Translations: [codeine] Drug Allergy 6 Other: See Comments [facility] Work Phone: (15 sources) Latex; Translations: [LATEX] Drug Allergy 6 Other: See Comments [facility] Work Phone: (9 sources) Penicillins; Translations: [penicillins] Drug Allergy 6 [facility] Work Phone: (15 sources) Vancomycin; Translations: [vancomycin] Drug Allergy 6 Swelling [facility] Work Phone: (6 sources) Penicillins Drug Allergy 6 [facility] Work Phone: (1 source) Aspirin Drug Allergy 5 [facility] Repository (1 source) Ciprofloxacin Drug Allergy 5 [facility] Rep[facility] (1 source) Ciprofloxacin Drug Allergy 5 [facility] Rep[facility] (1 source) Coconut extract Drug Allergy 5 [facility] Rep[facility] (1 source) Coconut Oil Drug Allergy 5 [facility] (1 source) Codeine Drug Allergy 5 [facility] (1 source) HYDROcodone Drug Allergy 5 [facility] (1 source) Latex Drug allergy (disorder) 5 [facility] Rep[facility] (1 source) Penicillins Drug allergy (disorder) 5 [facility] (1 source) Vancomycin Drug Allergy 5 [facility] Medications Current Medications Medication Drug Class(es) Dates [...] source) Non-narcotic Antitussive Start: 11-08-2024 End: 11-15-2024 Tessalon Perles 100 mg oral capsule Dose : 100 [...] on above: Take 1 tablet by ian every 6 hours as needed for pain (not to exceed 4000mg a day). betamethasone 3 mg/ml / betamethasone acetate 3 mg/ml injectable suspension (1 source) Corticosteroid Start: 03-03-2022 End: 03-03-2022 betamethasone acetate-betamethas one sodium phosphate 6 mg injection (CELESTONE) Start: 03-03-2022 End: 05-02-2022 betamethasone acetate-betame thasone sodium phosphate 6 mg [...] on above: take 1 tablet by ian twice a day Take 5 mg by [...] on above: take 1 tablet by ian once daily Take 5 mg by mouth o nce daily. esomeprazole 40 mg delayed release oral capsule (8 sources) Proton Pump Inhibitor Start: End: take 1 capsule by mouth twice daily esomeprazole (NEXIUM) 40 mg capsule Take 1 capsule by mouth twice daily. 12/30/2016 2022 Discontinued (Course of therapy completed) Start: 12-26-2016 take 1 dose by mouth once gus y NexIUM OTC Dose : 20 mg =, Oral, qDay Start Date: 12/26/16 Status: Ordered Repeat number: 1 Comment on above: Take 1 capsule by mo [facility] twice daily. fluticasone propionate 0.05 mg/actuat metered [...] on above: Take 1 capsule by mo [facility] once daily. OTC NUTRITIONAL SUPPLEMENT (6 sources) End: 01-04-2025 OTC NUTRITIONAL SUPPLEMENT Lipozene 1500 mg once daily 01/04/2025 Discontinued OTC NUTRITIONAL SUPPLEMENT Lipozene 1500 mg once daily Active OTC NUTRITIONAL SUPPLEMENT Lipozene 1500 mg once daily 0 Active Comment on above: Lipozene 1500 mg onc e daily oxybutynin chloride 5 mg oral tablet (5 sources) Cholinergic Muscarinic Antagonist Start: End: take 1 tablet by mouth once daily oxybutynin (DITROPAN) 5 mg tablet Take 1 tablet by mouth once daily. 30 tablet 5 04/24/2017 2022 Discontinued (Course of therapy completed) Comment on above: Take 1 tablet by [facility] once daily. Problems Active Problems Problem Classification [...] sources) Depressive disorder; Translations: [Depression] 12-05-2016 Chronic Open wounds of extremities (1 source) Laceration without foreign body of left hand, initial encounter; Translations: [Laceration without foreign body of left hand, initial encounter] Onset: 04-13-2025 Episodic Other non-traumatic joint disorders (4 sources) Shoulder [...] Test Name Value Interpretation Reference Range Facility Emergency Department Summary on 04-09-2025 Emergency Department Summary [facility] Medical Records Department [address] [place] [address] Emergency Department Summary 04/09/25 MR#: [id number] Acct: [id number] Name: JAZZY VENTURA Rep #: [id number] : 1975 49 From: Daniele Davidson PCP: Care Physician,No Primary Status:DEP ER Location: ED HPI History of Present Illness Chief Complaint: Laceration Informant: patient Narrative Narrative: Kizk-oizk-jajjclmt female presents injury left hand 6 hours ago. Was drying a clean new knife accidentally cut her palm. Tetanus in the last 5 to 10 years. No blood thinners. Try to control bleeding at home. Would rebleed. Has had stitches in the past. No other injuries. Tetanus Immunization: 5-10 years [facility] Medical History Borderline personality disorder PTSD (post-traumatic stress disorder) Bipolar disorder, unspecified Ovarian cancer History of MRSA infection Heart murmur Seizures Polycystic ovaries Hyperlipemia Depression Anxiety History of cancer Back problem Seasonal allergies Home Medications ???Medication ???Instructions ???Recorded ???Last Taken ???Type NK 04/09/25 Unknown History Allergy/AdvReac Type Severity Reaction Status Date / Time aspirin Allergy Swelling Verified 04/09/25 01:05 ciprofloxacin (From Cipro) Allergy Rash Verified 04/09/25 01:05 ciprofloxacin HCl (From Allergy Rash Verified 04/09/25 01:05 Cipro) coconut Allergy Hives Verified 04/09/25 01:05 coconut oil Allergy Rash Verified 04/09/25 01:05 latex Allergy Rash Verified 04/09/25 01:05 Penicillins Allergy Rash Verified 04/09/25 01:05 vancomycin Allergy Rash Verified 04/09/25 01:05 codeine AdvReac Vomiting Verified 04/09/25 01:05 hydrocodone bitartrate (From AdvReac Vomiting Verified 04/09/25 01:05 Vicodin) Family History Mother Alcoholism Arthritis Family history of blood clots Diabetes Seizures CVA (cerebral vascular accident) Father Alcoholism Grandmother Arthritis Surgical History History of foot surgery History of cholecystectomy History of tonsillectomy History of appendectomy History of placement of ear tubes Social History Smoking Status: Former smoker alcohol intake: current alcohol intake frequency: a few times a month Alcohol type: wine substance use type: does not use what type of physical activity do you participate in: none ROS ROS ED Constitutional Constitutional ED: Denies fever(s) Cardiovascular Cardiovascular: Denies chest pain Respiratory/Chest Respiratory/Chest: Denies cough Gastrointestinal Gastrointestinal: Denies diarrhea or vomiting Musculoskeletal Musculoskeletal: Denies none Integumentary Reports wounds; Denies rash Neurologic Neurologic: Denies weakness EXAM Physical Exam Const Vital Signs: 04/09/25 01:04 Temperature 98.7 F Temperature Source Oral Pulse Rate 90 Respiratory Rate 16 Blood Pressure 160/94 H Blood Pressure Mean 116 Pulse Ox 99 Positive well nourished and well developed General Appearance ED: well developed HEENT normocephalic and atraumatic Eyes General Eye ED: Yes normal appearance of both eyes Neck full ROM Resp normal respiratory effort and normal air movement Cardio regular rate and regular rhythm GI soft to palpation Extremity full ROM Neuro oriented x3 Skin Skin Narrative: Left hand palmar aspect 4 cm laceration across the hyperthenar subcutaneous exposure there is no active bleeding. No visualized tendon injury full range of motion of the distal digits. No paresthesias. MDM MDM MDM Narrative Medical decision making narrative: Interventions / MDM: Differential diagnosis: Left hand laceration Diagnosis considered but do not suspect: No clinical tendon injury My EKG interpretation: N/A Imaging independently reviewed and interpreted by myself: N/A External documents reviewed: N/A Test considered but not ordered:N/A ED course: Isolated laceration left hand hypothenar eminence totaling 4 cm. Patient prepped for laceration repair. Procedure note: Verbal consent. Normal sterile conditions. Total 4 cc 1% lidocaine used for local analgesia of the wound. Copiously flushed with normal saline both 4 x 4 and syringe. No gross foreign bodies noted. Wound was closed with a total of 6, 5-0 nylon simple interrupted sutures with good approximation of the wound. Bacitracin dressing placed by myself. Patient tolerated the procedure well. Wound care discussed with patient. PCP follow-up given 10 to 14 days reevaluation and suture removal along with establishing primary care. Re-evaluation: sta (more content not included)... Normal [facility] 01-04-2025 CNOV Office Visit ([facility] ) JAZZY VENTURA ([id number]) 1975 F Date Time Provider Department 01/04/25 10:30 AM [facility] During your visit today, we recorded the [...] trailer 1 month ago. 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 She says Many her [place] are too far to go [...] days, T (more content not included)... Normal [facility] .Auto Diffon 06-17-2024 Basophil, Absolute 0.0 10 3/mcL Normal 0.0-0.2 [facility] ([place] Comment on above: Performed By: #### A ELIAN, LIP, CBC, MDW, CMP, GFR, ADIFF #### [address] [address] Basophils/100 WBC (Bld) 0.4 % Normal 0.0-2.5 [facility] ([place]) Comment on above: Performed By: #### A ELIAN, LIP, CBC, MDW, CMP, GFR, ADIFF #### [address] [address] Eosinophil, Absolute 0.2 10 3/mcL Normal 0.0-0.4 [facility] ([place]) Comment on above: Performed By: #### A ELIAN, LIP, CBC, MDW, CMP, GFR, ADIFF #### [address] [address] Eosinophils/100 WBC (Bld) 2.9 % Normal 0.0-7.0 [facility] ([place]) Comment on above: Performed By: #### A ELIAN, LIP, CBC, MDW, CMP, GFR, ADIFF #### [address] [address] Lymphocyte, Absolute 2.4 10 3/mcL Normal 0.8-3.9 [facility] ([place] Comment on above: Performed By: #### A ELIAN, LIP, CBC, MDW, CMP, GFR, ADIFF #### [address] [address] Lymphocytes/100 WBC (Bld) 29.8 % Normal 10.0-50.0 [facility] ([place] Comment on above: Performed By: #### A ELIAN, LIP, CBC, MDW, CMP, GFR, ADIFF #### [address] [address] Monocyte, Absolute 0.8 10 3/mcL Normal 0.2-1.0 [facility] ([place] Comment on above: Performed By: #### A ELIAN, LIP, CBC, MDW, CMP, GFR, ADIFF #### [address] [address] Monocytes/100 WBC (Bld) 9.4 % Normal 1.7-13.0 [facility] ([place] Comment on above: Performed By: #### A ELIAN, LIP, CBC, MDW, CMP, GFR, ADIFF #### [address] [address] Neutrophils/100 WBC (Bld) 57.5 % Normal 37.0-80.0 [facility] ([place]) Comment on above: Performed By: #### A ELIAN, LIP, CBC, MDW, CMP, GFR, ADIFF #### [address] [address] .GFRon 06-17-2024 GFR 70 ml/min/1.73sqm Normal [facility] ([place]) Comment on above: Result Comment: GFR Population [...] By: #### U ILEANA LEEU, UA #### [address] [address] GFR Non- 58 ml/min/1.73sqm Normal [facility] ([place]) Comment on above: Result Comment: GFR Population [...] mL/min/1.73 square meters Performed By: #### U AMICAO, PREGU, UA #### [place] [id number] .MDWon 06-17-2024 Monocyte Distribution Width 19.24 Normal 0.00-20.00 [facility] ([place]) Comment on above: Result Comment: For ED adult patients suspected of sepsis, MDW<=20.0 does not rule out sepsis or risk of sepsis Performed By: #### A ELIAN, LIP, CBC, MDW, CMP, GFR, ADIFF #### [place] [address] .NEUABSon 06-17-2024 Neutrophil, Absolute 4.7 10 3/mcL Normal 2.9-6.2 [facility] ([place] Comment on above: Performed By: #### A ELIAN, LIP, CBC, MDW, CMP, GFR, ADIFF #### [place] [address] .Urinalysis Microscopic (AO) on 06-17-2024 UA Bacteria 2+ /hpf Abnormal [facility] ([place] Comment on above: Performed By: #### U AMICAO, PREGU, UA #### [place] [address] UA RBC 0-5 Abnormal None Seen [facility] ([place]) Comment on above: Performed By: #### U AMICAO, PREGU, UA #### [place] [id number] UA Squam Epithelial 10-15 Abnormal None Seen [facility] ([place]) Comment on above: Performed By: #### U ILEANA LEEU, UA #### [address] [address] UA WBC 0-5 Abnormal None Seen [facility] ([place] Comment on above: Performed By: #### U AMIERNESTO PREGU, UA #### [address] [address] CBCon 06-17-2024 Erythrocyte distribution width (RBC) [Ratio] 13.5 % Normal 11.5-14.5 [facility] ([place]) Comment on above: Performed By: #### A ELIAN, LIP, CBC, MDW, CMP, GFR, ADIFF #### [address] [address] Hematocrit (Bld) [Volume fraction] 38.3 % Normal 37.0-47.0 [facility] ([place]) Comment on above: Performed By: #### A ELIAN, LIP, CBC, MDW, CMP, GFR, ADIFF #### [address] [address] Hgb 13.2 G/dL Normal 12.0-16.0 [facility] ([place] Comment on above: Performed By: #### A ELIAN, LIP, CBC, MDW, CMP, GFR, ADIFF #### [address] [address] MCH (RBC) [Entitic mass] 32.7 pg High 27.0-31.2 [facility] ([place]) Comment on above: Performed By: #### A ELIAN, LIP, CBC, MDW, CMP, GFR, ADIFF #### [address] [address] MCHC 34.5 G/dL Normal 33.0-37.0 [facility] ([place]) Comment on above: Performed By: #### A ELIAN, LIP, CBC, MDW, CMP, GFR, ADIFF #### [address] [address] MCV (RBC) [Entitic vol] 95.0 fL High 80.0-94.0 [facility] ([place]) Comment on above: Performed By: #### A ELIAN, LIP, CBC, MDW, CMP, GFR, ADIFF #### [address] [address] Platelet 303 10 3/mcL Normal 130-400 [facility] ([place]) Comment on above: Performed By: #### A ELIAN, LIP, CBC, MDW, CMP, GFR, ADIFF #### [address] [address] Platelet mean volume (Bld) [Entitic vol] 7.1 fL Low 7.4-10.4 [facility] ([place] Comment on above: Performed By: #### A ELIAN, LIP, CBC, MDW, CMP, GFR, ADIFF #### [address] [address] RBC 4.03 10 6/mcL Low 4.20-5.40 [facility] ([place] Comment on above: Performed By: #### A ELIAN, LIP, CBC, MDW, CMP, GFR, ADIFF #### [address] [address] WBC 8.2 10 3/mcL Normal 4.6-10.8 [facility] ([place] Comment on above: Performed By: #### A ELIAN, LIP, CBC, MDW, CMP, GFR, ADIFF #### [address] [address] CMPon 06-17-2024 Albumin Level 3.8 G/dL Normal 3.5-5.0 [facility] ([place]) Comment on above: Performed By: #### A ELIAN, LIP, CBC, MDW, CMP, GFR, ADIFF #### [address] [address] Albumin/Globulin [Mass ratio] 1.1 {ratio} Normal 1.1-2.5 [facility] ([place] Comment on above: Performed By: #### A ELIAN, LIP, CBC, MDW, CMP, GFR, ADIFF #### [address] [address] ALP [Catalytic activity/Vol] 70 U/L Normal 40-135 [facility] ([place]) Comment on above: Performed By: #### A ELIAN, LIP, CBC, MDW, CMP, GFR, ADIFF #### [address] [address] ALT [Catalytic activity/Vol] 38 U/L Normal 14-59 [facility] ([place] Comment on above: Performed By: #### A ELIAN, LIP, CBC, MDW, CMP, GFR, ADIFF #### [address] [address] AST [Catalytic activity/Vol] 15 U/L Normal 10-40 [facility] ([place] Comment on above: Performed By: #### A ELIAN, LIP, CBC, MDW, CMP, GFR, ADIFF #### [address] [address] Bili Total 0.6 mg/dL Normal 0.2-1.0 [facility] ([place]) Comment on above: Result Comment: Use of this assay is not recommended for patients undergoing treatment with eltrombopag due to the potential for falsely elevated results. Performed By: #### A ELIAN, LIP, CBC, MDW, CMP, GFR, ADIFF #### [address] [address] BUN/Creatinine Ratio 20 ratio Normal 7-27 [facility] ([place]) Comment on above: Performed By: #### A ELIAN, LIP, CBC, MDW, CMP, GFR, ADIFF #### [address] [address] Calcium [Mass/Vol] 8.8 mg/dL Normal 8.4-10.2 [facility] ([place]) Comment on above: Performed By: #### A ELIAN, LIP, CBC, MDW, CMP, GFR, ADIFF #### [address] [address] Chloride [Moles/Vol] 103 mmol/L Normal 98-107 [facility] ([place] Comment on above: Performed By: #### A ELIAN, LIP, CBC, MDW, CMP, GFR, ADIFF #### [address] [address] CO2 [Moles/Vol] 31 mmol/L High 22-29 [facility] ([place] Comment on above: Performed By: #### A ELIAN, LIP, CBC, MDW, CMP, GFR, ADIFF #### [address] [address] Creatinine [Mass/Vol] 1.02 mg/dL Normal 0.55-1.02 [facility] ([place]) Comment on above: Performed By: #### A ELIAN, LIP, CBC, MDW, CMP, GFR, ADIFF #### [address] [address] Electrolyte Balance 6.0 mEq/L Normal 4.0-15.0 [facility] ([place]) Comment on above: Performed By: #### A ELIAN, LIP, CBC, MDW, CMP, GFR, ADIFF #### [address] [address] Globulin 3.4 G/dL Normal [facility] ([place] Comment on above: Performed By: #### A ELIAN, LIP, CBC, MDW, CMP, GFR, ADIFF #### [address] [address] Glucose [Mass/Vol] 88 mg/dL Normal 70-105 [facility] ([place] Comment on above: Performed By: #### A ELIAN, LIP, CBC, MDW, CMP, GFR, ADIFF #### [address] [address] Potassium [Moles/Vol] 4.1 mmol/L Normal 3.5-5.1 [facility] ([place] Comment on above: Performed By: #### A ELIAN, LIP, CBC, MDW, CMP, GFR, ADIFF #### [address] [address] Sodium [Moles/Vol] 140 mmol/L Normal 136-145 [facility] ([place] Comment on above: Performed By: #### A ELIAN, LIP, CBC, MDW, CMP, GFR, ADIFF #### [facility] [address] [place], [place] [address] Total Protein 7.2 G/dL Normal 6.4-8.2 [facility] ([place]) Comment on above: Performed By: #### A ELIAN, LIP, CBC, MDW, CMP, GFR, ADIFF #### [place] [address] [place], [place] [address] Urea nitrogen [Mass/Vol] 20 mg/dL High 7-18 [facility] ([place] Comment on above: Performed By: #### A ELIAN, LIP, CBC, MDW, CMP, GFR, ADIFF #### [place] [address] [place], [place] [address] CT ABD/PELVIS W/ IV CONTRAST ONLYon 06-17-2024 [...] Interpreted by: Bk Darling Preliminary Report By: kB Darling Electronically signed By Bk Darling Dictated Date: 06/17/2024 11:28:02 PM Prelim Date: 06/17/2024 11:35:48 PM Sign Date: 06/17/2024 11:35:48 PM Ordering Provider: MARIA TERESA Valencia [facility] ([place]) LABORATORYOrdered By: SYSTEM SYSTEM on 06-17-2024 Albumin [...] 06-17-2024 Lipase Level 31 U/L Normal 16-77 [facility] ([place]) Comment on above: Performed By: #### A ELIAN, LIP, CBC, MDW, CMP, GFR, ADIFF #### [address] [address] PREGUon 06-17-2024 HCG ( test) Ql (U) Negative Normal [facility] ([place]) Comment on above: Performed By: #### U AMICAO, PREGU, UA #### [address] [address] test (u) int Not detected Invalid Interpretation Code [facility] ([place]) Comment on above: Performed By: #### U AMICAO, PREGU, UA #### [address] [address] UAon 06-17-2024 Color (U) Yellow Normal [facility] ([place]) Comment on above: Performed By: #### U AMICAO, PREGU, UA #### [address] [address] Glucose (U) [Mass/Vol] Negative Normal Negative [facility] ([place]) Comment on above: Performed By: #### U AMICAO, PREGU, UA #### [address] [address] Ketones Ql (U) Negative Normal Negative [facility] ([place]) Comment on above: Performed By: #### U AMICAO, PREGU, UA #### [address] [address] UA Appear Cloudy Abnormal Clear [facility] ([place] Comment on above: Performed By: #### U AMICAO, PREGU, UA #### [address] [address] UA Blood Trace Abnormal Negative [facility] ([place]) Comment on above: Performed By: #### U AMICAO, PREGU, UA #### [address] [address] UA Leuk Est Negative Normal Negative [facility] ([place]) Comment on above: Performed By: #### U AMICAO, PREGU, UA #### [address] [address] UA Nitrite Negative Normal Negative [facility] ([place] Comment on above: Performed By: #### U AMICAO, PREGU, UA #### [place] [address] UA pH 5.5 Normal 5.0 - 8.0 [facility] ([place] Comment on above: Performed By: #### U AMICAO, PREGU, UA #### [place] [address] UA Protein Negative Normal Negative [facility] ([place] Comment on above: Performed By: #### U AMICAO, PREGU, UA #### [place] [address] UA Spec Grav >=1.030 Abnormal 1.015-1.025 [facility] ([place]) Comment on above: Performed By: #### U AMICAO, PREGU, UA #### [place] [address] UA Specimen Type Clean Catch Normal [facility] ([place] Comment on above: Performed By: #### U AMICAO, PREGU, UA #### [place] [address] UA Urobilinogen 0.2 E.U./dL Normal 0.2-1.0 [facility] ([place] Comment on above: Performed By: #### U AMICAO, PREGU, UA #### [place] [address] Urobilinogen (U) [Mass/Vol] Negative Normal Negative [facility] ([place] Comment on above: Performed By: #### U AMICAO, PREGU, UA #### [place] [address] XR RIBS 2 VIEWS RIGHT/PA KAYLIE ST(AO)on [...] 11:45:16 PM Ordering Provider: MARIA TERESA SHARMA [facility] ([place] JASMINE SCREENINGon 07-22-2022 [facility] XR Shoulder - left 3 Viewson 12-27-2021 IMPRESSION: Cystic formation or lucencies along the distal clavicle and acromion, 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 Degenerative changes also among the differential consideration however felt to be less likely. Rehabilitation Engineer: JASS Transcribe Date/Time: Dec 27 2021 11:26A Dictated by : MADALYN ROSALES MD This examination was interpreted and the report reviewed and electronically signed by: MADALYN ROSALES MD on Dec 27 2021 11:33AM [facility] DIVISION OF RADIOLOGY * [...] soft tissue swelling. DIVISION OF RADIOLOGY Provider, Ashley Izaguirre - 12/27/2021 * * *Final Report* * [...] consideration however felt to be less likely. Rehabilitation Engineer: JASS Transcribe Date/Time: Dec 27 2021 11:26A Dictated by : MADALYN ROSALES MD This examination was interpreted and the report reviewed and electronically signed by: MADALYN ROSALES MD on Dec 27 2021 11:33AM EST [facility] Radiology Study observation (narrative) [facility] XR Shoulder - left 3 ViewsOr dered By: Ccf Provider on 12-27-2021 [facility] Large Joint Arthro/Inj: L bai bacromial bursa [facility] Vital Signs Date Time Vital Sign Value Performing Clinician Facility 01-04-2025 10:23-0500 Body mass index (BMI) [Ratio] 37.97 kg/m2 Marcellus Escalante MD Work Phone: [facility] 03-05-2025 10:23-0500 Body temperature 97.9 [degF] Marcellus Escalante MD Work Phone: [facility] 01-04-2025 10:23-0500 Body weight 103.5 kg Marcellus Escalante MD Work Phone: [facility] 01-04-2025 10:23-0500 Diastolic blood pressure 82 mm[Hg] Marcellus Escalante MD Work Phone: [facility] 01-04-2025 10:23-0500 Heart rate 110 /min Marcellus Escalante MD Work Phone: [facility] 01-04-2025 10:23-0500 Respiratory rate 16 /min Marcellus Escalante MD Work Phone: [facility] 01-04-2025 10:23-0500 SaO2% (BldA) [Mass fraction] 97 % Marcellus Escalante MD Work Phone: [facility] 01-04-2025 10:23-0500 Systolic blood pressure 122 mm[Hg] Marcellus Escalante MD Work Phone: [facility] 11-08-2024 05:56-0500 Body temperature 98.06 [degF] DR ELEAZAR VALDEZ DO [facility] 11-08-2024 05:56-0500 Body weight [address] ELEAZAR VALDEZ DO [facility] 11-08-2024 05:56-0500 Diastolic Blood Pressure Non-Invasive 86 mm[Hg] DR ELEAZAR VALDEZ DO [facility] 11-08-2024 05:56-0500 Heart rate 97 /min DR ELEAZAR VALDEZ DO [facility] 11-08-2024 05:56-0500 Respiratory rate 20 /min DR ELEAZAR VALDEZ DO [facility] 11-08-2024 05:56-0500 Systolic Blood Pressure Non-Invasive 146 mm[Hg] DR ELEAZAR VALDEZ DO [facility] 06-18-2024 00:48-0400 Diastolic Blood Pressure Non-Invasive 73 mm[Hg] MARIA TERESA FROMMELT DO [facility] 06-18-2024 00:48-0400 Heart rate 77 /min MARIA TERESA FROMMELT DO [facility] 06-18-2024 00:48-0400 Respiratory rate 18 /min MARIA TERESA FROMNATHENT DO [facility] 06-18-2024 00:48-0400 Systolic Blood Pressure Non-Invasive 117 mm[Hg] MARIA TERESA FROMMELT DO [facility] 06-17-2024 21:44-0400 Body height 167.6 cm MARIA TERESA FROMMELT DO [facility] 06-17-2024 21:44-0400 Body temperature 97.16 [degF] MARIA TERESA MACEMELT DO [facility] 06-17-2024 21:44-0400 Body weight 100 kg MARIA TERESA FROMMELT DO [facility] 06-17-2024 21:44-0400 Diastolic Blood Pressure Non-Invasive 76 mm[Hg] MARIA TERESA FROMMELT DO [facility] 06-17-2024 21:44-0400 Heart rate 99 /min MARIA TERESA MACEMELT DO [facility] 06-17-2024 21:44-0400 Respiratory rate 18 /min MARIA TERESA FROMMELT DO [facility] 06-17-2024 21:44-0400 Systolic Blood Pressure Non-Invasive 131 mm[Hg] MARIA TERESA FROMMELT DO [facility] 07-24-2022 20:41-0400 Body temperature 98.42 [degF] DR MARYCRUZ SHANNON MD [facility] 07-24-2022 20:41-0400 Diastolic blood pressure 90 mm[Hg] DR MARYCRUZ SHANNON MD [facility] 07-24-2022 20:41-0400 Heart rate 86 /min DR MARYCRUZ SHANNON MD [facility] 07-24-2022 20:41-0400 Respiratory rate 16 /min DR MARYCRUZ SHANNON MD [facility] 07-24-2022 20:41-0400 Systolic blood pressure 145 mm[Hg] DR MARYCRUZ SHANNON MD [facility] 2022 09:09-0400 Diastolic blood pressure 86 mm[Hg] Janice Older TRAFFIC REPORTER.AIR TRAFFIC CONTROL EQUIPMENT REPAIRER Work Phone: [facility] 2022 09:09-0400 Systolic blood pressure 122 mm[Hg] Janice Older TRAFFIC REPORTER.AIR TRAFFIC CONTROL EQUIPMENT REPAIRER Work Phone: [facility] 2022 08:33-0400 Body height 165.1 cm Janice Older TRAFFIC REPORTER.AIR TRAFFIC CONTROL EQUIPMENT REPAIRER Work Phone: [facility] 2022 08:33-0400 Body weight 102.51 kg Janice Older TRAFFIC REPORTER.AIR TRAFFIC CONTROL EQUIPMENT REPAIRER Work Phone: [facility] 2022 08:33-0400 Heart rate 84 /min Janice Older TRAFFIC REPORTER.AIR TRAFFIC CONTROL EQUIPMENT REPAIRER Work Phone: [facility] 2022 08:33-0400 Respiratory rate 16 /min Janice Older TRAFFIC REPORTER.AIR TRAFFIC CONTROL EQUIPMENT REPAIRER Work Phone: [facility] Encounters Encounter Date Encounter Type Care Provider Facility Start: 04-09-2025 End: 04-09-2025 Emergency department patient visit [facility] Facility:[facility] Start: 01-06-2025 End: 01-12-2025 Admission to same [...] Start: 01-04-2025 End: 01-04-2025 ambulatory RUBEN PEREZ Facility:[facility] Start: 01-04-2025 End: 01-04-2025 Office outpatient visit 25 minutes Marcellus Escalante MD Work Phone: [facility] Comment on above: Rash (Primary Dx) Start: 11-08-2024 End: 11-08-2024 Emergency department patient visit DR ELEAZAR VALDEZ DO [facility] Start: 08-03-2024 End: 08-08-2024 ambulatory Ruben Perez MD Work Phone: Internal [facility] Start: 06-17-2024 End: 06-18-2024 Emergency department patient visit MARIA TERESA INDUDee DO [facility] Start: 08-26-2023 ambulatory Ruben alfaro MD Work Phone: Internal [facility] Start: 07-24-2022 End: 07-24-2022 Emergency department patient visit DR MARYCRUZ SHANNON MD [facility] Start: 07-22-2022 Documentation procedure Mammog meredith Coordinator [facility] Start: 07-22-2022 Letter encounter Mammography Coordinator [facility] Department Start: 07-22-2022 End: 07-22-2022 Subsequent hospital visit by physician Screen [facility] Comment on above: Encounter for screen ing mammogram for breast cancer [Z12.31] Start: 2022 End: 2022 Patient encounter procedure Janice Older TRAFFIC REPORTER.AIR TRAFFIC CONTROL EQUIPMENT REPAIRER Work Phone: [facility] [place] Comment on above: Wellness examination (Primary Dx); Gastroesophageal reflux disease, unspecified whether esophagitis present; Chronic diarrhea; Bipolar 1 disorder (HCC); Chronic left shoulder pain; Special screening for malignant neoplasms, colon; Encounter for screening mammogram for breast cancer; Special screening examination for viral disease; Screening for HIV (human immunodeficiency virus) Start: 2022 End: 2022 Patient encounter status Janice Older TRAFFIC REPORTER.AIR TRAFFIC CONTROL EQUIPMENT REPAIRER Work Phone: [facility] [place] Start: 03-10-2022 Telephone encounter Phil taylor MD Work Phone: Orthopaedics Comment on above: Patient Update Start: 03-10-2022 End: 03-10-2022 ambulatory Ofelia Hendricks PT Work Phone: [facility] Comment on above: Acute pain of left s houlder (Primary Dx); Impingement syndrome of left shoulder Start: 03-03-2022 End: 03-03-2022 Patient encounter procedure Phil Baldwin MD Work Phone: Orthopaedics Comment on above: Acute pain of left s houlder (Primary Dx); Impingement syndrome of left shoulder Start: 12-27-2021 End: 12-27-2021 Subsequent hospital visit by physician [facility] Work Phone: Radiology Comment on above: Acute pain of left s houlder [M25.512] Procedures Date Procedure Procedure Detail Performing Clinician Start: 07-22-2022 End: 07-22-2022 Screening mammography bi 2-view breast inc cad Janice Older TRAFFIC REPORTER.AIR TRAFFIC CONTROL EQUIPMENT REPAIRER Work Phone: Start: 03-03-2022 Arthrocentesis aspir &/inj [...] sling inserted Entire foot (body structure) DR MARYCRUZ SHANNON MD Hysterectomy DR MARYCRUZ SHANNON MD Malignant tumor of c ervix (disorder) DR MARYCRUZ SHANNON MD Tonsil and adenoid structure (body structure) DR MARYCRUZ SHANNON MD Plan of Treatment Date Care Activity Detail Author Start: 03-02-2027 Urine microalbumin profile [facility] Start: 07-03-2024 Covid-19 Vaccine ( season) Covid-19 Vaccine ( season) [facility] Start: 07-03-2024 Influenza vaccination Influenza Vacc ine (#1) [facility] Start: 07-22-2023 Mammography [facility] Start: 07-22-2023 Screening for malign ant neoplasm of breast Mammogram Screening [facility] Start: 07-03-2023 Covid-19 Vaccine ( season) Covid-19 Vaccine ( season) [facility] Start: 07-03-2023 Influenza vaccination Influenza Vacc ine (#1) [facility] Start: 2023 COVID-19 VACCINE (3 - Booster for Moderna series) COVID-19 VACCINE (3 - Booster for Moderna series) [facility] Comment on above: Postponed from 01/25 (Declined at this time) Start: 2023 HEPATITIS B (1 of 3 - 3-dose series) HEPATITIS B (1 of 3 - 3-dose series) [facility] Comment on above: Postponed from 06/11 (Declined at this time) Start: 02-05-2023 Lipid 1996 panel - Serum or Plasma Lipid Screening [facility] Start: 02-05-2023 Lipid panel Lipid Screening [facility] Start: 02-05-2023 LIPID SCREEN LIPID SCREEN [facility] Start: 07-03-2022 Influenza vaccination [facility] Start: 2022 COLOGUARD (FIT-DNA) COLOGUARD (FIT-D NA) [facility] Start: [address] COLONOGRAPHY [facility] Start: 2022 DIABETES SCREEN DIABETES SCREEN [facility] Start: 2022 Diabetes Screening Diabetes Screenin g [facility] Start: 2022 FECAL OCCULT BLOOD FECAL OCCULT BLOO D [facility] Start: 2022 End: 08-11-2022 Hepatitis C virus Ab [Presence] in Serum HEP C AB IA W/CONF SCRN Lab Routine Special screening examination for viral disease Expected: 2022, Expires: 08/11/2022 [facility] Work Phone: Comment on above: Expected: 2022 , Expires: 08/11/2022 Start: 2022 End: 08-11-2022 HIV 1+2 Ab [Presence] in Serum or Plasma by Immunoassay HIV 1 2 COMBO(AG/AB),WITH REFLEX TO DIFFERENTIATION Lab Routine Screening for HIV (human immunodeficiency virus) Expected: 2022, Expires: 08/11/2022 [facility] Work Phone: Comment on above: Expected: 2022 , Expires: 08/11/2022 Start: 2022 Screening for malign ant neoplasm of colon [facility] Start: 2022 SIGMOIDOSCOPY SIGMOIDOSCOPY [facility] Start: 2022 End: 08-11-2022 Thyrotropin [Units/volume] in Serum or Plasma TSH BLD Lab Routine Wellness examination Expected: 2022, Expires: 08/11/2022 [facility] Work Phone: Comment on above: Expected: 2022 , Expires: 08/11/2022 Start: 01-25-2022 COVID-19 VACCINE (3 - Booster for Moderna series) COVID-19 VACCINE (3 - Booster for Moderna series) [facility] Start: 01-01-2021 Colonoscopy COLONOSCOPY [facility] Start: 01-01-2021 COLORECTAL CANCER SCREENING COLORECTAL CANCER SCREENING [facility] Start: 01-01-2021 Screening for malign ant neoplasm of colon [facility] Start: 2017 Mammography MAMMOGRAM [facility] Start: 2007 HPV TESTING HPV TESTING [facility] Start: 1998 PAP TESTING PAP TESTING [facility] Start: 1998 Screening for malign ant neoplasm of cervix Cervical Cancer Screening [facility] Start: 1996 Hepatitis B Vaccine (1 of 3 - 19+ 3-dose series) Hepatitis B Vaccine (1 of 3 - 19+ 3-dose series) [facility] Start: 1996 Urine microalbumin profile DTAP,TDAP,TD (1 - Tdap) [facility] Start: 1995 Anxiety Screening Anxiety Screening [facility] Start: 1995 HEPATITIS C SCREENING HEPATITIS C [facility] Start: 1995 Hepatitis C screening Hepatitis C [facility] Start: 1995 HIV SCREENING HIV SCREENING [facility] Start: 1995 HIV screening HIV Screening [facility] Start: 1977 Hepatitis B Vaccine (1 of 3 - 3-dose series) Hepatitis B Vaccine (1 of 3 - 3-dose series) [facility] End: 09-02-2025 DBT Breast - bilateral screening JASMINE SCREENING [facility] Radiology Routine Encounter for screening mammogram for breast cancer 1 Occurrences starting 08/03/2024 until 09/02/2025 [facility] Work Phone: Comment on above: 1 Occurrences starti ng 08/03/2024 until 09/02/2025 End: 09-24-2024 JASMINE SCREENING JASMINE SCREENING Radiology Routine Encounter for screening mammogram for breast cancer 1 Occurrences starting 08/26/2023 until 09/24/2024 [facility] Work Phone: Comment on above: 1 Occurrences starti ng 08/26/2023 until 09/24/2024 PT PLAN OF CARE CERTIFICATION PT PLAN OF CARE CERTIFICATION Procedures Routine Acute pain of left shoulder Impingement syndrome of left shoulder Ordered: 03/10/2022 [facility] Work Phone: Comment on above: Ordered: 03/10/2022 End: 2023 Screening colonoscopy COLONOSCOPY SCREENING Endoscopy Routine Special screening for malignant neoplasms, colon 1 Occurrences starting 2022 until 2023 [facility] Work Phone: Comment on above: 1 Occurrences starti ng 2022 until 2023 End: 07-11-2023 Screening mammography bi 2-view breast inc cad JASMINE SCREENING Radiology Routine Encounter for screening mammogram for breast cancer 1 Occurrences starting 2022 until 07/11/2023 [facility] Work Phone: Comment on above: 1 Occurrences starti ng 2022 until 07/11/2023 [facility] Immunizations Immunization Date Immunization Notes Care Provider [facility] 08-27-2021 COVID-19 original vaccine, full dose, monovalent (MODERNA) Marcellus Escalante MD Work Phone: [facility] 07-29-2021 COVID-19 original vaccine, full dose, monovalent (MODERNA) Marcellus Escalante MD Work Phone: [facility] 03-02-2017 tetanus toxoid, redu adam diphtheria toxoid, and acellular pertussis vaccine, adsorbed Janice Older TRAFFIC REPORTER.AIR TRAFFIC CONTROL EQUIPMENT REPAIRER Work Phone: [facility] Work Phone: 08-13-2016 influenza, high dose seasonal, preservative-free Marcellus Escalante MD Work Phone: [facility] 08-13-2016 influenza virus vaccine, unspecified formulation Ruben Perez MD Work Phone: [facility] 10-14-2015 tetanus toxoid, redu adam diphtheria toxoid, and acellular pertussis vaccine, adsorbed DR MARYCRUZ SHANNON MD [facility] 07-16-2015 influenza, seasonal, injectable, preservative free Marcellus Escalante MD Work Phone: [facility] 07-03-2015 influenza, high dose seasonal, preservative-free Marcellus Escalante MD Work Phone: [facility] 06-02-2010 tetanus toxoid, adsorbed Janice Older TRAFFIC REPORTER.AIR TRAFFIC CONTROL EQUIPMENT REPAIRER Work Phone: [facility] Payers Date Payer Category Payer Unknown [id number] 2024 Self-pay [id number] 2024 Private Health Insurance NUÑEZ DAPHNEY [id number] 2024 Unknown [id number] 2024 Medicaid [id number] 2020 Medicaid [employer] [id number] 2020-Present [phone] [address] [place] [address] Medicaid [id number] 2020 Medicaid [id number] 1977 Unknown [id number] 1977 Unknown [id number] Unknown [id number] Social History Date Type Detail Facility Start: 12-25-2015 End: 09-09-2016 Tobacco smoking status NHIS Ex-smoker [facility] Work Phone: Comment on above: former smoker 20 plu s years ago Start: 12-28-1991 End: 12-28-1996 History of tobacco use Current smoker [facility] Work Phone: Start: 12-25-2015 End: 11-14-2022 Cigarettes smoked current (pack per day) - Reported 1 [facility] Start: 12-25-2015 End: 09-09-2016 Tobacco use and exposure Smokeless tobacco non-user [facility] Work Phone: Start: 03-03-2022 End: 2022 Alcohol intake Current non-drinker of alcohol (finding) [facility] Start: 1975 Sex Assigned At Female [facility] Start: 11-27-2021 End: 07-22-2022 Exposure to SARS-CoV-2 (event) Not sure [facility] Work Phone: Start: 12-28-1991 End: 12-28-1996 History of tobacco use Cigarette Smoker [facility] Start: 06-08-2022 History SDOH Alcohol Frequency 1 [facility] Start: 06-08-2022 History SDOH Alcohol Std Drinks 0 [facility] Start: 06-08-2022 History SDOH Social Connections Phone 2 [facility] Start: 06-08-2022 History SDOH Social Connections Get Together 98 [facility] Start: 06-08-2022 History SDOH Social Connections Living 3 [facility] Start: 06-08-2022 History SDOH Physica l Activity DPW 5 [facility] Start: 06-08-2022 History SDOH Physica l Activity MPS 9 [facility] Sex Assigned At [facility] Start: 06-08-2022 End: 11-14-2022 Social connection and isolation panel [facility] How often do you get together with friends or relatives? Patient refused [facility] Do you belong to any clubs or organizations such as mandaen groups, unions, fraternal or athletic groups, or school groups? No [facility] Are you now , , , , never or living with a partner? [facility] How often to you hav e a drink containing alcohol? Never [facility] How hard is it for y ou to pay for the very basics like food, housing, medical care, and heating Somewhat hard [facility] Do you feel stress - tense, restless, nervous, or anxious, or unable to sleep at night because your mind is troubled all the time - these days [OSQ] Very much [facility] (I/We) worried whestarr er (my/our) food would run out before (I/we) got money to buy more. Sometimes true [facility] In the past 12 month s, was there a time when you were not able to pay the mortgage or rent on time? Yes [facility] Start: 01-30-2022 Gender identity Identifies as female gender (finding) [facility] Start: 01-30-2022 Sexual orientation Heterosexual (fin jorge) [facility] Start: 07-01-2014 Sex Female (finding) [facility] Functional Status Date Assessment Result Facility 06-18-2024 Functional Status Assistive Krys ce Wheelchair [facility] 07-24-2022 Functional Status Standard Safet y ID band on, Allergy Band on, Call device within reach, Bed in low position, Wheels locked, Upper/Half-Length side-rails up, Bedside Cart Locked, Safety level maintained [facility] 12-08-2016 Are you deaf, or do you have serious difficulty hearing No 12/08/2016 5:44 PM Carlene Denton, MARLON No [facility] 12-08-2016 Are you blind, or do you have serious difficulty seeing, even when wearing glasses No 12/08/2016 5:44 PM Carlene Denton, MARLON No [facility] 12-08-2016 Do you have serious difficulty walking or climbing stairs No 12/08/2016 5:44 PM Carlene Denton, MARLON No [facility] 12-08-2016 Do you have difficul ty dressing or bathing No 12/08/2016 5:44 PM Carlene Denton, MARLON No [facility] 12-08-2016 Because of a physica l, mental, or emotional condition, do you have difficulty doing errands alone such as visiting a physician's office or shopping No 12/08/2016 5:44 PM Carlene Denton RN No [facility] Mental Status Date Assessment Result Facility 06-18-2024 Mental Status Orientation Oriented x 4 [facility] 07-24-2022 Mental Status Orientation Oriented x 4 [facility] 12-08-2016 Because of a physica l, mental, or emotional condition, do you have serious difficulty concentrating, remembering, or making decisions No 12/08/2016 5:44 PM Carlene Denton RN No [facility] Clinical Notes 12-08-2016 to 01-24-2025 Hyun Canchola - 01/12/2025 9:38 AM Marcellus Umanzor MD - 01/04/2025 10:28 AM ESTLetter - Mammography Coordinator - 07/22/2022 4:00 PM EDTRT Grecia(Quiana) - 07/22/2022 11:10 AM EDT Note Date & Type Note Facility 01-24-2025 Note HNO ID: [id number] Author: ?, ?, ? Service: ? Author Type: ? Type: Progress Notes Filed: 01/24/2025 13:56 Note Text: Patient is scheduled to see Janice Combs 02-13 @ 2:00 pm for her wellness visit [facility] 01-12-2025 Note HNO ID: [id number] Author: ?, ?, ? Service: ? Author Type: ? Type: Progress Notes Filed: 01/12/2025 09:38 Note Text: Contacted patient, she has an out of Net Work insurance that needs approval from the Clinic before we can schedule. DANIELLA with the number [phone] to call for clearance [facility] 01-12-2025 History of Presen t illness Narrative Contacted patient, she has an out of Net Work insurance that needs approval from the Clinic before we can schedule. DANIELLA with the number [phone] to call for clearance documented in this encounter [facility] 01-06-2025 Note Patient Outreach ( WSTR) JAZZY VENTURA ([id number]) 1975 F Date Time Provider Department 01/06/25 RUBEN PEREZ During your visit today, we recorded the following information about you: Hyun Canchola 01/12/2025 9:38 AM Signed Contacted patient, she has an out of Net Work insurance that needs approval from the Clinic before we can schedule. [facility] with the number [phone] to call for clearance Hyun Canchola 01/24/2025 [...] Encounter Status:Closed by HYUN CANCHOLA on 01/12/[address] [facility] 01-04-2025 Note HNO ID: [id number] Author: MARCELLUS ESCALANTE MD Service: ? Author [...] trailer 1 month ago. 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 She says [place] her [place] are too far to go (where she can get established with a PCP through the clinic). She has been seen in IM here within the last 3 years. Marcellus Escalante MD [facility] 01-04-2025 History of Presen t illness [...] trailer 1 month ago. 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 She says [place] her [place] are too far to go (where she can get established with a PCP through the clinic). She has been seen in here within the last 3 years. Marcellus Escalante MD documented in this encounter [facility] 11-08-2024 Hospital Discharg e instructions Patient Education [...] is gone, even if you feel better. [phone] [employer]. [address] [place] [address], [place] [address]. All rights reserved. This information is not intended as a substitute for professional medical care. Always follow your healthcare professional's instructions. Follow Up Care 11/08/2024 05:49:35 With:BUDDY REYES DO Address: [address] [place] [phone] When:2-4 days With:[facility] Address: [address] [place] [phone] When:2-4 days [facility] 11-08-2024 Emergency department Discharge summary Discharge Instructions Thank you for allowing [facility] to assist you with your healthcare needs. The following is important discharge information regarding your hospital visit. What to Do Next Instructions from Your Care Team No qualifying data available. Post Acute Orders No qualifying data available. You Need to Schedule the Following Appointments Follow Up with BUDDY REYES DO When:Within 2-4 days Where:[address] [facility] [place] [address]- [phone] Follow Up with [facility] When:Within 2-4 days Where:[address] [place] [phone]- [phone] Allergies Cipro Swelling of throat Latex Vicodin [...] is gone, even if you feel better. [phone] [employer]. [address] [place] [address], [place] [address]. All rights reserved. This information is not intended as a substitute for professional medical care. Always follow your healthcare professional's instructions. Additional Information VACCINATE! IT SAVES LIVES! Members of the community who have not yet received the COVID-19 vaccine and would like to receive it can visit one of [facility] vaccine clinics. There are many vaccine clinic locations within the [facility]. For locations and available times, please visit [email or web address] [email or web address] It is important to note that some COVID mobile vaccine clinics are held outdoors and may be canceled in rainy or stormy conditions. To learn more about pediatric vaccinations (ages 5-11), we invite you to visit the [facility] webpage. [email or web address] To learn more about the COVID-19 vaccine, we invite you to visit the CDC website for a list of frequently asked questions. https://www.cdc.gov/coronavirus/ 2019-ncov/vaccines/faq.html [facility] Patient Portal Access Instructions: Stay connected with your healthcare team and access your personal medical information anytime with the [facility] Patient Portal. If you would like a full copy of your medical records please contact the [facility] Medical Records Department Thursday through Thursday between 8a.m. and 4:30p.m. Please follow the directions below to access the portal: 1.Access the email account you provided upon registration to the hospital.2.Look for an invitation email from [facility].3.Open the email and access the invitation link: Accept Invitation to [facility]4.Fill in the required mayer to create your account. Sign into [email or web address] with your username and password that you [...] you will allow to register on the [facility] Patient Portal for access to your information. You can also access the [facility] Patient Portal on the [employer] honorio. Simply click on Health Records under Health Data and then click on the Laura logo. HOW TO SAFELY DISPOSE OF PRESCRIPTION [...] Call your local pharmacy or go to [email or web address] to find one close to you.3.Make use of household items: Use cat litter or old coffee grounds to dispose medications if other options are not available. Mix your drugs with these household products, seal them in an airtight container and throw it into the garbage. Call [facility]: [phone] to be sure your drugs can be [...] aware that I should contact my doctor. 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 Signature: Date/Time: Relationship to Patient: Witness Name/Signature: Date/Time: [facility] 08-03-2024 Note Patient Outreach (IN TMMN) JAZZY VENTURA ([id number]) 1975 F Date Time Provider Department 08/03/24 [...] Date Reviewed: 2022 Reviewed by: Janice Combs APRN.AIR TRAFFIC CONTROL EQUIPMENT REPAIRER - Fully Assessed Visit Diagnosis:Encounter for screening mammogram for breast cancer [Z12.31] Order(s):JASMINE SCREENING Ryan KANG [[id number]] Order #: [id number] FUTURE Prescriptions as of 08/08/2024 - LATUDA [...] Chronic diarrhea [K52.9] 2022 Encounter Status:Closed by YUSUF, PRODUSER on 08/08/[address] [facility] 06-18-2024 Hospital Discharg e instructions Patient [...] worse Numbness or weakness in a leg 9450-[address] [employer]. [address] [place] [address]. All rights reserved. This information is not [...] or as directed by your healthcare provider 6194-[address] [employer] [place] [address]. All rights reserved. This information is not intended as a substitute for professional medical care. Always follow your healthcare professional's instructions. Follow Up Care 06/17/2024 21:22:51 With:Call Physician Referral Address:Unknown When:2-4 days [facility] 06-18-2024 Note Discharge Instructions Thank you for allowing [place] to assist you with your healthcare needs. [...] worse Numbness or weakness in a leg 7749-4067 [employer] [address] [place] [address]. All rights reserved. This information is not [...] or as directed by your healthcare provider 1620-0710 [employer]. [address] [place] [address], [place] [address]. All rights reserved. This information is not intended as a substitute for professional medical care. Always follow your healthcare professional's instructions. Additional Information VACCINATE! IT SAVES LIVES! Members of the community who have not yet received the COVID-19 vaccine and would like to receive it can visit one of [facility] vaccine clinics. There are many vaccine clinic locations within the [facility]. For locations and available times, please visit [email or web address] [email or web address] It is important to note that some COVID mobile vaccine clinics are held outdoors and may be canceled in rainy or stormy conditions. To learn more about pediatric vaccinations (ages 5-11), we invite you to visit the [facility] webpage. https://www.[email or web address].org/p ages/8491-Jhion-Jrbziasrbsr-Freq mqpfod-Wsycy-Sehozrqyr.html To learn more about the COVID-19 vaccine, we invite you to visit the CDC website for a list of frequently asked questions. https://www.cdc.gov/coronavirus/ 2019-ncov/vaccines/faq.html [facility] Patient Portal Access Instructions: Stay connected with your healthcare team and access your personal medical information anytime with the [facility] Patient Portal. If you would like a full copy of your medical records please contact the [facility] Medical Records Department Thursday through Thursday between 8a.m. and 4:30p.m. Please follow the directions below to access the portal: 1.Access the email account you provided upon registration to the hospital.2.Look for an invitation email from [facility].3.Open the email and access the invitation link: Accept Invitation to [facility]4.Fill in the required mayer to create your account. Sign into [email or web address] with your username and password that you [...] you will allow to register on the [facility] Patient Portal for access to your information. You can also access the [facility] Patient Portal on the [employer] honorio. Simply click on Health Records under Health Data and then click on the [employer] logo. HOW TO SAFELY DISPOSE OF PRESCRIPTION [...] Call your local pharmacy or go to [email or web address] to find one close to you.3.Make use of household items: Use cat litter or old coffee grounds to dispose medications if other options are not available. Mix your drugs with these household products, seal them in an airtight container and throw it into the garbage. Call [facility]: [phone] to be sure your drugs can be [...] aware that I should contact my doctor. 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 Signature: Date/Time: Relationship to Patient: Witness Name/Signature: Date/Time: [facility] 06-17-2024 Note ORIGINAL EXAMINATION: 2 XRAY VIEWS [...] 06/17/2024 11:45:16 PM Ordering Provider: MARIA TERESA [facility] 06-17-2024 Note ORIGINAL EXAMINATION: CT OF THE [...] 06/17/2024 11:35:48 PM Ordering Provider: MARIA TERESA [facility] 07-24-2022 Hospital Discharg e instructions Patient Education [...] temperature. Use toothpaste made for sensitive teeth. Marrero gently up and down instead of sideways. Brushing sideways can wear away root surfaces if they are exposed. If your tooth is chipped or cracked, or if there is a large open cavity, put oil of cloves directly on the tooth to relieve pain. You can buy oil of cloves at [employer]. Some pharmacies carry an vjal-rqn-wxhqbxb toothache kit. This contains a paste that you can put on the exposed tooth to make it less sensitive. Put a cold pack on your jaw over the sore area to help reduce pain. You may use erob-eag-ozlssmd medicine to ease pain, unless your doctor [...] healthcare provider Pus drains from the tooth 6983-6678 [employer]. [address] [place] [address], [place] [address]. All rights reserved. This information is not intended as a substitute for professional medical care. Always follow your healthcare professional's instructions. Follow Up Care 07/24/2022 20:39:36 With:your dentist Address: When:2-4 days [facility] 07-24-2022 Emergency department Discharge summary Discharge Instructions Thank you for allowing [place] to assist you with your healthcare needs. [...] temperature. Use toothpaste made for sensitive teeth. Marrero gently up and down instead of sideways. Brushing sideways can wear away root surfaces if they are exposed. If your tooth is chipped or cracked, or if there is a large open cavity, put oil of cloves directly on the tooth to relieve pain. You can buy oil of cloves at drugstores. Some pharmacies carry an nxcr-zix-vtacxix toothache kit. This contains a paste that you can put on the exposed tooth to make it less sensitive. Put a cold pack on your jaw over the sore area to help reduce pain. You may use hwvl-mqq-nalawrt medicine to ease pain, unless your doctor [...] healthcare provider Pus drains from the tooth 8323-5781 [employer]. [address] [place] [address], [place] [address]. All rights reserved. This information is not intended as a substitute for professional medical care. Always follow your healthcare professional's instructions. Additional Information VACCINATE! IT SAVES LIVES! Members of the community who have not yet received the COVID-19 vaccine and would like to receive it can visit one of [facility] vaccine clinics. There are many vaccine clinic locations within the [facility]. For locations and available times, please visit www.[email or web address].[place]. org. It is important to note that some COVID mobile vaccine clinics are held outdoors and may be canceled in rainy or stormy conditions. To learn more about pediatric vaccinations (ages 5-11), we invite you to visit the [facility] webpage. https://www.[facility].org/p ages/2284-Wawtx-Yzjctjdrwkm-Freq cyxfne-Qftjr-Iilxrashg.html To learn more about the COVID-19 vaccine, we invite you to visit the [place] website for a list of frequently asked questions. https://laura.org/assets/Patie gto-ptl-Wjdvydkm/flkzo-Vmjapfm-Q requently_Asked-Questions.pdf [facility] Patient Portal Access Instructions: Stay connected with your healthcare team and access your personal medical information anytime with the [facility] Patient Portal. If you would like a full copy of your medical records please contact the [facility] Medical Records Department Thursday through Thursday between 8a.m. and 4:30p.m. Please follow the directions below to access the portal: 1.Access the email account you provided upon registration to the [facility].2.Look for an invitation email from [facility].3.Open the email and access the invitation link: Accept Invitation to [facility]4.Fill in the required mayer to create your account. Sign into [email or web address] with your username and password that you [...] you will allow to register on the [facility] Patient Portal for access to your information. You can also access the [facility] Patient Portal on the [employer]. Simply click on Health Records under Health Data and then click on the [employer] logo. HOW TO SAFELY DISPOSE OF PRESCRIPTION [...] Call your local pharmacy or go to [email or web address] to find one close to you.3.Make use of household items: Use cat litter or old coffee grounds to dispose medications if other options are not available. Mix your drugs with these household products, seal them in an airtight container and throw it into the garbage. Call [facility]: [phone] to be sure your drugs can be [...] been reviewed and explained to me and I,VENTURA, JAZZY M understand my current condition and have read and understand these discharge instructions. I have received a written copy of the plan/instructions. If I have questions, I am aware that I should contact my doctor. 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 Signature: Date/Time: Relationship to Patient: Witness Name/Signature: Date/Time: [facility] 07-22-2022 Miscellaneous Notes July 22, 2022 PID: [id number] Jazzy Ventura [address] [place], [place] [id number] Dear Ms. Ventura, We are pleased to [...] report will be kept on file at [facility] as part of your permanent medical record and are available for your continuing care. Thank you for allowing us to help in meeting your health care needs. Sincerely, Dr. Justice Interpreting Radiologist [facility] (Normal over 40) documented in this encounter [facility] 07-22-2022 History of Presen t illness Narrative [...] 2022 10:57 AM documented in this encounter [facility] 2022 Instructions Janice Combs APRN.AIR TRAFFIC CONTROL EQUIPMENT REPAIRER - 2022 8:54 AM EDT Images from [...] please call: Dr. Duarte or Dr. Billingsley [phone] Jessie Arcos [phone] Dr. Kim [phone] [facility] nurses [phone] documented in this encounter [facility] 2022 History of Presen t illness Narrative CC: Patient presents with: Establish Care: Left rotator cuff pain since October. HPI Jazzy Ventura is a 47 year old female who presents today for above. No previous PCP Bipolar disorder treated by psychiatry at the [facility]. Taking Lexapro, Latuda and [...] or NSAIDS: No Previous studies include EGD 2016, colonoscopy 2016, upper GI 2017 Chronic diarrhea- for years, [...] DIAGNOSTIC 01/02/2016 EGD PAST SURGICAL HISTORY OF 4520-6500 hysterectomy- 16 surgeries due to cervical cancer [...] Problem Relation Age of Onset Heart Mother CT Hypertension Mother Stroke Mother other (diabetic) Mother [...] diet of 1000 mg/day for under 50, 4027-8284 mg/day for 50+ - Discussed need and benefit for weight loss. BMI 37.61 kg/(m^2) - Mammogram ordered - exam recommended once yearly - Depression screening tool completed and reviewed with patient. Based on score and interview, patient is already diagnosed with depression and recommended continuing current plan of care. - Patient was counseled ekvq-nr-ysnd by myself (the billing provider) for the following immunizations and vaccine components, including side effects: Hep B Vaccine. Patient declined at this time - Follow up for annual exam in one year - CONSULT TO GYNECOLOGY, overdue for PAP/HPV - Check TSH BLD. Lipid panel, CMP and CBC already ordered by psychiatry and she will have done at [facility] 2. Gastroesophageal reflux disease, unspecified whether [...] Patient agreeable to treatment plan. Janice Combs APRN.CNP documented in this encounter [facility] 03-10-2022 Miscellaneous Notes I called and spoke with patient. Message from Karishma kowalski. Patient verbalized understanding. She hard a cortisone injection 03/03, it can take a week for it to help but she should be getting some relief from the injection soon. We can try a different prescription NSAID, I will send some oral diclofenac to her pharmacy to try, [facility] in [place]. We reserve pain medications for fractures and patients who are recovering from surgery. Patient was in for Physical Therapy today and stopped at the desk asking for something to take for pain. She is taking ibuprofen with no relief. Please advise. documented in this encounter [facility] 03-10-2022 History of Presen t illness Narrative [...] without limitation due to L shoulder pain. [place] in home exercise program. Patient will decrease [...] Planned: 16 Planned Treatment Interventions: Neuromuscular re-education (67535);Therapeutic exercise (59197);Manual therapy (27491);Therapeutic activities (27959);Self-nursing home management (41777);Patient/Family/Caregiver Education PLAN FOR NEXT VISIT: Assess symptom [...] when she was 15 yo) Preferred Language: Belizean Right or Left Handed: Left Employment: Medically [...] States/Identifies;Return Demonstration TREATMENT: PT Treatment Interventions: Therapeutic Exercise;Self-Shelter Management Evaluation Evaluation Therapeutic Exercise: 1: *repeated [...] and function . Patient education as noted. Self-Shelter Management: 1: *postural education 2: *Progression for [...] Ofelia Hendricks PT documented in this encounter [facility] 03-03-2022 History of Presen t illness Narrative Associated Order(s): Large Joint Arthro/Inj: L subacromial bursa Phil Baldwin MD Department of Orthopaedics Orthopaedics [address] [place] [address] Dept: [phone] Dept March 03, 2022 CHIEF COMPLAINT: Follow [...] subacromial bursa Informed Consent Consent Obtained: Verbal [place] Protocol A moment to CARE was completed. [...] No high-grade tear. Mild acromioclavicular joint osteoarthritis. Rehabilitation Engineer: JASS Transcribe Date/Time: Feb 04 2022 9:58A Dictated by : EARLE BORGES DO This examination was interpreted and the report reviewed and electronically signed by: CINTHIA PITTS MD on Feb 04 2022 10:32AM EST Results-Findings * * *Final Report* * * DATE OF EXAM: Feb 04 2022 8:43AM [facility] 0239 - MRI SHOULDER WO IVCON LT [...] DIAGNOSTIC 01/02/2016 EGD PAST SURGICAL HISTORY OF 2993-2432 hysterectomy- 16 surgeries due to cervical cancer [...] Phil Baldwin MD documented in this encounter [facility] 12-27-2021 History of Presen t illness Narrative [...] 2021 10:38 AM documented in this encounter [facility] 12-16-2016 History of Past i llness Narrative Problem Noted Date Resolved Date Right upper quadrant pain 12/16/20162021 Biliary dyskinesia 12/08/2016 01/01/2017 Intractable vomiting 12/05/2016 2022 Gastroesophageal reflux disease without esophagi tis 01/02/2016 01/02/2016 Cervix cancer 01/02/2016 01/02/2016 documented as of this encounter (statuses as of 2022) [facility] History of Past illness Narrative* Problem Noted Date Resolved Date Right upper quadrant pain 12/16/20162021 Biliary dyskinesia 12/08/2016 01/01/2017 Intractable vomiting 12/05/2016 2022 Gastroesophageal reflux disease without esophagi tis 01/02/2016 01/02/2016 Cervix cancer 01/02/2016 01/02/2016 documented as of this encounter (statuses as of 07/23/2022) [facility] of [facility] illness Narrative* Problem Noted Date Resolved Date Right upper quadrant pain 12/16/20162021 Biliary dyskinesia 12/08/2016 01/01/2017 Intractable vomiting 12/05/2016 2022 Gastroesophageal reflux disease without esophagi tis 01/02/2016 01/02/2016 Cervix cancer 01/02/2016 01/02/2016 documented as of this encounter (statuses as of 07/24/2022) [facility] Narrative* Problem Noted Date Diagnosed Date Resolved Date Right upper quadrant pain 12/16/2016 Biliary dyskinesia 12/08/2016 7 Intractable vomiting 12/05/2016 022 Gastroesophageal reflux dise ase without esophagitis 01/02/2016 01/02/2016 Cervix cancer 01/02/2016 01/02/2016 documented as of this encounter (statuses as of 08/31/2023) [facility] of [facility] illness Narrative* Problem Noted Date Resolved Date Biliary dyskinesia 12/08/2016 01/01/2017 Gastroesophageal reflux disease without esophagi tis 01/02/2016 01/02/2016 Cervix cancer 01/02/2016 01/02/2016 documented as of this encounter (statuses as of 03/03/2022) [facility] of [facility] Narrative* Problem Noted Date Resolved Date Biliary dyskinesia 12/08/2016 01/01/2017 Gastroesophageal reflux disease without esophagi tis 01/02/2016 01/02/2016 Cervix cancer 01/02/2016 01/02/2016 documented as of this encounter (statuses as of 03/10/2022) [facility] Narrative* Problem Noted Date Resolved Date Biliary dyskinesia 12/08/2016 01/01/2017 Gastroesophageal reflux disease without esophagi tis 01/02/2016 01/02/2016 Cervix cancer 01/02/2016 01/02/2016 documented as of this encounter (statuses as of 03/10/2022) [facility] + Plan note No data available for this section [facility] Evaluation note* Diagnosis Acute pain of left shoulder- Primary Impingement syndrome of left shoulder Other affections of shoulder region, not elsewhere classified documented in this encounter [facility]* Diagnosis Acute pain of left shoulder- Primary Impingement syndrome of left shoulder Other affections of shoulder region, not elsewhere classified documented in this encounter [facility]* Diagnosis Impingement syndrome of left shoulder- Primary Other affections of shoulder region, not elsewhere classified [facility] Diagnosis Wellness examination- Primary Gastroesophageal reflux [...] specified viral diseases [facility] Diagnosis Encounter for screening mammogram for breast cancer [facility] Diagnosis Encounter for screening mammogram for breast cancer [facility] Diagnosis Acute pain of left shoulder [facility] Diagnosis Encounter for screening mammogram for breast cancer [facility] Diagnosis Rash- Primary Rash and other nonspecific skin eruption [facility]* Diagnosis Screening for colorectal cancer- Primary Special screening for malignant neoplasms, colon documented in this encounter [facility] for referral (narrative)* Diagnostic Procedure Only (Routine) - Closed Specialty Diagnoses / Procedures Referred By Contac t Referred To Contact [facility] Diagnoses Encounter for screening mammogram for breast cancer Procedures JASMINE SCREENING SCREENING MAMMOGRAPHY BI 2-VIEW BREAST INC CAD Janice Combs APRN.CNP [address] [place] [address] [facility] [address] [place] [address] Referral ID Status Reason Start Date Expiration Date V isits Requested Visits Authorized [id number] Closed Auto-Generate d Referral 2022 07/11/2023 1 1 [facility] for referral (narrative)* Diagnostic Procedure Only (Routine) - Pending Review Specialty Diagnoses / Procedures Referred By Rachelle t Referred To Contact [facility] Diagnoses Encounter for screening mammogram for breast cancer Procedures JASMINE SCREENING SCREENING MAMMOGRAPHY BI 2-VIEW BREAST INC CAD Ruben Perez MD [address] [place] [address] [facility] [address] [place] [address] Referral ID Status Reason Start Date Expiration Date Visits Requested Visits Authorized [id number] Pending Review Auto-Generat ed Referral 09/24/2024 1 1 [facility] for referral (narrative)* Diagnostic Procedure Only (Urgent) - Closed Specialty Diagnoses / Procedures Referred By Contac t Referred To Contact XR IMAGING Diagnoses Acute pain of left shoulder Procedures XR SHOULDER GENERAL 3V OR MORE AP/TRUE AP/OTHER LEFT RADEX SHOULDER COMPLETE MINIMUM 2 VIEWS Sandra Chavez PA-C [address] [place] [address] [place] [address] Referral ID Status Reason Start Date Expiration Date V isits Requested Visits Authorized [id number] Closed Auto-Generate d Referral 12/27/2021 01/26/2023 1 1 [facility] for referral (narrative)* Diagnostic Procedure Only (Routine) - New Request Specialty Diagnoses / Procedures Referred By Rachelle t Referred To Contact [facility] Diagnoses Encounter for screening mammogram for breast cancer Procedures JASMINE SCREENING W JORGE LUIS SCREENING DIGITAL BREAST TOMOSYNTHESIS BI SCREENING MAMMOGRAPHY BI 2-VIEW BREAST INC CAD Ruben Perez MD [address] [place] [address] [facility] [address] [place] [address] Referral ID Status Reason Start Date Expiration Date Visits Requested Visits Authorized [id number] New Request Auto-Generat ed Referral 08/03/2024 09/02/2025 1 1 [facility] for visit Narrative* Diagnostic Procedure Only (Routine) - Closed Specialty Diagnoses / Procedures Referred By Rachelle t Referred To Contact [facility] Diagnoses Encounter for screening mammogram for breast cancer Procedures JASMINE SCREENING SCREENING MAMMOGRAPHY BI 2-VIEW BREAST INC CAD Janice Combs APRN.AIR TRAFFIC CONTROL EQUIPMENT REPAIRER [address] [place] [address] [facility] [address] [place] [address] Referral ID Status Reason Start Date Expiration Date V isits Requested Visits Authorized [id number] Closed Auto-Generate d Referral 2022 07/11/2023 1 1 [facility] for visit Narrative* Diagnostic Procedure Only (Urgent) - Closed Specialty Diagnoses / Procedures Referred By Rachelle t Referred To Contact XR IMAGING Diagnoses Acute pain of left shoulder Procedures XR SHOULDER GENERAL 3V OR MORE AP/TRUE AP/OTHER LEFT RADEX SHOULDER COMPLETE MINIMUM 2 VIEWS Sandra Chavez PA-C [address] [place] [address] [place] [address] Referral ID Status Reason Start Date Expiration Date V isits Requested Visits Authorized [id number] Closed Auto-Generate d Referral 12/27/2021 01/26/2023 1 1 [facility] Reason for Referral Specialty Diagnoses / Procedures Referred By Contac t Referred To Contact [facility] Diagnoses Acute pain of left shoulder Impingement syndrome of left shoulder Procedures CONSULT TO PHYSICAL THERAPY PHYSICAL THERAPY EVALUATION HIGH COMPLEX 45 MINS Phil Baldwin MD [address] [place] [address] [facility] [address] [address] Referral ID Status Reason Start Date Expiration Date Visits Requested Visits Authorized [id number] Authorized Auto-Generat ed Referral 03/03/2022 07/02/2022 1 1 Specialty Diagnoses / Procedures Referred By Contac t Referred To Contact [facility] Diagnoses Acute pain of left shoulder Impingement syndrome of left shoulder Procedures PT REHAB FOLLOW UP ORDER THERAPEUTIC EXERCISES RE, EA 15 MIN. Ofelia Hendricks, PT [address] [id number] [facility] [address] [address] Referral ID Status Reason Start Date Expiration Date Visits Requested Visits Authorized [id number] Pending Review PCP Requested Referral Auto-Generate d Referral 03/10/2022 06/08/2022 10 10 Specialty Diagnoses / Procedures Referred By Rachelle t Referred To Contact Gastroenterology Diagnoses Special screening for malignant neoplasms, colon Chronic diarrhea Gastroesophageal reflux disease, unspecified whether esophagitis present Procedures CONSULT TO GASTROENTEROLOGY OFFICE/OUTPATIENT NEW HIGH MDM 60-74 MINUTES Older, Janice, TRAFFIC REPORTER.AIR TRAFFIC CONTROL EQUIPMENT REPAIRER [address] [phone] Referral ID Status Reason Start Date Expiration Date Visits Requested Visits Authorized [id number] Authorized PCP Requested Referral 2022 2023 1 1 Specialty Diagnoses / Procedures Referred By Contac t Referred To Contact [facility] Diagnoses Chronic left shoulder pain Procedures CONSULT TO PHYSICAL THERAPY PHYSICAL THERAPY EVALUATION HIGH COMPLEX 45 MINS Older, Janice, TRAFFIC REPORTER.AIR TRAFFIC CONTROL EQUIPMENT REPAIRER [address] [place] [address] [facility] [address] [address] Referral ID Status Reason Start Date Expiration Date V isits Requested Visits Authorized [id number] Closed Auto-Generate d Referral 2022 2023 1 1 Specialty Diagnoses / Procedures Referred By Rachelle t Referred To Contact [facility] Diagnoses Special screening for malignant neoplasms, colon Procedures COLONOSCOPY SCREENING COLONOSCOPY FLX DX W/COLLJ SPEC WHEN PFRMD Janice Combs, TRAFFIC REPORTER.AIR TRAFFIC CONTROL EQUIPMENT REPAIRER [address] [place] [address] [facility] [address] [place] [id number] Referral ID Status Reason Start Date Expiration Date Visits Requested Visits Authorized [id number] Pending Review Auto-Generat ed Referral 2022 2023 1 1 Specialty Diagnoses / Procedures Referred By Rachelle cervantes Referred To Contact Gynecology Diagnoses Wellness examination Procedures CONSULT TO GYNECOLOGY OFFICE/OUTPATIENT [facility] MDM 60-74 MINUTES Janice Combs, TRAFFIC REPORTER.AIR TRAFFIC CONTROL EQUIPMENT REPAIRER [address] [place] [address] Referral ID Status Reason Start Date Expiration Date Visits Requested Visits Authorized [id number] Authorized PCP Requested Referral Auto-Generate d Referral 2022 2023 1 1 Specialty Diagnoses / Procedures Referred By Rachelle cervantes Referred To Contact [facility] Diagnoses Encounter for screening mammogram for breast cancer Procedures JASMINE SCREENING SCREENING MAMMOGRAPHY BI 2-VIEW BREAST INC CAD Janice Combs, TRAFFIC REPORTER.AIR TRAFFIC CONTROL EQUIPMENT REPAIRER [address] [place] [address] [facility] [address] [place] [phone] Referral ID Status Reason Start Date Expiration Date Visits Requested Visits Authorized [id number] Authorized Auto-Generat ed Referral 2022 07/11/2023 1 1 Medications Administered Section Inactive Administered Medications - up to 3 most recent administrations Medication Order MAR Action Action Date Dose Rate Site betamethasone acetate-betamethasone sodium phosphate 6 mg injection (CELESTONE) 6 mg, Injection - FOR ORTHO USE ONLY, ONE TIME INJECTION, 1 dose, Starting on 03/03/22 at 0833, Until Thu03/03/22 at 0833 Given 03/03/2022 8:33 AM EDT 6 mg lidocaine (PF) 10 mg/mL (1 %) 4 mL injection (XYLOCAINE) 4 mL, Injection - FOR ORTHO USE ONLY, ONE TIME INJECTION, 1 dose, Starting on Thu03/03/22 at 0833, Until Thu03/03/22 at 0833 Given 03/03/2022 8:33 AM EDT 4 mL Advance Directives No Advanced Directives Records FoundDocuments on File Type Date Recorded Patient Car Wash Supervisor Expl anation Advance Directive(s) 01/02/2016 10:21 AM Advance Directive(s) 12/26/2015 10:06 AM Documents on File Type Date Recorded Patient Car Wash Supervisor Expl anation Advance Directive(s) 01/02/2016 10:21 AM Advance Directive(s) 12/26/2015 10:06 AM Summary Purpose Family History No Family History Records Found Additional Source Comments Source Comments (unrecognize d section and content) In the event this informatio n is protected by the Federal Confidentiality of Alcohol and Drug Abuse Patient Records regulations: The Federal rules restrict any use of the information to criminally investigate or prosecute any alcohol or drug abuse patient.[facility] the event this information is protected by the Federal Confidentiality of Alcohol and Drug Abuse Patient Records regulations: The Federal rules restrict any use of the information to criminally investigate or prosecute any alcohol or drug abuse patient.[facility] System[facility] the event this information is protected by the Federal Confidentiality of Alcohol and Drug Abuse Patient Records regulations: The Federal rules restrict any use of the information to criminally investigate or prosecute any alcohol or drug abuse patient.[facility] SystemIn the event this information is protected by the Federal Confidentiality of Alcohol and Drug Abuse Patient Records regulations: The Federal rules restrict any use of the information to criminally investigate or prosecute any alcohol or drug abuse patient.[facility] System[facility] the event this information is protected by the Federal Confidentiality of Alcohol and Drug Abuse Patient Records regulations: The Federal rules restrict any use of the information to criminally investigate or prosecute any alcohol or drug abuse patient.[facility] SystemIn the event this information is protected by the Federal Confidentiality of Alcohol and Drug Abuse Patient Records regulations: The Federal rules restrict any use of the information to criminally investigate or prosecute any alcohol or drug abuse patient.[facility] SystemIn the event this information is protected by the Federal Confidentiality of Alcohol and Drug Abuse Patient Records regulations: The Federal rules restrict any use of the information to criminally investigate or prosecute any alcohol or drug abuse patient.[facility] SystemIn the event this information is protected by the Federal Confidentiality of Alcohol and Drug Abuse Patient Records regulations: The Federal rules restrict any use of the information to criminally investigate or prosecute any alcohol or drug abuse patient.[facility] SystemIn the event this information is protected by the Federal Confidentiality of Alcohol and Drug Abuse Patient Records regulations: The Federal rules restrict any use of the information to criminally investigate or prosecute any alcohol or drug abuse patient.[facility] System[facility] the event this information is protected by the Federal Confidentiality of Alcohol and Drug Abuse Patient Records regulations: The Federal rules restrict any use of the information to criminally investigate or prosecute any alcohol or drug abuse patient.[facility] SystemIn the event this information is protected by the Federal Confidentiality of Alcohol and Drug Abuse Patient Records regulations: The Federal rules restrict any use of the information to criminally investigate or prosecute any alcohol or drug abuse patient.[facility] Reason for Visit (unrecogniz ed section and [...] Phil Baldwin MD [address] [place] [address] [facility] [address] [place] [address] Referral ID Status Reason Start Date Expiration Date V isits Requested Visits Authorized [id number] Closed Auto-Generate d Referral 03/03/2022 07/02/2022 1 [...] Care Teams (unrecognized sec tion and content) 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 Relationship Specialty Start Date End Date Jon Salomon PCP - General Family Practice 09/19/15 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 Relationship Specialty Start Date End Date Jon Salomon PCP - General Family Practice 09/19/15 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 Relationship Specialty Start Date End Date Jon Salomon PCP - General Family Practice 09/19/15 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 Relationship Specialty Start Date End Date Ruben Perez MD [address] [facility] [place] [address] PCP - General Internal Medicine 06/11/22 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 Relationship Specialty Start Date End Date Ruben Perez MD [address] [facility] [place] [address] PCP - General Internal Medicine 06/11/22 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 Relationship Specialty Start Date End Date Ruben Perez MD [address] [facility] [place] [address] PCP - General Internal Medicine 06/11/22 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 Relationship Specialty Start Date End Date Ruben Perez MD [address] [facility] [place] [address] PCP - General Internal Medicine 06/11/22 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 Relationship Specialty Start Date End Date Jon Salomon PCP - General Family Medicine 09/19/15 03/24/22 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 Relationship Specialty Start Date End Date Ruben Perez MD [address] [facility] [place] [address] PCP - General Internal Medicine 06/11/22 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 Relationship Specialty Start Date End Date Ruben Perez MD [address] [facility] [place] [address] PCP - General Internal Medicine 06/11/22 Janice Salazar, TRAFFIC REPORTER.AIR TRAFFIC CONTROL EQUIPMENT REPAIRER [address] [facility] [place] [address] Elastic Attacher Chainstitch Internal Medicine 10/10/24 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 Relationship Specialty Start Date End Date Ruben Perez MD [address] [place] [address] PCP - General Internal Medicine 06/11/22 Janice Salazar, TRAFFIC REPORTER.AIR TRAFFIC CONTROL EQUIPMENT REPAIRER [address] [place] [address] Elastic Attacher Chainstitch Internal Medicine 10/10/24 Care Team (unrecognized sect ion and content) Care Team Personnel Name: PHYSICIAN, NOT RECORDED Member Role: Primary Care Physician Care Team Related Persons Name: ZOLTAN VENTURA Address: Home [address] [place] [address] [place] INFORMATION SOURCE (unrecogn ized section and content) DATE CREATED AUTHOR 06/24/2024 [facility] ([place]) DATE CREATED AUTHOR AUTHOR'S ORGANIZ ATION 11/14/2024 [facility] DATE CREATED AUTHOR AUTHOR'S ORGANIZ ATION 01/25/[address] [facility] DATE CREATED AUTHOR AUTHOR'S ORGANIZ ATION 04/15/2025 [facility] FOR RECORDS PERTAINING TO PATIENTS WHO ARE [...] BE BASED ON THE PRIMARY CLINICAL RECORDS. [employer] on [employer] [facility]. provides no warranty or guarantee of the accuracy or completeness of information in this document.
[2025-06-03 20:07] VITALS: BP 159/70; PULSE 71; RESP 14; TEMP 36.6; O2SAT 99
== END 2025-06-03 20:08 | disposition home or self-care (01) ==
PROVIDERS: Emergency Provider Emergency Medicine; Visit Provider Emergency Medicine
DX: L03.116 Cellulitis of left lower limb (principal); Z87.891 Personal history of nicotine dependence; E78.5 Hyperlipidemia, unspecified; Z85.43 Personal history of malignant neoplasm of ovary; Z90.49 Acquired absence of other specified parts of digestive tract
CPT/HCPCS: 99282

== ENCOUNTER 2025-09-17 12:08 | Emergency (ER) | payer MEDICAID, SELFPAY ==
[2025-09-17 12:10] VITALS: BP 147/98; PULSE 92; RESP 16; TEMP 36.7; O2SAT 100; BMI 35.9
--- NOTE | 2025-09-17 12:55 | RAD_ITS ---
PROCEDURE: WRIST MIN 3 VIEWS 09/17/2025 REASON FOR EXAM: PAIN TECHNIQUE: Procedure Code: RADWR Modality: DX Procedure: WRIST MIN 3 VIEWS Laterality: Right COMPARISON: None FINDINGS: Bones: No fracture or suspicious osseous lesion Joints: Normal alignment. Soft tissues: Soft tissues are unremarkable. Other: RAD/Wrist min 3 Views IMPRESSION: Unremarkable right wrist Reading Location: [id number]
--- NOTE | 2025-09-17 12:55 | EDS_ITS ---
HPI History of Present Illness Chief Complaint: Upper Extremity Injury Narrative Narrative: Patient is a 50-year-old female with past medical tree borderline personality disorder, PTSD, seizures who presents to the emergency department chief complaint of right wrist pain. States that this been going on for months now and notes that she will periodically get shooting pain from her hand and wrist upper arm. 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 Patient feels like her right hand is cold. States that she does not have insurance currently and wanted to be evaluated further today. [facility] Medical History Borderline personality disorder PTSD (post-traumatic stress disorder) Bipolar disorder, unspecified Ovarian cancer History of MRSA infection Heart murmur Seizures Polycystic ovaries Hyperlipemia Depression Anxiety History of cancer Back problem Seasonal allergies Home Medications Medication Instructions Recorded Last Taken Type cephalexin 500 mg capsule 500 mg PO Q6 7 days #28 CAPS ULES 06/03/25 Unknown Rx sulfamethoxazole 800 1 tab PO BID 7 days #14 tabs 06/03/25 Unknown Rx mg-trimethoprim 160 mg tablet (Bactrim DS) prednisone 5 mg tablets in a dose See Rx Instructions PO .COMPLEX 09/17/25 Unknown Rx pack #21 tabs Allergy/AdvReac Type Severity Reaction Status Date / Time aspirin Allergy Swelling Verified 09/17/25 12:10 ciprofloxacin (From Cipro) Allergy Rash Verified 09/17/25 12:10 ciprofloxacin HCl (From Allergy Rash Verified 09/17/25 12:10 Cipro) coconut Allergy Hives Verified 09/17/25 12:10 coconut oil Allergy Rash Verified 09/17/25 12:10 latex Allergy Rash Verified 09/17/25 12:10 Penicillins Allergy Rash Verified 09/17/25 12:10 vancomycin Allergy Rash Verified 09/17/25 12:10 codeine AdvReac Vomiting Verified 09/17/25 12:10 hydrocodone bitartrate (From AdvReac Vomiting Verified 09/17/25 12:10 Vicodin) Family History Mother Alcoholism Arthritis Family history of blood clots Diabetes Seizures CVA (cerebral vascular accident) Father Alcoholism Grandmother Arthritis Surgical History History of foot surgery History of cholecystectomy History of tonsillectomy History of appendectomy History of placement of ear tubes Social History Smoking Status: Former smoker alcohol intake: current alcohol intake frequency: a few times a month Alcohol type: wine substance use type: does not use what type of physical activity do you participate in: none ROS ROS ED ROS Narrative Constitutional: Denies any fevers or chills Neurological: Complains of a shooting pain from her hand/wrist upper arm Musculoskeletal: Complains of right wrist pain Skin: Denies any rashes or lesions EXAM Physical Exam Narrative Exam Narrative: General: Patient was lying in bed rest comfortably did not appear to be in acute distress Head: Atraumatic, normocephalic Eyes: PERRL bilaterally, EOMI bilaterally, no conjunctival injection noted Neck: Soft, supple, trachea midline Cardiovascular: Regular rate Musculoskeletal: Patient has no evidence of short arc syndrome she is able to flex and extend her wrist she does have some tenderness to palpation over the dorsal aspect of her right wrist Extremities: Radial pulses +2/4 in the bilateral extremities, +5/5 strength noted in the bilateral lower extremities Neurological: Patient following commands knew that she was at [facility] the year is 2024 sensation grossly intact in the median, ulnar and radial nerve distribution bilaterally Skin: Warm, dry, intact no rashes or lesions noted Const Vital Signs: 09/17/25 12:10 Temperature 98.0 F Temperature Source Oral Pulse Rate 92 Respiratory Rate 16 Blood Pressure 147/98 H Blood Pressure Mean 114 Pulse Ox 100 Oxygen Delivery Method Room Air MDM MDM MDM Narrative Medical decision making narrative: Patient is a 42-year-old female who presents to the emergency department the chief complaint of right wrist pain. On the differential diagnose includes but not limited to ruptured cyst, musculoskeletal strain, carpal tunnel syndrome, wrist sprain. Once workup is obtained and reviewed she will be reevaluated. Patient will be given IM Toradol here in the emergency department. Patient x-ray of wrist reviewed by myself by radiology showed no acute fracture or dislocation. Discussed results with the patient and notified her that she likely has decor variance tenosynovitis causing her pain as when she does the Finklestein's test that is positive. She was advised to continue to rotate Tylenol ibuprofen [id number], ice and take steroids as prescribed. She is encouraged to follow-up with orthopedics that she will be referred to. She was encouraged return with worsening symptoms or any concerns. All question concerns answered she was discharged home in stable condition Discharge Plan Triage Chief Complaint: Upper Extremity Injury ED Provider: Chetan Regalado Dx/Rx/DC Orders Clinical Impression: Wrist pain, right, De Quervain's disease (tenosynovitis) Prescriptions: New prednisone 5 mg tablets,dose pack See Rx Instructions .ROUTE .COMPLEX Qty: 21 0RF Rx Instructions: orally per package directions No Action cephalexin 500 mg capsule 500 mg PO Q6 7 Days Qty: 28 0RF sulfamethoxazole-trimethoprim [Bactrim DS] 800-160 mg tablet 1 tab PO BID 7 Days Qty: 14 0RF Primary Care Provider: Care Physician,No Primary Referrals: Nino Justice MD [Med Staff - Active Staff, Orthopedics] Care Physician,No Primary [Primary Care Provider, Medical] Activity Restrictions/Additional Instructions: Follow-up with the doctor you are referred to. Rotate Tylenol and ibuprofen [id number] when you do this you can take something every 3 hours for pain max dose of Tylenol in 24 hours 4000 mg max dose of ibuprofen in 24 hours 3200 mg. Take steroids as prescribed. Your x-rays did not show any acute findings. Return with worsening symptoms or any other concerns Print Language: Ethiopian Disposition Disposition: Home, Self Care
--- OUTSIDE RECORDS SUMMARY | 2025-09-17 12:57 | XMS RPT_ITS | CCD ---
Author Organization [facility] Inform ion Partnership [employer] [facility] Care Team Providers Care Tester Waste Disposal Leakage Name Role Phone Jon Salomon Primary Care Provider Ruben Perez MD Primary Care Provider [phone] PHYSICIAN, NOT RECORDED Primary Care Physician U Ruben Guerra MD Primary Care Provider PHYSICIAN, NOT RECORDED Primary Care Unavaila ble MARIA TERESA SHARMA DO Attending Unavailable Jon Salomon Primary Care Provider Ruben Perez MD Primary Care Provider [phone] DR ELEAZAR VALDEZ DO Attending Unavailable PHYSICIAN, NOT RECORDED Primary Care Unavaila ble Martin APRN.HUMAN RESOURCES INTERN, Janice M Unavailable RUBEN PEREZ Primary Care Unavailable Care Physician, No Primary Primary Care Unava ilable Alonso Gaona Attending Unavailable Care Physician, No Primary Primary Care Unava ilable Daniele Shetty Attending Unavailable Allergies Allergy Classification Reported Allergen(s) Allergy Type Date of Onset Reaction(s) Facility (15 sources) Acetaminophen / HYDROcodone; Translations: [acetaminophen-hy drocodone] Drug Allergy 6 Other: See Comments [facility] Work Phone: (15 sources) Aspirin; Translations: [aspirin] Drug Allergy 6 Hives [facility] Work Phone: (15 sources) Ciprofloxacin; Translations: [ciprofloxacin] Drug Allergy 6 Swelling, Congestion of throat (finding) [facility] Work Phone: (15 sources) Codeine; Translations: [codeine] Drug Allergy 6 Other: See Comments [facility] Work Phone: (15 sources) Latex; Translations: [LATEX] Drug Allergy 6 Other: See Comments [facility] Work Phone: (9 sources) Penicillins; Translations: [penicillins] Drug Allergy 6 [facility] Work Phone: (15 sources) Vancomycin; Translations: [vancomycin] Drug Allergy 6 Swelling [facility] Work Phone: (6 sources) Penicillins Drug Allergy 6 [facility] Work Phone: (1 source) Aspirin Drug Allergy 5 [facility] Repository (1 source) Ciprofloxacin Drug Allergy 5 [facility] Repository (1 source) Ciprofloxacin Drug Allergy 5 [facility] Repository (1 source) Coconut extract Drug Allergy 5 [facility] Repository (1 source) Coconut Oil Drug Allergy 5 [facility] Repository (1 source) Codeine Drug Allergy 5 [facility] Repository (1 source) HYDROcodone Drug Allergy 5 [facility] Repository (1 source) Latex Drug allergy (disorder) 5 [facility] Repository (1 source) Penicillins Drug allergy (disorder) 5 [facility] Repository (1 source) Vancomycin Drug Allergy 5 [facility] Repository Medications Current Medications Medication Drug [...] Comment on above: Take 1 tablet by [facility] twice daily. for pain. Colace (3 sources) [...] Comment on above: Take 1 tablet by [facility] twice daily. metoclopramide 10 mg oral tablet [...] on above: Take 1 capsule by [facility] twice daily. fluticasone propionate 0.05 mg/actuat metered [...] on above: Take 1 capsule by [facility] once daily. OTC NUTRITIONAL SUPPLEMENT (6 sources) [...] Comment on above: Take 1 tablet by [facility] once daily. Problems Active Problems Problem [...] and other nonspecific skin eruption] 01-04-2025 Episodic Skin and subcutaneous tissue infections (1 source) Cellulitis of left lower limb; Translations: [Cellulitis of left lower limb] Onset: 07-19-2025 Episodic Unclassified (3 sources) Bipolar (qualifier value) [...] gastroenteritis and colitis, unspecified] Onset: 2022 Episodic Open wounds of extremities (1 source) Laceration without foreign body of left hand, initial encounter; Translations: [Laceration without foreign body of left hand, initial encounter] Onset: 04-13-2025 Episodic Other connective tissue disease (12 sources) Impingement syndrome of left shoulder region; Translations: [Impingement syndrome of left shoulder] Onset: 03-10-2022 Episodic Other non-traumatic joint disorders (8 sources) Chronic pain of left upper limb; Translations: [Pain in left shoulder] Onset: 03-10-2022 Episodic Results Test Name Value Interpretation Reference Range Facility Emergency Department Summary on 06-03-[address] [facility] Medical Records Department [address] [place] [address] Emergency Department Summary 06/03/25 MR#: [id number] Acct: [id number] Name: JAZZY VENTURA Rep #: [id number] : 1975 49 From: Jennifer FRENCH PCP: Care Physician,No Primary Status:DEP ER Location: ED HPI History of Present Illness Chief Complaint: Bite Narrative Narrative: Patient presenting today with concerns for cellulitis to her left lower extremity that started yesterday. She has concerns for a bug bite to the area, she reports that she lives in a trailer and there are a lot of spiders that she finds. This morning she outlined the redness with a pen and it began to spread prompting her to come in to be seen. She does have a history of a MRSA infection in the past, she also reports a history of a brown recluse spider bite. She denies fevers, chills, nausea, and vomiting. She is otherwise healthy with no history of immunocompromise. ROS ROS ED Constitutional Constitutional ED: Denies chills or fever(s) Cardiovascular Cardiovascular: Denies chest pain Respiratory/Chest Respiratory/Chest: Denies dyspnea Gastrointestinal Gastrointestinal: Denies abdominal pain, nausea or vomiting Musculoskeletal Musculoskeletal: Denies arthralgias Integumentary Reports other Details: Cellulitis ; Denies abscess Neurologic Neurologic: Denies weakness [facility] Medical History Borderline personality disorder PTSD (post-traumatic stress disorder) Bipolar disorder, unspecified Ovarian cancer History of MRSA infection Heart murmur Seizures Polycystic ovaries Hyperlipemia Depression Anxiety History of cancer Back problem Seasonal allergies Home Medications ???Medication ???Instructions ???Recorded ???Last Taken ???Type cephalexin 500 mg capsule 500 mg PO Q6 7 days #28 CAPSULES 0 06/03/25 Unknown Rx sulfamethoxazole 800 1 tab PO BID 7 days #14 tabs 06/03 Unknown Rx mg-trimethoprim 160 mg tablet (Bactrim DS) Allergy/AdvReac Type Severity Reaction Status Date / Time aspirin Allergy Swelling Verified 06/03/25 19:27 ciprofloxacin (From Cipro) Allergy Rash Verified 06/03/25 19:27 ciprofloxacin HCl (From Allergy Rash Verified 06/03/25 19:27 Cipro) coconut Allergy Hives Verified 06/03/25 19:27 coconut oil Allergy Rash Verified 06/03/25 19:27 latex Allergy Rash Verified 06/03/25 19:27 Penicillins Allergy Rash Verified 06/03/25 19:27 vancomycin Allergy Rash Verified 06/03/25 19:27 codeine AdvReac Vomiting Verified 06/03/25 19:27 hydrocodone bitartrate (From AdvReac Vomiting Verified 06/03/25 19:27 Vicodin) Family History Mother Alcoholism Arthritis Family [...] physical activity do you participate in: none EXAM Physical Exam Const Vital Signs: 06/03/25 19:24 06/03/25 20:07 Temperature 98.2 F 97.8 F Temperature Source Temporal Pulse Rate 93 71 Respiratory Rate 18 14 Blood Pressure 133/98 H 159/70 H Blood Pressure Mean 109 99 Pulse Ox 100 99 Oxygen Delivery Method Room Air Positive well nourished, well developed and no apparent distress General Appearance ED: well developed HEENT Reports normocephalic and head/scalp atraumatic Mouth ED: Yes moist mucous membranes normal Eyes PERRL and EOMs intact bilaterally Neck full ROM and supple Chest Wall inspection of chest normal Resp normal respiratory effort and clear to auscultation bilaterally Cardio regular rate and regular rhythm GI soft to palpation, non-tender, non-distended and no masses Back/Spine normal ROM and normal to inspection Extremity full ROM Extremity Narrative: There is a approximately 3-4 cm circumferential area of erythema to the distal aspect of the anterior left lower extremity, there is a small wound in the center that she suspects is a bug bite. No purulence, fluctuance. No significant tenderness or crepitus to the left lower extremity, left DP pulse 2+, good cap refill, sensation intact. Neuro oriented x3, CN's II-XII intact bilaterally, moves all extremities, no focal motor deficits and no sensory deficits noted Sensor (more content not included)... Normal [facility] Emergency Department Summary on 04-09-[address] [facility] Medical Records Department [address] [place] [address] Emergency Department Summary 04/09/25 MR#: [id number] Acct: [id number] Name: JAZZY VENTURA Rep #: [id number] : 1975 49 From: Daniele Davidson PCP: Care Physician,No Primary Status:DEP ER Location: ED HPI History of Present Illness Chief Complaint: Laceration Informant: patient Narrative Narrative: Pngy-fdrg-vgblnwta female presents injury left hand 6 hours ago. Was drying a clean new knife accidentally cut her palm. Tetanus in the last 5 to 10 years. No blood thinners. Try to control bleeding at home. Would rebleed. Has had stitches in the past. No other injuries. Tetanus Immunization: 5-10 years [facility] Medical History Borderline personality disorder PTSD (post-traumatic [...] Re-evaluation: sta (more content not included)... Normal [facility] CNOVon 01-04-2025 OV Office Visit (UCWSTR ) JAZZY VENTURA ([id number]) 1975 F Date Time Provider Department 01/04/25 10:30 AM MARCELLUS ESCALANTE [facility] During your visit today, we recorded the [...] trailer 1 month ago. 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 She says [place] her [place] are too far to go [...] days, T (more content not included)... Normal [facility] .Auto Diffon 06-17-2024 Basophil, Absolute 0.0 10 3/mcL Normal 0.0-0.2 [facility] ([place]) Comment on above: Performed By: #### A ELIAN, LIP, CBC, MDW, CMP, GFR, ADIFF #### [address] [address] Basophils/100 WBC (Bld) 0.4 % Normal 0.0-2.5 [facility] ([place] Comment on above: Performed By: #### A ELIAN, LIP, CBC, MDW, CMP, GFR, ADIFF #### [address] [address] Eosinophil, Absolute 0.2 10 3/mcL Normal 0.0-0.4 [facility] ([place]) Comment on above: Performed By: #### A ELIAN, LIP, CBC, MDW, CMP, GFR, ADIFF #### [address] [address] Eosinophils/100 WBC (Bld) 2.9 % Normal 0.0-7.0 [facility] ([place] Comment on above: Performed By: #### A ELIAN, LIP, CBC, MDW, CMP, GFR, ADIFF #### [address] [address] Lymphocyte, Absolute 2.4 10 3/mcL Normal 0.8-3.9 [facility] ([place]) Comment on above: Performed By: #### A ELIAN, LIP, CBC, MDW, CMP, GFR, ADIFF #### [address] [address] Lymphocytes/100 WBC (Bld) 29.8 % Normal 10.0-50.0 [facility] ([place] Comment on above: Performed By: #### A ELIAN, LIP, CBC, MDW, CMP, GFR, ADIFF #### [address] [address] Monocyte, Absolute 0.8 10 3/mcL Normal 0.2-1.0 [facility] ([place] Comment on above: Performed By: #### A ELIAN, LIP, CBC, MDW, CMP, GFR, ADIFF #### [address] [address] Monocytes/100 WBC (Bld) 9.4 % Normal 1.7-13.0 [facility] ([place] Comment on above: Performed By: #### A ELIAN, LIP, CBC, MDW, CMP, GFR, ADIFF #### [address] [address] Neutrophils/100 WBC (Bld) 57.5 % Normal 37.0-80.0 [facility] ([place] Comment on above: Performed By: #### A ELIAN, LIP, CBC, MDW, CMP, GFR, ADIFF #### [address] [address] .GFRon 06-17-2024 GFR 70 ml/min/1.73sqm Normal [facility] ([place] Comment on above: Result Comment: GFR Population [...] By: #### U ILEANA LEEU, UA #### [address] [address] GFR Non- 58 ml/min/1.73sqm Normal [facility] ([place] Comment on above: Result Comment: GFR Population [...] mL/min/1.73 square meters Performed By: #### U ANSON LEE, UA #### [address] [address] .MDWon 06-17-2024 Monocyte Distribution Width 19.24 Normal 0.00-20.00 [facility] ([place] Comment on above: Result Comment: For ED adult patients suspected of sepsis, MDW<=20.0 does not rule out sepsis or risk of sepsis Performed By: #### A ELIAN, LIP, CBC, MDW, CMP, GFR, ADIFF #### [address] [address] .NEUABSon 06-17-2024 Neutrophil, Absolute 4.7 10 3/mcL Normal 2.9-6.2 [facility] ([place] Comment on above: Performed By: #### A ELIAN, LIP, CBC, MDW, CMP, GFR, ADIFF #### [address] [address] .Urinalysis Microscopic (AO) on 06-17-2024 UA Bacteria 2+ /hpf Abnormal [facility] ([place] Comment on above: Performed By: #### U AMICAO, PREGU, UA #### [address] [address] UA RBC 0-5 Abnormal None Seen [facility] ([place] Comment on above: Performed By: #### U AMICAO, PREGU, UA #### [address] [address] UA Squam Epithelial 10-15 Abnormal None Seen [facility] ([place]) Comment on above: Performed By: #### U AMICAO, PREGU, UA #### [place] [address] UA WBC 0-5 Abnormal None Seen [facility] ([place] Comment on above: Performed By: #### U AMICAO, PREGU, UA #### [place] [address] CBCon 06-17-2024 Erythrocyte distribution width (RBC) [Ratio] 13.5 % Normal 11.5-14.5 [facility] ([place] Comment on above: Performed By: #### A ELIAN, LIP, CBC, MDW, CMP, GFR, ADIFF #### [place] [id number] Hematocrit (Bld) [Volume fraction] 38.3 % Normal 37.0-47.0 [facility] ([place] Comment on above: Performed By: #### A ELIAN, LIP, CBC, MDW, CMP, GFR, ADIFF #### [place] [address] Hgb 13.2 G/dL Normal 12.0-16.0 [facility] ([place] Comment on above: Performed By: #### A ELIAN, LIP, CBC, MDW, CMP, GFR, ADIFF #### [address] [address] MCH (RBC) [Entitic mass] 32.7 pg High 27.0-31.2 [facility] ([place] Comment on above: Performed By: #### A ELIAN, LIP, CBC, MDW, CMP, GFR, ADIFF #### [address] [address] MCHC 34.5 G/dL Normal 33.0-37.0 [facility] ([place] Comment on above: Performed By: #### A ELIAN, LIP, CBC, MDW, CMP, GFR, ADIFF #### [address] [address] MCV (RBC) [Entitic vol] 95.0 fL High 80.0-94.0 [facility] ([place] Comment on above: Performed By: #### A ELIAN, LIP, CBC, MDW, CMP, GFR, ADIFF #### [address] [address] Platelet 303 10 3/mcL Normal 130-400 [facility] ([place] Comment on above: Performed By: #### A ELIAN, LIP, CBC, MDW, CMP, GFR, ADIFF #### [address] [address] Platelet mean volume (Bld) [Entitic vol] 7.1 fL Low 7.4-10.4 [facility] ([place] Comment on above: Performed By: #### A ELIAN, LIP, CBC, MDW, CMP, GFR, ADIFF #### [address] [address] RBC 4.03 10 6/mcL Low 4.20-5.40 [facility] ([place] Comment on above: Performed By: #### A ELIAN, LIP, CBC, MDW, CMP, GFR, ADIFF #### [address] [address] WBC 8.2 10 3/mcL Normal 4.6-10.8 [facility] ([place] Comment on above: Performed By: #### A ELIAN, LIP, CBC, MDW, CMP, GFR, ADIFF #### [address] [address] CMPon 06-17-2024 Albumin Level 3.8 G/dL Normal 3.5-5.0 [facility] ([place] Comment on above: Performed By: #### A ELIAN, LIP, CBC, MDW, CMP, GFR, ADIFF #### [address] [address] Albumin/Globulin [Mass ratio] 1.1 {ratio} Normal 1.1-2.5 [facility] ([place] Comment on above: Performed By: #### A ELIAN, LIP, CBC, MDW, CMP, GFR, ADIFF #### [address] [address] ALP [Catalytic activity/Vol] 70 U/L Normal 40-135 [facility] ([place] Comment on above: Performed By: #### A ELIAN, LIP, CBC, MDW, CMP, GFR, ADIFF #### [address] [address] ALT [Catalytic activity/Vol] 38 U/L Normal 14-59 [facility] ([place] Comment on above: Performed By: #### A ELIAN, LIP, CBC, MDW, CMP, GFR, ADIFF #### [address] [address] AST [Catalytic activity/Vol] 15 U/L Normal 10-40 [facility] ([place] Comment on above: Performed By: #### A ELIAN, LIP, CBC, MDW, CMP, GFR, ADIFF #### [address] [address] Bili Total 0.6 mg/dL Normal 0.2-1.0 [facility] ([place] Comment on above: Result Comment: Use of this assay is not recommended for patients undergoing treatment with eltrombopag due to the potential for falsely elevated results. Performed By: #### A ELIAN, LIP, CBC, MDW, CMP, GFR, ADIFF #### [address] [address] BUN/Creatinine Ratio 20 ratio Normal 7-27 [facility] ([place]) Comment on above: Performed By: #### A ELIAN, LIP, CBC, MDW, CMP, GFR, ADIFF #### [address] [address] Calcium [Mass/Vol] 8.8 mg/dL Normal 8.4-10.2 [facility] ([place]) Comment on above: Performed By: #### A ELIAN, LIP, CBC, MDW, CMP, GFR, ADIFF #### [address] [address] Chloride [Moles/Vol] 103 mmol/L Normal 98-107 [facility] ([place] Comment on above: Performed By: #### A ELIAN, LIP, CBC, MDW, CMP, GFR, ADIFF #### [place] [address] CO2 [Moles/Vol] 31 mmol/L High 22-29 [facility] ([place] Comment on above: Performed By: #### A ELIAN, LIP, CBC, MDW, CMP, GFR, ADIFF #### [place] [address] Creatinine [Mass/Vol] 1.02 mg/dL Normal 0.55-1.02 [facility] ([place]) Comment on above: Performed By: #### A ELIAN, LIP, CBC, MDW, CMP, GFR, ADIFF #### [address] [address] Electrolyte Balance 6.0 mEq/L Normal 4.0-15.0 [facility] ([place]) Comment on above: Performed By: #### A ELIAN, LIP, CBC, MDW, CMP, GFR, ADIFF #### [address] [address] Globulin 3.4 G/dL Normal [facility] ([place] Comment on above: Performed By: #### A ELIAN, LIP, CBC, MDW, CMP, GFR, ADIFF #### [address] [address] Glucose [Mass/Vol] 88 mg/dL Normal 70-105 [facility] ([place] Comment on above: Performed By: #### A ELIAN, LIP, CBC, MDW, CMP, GFR, ADIFF #### [address] [address] Potassium [Moles/Vol] 4.1 mmol/L Normal 3.5-5.1 [facility] ([place]) Comment on above: Performed By: #### A ELIAN, LIP, CBC, MDW, CMP, GFR, ADIFF #### [place] [id number] [place], [place] [address] Sodium [Moles/Vol] 140 mmol/L Normal 136-145 [facility] ([place] Comment on above: Performed By: #### A ELIAN, LIP, CBC, MDW, CMP, GFR, ADIFF #### [address] [address] Total Protein 7.2 G/dL Normal 6.4-8.2 [facility] ([place] Comment on above: Performed By: #### A ELIAN, LIP, CBC, MDW, CMP, GFR, ADIFF #### [address] [address] Urea nitrogen [Mass/Vol] 20 mg/dL High 7-18 [facility] ([place] Comment on above: Performed By: #### A ELIAN, LIP, CBC, MDW, CMP, GFR, ADIFF #### [address] [address] [address] ABD/PELVIS W/ IV CONTRAST ONLYon 06-17-2024 [...] 11:35:48 PM Ordering Provider: MARIA TERESA SHARMA [facility] ([place]) LABORATORYOrdered By: SYSTEM SYSTEM on 06-17-2024 Albumin [...] 06-17-2024 Lipase Level 31 U/L Normal 16-77 [facility] ([place] Comment on above: Performed By: #### A ELIAN, LIP, CBC, MDW, CMP, GFR, ADIFF #### [place] [id number] PREGUon 06-17-2024 HCG ( test) Ql (U) Negative Normal [facility] ([place] Comment on above: Performed By: #### U AMICAO, PREGU, UA #### [place] [address] test (u) int Not detected Invalid Interpretation Code [facility] ([place] Comment on above: Performed By: #### U AMICAO, PREGU, UA #### [place] [id number] UAon 06-17-2024 Color (U) Yellow Normal [facility] ([place] Comment on above: Performed By: #### U AMICAO, PREGU, UA #### [address] [address] Glucose (U) [Mass/Vol] Negative Normal Negative [facility] ([place] Comment on above: Performed By: #### U AMICAO, PREGU, UA #### [address] [address] Ketones Ql (U) Negative Normal Negative [facility] ([place] Comment on above: Performed By: #### U AMICAO, PREGU, UA #### [address] [address] UA Appear Cloudy Abnormal Clear [facility] ([place] Comment on above: Performed By: #### U AMICAO, PREGU, UA #### [address] [address] UA Blood Trace Abnormal Negative [facility] ([place] Comment on above: Performed By: #### U AMICAO, PREGU, UA #### [place] [address] [address] UA Leuk Est Negative Normal Negative [facility] ([place] Comment on above: Performed By: #### U AMICAO, PREGU, UA #### [place] [address] UA Nitrite Negative Normal Negative [facility] ([place] Comment on above: Performed By: #### U AMICAO, PREGU, UA #### [place] [address] UA pH 5.5 Normal 5.0 - 8.0 [facility] ([place] Comment on above: Performed By: #### U AMICAO, PREGU, UA #### [place] [address] UA Protein Negative Normal Negative [facility] ([place] Comment on above: Performed By: #### U AMICAO, PREGU, UA #### [place] [address] UA Spec Grav >=1.030 Abnormal 1.015-1.025 [facility] ([place] Comment on above: Performed By: #### U AMICAO, PREGU, UA #### [place] [address] UA Specimen Type Clean Catch Normal [facility] ([place] Comment on above: Performed By: #### U AMICAO, PREGU, UA #### [place] [address] UA Urobilinogen 0.2 E.U./dL Normal 0.2-1.0 [facility] ([place] Comment on above: Performed By: #### U AMICAO, PREGU, UA #### [place] [address] Urobilinogen (U) [Mass/Vol] Negative Normal Negative [facility] ([place] Comment on above: Performed By: #### U ANSON LEE UA #### [place] [address] [place], [place] [address] XR RIBS 2 VIEWS RIGHT/PA KAYLIE ST(AO)on [...] 11:45:16 PM Ordering Provider: MARIA TERESA [facility] ([place]) JASMINE SCREENINGon 07-22-2022 [facility] XR Shoulder - left 3 Viewson 12-27-2021 IMPRESSION: Cystic formation or lucencies along the distal clavicle and acromion, 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 Degenerative changes also among the differential consideration however felt to be less likely. Policy Advisor: PSCLoc Transcribe Date/Time: Dec 27 2021 11:26A Dictated by : MADALYN ROSALES MD This examination was interpreted and the report reviewed and electronically signed by: MADALYN ROSALES MD on Dec 27 2021 11:33AM [facility] DIVISION OF RADIOLOGY * * *Final Report* [...] soft tissue swelling. DIVISION OF RADIOLOGY Provider, [facility] - 12/27/2021 * * *Final Report* * [...] consideration however felt to be less likely. Policy Advisor: JASS Transcribe Date/Time: Dec 27 2021 11:26A Dictated by : MADALYN ROSALES MD This examination was interpreted and the report reviewed and electronically signed by: MADALYN ROSALES MD on Dec 27 2021 11:33AM EST [facility] Radiology Study observation (narrative) [facility] XR Shoulder - left 3 ViewsOr dered By: [facility] Provider on 12-27-2021 [facility] Large Joint Arthro/Inj: L bai bacromial bursa [facility] Vital Signs Date Time Vital Sign Value Performing Clinician Facility 01-04-2025 10:23-0500 Body mass index (BMI) [Ratio] 37.97 kg/m2 Marcellus Escalante MD Work Phone: [facility] 01-04-2025 10:23-0500 Body temperature 97.9 [degF] Marcellus Escalante MD Work Phone: [facility] 01-04-2025 10:23-0500 Body weight 103.5 kg Marcellus Escalante MD Work Phone: [facility] 01-04-2025 10:23-0500 Diastolic blood pressure 82 mm[Hg] Marcellus Escalante MD Work Phone: [facility] 01-04-2025 10:23-0500 Heart rate 110 /min Marcellus Escalante MD Work Phone: [facility] 01-04-2025 10:23-0500 Respiratory rate 16 /min Marcellus Escalante MD Work Phone: [facility] 01-04-2025 10:23-0500 SaO2% (BldA) [Mass fraction] 97 % Marcellus Escalante MD Work Phone: [facility] 01-04-2025 10:23-0500 Systolic blood pressure 122 mm[Hg] Marcellus Escalante MD Work Phone: [facility] 11-08-2024 05:56-0500 Body temperature 98.06 [degF] DR ELEAZAR VALDEZ DO [facility] 11-08-2024 05:56-0500 Body weight [address] ELEAZAR VALDEZ DO [facility] 11-08-2024 05:56-0500 Diastolic Blood Pressure Non-Invasive 86 mm[Hg] DR ELEAZAR VALDEZ DO [facility] 11-08-2024 05:56-0500 Heart rate 97 /min DR ELEAZAR VALDEZ DO [facility] 11-08-2024 05:56-0500 Respiratory rate 20 /min DR ELEAZAR VALDEZ DO [facility] 11-08-2024 05:56-0500 Systolic Blood Pressure Non-Invasive 146 mm[Hg] DR ELEAZAR VALDEZ DO [facility] 06-18-2024 00:48-0400 Diastolic Blood Pressure Non-Invasive 73 mm[Hg] MARIA TERESA GRIGGST DO [facility] 06-18-2024 00:48-0400 Heart rate 77 /min MARIA TERESA GRIGGST DO [facility] 06-18-2024 00:48-0400 Respiratory rate 18 /min MARIA TERESA GRIGGST DO [facility] 06-18-2024 00:48-0400 Systolic Blood Pressure Non-Invasive 117 mm[Hg] MARIA TERESA FROMMELT DO [facility] 06-17-2024 21:44-0400 Body height 167.6 cm MARIA TERESA FROMMELT DO [facility] 06-17-2024 21:44-0400 Body temperature 97.16 [degF] MARIA TERESA FROMMELT DO [facility] 06-17-2024 21:44-0400 Body weight 100 kg MARIA TERESA FROMMELT DO [facility] 06-17-2024 21:44-0400 Diastolic Blood Pressure Non-Invasive 76 mm[Hg] MARIA TERESA FROMMELT DO [facility] 06-17-2024 21:44-0400 Heart rate 99 /min MARIA TERESA SHARMA DO [facility] 06-17-2024 21:44-0400 Respiratory rate 18 /min MARIA TERESA SHARMA DO [facility] 06-17-2024 21:44-0400 Systolic Blood Pressure Non-Invasive 131 mm[Hg] MARIA TERESA SAHRMA DO [facility] 07-24-2022 20:41-0400 Body temperature 98.42 [degF] DR MARYCRUZ SHANNON MD [facility] 07-24-2022 20:41-0400 Diastolic blood pressure 90 mm[Hg] DR MARYCRUZ SHANNON MD [facility] 07-24-2022 20:41-0400 Heart rate 86 /min DR MARYCRUZ SHANNON MD [facility] 07-24-2022 20:41-0400 Respiratory rate 16 /min DR MARYCRUZ HSANNON MD [facility] 07-24-2022 20:41-0400 Systolic blood pressure 145 mm[Hg] DR MARYCRUZ SHANNON MD [facility] 2022 09:09-0400 Diastolic blood pressure 86 mm[Hg] Janice 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: [facility] 2022 09:09-0400 Systolic blood pressure 122 mm[Hg] Janice 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: [facility] 2022 08:33-0400 Body height 165.1 cm Janice 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: [facility] 2022 08:33-0400 Body weight 102.51 kg Janice 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: [facility] 2022 08:33-0400 Heart rate 84 /min Janice 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: [facility] 2022 08:33-0400 Respiratory rate 16 /min Janice 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: [facility] Encounters Encounter Date Encounter Type Care Provider Facility Start: 06-03-2025 End: 06-03-2025 Emergency department patient visit No Primary Care Physician Facility:[facility] Start: 04-09-2025 End: 04-09-2025 Emergency department patient visit No Primary Care Physician Facility:[facility] Start: 01-06-2025 End: 01-12-2025 Admission to [...] Start: 01-04-2025 End: 01-04-2025 ambulatory RUBEN PEREZ Facility:[facility] Start: 01-04-2025 End: 01-04-2025 Office outpatient visit 25 minutes Marcellus Escalante MD Work Phone: [facility] Comment on above: Rash (Primary Dx) Start: 11-08-2024 End: 11-08-2024 Emergency department patient visit DR ELEAZAR VALDEZ DO [facility] Start: 08-03-2024 End: 08-08-2024 ambulatory Ruben Perez MD Work Phone: Internal Medicine [place] [phone] Start: 06-17-2024 End: 06-18-2024 Emergency department patient visit MARIA TERESA SHARMA DO [facility] Start: 08-26-2023 ambulatory Ruben alfaro MD Work Phone: Internal [facility] Start: 07-24-2022 End: 07-24-2022 Emergency department patient visit DR MARYCRUZ SHANNON MD [facility] Start: 07-22-2022 Documentation procedure Mammog meredith Coordinator [facility] Start: 07-22-2022 Letter encounter Mammography Coordinator [facility] Department Start: 07-22-2022 End: 07-22-2022 Subsequent hospital visit by physician Screen Mammo [facility] Comment on above: Encounter for screen ing mammogram for breast cancer [Z12.31] Start: 2022 End: 2022 Patient encounter procedure Janice 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: Internal [facility] [place] Comment on above: Wellness examination (Primary Dx); Gastroesophageal reflux disease, unspecified whether esophagitis present; Chronic diarrhea; Bipolar 1 disorder (HCC); Chronic left shoulder pain; Special screening for malignant neoplasms, colon; Encounter for screening mammogram for breast cancer; Special screening examination for viral disease; Screening for HIV (human immunodeficiency virus) Start: 2022 End: 2022 Patient encounter status Janice 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: Internal [facility] [place] Start: 03-10-2022 Telephone encounter Phil taylor MD Work Phone: Orthopaedics Comment on above: Patient Update Start: 03-10-2022 End: 03-10-2022 ambulatory Ofelia Hendricks PT Work Phone: [facility] Comment on above: Acute pain of left s houlder (Primary Dx); Impingement syndrome of left shoulder Start: 03-03-2022 End: 03-03-2022 Patient encounter procedure Phil Baldwin MD Work Phone: Orthopaedics Comment on above: Acute pain of left s houlder (Primary Dx); Impingement syndrome of left shoulder Start: 12-27-2021 End: 12-27-2021 Subsequent hospital visit by physician Ashley [facility] Work Phone: Radiology Comment on above: Acute pain of left s radha [M25.512] Procedures Date Procedure Procedure Detail Performing Clinician Start: 07-22-2022 End: 07-22-2022 Screening mammography bi 2-view breast inc cad Janice 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: Start: 03-03-2022 Arthrocentesis aspir &/inj [...] Detail Author Start: 03-02-2027 Urine microalbumin profile [facility] Start: 07-03-2024 Covid-19 Vaccine () Covid-19 Vaccine () [facility] Start: 07-03-2024 Influenza vaccination Influenza Vacc ine (#1) [facility] Start: 07-22-2023 Mammography [facility] Start: 07-22-2023 Screening for malign ant neoplasm of breast Mammogram Screening [facility] Start: 07-03-2023 Covid-19 Vaccine ( season) Covid-19 Vaccine ( season) [facility] Start: 07-03-2023 Influenza vaccination Influenza Vacc ine (#1) [facility] Start: 2023 COVID-19 VACCINE (3 - Booster for Moderna series) COVID-19 VACCINE (3 - Booster for Moderna series) [facility] Comment on above: Postponed from 01/25 (Declined at this time) Start: 2023 HEPATITIS B (1 of 3 - 3-dose series) HEPATITIS B (1 of 3 - 3-dose series) [facility] Comment on above: Postponed from 06/11 (Declined at this time) Start: 02-05-2023 Lipid 1996 panel - Serum or Plasma Lipid Screening [facility] Start: 02-05-2023 Lipid panel Lipid Screening [facility] Start: 02-05-2023 LIPID SCREEN LIPID SCREEN [facility] Start: 07-03-2022 Influenza vaccination [facility] Start: 2022 COLOGUARD (FIT-DNA) COLOGUARD (FIT-D NA) [facility] Start: [address] COLONOGRAPHY [facility] Start: 2022 DIABETES SCREEN DIABETES SCREEN [facility] Start: 2022 Diabetes Screening Diabetes Screenin g [facility] Start: 2022 FECAL OCCULT BLOOD FECAL OCCULT BLOO D [facility] Start: 2022 End: 08-11-2022 Hepatitis C virus Ab [Presence] in Serum HEP C AB IA W/CONF SCRN Lab Routine Special screening examination for viral disease Expected: 2022, Expires: 08/11/2022 [facility] Work Phone: Comment on above: Expected: 2022 , Expires: 08/11/2022 Start: 2022 End: 08-11-2022 HIV 1+2 Ab [Presence] in Serum or Plasma by Immunoassay HIV 1 2 COMBO(AG/AB),WITH REFLEX TO DIFFERENTIATION Lab Routine Screening for HIV (human immunodeficiency virus) Expected: 2022, Expires: 08/11/2022 [facility] Work Phone: Comment on above: Expected: 2022 , Expires: 08/11/2022 Start: 2022 Screening for malign ant neoplasm of colon [facility] Start: 2022 SIGMOIDOSCOPY SIGMOIDOSCOPY [facility] Start: 2022 End: 08-11-2022 Thyrotropin [Units/volume] in Serum or Plasma TSH BLD Lab Routine Wellness examination Expected: 2022, Expires: 08/11/2022 [facility] Work Phone: Comment on above: Expected: 2022 , Expires: 08/11/2022 Start: 01-25-2022 COVID-19 VACCINE (3 - Booster for Moderna series) COVID-19 VACCINE (3 - Booster for Moderna series) [facility] Start: 01-01-2021 Colonoscopy COLONOSCOPY [facility] Start: 01-01-2021 COLORECTAL CANCER SCREENING COLORECTAL CANCER SCREENING [facility] Start: 01-01-2021 Screening for malign ant neoplasm of colon [facility] Start: 2017 Mammography MAMMOGRAM [facility] Start: 2007 HPV TESTING HPV TESTING [facility] Start: 1998 PAP TESTING PAP TESTING [facility] Start: 1998 Screening for malign ant neoplasm of cervix Cervical Cancer Screening [facility] Start: 1996 Hepatitis B Vaccine (1 of 3 - 19+ 3-dose series) Hepatitis B Vaccine (1 of 3 - 19+ 3-dose series) [facility] Start: 1996 Urine microalbumin profile DTAP,TDAP,TD (1 - Tdap) [facility] Start: 1995 Anxiety Screening Anxiety Screening [facility] Start: 1995 HEPATITIS C SCREENING HEPATITIS C [facility] Start: 1995 Hepatitis C screening Hepatitis C [facility] Start: 1995 HIV SCREENING HIV SCREENING [facility] Start: 1995 HIV screening HIV Screening [facility] Start: 1977 Hepatitis B Vaccine (1 of 3 - 3-dose series) Hepatitis B Vaccine (1 of 3 - 3-dose series) [facility] End: 09-02-2025 DBT Breast - bilateral screening JASMINE SCREENING W [facility] Radiology Routine Encounter for screening mammogram for breast cancer 1 Occurrences starting 08/03/2024 until 09/02/2025 [facility] Work Phone: Comment on above: 1 Occurrences starti ng 08/03/2024 until 09/02/2025 End: 09-24-2024 JASMINE SCREENING JASMINE SCREENING Radiology Routine Encounter for screening mammogram for breast cancer 1 Occurrences starting 08/26/2023 until 09/24/2024 [facility] Work Phone: Comment on above: 1 Occurrences starti ng 08/26/2023 until 09/24/2024 PT PLAN OF CARE CERTIFICATION PT PLAN OF CARE CERTIFICATION Procedures Routine Acute pain of left shoulder Impingement syndrome of left shoulder Ordered: 03/10/2022 [facility] Work Phone: Comment on above: Ordered: 03/10/2022 End: 2023 Screening colonoscopy COLONOSCOPY SCREENING Endoscopy Routine Special screening for malignant neoplasms, colon 1 Occurrences starting 2022 until 2023 [facility] Work Phone: Comment on above: 1 Occurrences starti ng 2022 until 2023 End: 07-11-2023 Screening mammography bi 2-view breast inc cad JASMINE SCREENING Radiology Routine Encounter for screening mammogram for breast cancer 1 Occurrences starting 2022 until 07/11/2023 [facility] Work Phone: Comment on above: 1 Occurrences starti ng 2022 until 07/11/2023 [facility] Immunizations Immunization Date Immunization Notes Care Provider Fa cili 08-27-2021 COVID-19 original vaccine, full dose, monovalent (MODERNA) Marcellus Escalante MD Work Phone: [facility] 07-29-2021 COVID-19 original vaccine, full dose, monovalent (MODERNA) Marcellus Escalante MD Work Phone: [facility] 03-02-2017 tetanus toxoid, redu adam diphtheria toxoid, and acellular pertussis vaccine, adsorbed Janice 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: [facility] Work Phone: 08-13-2016 influenza, high dose seasonal, preservative-free Marcellus Escalante MD Work Phone: [facility] 08-13-2016 influenza virus vaccine, unspecified formulation Ruben Perez MD Work Phone: [facility] 10-14-2015 tetanus toxoid, redu adam diphtheria toxoid, and acellular pertussis vaccine, adsorbed DR MARYCRUZ SHANNON MD [facility] 07-16-2015 influenza, seasonal, injectable, preservative free Marcellus Escalante MD Work Phone: [facility] 07-03-2015 influenza, high dose seasonal, preservative-free Marcellus Escalante MD Work Phone: [facility] 06-02-2010 tetanus toxoid, adsorbed Janice 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 2024 Unknown [id number] 2024 Medicaid [id number] 2020 Medicaid [employer] [id number] 2020-Present [phone] [address] [place] [address] Medicaid [id number] 2020 Medicaid [id number] 1977 Unknown [id number] 1977 Unknown [id number] Unknown [id number] Unknown [id number] Social History Date Type Detail Facility Start: 12-25-2015 End: 09-09-2016 Tobacco smoking status NHIS Ex-smoker [facility] Work Phone: Comment on above: former smoker 20 plu s years ago Start: 12-28-1991 End: 12-28-1996 History of tobacco use Current smoker [facility] Work Phone: Start: 12-25-2015 End: 11-14-2022 Cigarettes smoked current (pack per day) - Reported 1 [facility] Start: 12-25-2015 End: 09-09-2016 Tobacco use and exposure Smokeless tobacco non-user [facility] Work Phone: Start: 03-03-2022 End: 2022 Alcohol intake Current non-drinker of alcohol (finding) [facility] Start: 1975 Sex Assigned At Female C [facility] Start: 11-27-2021 End: 07-22-2022 Exposure to SARS-CoV-2 (event) Not sure [facility] Work Phone: Start: 12-28-1991 End: 12-28-1996 History of tobacco use Cigarette Smoker [facility] Start: 06-08-2022 History SDOH Alcohol Frequency 1 [facility] Start: 06-08-2022 History SDOH Alcohol Std Drinks 0 [facility] Start: 06-08-2022 History SDOH Social Connections Phone 2 [facility] Start: 06-08-2022 History SDOH Social Connections Get Together 98 [facility] Start: 06-08-2022 History SDOH Social Connections Living 3 [facility] Start: 06-08-2022 History SDOH Physica l Activity DPW 5 [facility] Start: 06-08-2022 History SDOH Physica l Activity MPS 9 [facility] Sex Assigned At [facility] Start: 06-08-2022 End: 11-14-2022 Social connection and isolation panel [facility] How often do you get together with friends or relatives? Patient refused [facility] Do you belong to any clubs or organizations such as oriental orthodox groups, unions, fraternal or athletic groups, or school groups? No [facility] Are you now , , , , never or living with a partner? [facility] How often to you hav e a drink containing alcohol? Never [facility] How hard is it for y ou to pay for the very basics like food, housing, medical care, and heating Somewhat hard [facility] Do you feel stress - tense, restless, nervous, or anxious, or unable to sleep at night because your mind is troubled all the time - these days [OSQ] Very much [facility] (I/We) worried whestarr er (my/our) food would run out before (I/we) got money to buy more. Sometimes true [facility] In the past 12 month s, was there a time when you were not able to pay the mortgage or rent on time? Yes [facility] Start: 01-30-2022 Gender identity Identifies as female gender (finding) [facility] Start: 01-30-2022 Sexual orientation Heterosexual (jake patel) [facility] Start: 07-01-2014 Sex Female (finding) [facility] Functional Status Date Assessment Result Facility 06-18-2024 Functional Status Assistive Krys ce Wheelchair [facility] 07-24-2022 Functional Status Standard Safet y ID band on, Allergy Band on, Call device within reach, Bed in low position, Wheels locked, Upper/Half-Length side-rails up, Bedside Cart Locked, Safety level maintained [facility] 12-08-2016 Are you deaf, or do you have serious difficulty hearing No 12/08/2016 5:44 PM Carlene Denton RN No [facility] 12-08-2016 Are you blind, or do you have serious difficulty seeing, even when wearing glasses No 12/08/2016 5:44 PM Carlene Denton, MARLON No [facility] 12-08-2016 Do you have serious difficulty walking or climbing stairs No 12/08/2016 5:44 PM Carlene Denton RN No [facility] 12-08-2016 Do you have difficul ty dressing or bathing No 12/08/2016 5:44 PM Carlene Denton RN No [facility] 12-08-2016 Because of a physica l, mental, or emotional condition, do you have difficulty doing errands alone such as visiting a physician's office or shopping No 12/08/2016 5:44 PM Carlene Denton RN No [facility] Mental Status Date Assessment Result Facility 06-18-2024 Mental Status Orientation Oriented x 4 [facility] 07-24-2022 Mental Status Orientation Oriented x 4 [facility] 12-08-2016 Because of a physica l, mental, or emotional condition, do you have serious difficulty concentrating, remembering, or making decisions No 12/08/2016 5:44 PM Carlene Denton, MARLON No [facility] Clinical Notes 12-08-2016 to 01-24-2025 Hyun Canchola - 01/12/2025 9:38 AM Marcellus Umanzor MD - 01/04/2025 10:28 AM ESTLetter - Mammography Coordinator - 07/22/2022 4:00 PM RT Asher(Quiana) - 07/22/2022 11:10 AM EDT Note Date & Type Note Facility 01-24-2025 Note HNO ID: [id number] Author: ?, ?, ? Service: ? Author Type: ? Type: Progress Notes Filed: 01/24/2025 13:56 Note Text: Patient is scheduled to see Janice Combs 02-13 @ 2:00 pm for her wellness visit [facility] 01-12-2025 Note HNO ID: [id number] Author: ?, ?, ? Service: ? Author Type: ? Type: Progress Notes Filed: 01/12/2025 09:38 Note Text: Contacted patient, she has an out of Net Work insurance that needs approval from the Clinic before we can schedule. LVM with the number [phone] to call for clearance [facility] 01-12-2025 History of Presen t illness Narrative Contacted patient, she has an out of [employer] insurance that needs approval from the Clinic before we can schedule. LVM with the number [phone] to call for clearance documented in this encounter [facility] 01-06-2025 Note Patient Outreach ( WSTR) JAZZY VENTURA ([id number]) 1975 F Date Time Provider Department 01/06/25 RUBEN PEREZ During your visit today, we recorded the following information about you: Hyun Canchola 01/12/2025 9:38 AM Signed Contacted patient, she has an out of Net Work insurance that needs approval from the Clinic before we can schedule. LVM with the number [phone] to call for clearance Hyun Canchola 01/24/2025 [...] Encounter Status:Closed by HYUN CANCHOLA on 01/12/25 [facility] 01-04-2025 Note HNO ID: [id number] Author: MARCELLUS ESCALANTE MD Service: ? Author [...] trailer 1 month ago. 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 She says [place] are too far to go (where she can get established with a PCP through the clinic). She has been seen in IM here within the last 3 years. Marcellus Escalante MD [facility] 01-04-2025 History of Presen t [...] trailer 1 month ago. 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 She says [place] are too far to go (where she can get established with a PCP through the clinic). She has been seen in here within the last 3 years. Marcellus Escalante MD documented in this encounter [facility] 11-08-2024 Hospital Discharg e instructions Patient Education [...] is gone, even if you feel better. [phone] [employer]. [address] [place] [address]. All rights reserved. This information is not intended as a substitute for professional medical care. Always follow your healthcare professional's instructions. Follow Up Care 11/08/2024 05:49:35 With:BUDDY REYES DO Address: [address] [place] [phone] When:2-4 days With:[facility] Address: [address] [place] [phone] When:2-4 days [facility] 11-08-2024 Emergency department Discharge summary Discharge Instructions Thank you for allowing [facility] to assist you with your healthcare needs. The following is important discharge information regarding your hospital visit. What to Do Next Instructions from Your Care Team No qualifying data available. Post Acute Orders No qualifying data available. You Need to Schedule the Following Appointments Follow Up with BUDDY REYES DO When:Within 2-4 days Where:[address] [place] [phone] Follow Up with [facility] When:Within 2-4 days Where:[address] [place] [phone] Allergies Cipro Swelling of throat Latex Vicodin [...] is gone, even if you feel better. [phone] [employer]. [address] [place] [address], [place] [address]. All rights reserved. This information is not intended as a substitute for professional medical care. Always follow your healthcare professional's instructions. Additional Information VACCINATE! IT SAVES LIVES! Members of the community who have not yet received the COVID-19 vaccine and would like to receive it can visit one of [facility] vaccine clinics. There are many vaccine clinic locations within the [facility]. For locations and available times, please visit [email or web address] [email or web address] It is important to note that some COVID mobile vaccine clinics are held outdoors and may be canceled in rainy or stormy conditions. To learn more about pediatric vaccinations (ages 5-11), we invite you to visit the [facility] webpage. [email or web address] [email or web address] [email or web address] To learn more about the COVID-19 vaccine, we invite you to visit the CDC website for a list of frequently asked questions. https://www.cdc.gov/coronavirus/ 2019-ncov/vaccines/faq.html [facility] Patient Portal Access Instructions: Stay connected with your healthcare team and access your personal medical information anytime with the [facility] Patient Portal. If you would like a full copy of your medical records please contact the [facility] Medical Records Department Thursday through Thursday between 8a.m. and 4:30p.m. Please follow the directions below to access the portal: 1.Access the email account you provided upon registration to the hospital.2.Look for an invitation email from [facility].3.Open the email and access the invitation link: Accept Invitation to [facility]4.Fill in the required mayer to create your account. Sign into [email or web address] with your username and password that you [...] you will allow to register on the [facility] Patient Portal for access to your information. You can also access the [facility] Patient Portal on the TheraCoat. Simply click on "Health Records" under "Health Data" and then click on the AirXP logo. HOW TO SAFELY DISPOSE OF PRESCRIPTION [...] Call your local pharmacy or go to [email or web address] to find one close to you.3.Make use of household items: Use cat litter or old coffee grounds to dispose medications if other options are not available. Mix your drugs with these household products, seal them in an airtight container and throw it into the garbage. Call [facility]: [phone] to be sure your drugs can be [...] aware that I should contact my doctor. Patient/Set Builder Signature: Date/Time: Relationship to Patient: Witness Name/Signature: Date/Time: [facility] 08-03-2024 Note Patient Outreach (IN TMMN) JAZZY VENTURA ([id number]) 1975 F Date Time Provider Department 08/03/24 [...] Date Reviewed: 2022 Reviewed by: Janice Combs APRN.HUMAN RESOURCES INTERN - Fully Assessed Visit Diagnosis:Encounter for screening mammogram for breast cancer [Z12.31] Order(s):[facility] SCREENING W JORGE LUIS [[id number]] Order #: [id number] FUTURE Prescriptions as of 08/08/2024 - LATUDA [...] Encounter Status:Closed by STEPHEN GOLDBERGR on 08/08/24 [facility] 06-18-2024 Hospital Discharg e instructions [...] worse Numbness or weakness in a leg [phone] The [employer]. [address] [place] [address], [place] [address]. All rights reserved. This information is not [...] or as directed by your healthcare provider [phone] The [employer]. [address] [place] [address], [place] [address]. All rights reserved. This information is not intended as a substitute for professional medical care. Always follow your healthcare professional's instructions. Follow Up Care 06/17/2024 21:22:51 With:Call Physician Referral Address:Unknown When:2-4 days [facility] 06-18-2024 Note Discharge Instructions Thank you for allowing [facility] to assist you with your healthcare needs. [...] worse Numbness or weakness in a leg [phone] The [employer]. [address] [place] [address]. All rights reserved. This information is not [...] or as directed by your healthcare provider [phone] The [employer]. [address] [place] [address]. All rights reserved. This information is not intended as a substitute for professional medical care. Always follow your healthcare professional's instructions. Additional Information VACCINATE! IT SAVES LIVES! Members of the community who have not yet received the COVID-19 vaccine and would like to receive it can visit one of [facility] vaccine clinics. There are many vaccine clinic locations within the [facility]. For locations and available times, please visit [email or web address]. gov/. It is important to note that some COVID mobile vaccine clinics are held outdoors and may be canceled in rainy or stormy conditions. To learn more about pediatric vaccinations (ages 5-11), we invite you to visit the [facility] webpage. https://www.[facility].org/p ages/4800-Yglcj-Bluvbtpbbjj-Freq vutrsg-Ygpzf-Udufmmnbs.html To learn more about the COVID-19 vaccine, we invite you to visit the CDC website for a list of frequently asked questions. https://www.cdc.gov/coronavirus/ 2019-ncov/vaccines/faq.html [facility] Patient [facility] Access Instructions: Stay connected with your healthcare team and access your personal medical information anytime with the [facility] Patient Portal. If you would like a full copy of your medical records please contact the [facility] Medical Records Department Thursday through Thursday between 8a.m. and 4:30p.m. Please follow the directions below to access the portal: 1.Access the email account you provided upon registration to the [facility].2.Look for an invitation email from [facility].3.Open the email and access the invitation link: Accept Invitation to [facility]4.Fill in the required mayer to create your account. Sign into [email or web address] with your username and password that you [...] you will allow to register on the [facility] Patient Portal for access to your information. You can also access the [facility] Patient Portal on the TheraCoat. Simply click on "Health Records" under "Health Data" and then click on the AirXP logo. HOW TO SAFELY DISPOSE OF PRESCRIPTION [...] Call your local pharmacy or go to http://[email or web address] to find one close to you.3.Make use of household items: Use cat litter or old coffee grounds to dispose medications if other options are not available. Mix your drugs with these household products, seal them in an airtight container and throw it into the garbage. Call [facility]: [phone] to be sure your drugs can be [...] aware that I should contact my doctor. Patient/Set Builder Signature: Date/Time: Relationship to Patient: Witness Name/Signature: Date/Time: [facility] [place] 06-17-2024 Note ORIGINAL EXAMINATION: 2 XRAY VIEWS [...] 11:45:16 PM Ordering Provider: MARIA TERESA SHARMA [facility] 06-17-2024 Note ORIGINAL EXAMINATION: CT OF [...] 06/17/2024 11:35:48 PM [facility]: [facility] Dis[facility] e instructions Patient [...] temperature. Use toothpaste made for sensitive teeth. [place] gently up and down instead of sideways. Brushing sideways can wear away root surfaces if they are exposed. If your tooth is chipped or cracked, or if there is a large open cavity, put oil of cloves directly on the tooth to relieve pain. You can buy oil of cloves at drugstores. Some pharmacies carry an sxdn-fgf-gjvxjvg "toothache kit." This contains a paste that you can put on the exposed tooth to make it less sensitive. Put a cold pack on your jaw over the sore area to help reduce pain. You may use mftb-hkv-ciibpiw medicine to ease pain, unless your doctor [...] healthcare provider Pus drains from the tooth [phone] The [employer]. [address] [place] [address]. All rights reserved. This information is not intended as a substitute for professional medical care. Always follow your healthcare professional's instructions. Follow Up Care 07/24/2022 20:39:36 With:your dentist Address: When:2-4 days [facility] 07-24-2022 Emergency department Discharge summary Discharge Instructions Thank you for allowing [facility] to assist you with your healthcare needs. [...] temperature. Use toothpaste made for sensitive teeth. [place] gently up and down instead of sideways. Brushing sideways can wear away root surfaces if they are exposed. If your tooth is chipped or cracked, or if there is a large open cavity, put oil of cloves directly on the tooth to relieve pain. You can buy oil of cloves at [employer] [employer]. Some pharmacies carry an dhei-nyw-pyjzzmy "toothache kit." This contains a paste that you can put on the exposed tooth to make it less sensitive. Put a cold pack on your jaw over the sore area to help reduce pain. You may use qkgq-rwv-jlpegjq medicine to ease pain, unless your doctor [...] healthcare provider Pus drains from the tooth [phone] The [employer]. [address] [place] [address], [place] [id number]. All rights reserved. This information is not intended as a substitute for professional medical care. Always follow your healthcare professional's instructions. Additional Information VACCINATE! IT SAVES LIVES! Members of the community who have not yet received the COVID-19 vaccine and would like to receive it can visit one of [facility] vaccine clinics. There are many vaccine clinic locations within the [facility]. For locations and available times, please visit www.[email or web address]. org. It is important to note that some COVID mobile vaccine clinics are held outdoors and may be canceled in rainy or stormy conditions. To learn more about pediatric vaccinations (ages 5-11), we invite you to visit the [facility] webpage. https://www.[facility].org/p ages/6178-Olkvy-Qwkqhaergvh-Freq giuimw-Uguok-Vplgcnihv.html To learn more about the COVID-19 vaccine, we invite you to visit the [facility] website for a list of frequently asked questions. https://[place].ABILITY Network/assets/Patie agu-bwe-Nwqbbqkm/ckjtw-Bujcktl-B requently_Asked-Questions.pdf [facility] Patient Portal Access Instructions: Stay connected with your healthcare team and access your personal medical information anytime with the [facility] Patient Portal. If you would like a full copy of your medical records please contact the [facility] Medical Records Department Thursday through Thursday between 8a.m. and 4:30p.m. Please follow the directions below to access the portal: 1.Access the email account you provided upon registration to the [facility].2.Look for an invitation email from [facility].3.Open the email and access the invitation link: Accept Invitation to [facility]4.Fill in the required mayer to create your account. Sign into [email or web address] with your username and password that you [...] you will allow to register on the [facility] Patient Portal for access to your information. You can also access the [facility] Patient Portal on the TheraCoat. Simply click on "Health Records" under "Health Data" and then click on the Laura logo. [...] Call your local pharmacy or go to [email or web address] to find one close to you.3.Make use of household items: Use cat litter or old coffee grounds to dispose medications if other options are not available. Mix your drugs with these household products, seal them in an airtight container and throw it into the garbage. Call [facility]: [phone] to be sure your drugs can be [...] and explained to me and I,JAZZY VENTURA M understand my current condition and have read and understand these discharge instructions. I have received a written copy of the plan/instructions. If I have questions, I am aware that I should contact my doctor. Patient/Set Builder Signature: Date/Time: Relationship to Patient: Witness Name/Signature: Date/Time: [facility] 07-22-2022 Miscellaneous Notes July 22, 2022 PID: [id number] Jazzy Ventura [address] [place], [place] [id number] Dear Ms. Ventura, We are pleased to [...] report will be kept on file at [facility] as part of your permanent medical record and are available for your continuing care. Thank you for allowing us to help in meeting your health care needs. Sincerely, Dr. Justice Interpreting Radiologist [facility] (Normal over 40) documented in this encounter [facility] 07-22-2022 History of Presen t illness Narrative [...] 2022 10:57 AM documented in this encounter [facility] 2022 Corrine Combs APRN.CNP - 2022 8:54 AM EDT [...] please call: Dr. Duarte or Dr. Billingsley [phone] Jessie Arcos [phone] Dr. Kim [phone] [facility] nurses [phone] documented in this encounter [facility] 2022 History of Presen t illness Narrative CC: Patient presents with: Establish Care: Left rotator cuff pain since October. HPI Jazzy Ventura is a 47 year old female who presents today for above. No previous PCP Bipolar disorder treated by psychiatry at the [facility]. Taking Lexapro, Latuda and Buspar. She [...] she eats it goes right through her, "I have to sit on the toilet to eat meals". She admits to poor diet, eats a [...] PAST SURGICAL HISTORY Procedure Laterality Date APPENDECTOMY 1992 CHOLECYSTECTOMY 12/16/2016 & Fascial Defect repair, COLONOSCOPY FLX DX W/COLLJ SPEC WHEN PFRMD 01/02/2016 Colonoscopy ESOPHAGOGASTRODUODENOSCOPY TRANSORAL DIAGNOSTIC 01/02/2016 EGD PAST SURGICAL HISTORY OF 5020-0802 hysterectomy- 16 surgeries due to cervical cancer [...] Problem Relation Age of Onset Heart Mother [place] Hypertension Mother Stroke Mother other (diabetic) Mother Social History Tobacco Use Smoking status: Former Packs/day: 1.00 Years: 5.00 Pack years: 5.00 Types: Cigarettes Quit date: 12/28/1996 Years since quittin.4 Smokeless tobacco: Never Substance Use Topics Alcohol use: No Drug use: No PHYSICAL EXAM BP 130/90 Pulse 84 Resp 16 Ht 165.1 cm (5' 5") Wt 102.5 kg (226 lb) LMP (LMP [...] diet of 1000 mg/day for under 50, 1229-6000 mg/day for 50+ - Discussed need and benefit for weight loss. BMI 37.61 kg/(m^2) - Mammogram ordered - exam recommended once yearly - Depression screening tool completed and reviewed with patient. Based on score and interview, patient is already diagnosed with depression and recommended continuing current plan of care. - Patient was counseled xjvo-nd-gyvx by myself (the billing provider) for the following immunizations and vaccine components, including side effects: Hep B Vaccine. Patient declined at this time - Follow up for annual exam in one year - CONSULT TO GYNECOLOGY, overdue for PAP/HPV - Check TSH BLD. Lipid panel, CMP and CBC already ordered by psychiatry and she will have done at [facility] 2. Gastroesophageal reflux disease, unspecified whether [...] Janice Combs APRN.CNP documented in this encounter [facility] 03-10-2022 Miscellaneous Notes I called and spoke with patient. Message from Karishma given. Patient verbalized understanding. She hard a cortisone injection 03/03, it can take a week for it to help but she should be getting some relief from the injection soon. We can try a different prescription NSAID, I will send some oral diclofenac to her pharmacy to try, [facility] in [place]. We reserve pain medications for fractures and patients who are recovering from surgery. Patient was in for Physical Therapy today and stopped at the desk asking for something to take for pain. She is taking ibuprofen with no relief. Please advise. documented in this encounter [facility] 03-10-2022 History of Presen t illness Narrative Episode Visit Count: 1 Therapist That Will Oversee The Plan Of Care: Ofelia Hendricks Start of Care Date: 03/10/22 Onset Date: 10/25/21 Plan of Care Certification Date: 03/10/22 Next Certification Due Date: 04/14/22 Patient Identified by Name and Date of : Yes REHABILITATION AND SPORTS THERAPY PHYSICAL THERAPY EVALUATION PLAN OF CARE: Assessment: Jazzy Royzier presents with diagnosis of acute pain of [...] without limitation due to L shoulder pain. Twiggs in home exercise program. Patient will decrease [...] Planned: 16 Planned Treatment Interventions: Neuromuscular re-education (04527);Therapeutic exercise (80414);Manual therapy (52813);Therapeutic activities (41600);Self-mcc management (69162);Patient/Family/Caregiver Education PLAN FOR NEXT VISIT: Assess symptom [...] when she was 15 yo) Preferred Language: Persian Right or Left Handed: Left Employment: Medically Disabled Recreation / Current Exercise: DNS, not lifting overhead, <#50 Home Environment Patient Lives With: Spouse Home Type: Mobile Home Intake Information: Prescription present Previous Treatment: Injections ;Self prescribed exercises;Heat (cortisone 03/03/22 "it took the edge off," repeat injection scheduled for 04/09/22) Falls Interview: [...] Treatment Pain Description: Sharp;Burning Post Treatment Symptoms: "its always like this, all day." PROMIS Scales Higher is Better 03/10/2022 Phys [...] States/Identifies;Return Demonstration TREATMENT: PT Treatment Interventions: Therapeutic Exercise;Self-Mcc Management Evaluation Evaluation Therapeutic Exercise: 1: *repeated [...] and function . Patient education as noted. Self-Mcc Management: 1: *postural education 2: *Progression for [...] Ofelia Hendricks PT documented in this encounter [facility] 03-03-2022 History of Presen t illness Narrative Associated Order(s): Large Joint Arthro/Inj: L subacromial bursa Phil Baldwin MD Department of Orthopaedics Orthopaedics [address] [facility] [address] Dept: [phone] Dept March 03, 2022 CHIEF COMPLAINT: Follow [...] surgery indicated at this time. Ms. Jazzy M Ventura was advised as to contrast therapies [...] subacromial bursa Informed Consent Consent Obtained: Verbal Crawford Protocol A moment to CARE was completed. [...] No high-grade tear. Mild acromioclavicular joint osteoarthritis. Policy Advisor: JASS Transcribe Date/Time: Feb 04 2022 9:58A [...] DIAGNOSTIC 01/02/2016 EGD PAST SURGICAL HISTORY OF 9207-0678 hysterectomy- 16 surgeries due to cervical cancer [...] Phil Baldwin MD documented in this encounter [facility] 12-27-2021 History of Presen t illness Narrative [...] 2021 10:38 AM documented in this encounter [facility] 12-16-2016 History of Past i llness Narrative Problem Noted Date Resolved Date Right upper quadrant pain 12/16/20162021 Biliary dyskinesia 12/08/2016 01/01/2017 Intractable vomiting 12/05/2016 2022 Gastroesophageal reflux disease without esophagi tis 01/02/2016 01/02/2016 Cervix cancer 01/02/2016 01/02/2016 documented as of this encounter (statuses as of 2022) [facility] History of Past illness Narrative* Problem Noted Date Resolved Date Right upper quadrant pain 12/16/20162021 Biliary dyskinesia 12/08/2016 01/01/2017 Intractable vomiting 12/05/2016 2022 Gastroesophageal reflux disease without esophagi tis 01/02/2016 01/02/2016 Cervix cancer 01/02/2016 01/02/2016 documented as of this encounter (statuses as of 07/23/2022) [facility] History of Past illness Narrative* Problem Noted Date Resolved Date Right upper quadrant pain 12/16/20162021 Biliary dyskinesia 12/08/2016 01/01/2017 Intractable vomiting 12/05/2016 2022 Gastroesophageal reflux disease without esophagi tis 01/02/2016 01/02/2016 Cervix cancer 01/02/2016 01/02/2016 documented as of this encounter (statuses as of 07/24/2022) [facility] History of Past illness Narrative* Problem Noted Date Diagnosed Date Resolved Date Right upper quadrant pain 12/16/2016 Biliary dyskinesia 12/08/2016 7 Intractable vomiting 12/05/2016 022 Gastroesophageal reflux dise ase without esophagitis 01/02/2016 01/02/2016 Cervix cancer 01/02/2016 01/02/2016 documented as of this encounter (statuses as of 08/31/2023) [facility] History of Past illness Narrative* Problem Noted Date Resolved Date Biliary dyskinesia 12/08/2016 01/01/2017 Gastroesophageal reflux disease without esophagi tis 01/02/2016 01/02/2016 Cervix cancer 01/02/2016 01/02/2016 documented as of this encounter (statuses as of 03/03/2022) [facility] History of Past illness Narrative* Problem Noted Date Resolved Date Biliary dyskinesia 12/08/2016 01/01/2017 Gastroesophageal reflux disease without esophagi tis 01/02/2016 01/02/2016 Cervix cancer 01/02/2016 01/02/2016 documented as of this encounter (statuses as of 03/10/2022) [facility] History of Past illness Narrative* Problem Noted Date Resolved Date Biliary dyskinesia 12/08/2016 01/01/2017 Gastroesophageal reflux disease without esophagi tis 01/02/2016 01/02/2016 Cervix cancer 01/02/2016 01/02/2016 documented as of this encounter (statuses as of 03/10/2022) [facility] No data available for this section [facility] Evaluation note* Diagnosis Acute pain of left shoulder- Primary Impingement syndrome of left shoulder Other affections of shoulder region, not elsewhere classified [facility] Diagnosis Acute pain of left shoulder- Primary Impingement syndrome of left shoulder Other affections of shoulder region, not elsewhere classified [facility]* Diagnosis Impingement syndrome of left shoulder- Primary Other affections of shoulder region, not elsewhere classified documented in this encounter [facility] note* Diagnosis Wellness examination- Primary Gastroesophageal reflux [...] specified viral diseases [facility]* Diagnosis Encounter for screening mammogram for breast cancer documented in this encounter [facility] note* Diagnosis Encounter for screening mammogram for breast cancer [facility]* Diagnosis Acute pain of left shoulder documented in this encounter [facility] note* Diagnosis Encounter for screening mammogram for breast cancer documented in this encounter [facility] note* Diagnosis Rash- Primary Rash and other nonspecific skin eruption documented in this encounter [facility] note* Diagnosis Screening for colorectal cancer- Primary Special screening for malignant neoplasms, colon [facility] Diagnostic Procedure Only (Routine) - Closed Specialty Diagnoses / Procedures Referred By Rachelle cervantes Referred To Contact [facility] Diagnoses Encounter for screening mammogram for breast cancer Procedures JASMINE SCREENING SCREENING MAMMOGRAPHY BI 2-VIEW BREAST INC Janice Logan APRN.CNP [address] [place] [address] [facility] [address] [place] [address] Referral ID Status Reason Start Date Expiration Date V isits Requested Visits Authorized [id number] Closed Auto-Generate d Referral 2022 07/11/2023 1 1 [facility] for referral (narrative)* Diagnostic Procedure Only (Routine) - Pending Review Specialty Diagnoses / Procedures Referred By Rachelle cervantes Referred To Contact [facility] Diagnoses Encounter for screening mammogram for breast cancer Procedures JASMINE SCREENING SCREENING MAMMOGRAPHY BI 2-VIEW BREAST INC CAD Ruben Perez MD [address] [place] [address] [facility] [address] [place] [address] Referral ID Status Reason Start Date Expiration Date Visits Requested Visits Authorized [id number] Pending Review Auto-Generat ed Referral 09/24/2024 1 1 T [facility] for referral (narrative)* Diagnostic Procedure Only (Urgent) - Closed Specialty Diagnoses / Procedures Referred By Contac t Referred To Contact [facility] IMAGING Diagnoses Acute pain of left shoulder Procedures XR SHOULDER GENERAL 3V OR MORE AP/TRUE AP/OTHER LEFT RADEX SHOULDER COMPLETE MINIMUM 2 VIEWS Sandra Chavez PA-C [address] [place] [address] [place] [address] Referral ID Status Reason Start Date Expiration Date V isits Requested Visits Authorized [id number] Closed Auto-Generate d Referral 12/27/2021 01/26/2023 1 1 [facility] for referral (narrative)* Diagnostic Procedure Only (Routine) - New Request Specialty Diagnoses / Procedures Referred By Contac t Referred To Contact [facility] Diagnoses Encounter for screening mammogram for breast cancer Procedures JASMINE SCREENING W JORGE LUIS SCREENING DIGITAL BREAST TOMOSYNTHESIS BI SCREENING MAMMOGRAPHY BI 2-VIEW BREAST INC CAD Ruben Perez MD [address] [place] [address] [facility] [address] [place] [address] Referral ID Status Reason Start Date Expiration Date Visits Requested Visits Authorized [id number] New Request Auto-Generat ed Referral 08/03/2024 09/02/2025 1 1 [facility] for visit Narrative* Diagnostic Procedure Only (Routine) - Closed Specialty Diagnoses / Procedures Referred By Rachelle t Referred To Contact [facility] Diagnoses Encounter for screening mammogram for breast cancer Procedures JASMINE SCREENING SCREENING MAMMOGRAPHY BI 2-VIEW BREAST INC Janice Logan, ANIMAL HUSBANDRY WORKER.HUMAN RESOURCES INTERN [address] [place] [address] [facility] [address] [place] [address] Referral ID Status Reason Start Date Expiration Date V isits Requested Visits Authorized [id number] Closed Auto-Generate d Referral 2022 07/11/2023 1 1 [facility] Diagnostic Procedure Only (Urgent) - Closed Specialty Diagnoses / Procedures Referred By Contac t Referred To Contact XR IMAGING Diagnoses Acute pain of left shoulder Procedures XR SHOULDER GENERAL 3V OR MORE AP/TRUE AP/OTHER LEFT RADEX SHOULDER COMPLETE MINIMUM 2 VIEWS Sandra Chavez, PAAbidaC [address] [place] [address] [place] [address] Referral ID Status Reason Start Date Expiration Date V isits Requested Visits Authorized [id number] Closed Auto-Generate d Referral 12/27/2021 01/26/2023 1 1 [facility] Reason for Referral Specialty Diagnoses / Procedures Referred By Contac t Referred To Contact [facility] Diagnoses Acute pain of left shoulder Impingement syndrome of left shoulder Procedures CONSULT TO PHYSICAL THERAPY PHYSICAL THERAPY EVALUATION HIGH COMPLEX 45 MINS Phil Baldwin MD [address] [place] [address] [facility] [place] [address] [place] [address] Referral ID Status Reason Start Date Expiration Date Visits Requested Visits Authorized [id number] Authorized Auto-Generat ed Referral 03/03/2022 07/02/2022 1 1 Specialty Diagnoses / Procedures Referred By Contac t Referred To Contact [facility] Diagnoses Acute pain of left shoulder Impingement syndrome of left shoulder Procedures PT REHAB FOLLOW UP ORDER THERAPEUTIC EXERCISES RE, EA 15 MIN. Ofelia Hendricks, SILVINA [address] [place] [address] [facility] [place] [address] [place] [id number] Referral ID Status Reason Start Date Expiration Date Visits Requested Visits Authorized [id number] Pending Review PCP Requested Referral Auto-Generate d Referral 03/10/2022 06/08/2022 10 10 Specialty Diagnoses / Procedures Referred By Contac t Referred To Contact Gastroenterology Diagnoses Special screening for malignant neoplasms, colon Chronic diarrhea Gastroesophageal reflux disease, unspecified whether esophagitis present Procedures CONSULT TO GASTROENTEROLOGY OFFICE/OUTPATIENT [facility] 60-74 MINUTES Older, Janice, LACHO.HUMAN RESOURCES INTERN [address] [place] [address] Referral ID Status Reason Start Date Expiration Date Visits Requested Visits Authorized [id number] Authorized PCP Requested Referral 2022 2023 1 1 Specialty Diagnoses / Procedures Referred By Contac t Referred To Contact [facility] Diagnoses Chronic left shoulder pain Procedures CONSULT TO PHYSICAL THERAPY PHYSICAL THERAPY EVALUATION HIGH COMPLEX 45 MINS Older, Janice, LACHO.HUMAN RESOURCES INTERN [address] [place] [address] [facility] [address] [address] Referral ID Status Reason Start Date Expiration Date V isits Requested Visits Authorized [id number] Closed Auto-Generate d Referral 2022 2023 1 1 Specialty Diagnoses / Procedures Referred By Contac t Referred To Contact [facility] Diagnoses Special screening for malignant neoplasms, colon Procedures COLONOSCOPY SCREENING COLONOSCOPY FLX DX W/COLLJ SPEC WHEN PFRMD Older, Janice, LACHO.HUMAN RESOURCES INTERN [address] [place] [address] [facility] [place] [address] [place] [address] Referral ID Status Reason Start Date Expiration Date Visits Requested Visits Authorized [id number] Pending Review Auto-Generat ed Referral 2022 2023 1 1 Specialty Diagnoses / Procedures Referred By Contac t Referred To Contact Gynecology Diagnoses Wellness examination Procedures CONSULT TO GYNECOLOGY OFFICE/OUTPATIENT [facility] MDM 60-74 MINUTES Older, Janice, ANIMAL HUSBANDRY WORKER.HUMAN RESOURCES INTERN [address] [place] [address] Referral ID Status Reason Start Date Expiration Date Visits Requested Visits Authorized [id number] Authorized PCP Requested Referral Auto-Generate d Referral 2022 2023 1 1 Specialty Diagnoses / Procedures Referred By Contac t Referred To Contact [facility] Diagnoses Encounter for screening mammogram for breast cancer Procedures JASMINE SCREENING SCREENING MAMMOGRAPHY BI 2-VIEW BREAST INC CAD Older, Janice, ANIMAL HUSBANDRY WORKER.HUMAN RESOURCES INTERN [address] [place] [address] [facility] [address] [place] [address] Referral ID Status Reason Start Date Expiration Date Visits Requested Visits Authorized [id number] Authorized Auto-Generat ed Referral 2022 07/11/2023 1 [...] FoundDocuments on File Type Date Recorded Patient Set Builder Expl anation Advance Directive(s) 01/02/2016 10:21 AM Advance Directive(s) 12/26/2015 10:06 AM Documents on File Type Date Recorded Patient Set Builder Expl anation Advance Directive(s) 01/02/2016 10:21 AM [...] or prosecute any alcohol or drug abuse patient.[facility] the event this information is protected by the Federal Confidentiality of Alcohol and Drug Abuse Patient Records regulations: The Federal rules restrict any use of the information to criminally investigate or prosecute any alcohol or drug abuse patient.[facility] the event this information is protected by the Federal Confidentiality of Alcohol and Drug Abuse Patient Records regulations: The Federal rules restrict any use of the information to criminally investigate or prosecute any alcohol or drug abuse patient.[facility] the event this information is protected by the Federal Confidentiality of Alcohol and Drug Abuse Patient Records regulations: The Federal rules restrict any use of the information to criminally investigate or prosecute any alcohol or drug abuse patient.[facility] Hospital[facility] the event this information is protected by the Federal Confidentiality of Alcohol and Drug Abuse Patient Records regulations: The Federal rules restrict any use of the information to criminally investigate or prosecute any alcohol or drug abuse patient.[facility] Hospital[facility] the event this information is protected by the Federal Confidentiality of Alcohol and Drug Abuse Patient Records regulations: The Federal rules restrict any use of the information to criminally investigate or prosecute any alcohol or drug abuse patient.[facility] Hospital[facility] the event this information is protected by the Federal Confidentiality of Alcohol and Drug Abuse Patient Records regulations: The Federal rules restrict any use of the information to criminally investigate or prosecute any alcohol or drug abuse patient.[facility] Hospital[facility] the event this information is protected by the Federal Confidentiality of Alcohol and Drug Abuse Patient Records regulations: The Federal rules restrict any use of the information to criminally investigate or prosecute any alcohol or drug abuse patient.[facility] HospitalIn the event this information is protected by the Federal Confidentiality of Alcohol and Drug Abuse Patient Records regulations: The Federal rules restrict any use of the information to criminally investigate or prosecute any alcohol or drug abuse patient.[facility] HospitalIn the event this information is protected by the Federal Confidentiality of Alcohol and Drug Abuse Patient Records regulations: The Federal rules restrict any use of the information to criminally investigate or prosecute any alcohol or drug abuse patient.[facility] Hospital[facility] the event this information is protected by the Federal Confidentiality of Alcohol and Drug Abuse Patient Records regulations: The Federal rules restrict any use of the information to criminally investigate or prosecute any alcohol or drug abuse patient.[facility] Reason for Visit (unrecogniz ed section and [...] Phil Baldwin MD [address] [place] [address] [facility] [place] [address] [place] [address] Referral ID Status Reason Start Date Expiration Date V isits Requested Visits Authorized [id number] Closed Auto-Generate d Referral 03/03/2022 07/02/2022 1 [...] Care Teams (unrecognized sec tion and content) Tester Waste Disposal Leakage Relationship Specialty Start Date End Date Jon Salomon PCP - General Family Practice 09/19/15 Tester Waste Disposal Leakage Relationship Specialty Start Date End Date Jon Salomon PCP - General Family Practice 09/19/15 Tester Waste Disposal Leakage Relationship Specialty Start Date End Date Jon Salomon PCP - General Family Practice 09/19/15 Tester Waste Disposal Leakage Relationship Specialty Start Date End Date Ruben Perez MD [address] [place] [address] PCP - General Internal Medicine 06/11/22 Tester Waste Disposal Leakage Relationship Specialty Start Date End Date Ruben Perez MD [address] [place] [address] PCP - General Internal Medicine 06/11/22 Tester Waste Disposal Leakage Relationship Specialty Start Date End Date Ruben Perez MD [address] [place] [address] PCP - General Internal Medicine 06/11/22 Tester Waste Disposal Leakage Relationship Specialty Start Date End Date Ruben Perez MD [address] [place] [address] PCP - General Internal Medicine 06/11/22 Tester Waste Disposal Leakage Relationship Specialty Start Date End Date Jon Salomon PCP - General Family Medicine 09/19/15 03/24/22 Tester Waste Disposal Leakage Relationship Specialty Start Date End Date Ruben Perez MD [address] [place] [address] PCP - General Internal Medicine 06/11/22 Tester Waste Disposal Leakage Relationship Specialty Start Date End Date Ruben Perez MD [address] [place], [place] [address] PCP - General Internal Medicine 06/11/22 Janice Salazar, ANIMAL HUSBANDRY WORKER.HUMAN RESOURCES INTERN [address] [place], [place] [address] Plaster Patternmaker Internal Medicine 10/10/24 Tester Waste Disposal Leakage Relationship Specialty Start Date End Date Ruben Perez MD [address] [place] [address] PCP - General Internal Medicine 06/11/22 Janice Salazar, ANIMAL HUSBANDRY WORKER.HUMAN RESOURCES INTERN [address] [place], [place] [address] [employer] Internal Medicine 10/10/24 Care Team (unrecognized sect ion and content) Care Team Personnel Name: PHYSICIAN, NOT RECORDED Member Role: Primary Care Physician Care Team Related Persons Name: ZOLTAN VENTURA Address: Home [address] [place] [address] [place] INFORMATION SOURCE (unrecogn ized section and content) DATE CREATED AUTHOR 06/24/2024 [facility] DATE CREATED AUTHOR AUTHOR'S ORGANIZ ATION 11/14/2024 [facility] DATE CREATED AUTHOR AUTHOR'S ORGANIZ ATION 01/25/2025 [facility] DATE CREATED AUTHOR AUTHOR'S ORGANIZ ATION 07/21/2025 [facility] FOR RECORDS PERTAINING TO PATIENTS WHO [...] BE BASED ON THE PRIMARY CLINICAL RECORDS. [facility]. provides no warranty or guarantee of the accuracy or completeness of information in this document.
[2025-09-17] MEDS: Ketorolac 30 MG/ML Syringe IM (13:08)
[2025-09-17 14:23] VITALS: BP 147/98; PULSE 92; RESP 16; TEMP 36.7; O2SAT 100
== END 2025-09-17 14:56 | disposition home or self-care (01) ==
PROVIDERS: Emergency Provider Emergency Medicine; Visit Provider Emergency Medicine
DX: M25.531 Pain in right wrist (principal); Z87.891 Personal history of nicotine dependence; M65.4 Radial styloid tenosynovitis [de Quervain]; E78.5 Hyperlipidemia, unspecified
CPT/HCPCS: 73110; 96372; 99282